=== PATIENT | female | born 1965 | race African-American/Black ===

== ENCOUNTER 2017-11-13 01:45 | Inpatient (IN) | payer MEDICAID ==
[~2017-11-13] VITALS: Ht 170.2 cm; Wt 108.9 kg
[2017-11-13] VITALS (13 sets, daily range): BP systolic 119–194; BP diastolic 61–121
[~2017-11-13 01:45] MED LIST: ASPIR 8181 MG ORAL; CATAPRES0.2 MG ORAL; NAPROSYN500 M1 ORAL; NORCO 5-325 TA1 EACH ORAL; NOVOLIN 70/305 UNIT1 SUBQ; PREDNISONE20 MG ORAL; PROAIR HFA8.5 GM INH; ZESTORETIC 20/251 EA ORAL
[2017-11-13] MEDS: Ipratropium 0.02% Inh Soln 2.5ml UD HHN SCH ×3 (02:22→02:36)
[2017-11-13] MEDS: Albuterol ud Inhalation HHN SCH ×3 (02:23→02:36)
--- NOTE | 2017-11-13 02:59 | Emergency Room Report ---
History of Present Illness General Chief Complaint: Dyspnea/Respdistress Source: Patient Present Illness HPI 51-year-old female presents ED for evaluation. States she's been feeling short of breath. Notes history of asthma. Worse today. Given breathing treatments by EMS with some improvement. Denies fevers or chills. Denies cough. No other aggravating relieving factors. Denies any other associated symptoms Allergies: Coded Allergies: FISH CONTAINING PRODUCTS (Unverified Allergy, Unknown, 11/02/13) IBUPROFEN (Unverified Allergy, Unknown, 11/02/13) PENICILLIN G (Unverified Allergy, Unknown, 11/02/13) PENICILLINS (Unverified Allergy, Unknown, 11/28/14) Patient History Past Medical History: DM, asthma Past Surgical History: none Pertinent Family History: none Social History: Denies: smoking, alcohol use, drug use Last Menstrual Period: NA Now: No Immunizations: UTD Reviewed Nursing Documentation: PMH: Agreed, PSxH: Agreed Nursing Documentation-PMH Hx Hypertension: Yes Hx Asthma: Yes Hx Diabetes: Yes Review of Systems All Other Systems: negative except mentioned in HPI Physical Exam Vital Signs Date Time Temp Pulse Resp B/P (MAP) Pulse Ox O2 Delivery O2 Flow Rate FiO2 11/13/17 01:52 98.1 98 18 139/67 99 Room Air 11/13/17 02:15 21 Sp02 EP Interpretation: reviewed, normal General Appearance: no apparent distress, alert, GCS 15, non-toxic, obese Head: normocephalic, atraumatic Eyes: bilateral eye normal inspection, bilateral eye PERRL ENT: hearing grossly normal, normal pharynx, no angioedema, normal voice Neck: full range of motion, supple/symm/no masses Respiratory: chest non-tender, speaking full sentences, wheezing Cardiovascular #1: regular rate, rhythm, no edema Cardiovascular #2: 2+ carotid (R), 2+ carotid (L), 2+ radial (R), 2+ radial (L) , 2+ dorsalis pedis (R), 2+ dorsalis pedis (L) Gastrointestinal: normal bowel sounds, non tender, soft, non-distended, no guarding, no rebound Rectal: deferred Genitourinary: normal inspection, no CVA tenderness Musculoskeletal: back normal, gait/station normal, normal range of motion, non- tender Neurologic: alert, oriented x3, responsive, motor strength/tone normal, sensory intact, speech normal Psychiatric: judgement/insight normal, memory normal, mood/affect normal, no suicidal/homicidal ideation Reflexes: 3+ bicep (R), 3+ bicep (L), 3+ tricep (R), 3+ tricep (L), 3+ knee (R) , 3+ knee (L) Skin: normal color, no rash, warm/dry, well hydrated Lymphatic: no adenopathy Medical Decision Making Diagnostic Impression: Primary Impression: Acute asthma exacerbation Qualified Codes: J45.901 - Unspecified asthma with (acute) exacerbation Additional Impression: Respiratory distress ER Course Hospital Course 51-year-old female presents ED complaining of shortness of breath, wheezing Differential diagnoses include: DC/unstable angina, contusion, muscle strain, PTX, rib fracture Clinical course Patient placed on stretcher. on rn cardiac. After initial history and physical I ordered nebulizer treatments, prednisone patient states she feels somewhat better, but remains SOB I ordered labs, EKG, chest x-ray labs reviewed- no leukocytosis, hemoglobin/hematocrit stable, creatinine elevated, troponins negative EKG - NSR, no acute ischemic changes interpreted by me Chest x-ray- pulmonary congestion antibiotics given. Case discussed with Dr. Kasper and he agreed to accept the patient to his service for further care and support I. I feel this is a highly complex case requiring extensive working including EKG/Rhythm strip, Xray/CT/US, Blood/urine lab work, repeat exams while in ED, and administration of strong opiates/narcotics for pain control, admission to hospital or close patient follow up. Diagnosis - asthma exacerbation, resp distress admitted to telemetry in serious condition Labs Test 11/13/17 03:30 White Blood Count 9.6 K/UL (4.8-10.8) Red Blood Count 4.13 M/UL (4.20-5.40) Hemoglobin 11.3 G/DL (12.0-16.0) Hematocrit 35.4 % (37.0-47.0) Mean Corpuscular Volume 86 FL (80-99) Mean Corpuscular Hemoglobin 27.3 PG (27.0-31.0) Mean Corpuscular Hemoglobin Concent 31.8 G/DL (32.0-36.0) Red Cell Distribution Width 13.7 % (11.6-14.8) Platelet Count 277 K/UL (150-450) Mean Platelet Volume 6.3 FL (6.5-10.1) Neutrophils (%) (Auto) 74.1 % (45.0-75.0) Lymphocytes (%) (Auto) 17.5 % (20.0-45.0) Monocytes (%) (Auto) 4.9 % (1.0-10.0) Eosinophils (%) (Auto) 2.3 % (0.0-3.0) Basophils (%) (Auto) 1.2 % (0.0-2.0) Sodium Level 137 MMOL/L (136-145) Potassium Level 4.3 MMOL/L (3.5-5.1) Chloride Level 101 MMOL/L (98-107) Carbon Dioxide Level 26 MMOL/L (21-32) Anion Gap 10 mmol/L (5-15) Blood Urea Nitrogen 20 mg/dL (7-18) Creatinine 1.0 MG/DL (0.55-1.30) Estimat Glomerular Filtration Rate > 60 mL/min (>60) Glucose Level 330 MG/DL (74-106) Lactic Acid Level 3.30 mmol/L (0.66-2.22) Calcium Level 9.9 MG/DL (8.5-10.1) Total Bilirubin < 0.1 MG/DL (0.2-1.0) Aspartate Amino Transf (AST/SGOT) 14 U/L (15-37) Alanine Aminotransferase (ALT/SGPT) 19 U/L (12-78) Alkaline Phosphatase 127 U/L (46-116) Total Creatine Kinase 82 U/L (26-308) Creatine Kinase MB 0.8 NG/ML (0.0-3.6) Creatine Kinase MB Relative Index 0.9 Troponin I 0.000 ng/mL (0.000-0.056) Pro-B-Type Natriuretic Peptide 179 pg/mL (0-125) Total Protein 7.0 G/DL (6.4-8.2) Albumin 3.0 G/DL (3.4-5.0) Globulin 4.0 g/dL Albumin/Globulin Ratio 0.8 (1.0-2.7) EKG Diagnostic Results Rate: normal Rhythm: NSR ST Segments: no acute changes ASA given to the pt in ED: No Rhythm Strip Diag. Results EP Interpretation: yes Rhythm: NSR, no PVC's, no ectopy Chest X-Ray Diagnostic Results Chest X-Ray Diagnostic Results : Chest X-Ray Ordered: Yes # of Views/Limited/Complete: 1 View Indication: Shortness of Breath EP Interpretation: Yes Interpretation: no pneumothorax, other - cardiomegaly. interstitial congestion Impression: Other - chf Electronically Signed by: Electronically signed by Austin Santos MD Last Vital Signs Date Time Temp Pulse Resp B/P (MAP) Pulse Ox O2 Delivery O2 Flow Rate FiO2 11/13/17 02:46 101 32 100 Room Air 21 11/13/17 01:52 98.1 139/67 Status: improved Disposition: ADMITTED INPATIENT Condition: Serious AUSTIN SANTOS M.D. Nov 13, 2017 02:59
[2017-11-13] MEDS ORDERED: Sodium Chloride 500ML 500 ML IV ONE (03:09)
[2017-11-13 03:49] LABS: BASOPHILS % (AUTO) 1.2 % (0.0-2.0); EOSINOPHILS % (AUTO) 2.3 % (0.0-3.0); HEMATOCRIT 35.4 % (37.0-47.0); HEMOGLOBIN 11.3 G/DL (12.0-16.0); LYMPHOCYTES % (AUTO) 17.5 % (20.0-45.0); MEAN CORPUSCULAR VOLUME 86 FL (80-99); MONOCYTES % (AUTO) 4.9 % (1.0-10.0); NEUTROPHILS % (AUTO) 74.1 % (45.0-75.0); PLATELET COUNT 277 K/UL (150-450); RED BLOOD COUNT 4.13 M/UL (4.20-5.40); RED CELL DISTRIBUTION WIDTH 13.7 % (11.6-14.8); WHITE BLOOD COUNT 9.6 K/UL (4.8-10.8)
[2017-11-13 03:54] LABS: ANION GAP 10 mmol/L (5-15); BLOOD UREA NITROGEN 20 mg/dL (7-18); CALCIUM 9.9 MG/DL (8.5-10.1); CARBON DIOXIDE 26 MMOL/L (21-32); CHLORIDE 101 MMOL/L (98-107); POTASSIUM 4.3 MMOL/L (3.5-5.1); SODIUM 137 MMOL/L (136-145)
[2017-11-13 04:08] LABS: ALANINE AMINOTRANSFERASE 19 U/L (12-78); ALBUMIN/GLOBULIN RATIO 0.8 (1.0-2.7); ALKALINE PHOSPHATASE 127 U/L (46-116); ASPARTATE AMINO TRANSFERASE 14 U/L (15-37); BILIRUBIN,TOTAL < 0.1 MG/DL (0.2-1.0); CKMB 0.8 NG/ML (0.0-3.6); CREATINE KINASE 82 U/L (26-308)
--- NOTE | 2017-11-13 10:55 | Cardiac Electrophysiology PN ---
Subjective Subjective Cardiology consult dictated [id number] Objective Last 24 Hour Vital Signs Date Time Temp Pulse Resp B/P (MAP) Pulse Ox O2 Delivery O2 Flow Rate FiO2 11/13/17 08:00 98.1 96 20 145/94 96 Nasal Cannula 2.0 11/13/17 08:00 98 11/13/17 06:38 97.5 97 20 153/82 99 Nasal Cannula 2.0 11/13/17 06:10 98 26 126/78 96 Room Air 11/13/17 05:15 98.0 95 21 122/65 98 Room Air 21 11/13/17 04:15 98.2 98 22 119/61 97 Room Air 21 11/13/17 03:15 98.1 90 32 131/69 100 Room Air 21 11/13/17 02:46 101 32 100 Room Air 21 11/13/17 02:35 36 11/13/17 02:35 98 27 100 Room Air 21 11/13/17 02:26 93 30 97 Room Air 21 11/13/17 02:21 36 11/13/17 02:21 87 28 97 Room Air 21 11/13/17 02:20 85 28 98 Room Air 21 11/13/17 02:15 98.1 89 31 132/67 95 Room Air 36 11/13/17 02:15 36 11/13/17 02:15 89 31 96 Room Air 21 11/13/17 02:01 98 18 Room Air 11/13/17 01:52 98.1 98 18 139/67 99 Room Air Intake and Output 11/12/17 11/13/17 19:00 07:00 Intake Total 500 ml Output Total 0 ml Balance 500 ml Intake IV Total 500 ml Output Urine Total 0 ml Laboratory Tests Test 11/13/17 03:30 11/13/17 05:15 White Blood Count 9.6 K/UL (4.8-10.8) Red Blood Count 4.13 M/UL (4.20-5.40) L Hemoglobin 11.3 G/DL (12.0-16.0) L Hematocrit 35.4 % (37.0-47.0) L Mean Corpuscular Volume 86 FL (80-99) Mean Corpuscular Hemoglobin 27.3 PG (27.0-31.0) Mean Corpuscular Hemoglobin Concent 31.8 G/DL (32.0-36.0) L Red Cell Distribution Width 13.7 % (11.6-14.8) Platelet Count 277 K/UL (150-450) Mean Platelet Volume 6.3 FL (6.5-10.1) L Neutrophils (%) (Auto) 74.1 % (45.0-75.0) Lymphocytes (%) (Auto) 17.5 % (20.0-45.0) L Monocytes (%) (Auto) 4.9 % (1.0-10.0) Eosinophils (%) (Auto) 2.3 % (0.0-3.0) Basophils (%) (Auto) 1.2 % (0.0-2.0) Sodium Level 137 MMOL/L (136-145) Potassium Level 4.3 MMOL/L (3.5-5.1) Chloride Level 101 MMOL/L (98-107) Carbon Dioxide Level 26 MMOL/L (21-32) Anion Gap 10 mmol/L (5-15) Blood Urea Nitrogen 20 mg/dL (7-18) H Creatinine 1.0 MG/DL (0.55-1.30) Estimat Glomerular Filtration Rate > 60 mL/min (>60) Glucose Level 330 MG/DL (74-106) H Lactic Acid Level 3.30 mmol/L (0.66-2.22) H 2.90 mmol/L (0.66-2.22) H Calcium Level 9.9 MG/DL (8.5-10.1) Total Bilirubin < 0.1 MG/DL (0.2-1.0) L Aspartate Amino Transf (AST/SGOT) 14 U/L (15-37) L Alanine Aminotransferase (ALT/SGPT) 19 U/L (12-78) Alkaline Phosphatase 127 U/L (46-116) H Total Creatine Kinase 82 U/L (26-308) Creatine Kinase MB 0.8 NG/ML (0.0-3.6) Creatine Kinase MB Relative Index 0.9 Troponin I 0.000 ng/mL (0.000-0.056) Pro-B-Type Natriuretic Peptide 179 pg/mL (0-125) H Total Protein 7.0 G/DL (6.4-8.2) Albumin 3.0 G/DL (3.4-5.0) L Globulin 4.0 g/dL Albumin/Globulin Ratio 0.8 (1.0-2.7) GERRY BOOTHE Nov 13, 2017 10:55
--- NOTE | 2017-11-13 12:22 | Diagnostic Imaging Report ---
Indication: Shortness of breath Technique: One view of the chest Comparison: 11/02/2013 Findings: Body habitus limits evaluation. The heart is upper limits normal in size. There is equivocal mild interstitial congestion, not evident previously Impression: Equivocal mild interstitial congestion correlate with clinical findings
[2017-11-13] MEDS: Albuterol/Ipratropium 3ml neb HHN PRN ×2 (12:54→19:54)
[2017-11-13] MEDS: Solu-MEDROL 40mg Inj IVP SCH ×2 (13:43→22:00)
[2017-11-13] MEDS: HYDROmorphone 1mg/ml Carpuject IVP PRN ×3 (13:44→22:42)
[2017-11-13] MEDS: Lisinopril 10mg tab ORAL SCH ×2 (13:44→21:18)
--- NOTE | 2017-11-13 14:09 | Infectious Diseases Prog Note ---
Assessment/Plan Problems: (1) Community acquired pneumonia Assessment & Plan: will send sputum culture and screen for influenza , start levaquin and tamiflu empiric coverage, place in droplets isolation (2) Acute asthma exacerbation Assessment & Plan: due to the above , continue nebulizers, taper steroids (3) Respiratory distress Assessment & Plan: due to the above, monitor CXR, pulmonary is consulted (4) Diabetes Assessment & Plan: recommend tight glycemic control to keep blood glucose between 100-140 Subjective Allergies: Coded Allergies: FISH CONTAINING PRODUCTS (Unverified Allergy, Unknown, 11/02/13) IBUPROFEN (Unverified Allergy, Unknown, 11/02/13) PENICILLIN G (Unverified Allergy, Unknown, 11/02/13) PENICILLINS (Unverified Allergy, Unknown, 11/28/14) Objective Vital Signs Last 24 Hour Vital Signs Date Time Temp Pulse Resp B/P (MAP) Pulse Ox O2 Delivery O2 Flow Rate FiO2 11/13/17 13:50 98.1 102 20 188/102 98 Nasal Cannula 2.0 11/13/17 13:44 188/102 11/13/17 13:08 96 23 100 Room Air 11/13/17 12:56 96 22 100 Room Air 11/13/17 08:00 98.1 96 20 145/94 96 Nasal Cannula 2.0 11/13/17 08:00 98 11/13/17 06:38 97.5 97 20 153/82 99 Nasal Cannula 2.0 11/13/17 06:10 98 26 126/78 96 Room Air 11/13/17 05:15 98.0 95 21 122/65 98 Room Air 21 11/13/17 04:15 98.2 98 22 119/61 97 Room Air 21 11/13/17 03:15 98.1 90 32 131/69 100 Room Air 21 11/13/17 02:46 101 32 100 Room Air 21 11/13/17 02:35 36 11/13/17 02:35 98 27 100 Room Air 21 11/13/17 02:26 93 30 97 Room Air 21 11/13/17 02:21 36 11/13/17 02:21 87 28 97 Room Air 21 11/13/17 02:20 85 28 98 Room Air 21 11/13/17 02:15 98.1 89 31 132/67 95 Room Air 36 11/13/17 02:15 36 11/13/17 02:15 89 31 96 Room Air 21 11/13/17 02:01 98 18 Room Air 11/13/17 01:52 98.1 98 18 139/67 99 Room Air Height (Feet): 5 Height (Inches): 7.00 Weight (Pounds): 240 Laboratory Tests Test 11/13/17 03:30 11/13/17 05:15 White Blood Count 9.6 K/UL (4.8-10.8) Red Blood Count 4.13 M/UL (4.20-5.40) L Hemoglobin 11.3 G/DL (12.0-16.0) L Hematocrit 35.4 % (37.0-47.0) L Mean Corpuscular Volume 86 FL (80-99) Mean Corpuscular Hemoglobin 27.3 PG (27.0-31.0) Mean Corpuscular Hemoglobin Concent 31.8 G/DL (32.0-36.0) L Red Cell Distribution Width 13.7 % (11.6-14.8) Platelet Count 277 K/UL (150-450) Mean Platelet Volume 6.3 FL (6.5-10.1) L Neutrophils (%) (Auto) 74.1 % (45.0-75.0) Lymphocytes (%) (Auto) 17.5 % (20.0-45.0) L Monocytes (%) (Auto) 4.9 % (1.0-10.0) Eosinophils (%) (Auto) 2.3 % (0.0-3.0) Basophils (%) (Auto) 1.2 % (0.0-2.0) Sodium Level 137 MMOL/L (136-145) Potassium Level 4.3 MMOL/L (3.5-5.1) Chloride Level 101 MMOL/L (98-107) Carbon Dioxide Level 26 MMOL/L (21-32) Anion Gap 10 mmol/L (5-15) Blood Urea Nitrogen 20 mg/dL (7-18) H Creatinine 1.0 MG/DL (0.55-1.30) Estimat Glomerular Filtration Rate > 60 mL/min (>60) Glucose Level 330 MG/DL (74-106) H Lactic Acid Level 3.30 mmol/L (0.66-2.22) H 2.90 mmol/L (0.66-2.22) H Calcium Level 9.9 MG/DL (8.5-10.1) Total Bilirubin < 0.1 MG/DL (0.2-1.0) L Aspartate Amino Transf (AST/SGOT) 14 U/L (15-37) L Alanine Aminotransferase (ALT/SGPT) 19 U/L (12-78) Alkaline Phosphatase 127 U/L (46-116) H Total Creatine Kinase 82 U/L (26-308) Creatine Kinase MB 0.8 NG/ML (0.0-3.6) Creatine Kinase MB Relative Index 0.9 Troponin I 0.000 ng/mL (0.000-0.056) Pro-B-Type Natriuretic Peptide 179 pg/mL (0-125) H Total Protein 7.0 G/DL (6.4-8.2) Albumin 3.0 G/DL (3.4-5.0) L Globulin 4.0 g/dL Albumin/Globulin Ratio 0.8 (1.0-2.7) L Current Medications Medications (Trade) Dose Ordered Sig/Pantera Route PRN Reason Start Time Stop Time Status Last Admin Dose Admin Acetaminophen (Tylenol) 650 mg Q4H PRN ORAL Mild Pain (Pain Scale 1-3) 11/13/17 12:45 12/13/17 12:44 Albuterol/ Ipratropium (Albuterol/ Ipratropium) 3 ml Q4H PRN HHN Shortness of Breath 11/13/17 12:45 11/18/17 12:44 11/13/17 12:54 Dextrose (Dextrose 50%) STAT PRN IV Hypoglycemia 11/13/17 12:45 12/13/17 12:44 Furosemide (Lasix) 40 mg EVERY 12 HOURS IV 11/13/17 21:00 12/13/17 20:59 Heparin Sodium (Porcine) (Heparin 5000 units/ml) 5,000 units EVERY 12 HOURS SUBQ 11/13/17 21:00 12/13/17 20:59 Hydromorphone HCl (Dilaudid) 1 mg Q4H PRN IVP pain (4-10) 11/13/17 13:45 11/20/17 13:44 11/13/17 13:44 Insulin Aspart (NovoLOG) BEFORE MEALS AND HS SUBQ 11/13/17 16:30 12/13/17 16:29 Lisinopril (Zestril) 10 mg EVERY 12 HOURS ORAL 11/13/17 13:15 12/13/17 13:14 11/13/17 13:44 Methylprednisolone Sodium Succinate (Solu-MEDROL) 40 mg EVERY 8 HOURS IVP 11/13/17 14:00 12/13/17 13:59 11/13/17 13:43 Ondansetron HCl (Zofran) 4 mg Q6H PRN IVP Nausea & Vomiting 11/13/17 12:45 12/13/17 12:44 Rodrigo Elizabeth M.D. Nov 13, 2017 14:09
--- NOTE | 2017-11-13 14:34 | Cardiology Report ---
APPROVED REPORT EXAM: Two-dimensional and M-mode echocardiogram with Doppler and color Doppler. INDICATION Congestive Heart Failure M-Mode DIMENSIONS IVSd1.2 (0.7-1.1cm)Left Atrium (MM)3.6 (1.6-4.0cm) LVDd4.0 (3.5-5.6cm)Aortic Root3.8 (2.0-3.7cm) PWd1.0 (0.7-1.1cm)Aortic Cusp Exc.2.0 (1.5-2.0cm) LVDs2.5 (2.5-4.0cm) PWs1.7 cm Normal left ventricular chamber size, systolic function and wall motion. Left ventricular ejection fraction estimated to be 60-65 %. Mild left ventricular hypertrophy. Anterior Echo-free space, may be due to pericardial fat or effusion. All other cardiac chamber sizes are within normal limits. Mild focal aortic valve sclerosis with adequate cusp excursion. Mildly thickened mitral valve leaflets with normal excursion. Mild mitral annulus and aortic root calcification. Normal pulmonic valve structure. Normal tricuspid valve structure. IVC dilated at 2.1 cm with physiological collapse. A color flow and spectral Doppler study was performed and revealed: No aortic insufficiency. No mitral regurgitation. Mitral diastolic velocities suggest mild left ventricular diastolic dysfunction (Grade I). Trace tricuspid regurgitation. Tricuspid systolic velocities suggests peak right ventricular systolic pressure of 20 mmHg. No pulmonic regurgitation present.
[2017-11-13] MEDS: Oseltamivir 75mg cap ORAL SCH (16:20)
[2017-11-13] MEDS: NovoLOG Insulin Flexpen SUBQ SCH ×2 (16:21→22:50)
--- NOTE | 2017-11-13 17:00 | Consultation ---
DATE OF CONSULTATION: 11/13/2017 CARDIOLOGY CONSULTATION CONSULTING PHYSICIAN: Jamey Ibrahim M.D. REFERRING PHYSICIAN: Nelson Abdullahi M.D. REASON FOR CONSULTATION: Shortness of breath and possible congestive heart failure. HISTORY OF PRESENT ILLNESS: The patient is a 51-year-old lady with history of diabetes, asthma, and congestive heart failure per the patient that was diagnosed at [facility] about a year ago. The patient denies prior cardiac catheterization. The patient presented to the emergency room for increasing shortness of breath. The patient has history of asthma and diabetes, and is feeling worse today. The patient received breathing treatment primarily with some improvement. The patient was admitted and a Cardiology consultation was obtained for further evaluation and management. PAST MEDICAL HISTORY: 1. Hypertension. 2. Diabetes. 3. Asthma. 4. Congestive heart failure. FAMILY HISTORY: Noncontributory. SOCIAL HISTORY: Denies smoking or drinking alcohol. REVIEW OF SYSTEMS: Review of systems was negative other than what was mentioned in the history of present illness. PHYSICAL EXAMINATION: VITAL SIGNS: Blood pressure is 145/94, pulse 96, respirations 20, and temperature 98.1 degrees. HEAD AND NECK: Shows no JVD. LUNGS: Decreased breath sounds with diffuse wheezing. CARDIOVASCULAR: Regular S1 and S2. Mildly tachycardic. ABDOMEN: Soft. EXTREMITIES: A 2+ pitting edema. LABORATORY AND DIAGNOSTIC DATA: Labs show white count of 9.0, hemoglobin 11.4, hematocrit 35.4, and platelet count of 277. Sodium 137, potassium 4.2, BUN of 20, and creatinine of 1. Lactic acid is 3.3. Her troponin is negative and BNP is 179. ASSESSMENT AND PLAN: 1. Shortness of breath. 2. Bilateral lower extremity edema. 3. Elevated brain natriuretic peptide, likely congestive heart failure. We will get an echocardiogram to evaluate for ejection fraction and wall motion abnormality. We will start the patient on Lasix 40 mg IV b.i.d. 4. Hypertension, start the patient on Lasix and lisinopril in view of patient's diabetes. 5. Diabetes. 6. Asthma. 7. Obesity. Thank you very much, Dr. Abdullahi, for allowing me to participate in the care of this patient. Please do not hesitate to contact me for any questions regarding my evaluation. Jamey Ibrahim M.D. DR: YESSY JOB#: [id number] CC:
--- NOTE | 2017-11-13 17:09 | Cardiology Report ---
APPROVED REPORT EKG Measurement Heart [id number] Normal sinus rhythm Prolonged QT Abnormal ECG
--- NOTE | 2017-11-13 17:57 | Nephrology Progress Note ---
Assessment/Plan Problem List: (1) D-dimer, elevated (2) Anxiety disorder (3) HTN (hypertension) (4) CHF (congestive heart failure) (5) Obesity (6) acute exacerbation of chronic pain (7) Active asthma (8) Shortness of breath (9) Diabetes Plan H&P dictated Subjective Constitutional: Denies: no symptoms, chills, diaphoresis, fever, malaise, weakness, other HEENT: Denies: no symptoms, eye pain, blurred vision, tearing, double vision, ear pain, ear discharge, nose pain, nose congestion, throat pain, throat swelling, mouth pain, mouth swelling, other Genitourinary: Reports: no symptoms, Denies: burning, discharge, frequency, flank pain, hematuria, incontinence, pain, urgency, other Neurologic/Psychiatric: Reports: anxiety, depressed, emotional problems Objective Objective Last 24 Hour Vital Signs Date Time Temp Pulse Resp B/P (MAP) Pulse Ox O2 Delivery O2 Flow Rate FiO2 11/13/17 16:00 97.9 89 20 155/95 97 Nasal Cannula 2.0 11/13/17 14:51 103 176/104 11/13/17 14:14 98.1 11/13/17 13:50 98.1 102 20 188/102 98 Nasal Cannula 2.0 11/13/17 13:44 188/102 11/13/17 13:08 96 23 100 Room Air 11/13/17 12:56 96 22 100 Room Air 11/13/17 12:00 103 11/13/17 12:00 98.1 102 20 188/102 98 Nasal Cannula 2.0 11/13/17 08:00 98.1 96 20 145/94 96 Nasal Cannula 2.0 11/13/17 08:00 98 11/13/17 06:38 97.5 97 20 153/82 99 Nasal Cannula 2.0 11/13/17 06:10 98 26 126/78 96 Room Air 11/13/17 05:15 98.0 95 21 122/65 98 Room Air 21 11/13/17 04:15 98.2 98 22 119/61 97 Room Air 21 11/13/17 03:15 98.1 90 32 131/69 100 Room Air 21 11/13/17 02:46 101 32 100 Room Air 21 11/13/17 02:35 36 11/13/17 02:35 98 27 100 Room Air 21 11/13/17 02:26 93 30 97 Room Air 21 11/13/17 02:21 36 11/13/17 02:21 87 28 97 Room Air 21 11/13/17 02:20 85 28 98 Room Air 21 11/13/17 02:15 98.1 89 31 132/67 95 Room Air 36 11/13/17 02:15 36 11/13/17 02:15 89 31 96 Room Air 21 11/13/17 02:01 98 18 Room Air 11/13/17 01:52 98.1 98 18 139/67 99 Room Air Intake and Output 11/12/17 11/13/17 19:00 07:00 Intake Total 500 ml Output Total 0 ml Balance 500 ml IV Total 500 ml Output Urine Total 0 ml Laboratory Tests 11/13/17 03:30: White Blood Count 9.6, Red Blood Count 4.13L, Hemoglobin 11.3L, Hematocrit 35.4L , Mean Corpuscular Volume 86, Mean Corpuscular Hemoglobin 27.3, Mean Corpuscular Hemoglobin Concent 31.8L, Red Cell Distribution Width 13.7, Platelet Count 277, Mean Platelet Volume 6.3L, Neutrophils (%) (Auto) 74.1, Lymphocytes (%) (Auto) 17.5L, Monocytes (%) (Auto) 4.9, Eosinophils (%) (Auto) 2.3, Basophils (%) (Auto) 1.2, Sodium Level 137, Potassium Level 4.3, Chloride Level 101, Carbon Dioxide Level 26, Anion Gap 10, Blood Urea Nitrogen 20H, Creatinine 1.0, Estimat Glomerular Filtration Rate > 60, Glucose Level 330H, Lactic Acid Level 3.30H, Calcium Level 9.9, Total Bilirubin < 0.1L, Aspartate Amino Transf (AST/SGOT) 14L, Alanine Aminotransferase (ALT/SGPT) 19, Alkaline Phosphatase 127H, Total Creatine Kinase 82, Creatine Kinase MB 0.8, Creatine Kinase MB Relative Index 0.9, Troponin I 0.000, Pro-B-Type Natriuretic Peptide 179H, Total Protein 7.0, Albumin 3.0L, Globulin 4.0, Albumin/Globulin Ratio 0.8L 11/13/17 05:15: Lactic Acid Level 2.90H 11/13/17 15:20: D-Dimer 0.52H Height (Feet): 5 Height (Inches): 7.00 Weight (Pounds): 240 General Appearance: no apparent distress, alert EENT: normal ENT inspection Neck: normal alignment, supple Cardiovascular: normal rate, regular rhythm, no JVD Respiratory/Chest: normal breath sounds, no respiratory distress Abdomen: soft, no organomegaly Extremities: non-tender, moderate edema Neurologic: alert, oriented x 3, responsive, normal mood/affect Divya Nelson N.P. Nov 13, 2017 17:57
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
[2017-11-13] MEDS: LORazepam 1mg tab ORAL PRN (21:18)
[2017-11-13] MEDS: Heparin 5000 units/ml inj SUBQ SCH (21:20)
--- NOTE | 2017-11-13 21:31 | Consultation ---
DATE OF CONSULTATION: 11/13/2017 INFECTIOUS DISEASE CONSULTATION REQUESTING PHYSICIAN: Nelson Abdullahi M.D. REASON FOR CONSULTATION: Pneumonia, asthma exacerbation, recommendation for antibiotics treatment and further evaluation. HISTORY OF PRESENT ILLNESS: The patient is a 51-year-old female with past medical history of asthma, diabetes and hypertension, presented to the emergency room at [facility] with worsening shortness of breath and cough, productive. It started two days ago after she had some workers at home fixing ventilators and one of them was coughing and sneezing. The patient got sick after that. She started coughing and having shortness of breath. Her shortness of breath was progressive to the point that she almost passed out when she was going to the bathroom. Cough has been productive so far of yellowish phlegm. She had low-grade fever, but no chills. In the emergency room, the patient had a chest x-ray, which showed interstitial edema suspicious for pneumonia. So, she received Levaquin and Infectious Disease consultation was requested for further evaluation and management. PAST MEDICAL HISTORY: Significant for hypertension, asthma, and diabetes. PAST SURGICAL HISTORY: Negative. Nothing on the chart. MEDICATIONS: She received Levaquin in the emergency room. For the rest of her medications, please refer to MAR. ALLERGIES: She is allergic to penicillin, ibuprofen and fish containing products. SOCIAL HISTORY: The patient lives at home alone. She used to smoke, but quit recently one packet per day for many years and denies using any drugs or alcohol. FAMILY HISTORY: Negative for recurrent infection or immunocompromised condition. REVIEW OF SYSTEMS: A 14-point of system reviewed were all negative apart from the one I mentioned above in my History and Physical. PHYSICAL EXAMINATION: GENERAL: A middle-aged female, morbidly obese, up in bed, awake, alert, coughing, not in acute distress. VITAL SIGNS: Temperature 98.1 degrees, pulse 102, respirations 20, blood pressure 188/102 and pulse oximetry 98% on 2 liters nasal cannula. HEENT: Normocephalic and atraumatic. Pupils reactive to light equally. Moist oral mucosa. No exudate or thrush. No ulceration. NECK: Supple. No lymphadenopathy. No JVD. CARDIOVASCULAR: Regular rate and rhythm. No murmur. No gallop. LUNGS: She had crackles and wheezing at the upper lobes. Diminished breathing sounds at the bases. Normal breathing effort. ABDOMEN: Soft, morbidly obese, nontender, and nondistended. Normal bowel sounds. No hepatosplenomegaly. EXTREMITY: No edema or cyanosis. SKIN: No rash. No hives. No ulceration. LABORATORY AND DIAGNOSTIC DATA: White count of 9.6, hemoglobin of 11.3 and platelet count 277. BUN of 20 and creatinine of 1. Lactic acid of 3.3. AST of 14 and ALT of 19. Imaging, chest x-ray showed good local mild interstitial congestion. ASSESSMENT AND RECOMMENDATION: 1. Community-acquired pneumonia with cough and shortness of breath. We will send sputum culture and screen for influenza. We will start Levaquin and Tamiflu empiric coverage and placed in droplet isolation. 2. Acute asthma exacerbation due to the above. Continue nebulizers and taper steroid. 3. Respiratory distress due to the above. Monitor chest x-ray. Pulmonary is consulted. 4. Diabetes. Recommend tight glycemic control to keep blood glucose between 100 to 140. Thank you for the consult. ID will continue to follow. Rodrigo Elizabeth M.D. DR: DANE JOB#: [id number] CC:
[2017-11-14] VITALS (7 sets, daily range): BP systolic 153–195; BP diastolic 86–109
[2017-11-14] MEDS: LORazepam 1mg tab ORAL PRN ×3 (03:12→18:58)
[2017-11-14] MEDS: HYDROmorphone 1mg/ml Carpuject IVP PRN ×4 (03:12→20:32)
[2017-11-14] MEDS: Albuterol/Ipratropium 3ml neb HHN PRN ×2 (03:21→08:16)
[2017-11-14] MEDS: Solu-MEDROL 40mg Inj IVP SCH ×3 (06:00→22:14)
[2017-11-14] MEDS: NovoLOG Insulin Flexpen SUBQ SCH ×4 (06:30→22:14)
[2017-11-14 07:51] LABS: HEMATOCRIT 35.8 % (37.0-47.0); MEAN CORPUSCULAR VOLUME 86 FL (80-99); PLATELET COUNT 302 K/UL (150-450); RED BLOOD COUNT 4.14 M/UL (4.20-5.40); RED CELL DISTRIBUTION WIDTH 13.8 % (11.6-14.8); WHITE BLOOD COUNT 9.9 K/UL (4.8-10.8)
[2017-11-14 08:21] LABS: ANION GAP 7 mmol/L (5-15); BLOOD UREA NITROGEN 24 mg/dL (7-18); CALCIUM 10.1 MG/DL (8.5-10.1); CARBON DIOXIDE 29 MMOL/L (21-32); CHLORIDE 99 MMOL/L (98-107); CREATININE 1.3 MG/DL (0.55-1.30); POTASSIUM 4.2 MMOL/L (3.5-5.1); SODIUM 135 MMOL/L (136-145)
[2017-11-14] MEDS: Lisinopril 10mg tab ORAL SCH ×2 (08:42→20:57)
[2017-11-14] MEDS: Oseltamivir 75mg cap ORAL SCH (08:42)
[2017-11-14] MEDS: Heparin 5000 units/ml inj SUBQ SCH ×2 (08:43→22:12)
--- NOTE | 2017-11-14 10:13 | Consultation ---
Consult Note Consult Note DATE OF CONSULTATION: 11/14/2017 PULMONOLOGY CONSULTATION CONSULTING PHYSICIAN: STEVAN ESQUIVEL M.D. REFERRING PHYSICIAN: Nelson Abdullahi M.D. REASON FOR CONSULTATION: Shortness of breath and possible asthma. HISTORY OF PRESENT ILLNESS: The patient is a 51-year-old lady with history of diabetes, asthma, and congestive heart failure per the patient that was diagnosed at [facility] about a year ago. The patient presented to the emergency room for increasing shortness of breath. The patient has history of asthma and diabetes, and is feeling worse today. The patient received breathing treatment primarily with some improvement. PAST MEDICAL HISTORY: 1. Hypertension. 2. Diabetes. 3. Asthma. 4. Congestive heart failure. FAMILY HISTORY: Noncontributory. SOCIAL HISTORY: Admits to tobacco smoking/ questionable marijuana REVIEW OF SYSTEMS: Review of systems was negative other than what was mentioned in the history of present illness. PHYSICAL EXAMINATION: VITAL SIGNS: Blood pressure is 145/94, pulse 96, respirations 20, and temperature 98.1 degrees. HEAD AND NECK: Shows no JVD. LUNGS: Decreased breath sounds with diffuse wheezing. CARDIOVASCULAR: Regular S1 and S2. Mildly tachycardic. ABDOMEN: Soft. EXTREMITIES: A 2+ pitting edema. LABORATORY AND DIAGNOSTIC DATA: Labs show white count of 9.0, hemoglobin 11.4, hematocrit 35.4, and platelet count of 277. Sodium 137, potassium 4.2, BUN of 20, and creatinine of 1. Lactic acid is 3.3. Her troponin is negative and BNP is 179. ASSESSMENT AND PLAN: 1. Shortness of breath. CXR looks clear to me 2. Bilateral lower extremity edema. 3. Elevated brain natriuretic peptide, Has normal LVEF on ECHO. On Lasix 40 mg IV b.i.d. 4. Hypertension 5. Diabetes. 6. Asthma. Continue O2; pulm hygiene 7. Obesity. Thank you very much, Dr. Abdullahi, for allowing me to participate in the care of this patient. Please do not hesitate to contact me for any questions regarding my evaluation. Stevan Esquivel M.D. Stevan Esquivel MDb 8, 2018 10:13
--- NOTE | 2017-11-14 10:21 | Cardiac Electrophysiology PN ---
Assessment/Plan Assessment/Plan 1. Shortness of breath. Echo Nl EF 60%. On Lasix 40 iv bid 2. Bilateral lower extremity edema. 3. Elevated brain natriuretic peptide, likely congestive heart failure.Ech o EF 60. Lasix 40 mg IV b.i.d. 4. Hypertension,On Lasix and lisinopril increase to 10 bid 5. Diabetes. 6. Asthma. 7. Obesity. DW Dr Hill and RN Subjective Subjective Still coughing. BP was very high yesterday. No chest pain. Objective Last 24 Hour Vital Signs Date Time Temp Pulse Resp B/P (MAP) Pulse Ox O2 Delivery O2 Flow Rate FiO2 11/14/17 08:42 164/103 11/14/17 08:23 103 20 99 Nasal Cannula 2.0 28 11/14/17 08:17 21 11/14/17 08:17 102 20 98 Nasal Cannula 21 11/14/17 04:00 89 11/14/17 03:51 108 155/86 11/14/17 03:34 97 20 97 Nasal Cannula 2.0 28 11/14/17 03:19 21 11/14/17 03:19 97 20 97 Nasal Cannula 21 11/14/17 02:43 97 195/98 11/14/17 02:19 187/121 11/14/17 00:00 86 11/13/17 23:47 92 187/121 11/13/17 22:53 194/108 11/13/17 21:18 192/106 11/13/17 20:00 94 11/13/17 20:00 105 192/106 11/13/17 19:54 28 11/13/17 19:52 98 20 97 Nasal Cannula 2.0 28 11/13/17 18:30 97.9 11/13/17 18:00 98 11/13/17 16:00 97.9 89 20 155/95 97 Nasal Cannula 2.0 11/13/17 14:51 103 176/104 11/13/17 13:50 98.1 102 20 188/102 98 Nasal Cannula 2.0 11/13/17 13:44 188/102 11/13/17 13:08 96 23 100 Room Air 11/13/17 12:56 96 22 100 Room Air 11/13/17 12:00 103 11/13/17 12:00 98.1 102 20 188/102 98 Nasal Cannula 2.0 Intake and Output 11/13/17 11/14/17 19:00 07:00 Intake Total 795 ml Balance 795 ml Intake Oral 720 ml IV Total 75 ml # Voids 3 2 Laboratory Tests Test 11/13/17 15:20 11/14/17 06:54 D-Dimer 0.52 mg/L FEU (0.00-0.49) H White Blood Count 9.9 K/UL (4.8-10.8) Red Blood Count 4.14 M/UL (4.20-5.40) L Hemoglobin 12.0 G/DL (12.0-16.0) Hematocrit 35.8 % (37.0-47.0) L Mean Corpuscular Volume 86 FL (80-99) Mean Corpuscular Hemoglobin 28.9 PG (27.0-31.0) Mean Corpuscular Hemoglobin Concent 33.5 G/DL (32.0-36.0) Red Cell Distribution Width 13.8 % (11.6-14.8) Platelet Count 302 K/UL (150-450) Mean Platelet Volume 6.6 FL (6.5-10.1) Neutrophils (%) (Auto) % (45.0-75.0) Lymphocytes (%) (Auto) % (20.0-45.0) Monocytes (%) (Auto) % (1.0-10.0) Eosinophils (%) (Auto) % (0.0-3.0) Basophils (%) (Auto) % (0.0-2.0) Differential Total Cells Counted 100 Neutrophils % (Manual) 86 % (45-75) H Lymphocytes % (Manual) 10 % (20-45) L Monocytes % (Manual) 1 % (1-10) Eosinophils % (Manual) 0 % (0-3) Basophils % (Manual) 0 % (0-2) Band Neutrophils 3 % (0-8) Platelet Estimate Adequate Platelet Morphology Normal Red Blood Cell Morphology Normal Sodium Level 135 MMOL/L (136-145) L Potassium Level 4.2 MMOL/L (3.5-5.1) Chloride Level 99 MMOL/L (98-107) Carbon Dioxide Level 29 MMOL/L (21-32) Anion Gap 7 mmol/L (5-15) Blood Urea Nitrogen 24 mg/dL (7-18) H Creatinine 1.3 MG/DL (0.55-1.30) Estimat Glomerular Filtration Rate 52.8 mL/min (>60) Glucose Level 434 MG/DL (74-106) #H Calcium Level 10.1 MG/DL (8.5-10.1) Troponin I 0.000 ng/mL (0.000-0.056) Pro-B-Type Natriuretic Peptide 529 pg/mL (0-125) H Thyroid Stimulating Hormone (TSH) 0.336 uiU/mL (0.358-3.740) Free Thyroxine 0.86 NG/DL (0.76-1.46) Microbiology Date/Time Source Procedure Growth Status 11/13/17 03:30 Blood Blood Culture - Preliminary NO GROWTH AFTER 24 HOURS Resulted 11/13/17 03:15 Blood Blood Culture - Preliminary NO GROWTH AFTER 24 HOURS Resulted 11/13/17 15:30 Nasopharynx Influenza Types A,B Antigen (BRUCE) - Final Complete Objective HEAD AND NECK: Shows no JVD. LUNGS: Decreased breath sounds with diffuse wheezing. CARDIOVASCULAR: Regular S1 and S2. Mildly tachycardic. ABDOMEN: Soft. EXTREMITIES: A 2+ pitting edema. GERRY CHILDESR Nov 14, 2017 10:21
--- NOTE | 2017-11-14 16:35 | Infectious Diseases Prog Note ---
Assessment/Plan Problems: (1) Community acquired pneumonia Assessment & Plan: await sputum culture, screening for influenza is negative , continue levaquin and stop tamiflu empiric coverage, may remove from droplets isolation (2) Acute asthma exacerbation Assessment & Plan: due to the above , continue nebulizers, taper steroids (3) Respiratory distress Assessment & Plan: due to the above, monitor CXR, pulmonary is consulted (4) Diabetes Assessment & Plan: recommend tight glycemic control to keep blood glucose between 100-140 Subjective Constitutional: Reports: no symptoms HEENT: Reports: congestion Respiratory: Reports: shortness of breath, productive cough Breasts: Reports: no symptoms Cardiovascular: Reports: no symptoms Gastrointestinal/Abdominal: Reports: no symptoms Genitourinary: Reports: no symptoms Neurologic: Reports: no symptoms Psychiatric: Reports: no symptoms Skin: Reports: no symptoms Endocrine: Reports: no symptoms Hematologic: Reports: no symptoms Musculoskeletal: Reports: no symptoms Allergies: Coded Allergies: FISH CONTAINING PRODUCTS (Unverified Allergy, Unknown, 11/02/13) IBUPROFEN (Unverified Allergy, Unknown, 11/02/13) PENICILLIN G (Unverified Allergy, Unknown, 11/02/13) PENICILLINS (Unverified Allergy, Unknown, 11/28/14) Objective Vital Signs Last 24 Hour Vital Signs Date Time Temp Pulse Resp B/P (MAP) Pulse Ox O2 Delivery O2 Flow Rate FiO2 11/14/17 12:00 96.1 85 18 153/107 95 Room Air 11/14/17 12:00 93 11/14/17 10:36 96.8 94 22 164/103 99 Room Air 11/14/17 08:42 164/103 11/14/17 08:23 103 20 99 Nasal Cannula 2.0 28 11/14/17 08:17 21 11/14/17 08:17 102 20 98 Nasal Cannula 21 11/14/17 08:00 92 11/14/17 08:00 96.8 94 22 164/103 99 Room Air 11/14/17 04:00 89 11/14/17 03:51 108 155/86 11/14/17 03:34 97 20 97 Nasal Cannula 2.0 28 11/14/17 03:19 21 11/14/17 03:19 97 20 97 Nasal Cannula 21 11/14/17 02:43 97 195/98 11/14/17 02:19 187/121 11/14/17 00:00 86 11/13/17 23:47 92 187/121 11/13/17 22:53 194/108 11/13/17 21:18 192/106 11/13/17 20:00 94 11/13/17 20:00 105 192/106 11/13/17 19:54 28 11/13/17 19:52 98 20 97 Nasal Cannula 2.0 28 11/13/17 18:30 97.9 11/13/17 18:00 98 Height (Feet): 5 Height (Inches): 7.00 Weight (Pounds): 240 General Appearance: WD/WN, no acute distress HEENT: normocephalic, atraumatic, anicteric, mucous membranes moist, PERRL Respiratory/Chest: chest wall non-tender, no respiratory distress, no accessory muscle use, decreased breath sounds, expiratory wheezing Cardiovascular: normal peripheral pulses, normal rate, regular rhythm, no gallop/murmur, no JVD Abdomen: normal bowel sounds, soft, non tender, no organomegaly, non distended , no mass, no scars Extremities: no cyanosis, no clubbing Skin: no rash, no lesions, no ulcers Neurologic/Psychiatric: abnormal gait, oriented x 3, responsive Microbiology Date/Time Source Procedure Growth Status 11/13/17 03:30 Blood Blood Culture - Preliminary NO GROWTH AFTER 24 HOURS Resulted 11/13/17 03:15 Blood Blood Culture - Preliminary NO GROWTH AFTER 24 HOURS Resulted 11/13/17 15:30 Nasopharynx Influenza Types A,B Antigen (BRUCE) - Final Complete Laboratory Tests Test 11/14/17 06:54 11/14/17 12:00 White Blood Count 9.9 K/UL (4.8-10.8) Red Blood Count 4.14 M/UL (4.20-5.40) L Hemoglobin 12.0 G/DL (12.0-16.0) Hematocrit 35.8 % (37.0-47.0) L Mean Corpuscular Volume 86 FL (80-99) Mean Corpuscular Hemoglobin 28.9 PG (27.0-31.0) Mean Corpuscular Hemoglobin Concent 33.5 G/DL (32.0-36.0) Red Cell Distribution Width 13.8 % (11.6-14.8) Platelet Count 302 K/UL (150-450) Mean Platelet Volume 6.6 FL (6.5-10.1) Neutrophils (%) (Auto) % (45.0-75.0) Lymphocytes (%) (Auto) % (20.0-45.0) Monocytes (%) (Auto) % (1.0-10.0) Eosinophils (%) (Auto) % (0.0-3.0) Basophils (%) (Auto) % (0.0-2.0) Differential Total Cells Counted 100 Neutrophils % (Manual) 86 % (45-75) H Lymphocytes % (Manual) 10 % (20-45) L Monocytes % (Manual) 1 % (1-10) Eosinophils % (Manual) 0 % (0-3) Basophils % (Manual) 0 % (0-2) Band Neutrophils 3 % (0-8) Platelet Estimate Adequate Platelet Morphology Normal Red Blood Cell Morphology Normal Sodium Level 135 MMOL/L (136-145) L Potassium Level 4.2 MMOL/L (3.5-5.1) Chloride Level 99 MMOL/L (98-107) Carbon Dioxide Level 29 MMOL/L (21-32) Anion Gap 7 mmol/L (5-15) Blood Urea Nitrogen 24 mg/dL (7-18) H Creatinine 1.3 MG/DL (0.55-1.30) Estimat Glomerular Filtration Rate 52.8 mL/min (>60) Glucose Level 434 MG/DL (74-106) #H Calcium Level 10.1 MG/DL (8.5-10.1) Troponin I 0.000 ng/mL (0.000-0.056) Pro-B-Type Natriuretic Peptide 529 pg/mL (0-125) H Thyroid Stimulating Hormone (TSH) 0.336 uiU/mL (0.358-3.740) Free Thyroxine 0.86 NG/DL (0.76-1.46) Urine Opiates Screen Negative (NEGATIVE) Urine Barbiturates Screen Negative (NEGATIVE) Phencyclidine (PCP) Screen Negative (NEGATIVE) Urine Amphetamines Screen Negative (NEGATIVE) Urine Benzodiazepines Screen Negative (NEGATIVE) Urine Cocaine Screen Negative (NEGATIVE) Urine Marijuana (THC) Screen Negative (NEGATIVE) Current Medications Medications (Trade) Dose Ordered Sig/Pantera Route PRN Reason Start Time Stop Time Status Last Admin Dose Admin Acetaminophen (Tylenol) 650 mg Q4H PRN ORAL Mild Pain (Pain Scale 1-3) 11/13/17 12:45 12/13/17 12:44 Albuterol/ Ipratropium (Albuterol/ Ipratropium) 3 ml Q4H PRN HHN Shortness of Breath 11/13/17 12:45 11/18/17 12:44 11/14/17 08:16 Clonidine HCl (Catapres Tab) 0.1 mg Q6H PRN ORAL for BP>160 systolic 11/14/17 01:30 12/14/17 01:29 11/14/17 02:19 Dextrose (Dextrose 50%) STAT PRN IV Hypoglycemia 11/13/17 12:45 12/13/17 12:44 Furosemide (Lasix) 40 mg EVERY 12 HOURS IV 11/13/17 21:00 12/13/17 20:59 11/14/17 08:42 Heparin Sodium (Porcine) (Heparin 5000 units/ml) 5,000 units EVERY 12 HOURS SUBQ 11/13/17 21:00 12/13/17 20:59 11/14/17 08:43 Hydromorphone HCl (Dilaudid) 1 mg Q4H PRN IVP pain (4-10) 11/13/17 13:45 11/20/17 13:44 11/14/17 15:16 Insulin Aspart (NovoLOG) BEFORE MEALS AND HS SUBQ 11/13/17 16:30 12/13/17 16:29 11/14/17 11:51 Levofloxacin 100 ml @ 100 mls/hr Q24H IVPB 11/14/17 05:00 11/21/17 04:59 Lisinopril (Zestril) 10 mg EVERY 12 HOURS ORAL 11/13/17 13:15 12/13/17 13:14 11/14/17 08:42 Lorazepam (Ativan) 1 mg Q6H PRN ORAL For Anxiety 11/13/17 17:45 11/20/17 17:44 11/14/17 11:17 Methylprednisolone Sodium Succinate (Solu-MEDROL) 40 mg EVERY 8 HOURS IVP 11/13/17 14:00 12/13/17 13:59 11/14/17 13:28 Ondansetron HCl (Zofran) 4 mg Q6H PRN IVP Nausea & Vomiting 11/13/17 12:45 12/13/17 12:44 Oseltamivir Phosphate (Tamiflu) 75 mg TWICE A DAY ORAL 11/13/17 16:00 11/18/17 09:01 11/14/17 08:42 Sodium Chloride 1,000 ml @ 75 mls/hr [id number] IV 11/13/17 17:45 12/13/17 17:44 11/14/17 12:00 Rodrigo Elizabeth M.D. Nov 14, 2017 16:35
[2017-11-15] VITALS (7 sets, daily range): BP systolic 149–180; BP diastolic 82–104
[2017-11-15] MEDS: HYDROmorphone 1mg/ml Carpuject IVP PRN ×5 (00:58→20:10)
[2017-11-15] MEDS: Albuterol/Ipratropium 3ml neb HHN PRN ×3 (01:32→10:34)
[2017-11-15] MEDS: LORazepam 1mg tab ORAL PRN ×3 (01:53→17:17)
[2017-11-15] MEDS: Solu-MEDROL 40mg Inj IVP SCH ×3 (06:00→21:13)
[2017-11-15] MEDS: NovoLOG Insulin Flexpen SUBQ SCH ×4 (06:35→21:11)
[2017-11-15] MEDS: Lisinopril 10mg tab ORAL SCH ×2 (09:15→21:15)
[2017-11-15] MEDS: Heparin 5000 units/ml inj SUBQ SCH ×2 (09:19→21:10)
--- NOTE | 2017-11-15 10:18 | Pulmonology Progress Note ---
Assessment/Plan Assessment/Plan ASSESSMENT AND PLAN: 1. Shortness of breath. CXR clear 2. Bilateral lower extremity edema. 3. Elevated brain natriuretic peptide, Has normal LVEF on ECHO. On Lasix 40 mg IV b.i.d. 4. Hypertension 5. Diabetes. 6. Asthma. Continue O2; pulm hygiene; will decrease steroids 7. Obesity. Thank you very much, Dr. Abdullahi, for allowing me to participate in the care of this patient. Please do not hesitate to contact me for any questions regarding my evaluation. Subjective Interval Events: Better Constitutional: Reports: no symptoms HEENT: Repors: no symptoms Respiratory: Reports: dry cough, shortness of breath Cardiovascular: Reports: no symptoms Gastrointestinal/Abdominal: Reports: no symptoms Genitourinary: Reports: no symptoms Allergies: Coded Allergies: FISH CONTAINING PRODUCTS (Unverified Allergy, Unknown, 11/02/13) IBUPROFEN (Unverified Allergy, Unknown, 11/02/13) PENICILLIN G (Unverified Allergy, Unknown, 11/02/13) PENICILLINS (Unverified Allergy, Unknown, 11/28/14) Objective Last 24 Hour Vital Signs Date Time Temp Pulse Resp B/P (MAP) Pulse Ox O2 Delivery O2 Flow Rate FiO2 11/15/17 09:15 151/82 11/15/17 08:00 98.1 88 20 151/82 95 11/15/17 07:57 87 22 99 Nasal Cannula 2.0 28 11/15/17 07:54 86 22 98 Room Air 21 11/15/17 07:54 Room Air 21 11/15/17 07:51 98 Room Air 21 11/15/17 06:45 177/96 11/15/17 05:30 97.9 11/15/17 04:17 180/104 11/15/17 04:00 97.9 89 22 180/104 93 Nasal Cannula 11/15/17 01:44 86 18 99 Nasal Cannula 3.0 32 11/15/17 01:36 Nasal Cannula 3.0 32 11/15/17 01:36 98 Nasal Cannula 3.0 32 11/15/17 01:35 32 11/15/17 01:35 84 18 98 Nasal Cannula 3.0 32 11/15/17 00:00 97.9 90 20 179/92 95 Room Air 11/14/17 20:57 187/112 11/14/17 20:57 187/112 11/14/17 20:00 97.9 97 21 187/109 93 Room Air 11/14/17 16:00 97.0 95 18 159/103 95 Room Air 11/14/17 16:00 96 11/14/17 12:00 96.1 85 18 153/107 95 Room Air 11/14/17 12:00 93 11/14/17 10:36 96.8 94 22 164/103 99 Room Air Intake and Output 11/14/17 11/15/17 19:00 07:00 Intake Total 1195 ml 925 ml Balance 1195 ml 925 ml Intake Oral 820 ml IV Total 375 ml 925 ml # Voids 1 2 General Appearance: no acute distress HEENT: atraumatic Respiratory/Chest: chest wall non-tender, decreased breath sounds Cardiovascular: normal peripheral pulses, normal rate Abdomen: normal bowel sounds Microbiology Date/Time Source Procedure Growth Status 11/13/17 03:30 Blood Blood Culture - Preliminary NO GROWTH AFTER 48 HOURS Resulted 11/13/17 03:15 Blood Blood Culture - Preliminary NO GROWTH AFTER 48 HOURS Resulted 11/14/17 08:00 Sputum Expectorated Gram Stain Pending Resulted 11/14/17 08:00 Sputum Expectorated Sputum Culture - Preliminary NORMAL UPPER RESPIRATORY TAYE AT 24 ... Resulted 11/13/17 15:30 Nasopharynx Influenza Types A,B Antigen (BRUCE) - Final Complete Laboratory Tests 11/14/17 12:00: Urine Opiates Screen Negative, Urine Barbiturates Screen Negative, Phencyclidine (PCP) Screen Negative, Urine Amphetamines Screen Negative, Urine Benzodiazepines Screen Negative, Urine Cocaine Screen Negative, Urine Marijuana (THC) Screen Negative Current Medications Medications (Trade) Dose Ordered Sig/Pantera Route PRN Reason Start Time Stop Time Status Last Admin Dose Admin Acetaminophen (Tylenol) 650 mg Q4H PRN ORAL Mild Pain (Pain Scale 1-3) 11/14/17 18:30 12/13/17 18:29 Albuterol/ Ipratropium (Albuterol/ Ipratropium) 3 ml Q4H PRN HHN Shortness of Breath 11/14/17 18:30 18 18:29 11/15/17 07:51 Amlodipine Besylate (Norvasc) 5 mg BID ORAL 11/15/17 18:00 12/15/17 17:59 UNV Clonidine HCl (Catapres Tab) 0.1 mg Q6H PRN ORAL for BP>160 systolic 11/14/17 18:30 12/14/17 18:29 11/15/17 04:17 Dextrose (Dextrose 50%) STAT PRN IV Hypoglycemia 11/14/17 18:30 12/14/17 18:29 Furosemide (Lasix) 40 mg EVERY 12 HOURS IV 11/14/17 21:00 12/13/17 20:59 11/15/17 09:17 Heparin Sodium (Porcine) (Heparin 5000 units/ml) 5,000 units EVERY 12 HOURS SUBQ 11/14/17 21:00 12/13/17 20:59 11/15/17 09:19 Hydromorphone HCl (Dilaudid) 1 mg Q4H PRN IVP Moderate to Severe Pain (4-10) 11/14/17 18:30 11/20/17 18:29 11/15/17 09:17 Insulin Aspart (NovoLOG) BEFORE MEALS AND HS SUBQ 11/14/17 21:00 12/13/17 16:29 11/15/17 06:35 Insulin Detemir (Levemir) 10 units BID SUBQ 11/15/17 18:00 12/15/17 17:59 UNV Levofloxacin 100 ml @ 100 mls/hr Q24H IVPB 11/15/17 05:00 11/21/17 04:59 11/15/17 04:26 Lisinopril (Zestril) 10 mg EVERY 12 HOURS ORAL 11/14/17 21:00 12/13/17 13:14 11/15/17 09:15 Lorazepam (Ativan) 1 mg Q6H PRN ORAL For Anxiety 11/14/17 18:30 11/20/17 18:29 11/15/17 08:40 Losartan Potassium (Cozaar) 50 mg EVERY 12 HOURS ORAL 11/15/17 21:00 12/15/17 20:59 UNV Methylprednisolone Sodium Succinate (Solu-MEDROL) 40 mg EVERY 8 HOURS IVP 11/14/17 22:00 12/13/17 13:59 11/14/17 22:14 Ondansetron HCl (Zofran) 4 mg Q6H PRN IVP Nausea & Vomiting 11/14/17 18:30 12/13/17 18:29 Sodium Chloride 1,000 ml @ 75 mls/hr [id number] IV 11/14/17 19:00 12/13/17 18:59 11/14/17 19:27 Stevan Hill MD Nov 15, 2017 10:18
--- NOTE | 2017-11-15 12:06 | Cardiac Electrophysiology PN ---
Assessment/Plan Assessment/Plan 1. Shortness of breath. Echo Nl EF 60%. On Lasix 40 iv bid 2. Bilateral lower extremity edema. 3. Elevated brain natriuretic peptide, likely congestive heart failure.Echo EF 60. Lasix 40 mg IV b.i.d. 4. Hypertension,on Lasix and lisinopril 10 bid. Added Norvasc 5 bid and Cozaar 50 bid. Add prn clonidine 5. Diabetes. 6. Asthma. 7. Obesity. NICK RN Subjective Subjective Still coughing. BP was 200s again this am. No chest pain. Asking for BIPAP.. Objective Last 24 Hour Vital Signs Date Time Temp Pulse Resp B/P (MAP) Pulse Ox O2 Delivery O2 Flow Rate FiO2 11/15/17 10:38 99 22 98 Nasal Cannula 2.0 28 11/15/17 10:38 96 22 97 Room Air 21 11/15/17 09:15 151/82 11/15/17 08:00 98.1 88 20 151/82 95 11/15/17 07:57 87 22 99 Nasal Cannula 2.0 28 11/15/17 07:54 86 22 98 Room Air 21 11/15/17 07:54 Room Air 21 11/15/17 07:51 98 Room Air 21 11/15/17 06:45 177/96 11/15/17 05:30 97.9 11/15/17 04:17 180/104 11/15/17 04:00 97.9 89 22 180/104 93 Nasal Cannula 11/15/17 01:44 86 18 99 Nasal Cannula 3.0 32 11/15/17 01:36 Nasal Cannula 3.0 32 11/15/17 01:36 98 Nasal Cannula 3.0 32 11/15/17 01:35 32 11/15/17 01:35 84 18 98 Nasal Cannula 3.0 32 11/15/17 00:00 97.9 90 20 179/92 95 Room Air 11/14/17 20:57 187/112 11/14/17 20:57 187/112 11/14/17 20:00 97.9 97 21 187/109 93 Room Air 11/14/17 16:00 97.0 95 18 159/103 95 Room Air 11/14/17 16:00 96 Intake and Output 11/14/17 11/15/17 19:00 07:00 Intake Total 1195 ml 925 ml Balance 1195 ml 925 ml Intake Oral 820 ml IV Total 375 ml 925 ml # Voids 1 2 Microbiology Date/Time Source Procedure Growth Status 11/13/17 03:30 Blood Blood Culture - Preliminary NO GROWTH AFTER 48 HOURS Resulted 11/13/17 03:15 Blood Blood Culture - Preliminary NO GROWTH AFTER 48 HOURS Resulted 11/14/17 08:00 Sputum Expectorated Gram Stain Pending Resulted 11/14/17 08:00 Sputum Expectorated Sputum Culture - Preliminary NORMAL UPPER RESPIRATORY TAYE AT 24 ... Resulted 11/13/17 15:30 Nasopharynx Influenza Types A,B Antigen (BRUCE) - Final Complete Objective HEAD AND NECK: Shows no JVD. LUNGS: Decreased breath sounds with diffuse wheezing. CARDIOVASCULAR: Regular S1 and S2. Mildly tachycardic. ABDOMEN: Soft. EXTREMITIES: 2+ pitting edema. GERRY CHILDERS Nov 15, 2017 12:06
--- NOTE | 2017-11-15 12:29 | Nephrology Progress Note ---
Assessment/Plan Problem List: (1) Acute asthma exacerbation (2) Diabetes (3) Respiratory distress (4) CHF (congestive heart failure) (5) D-dimer, elevated (6) Anxiety disorder (7) Shortness of breath (8) Obesity (9) HTN (hypertension) Plan f/u cardio and pulm recs. cont steroids and neb breathing tx. taper steroiods soon. monitor labs. Subjective Subjective late entry for 11/14 - SOB improving. Objective Objective Last 24 Hour Vital Signs Date Time Temp Pulse Resp B/P (MAP) Pulse Ox O2 Delivery O2 Flow Rate FiO2 11/15/17 10:38 99 22 98 Nasal Cannula 2.0 28 11/15/17 10:38 96 22 97 Room Air 21 11/15/17 09:15 151/82 11/15/17 08:00 98.1 88 20 151/82 95 11/15/17 07:57 87 22 99 Nasal Cannula 2.0 28 11/15/17 07:54 86 22 98 Room Air 11/15/17 07:54 Room Air 21 11/15/17 07:51 98 Room Air 21 11/15/17 06:45 177/96 11/15/17 05:30 97.9 11/15/17 04:17 180/104 11/15/17 04:00 97.9 89 22 180/104 93 Nasal Cannula 11/15/17 01:44 86 18 99 Nasal Cannula 3.0 32 11/15/17 01:36 Nasal Cannula 3.0 32 11/15/17 01:36 98 Nasal Cannula 3.0 32 11/15/17 01:35 32 11/15/17 01:35 84 18 98 Nasal Cannula 3.0 32 11/15/17 00:00 97.9 90 20 179/92 95 Room Air 11/14/17 20:57 187/112 11/14/17 20:57 187/112 11/14/17 20:00 97.9 97 21 187/109 93 Room Air 11/14/17 16:00 97.0 95 18 159/103 95 Room Air 11/14/17 16:00 96 Intake and Output 11/14/17 11/15/17 19:00 07:00 Intake Total 1195 ml 925 ml Balance 1195 ml 925 ml Intake Oral 820 ml IV Total 375 ml 925 ml # Voids 1 2 Height (Feet): 5 Height (Inches): 7.00 Weight (Pounds): 240 General Appearance: no apparent distress Cardiovascular: normal rate, regular rhythm Respiratory/Chest: decreased breath sounds Abdomen: non tender, soft Extremities: trace edema Neurologic: alert MATI VASQUEZ Nov 15, 2017 12:29
--- NOTE | 2017-11-15 14:08 | Infectious Diseases Prog Note ---
Assessment/Plan Problems: (1) Community acquired pneumonia Assessment & Plan: await sputum culture, screening for influenza is negative , continue levaquin empiric coverage, may remove from droplets isolation (2) Acute asthma exacerbation Assessment & Plan: due to the above , continue nebulizers, taper steroids (3) Respiratory distress Assessment & Plan: due to the above, monitor CXR, pulmonary is following (4) Diabetes Assessment & Plan: recommend tight glycemic control to keep blood glucose between 100-140 Subjective Constitutional: Reports: no symptoms HEENT: Reports: no symptoms Respiratory: Reports: dry cough, other - WHEEZING Breasts: Reports: no symptoms Cardiovascular: Reports: no symptoms Gastrointestinal/Abdominal: Reports: no symptoms Genitourinary: Reports: no symptoms Neurologic: Reports: no symptoms Psychiatric: Reports: no symptoms Skin: Reports: no symptoms Endocrine: Reports: no symptoms Hematologic: Reports: no symptoms Musculoskeletal: Reports: no symptoms Allergies: Coded Allergies: FISH CONTAINING PRODUCTS (Unverified Allergy, Unknown, 11/02/13) IBUPROFEN (Unverified Allergy, Unknown, 11/02/13) PENICILLIN G (Unverified Allergy, Unknown, 11/02/13) PENICILLINS (Unverified Allergy, Unknown, 11/28/14) Objective Vital Signs Last 24 Hour Vital Signs Date Time Temp Pulse Resp B/P (MAP) Pulse Ox O2 Delivery O2 Flow Rate FiO2 11/15/17 12:00 97.7 83 20 149/98 98 11/15/17 10:38 99 22 98 Nasal Cannula 2.0 28 11/15/17 10:38 96 22 97 Room Air 21 11/15/17 09:15 151/82 11/15/17 08:00 98.1 88 20 151/82 95 11/15/17 07:57 87 22 99 Nasal Cannula 2.0 28 11/15/17 07:54 86 22 98 Room Air 21 11/15/17 07:54 Room Air 21 11/15/17 07:51 98 Room Air 21 11/15/17 06:45 177/96 11/15/17 05:30 97.9 11/15/17 04:17 180/104 11/15/17 04:00 97.9 89 22 180/104 93 Nasal Cannula 11/15/17 01:44 86 18 99 Nasal Cannula 3.0 32 11/15/17 01:36 Nasal Cannula 3.0 32 11/15/17 01:36 98 Nasal Cannula 3.0 32 11/15/17 01:35 32 11/15/17 01:35 84 18 98 Nasal Cannula 3.0 32 11/15/17 00:00 97.9 90 20 179/92 95 Room Air 11/14/17 20:57 187/112 11/14/17 20:57 187/112 11/14/17 20:00 97.9 97 21 187/109 93 Room Air 11/14/17 16:00 97.0 95 18 159/103 95 Room Air 11/14/17 16:00 96 Height (Feet): 5 Height (Inches): 7.00 Weight (Pounds): 240 General Appearance: WD/WN, no acute distress HEENT: normocephalic, atraumatic, anicteric, mucous membranes moist, PERRL Respiratory/Chest: chest wall non-tender, no respiratory distress, no accessory muscle use, decreased breath sounds, expiratory wheezing Cardiovascular: normal peripheral pulses, normal rate, regular rhythm, no gallop/murmur, no JVD Abdomen: normal bowel sounds, soft, non tender, no organomegaly, non distended , no mass, no scars Extremities: no cyanosis, no clubbing Skin: no rash, no lesions, no ulcers Neurologic/Psychiatric: alert, oriented x 3, responsive Microbiology Date/Time Source Procedure Growth Status 11/13/17 03:30 Blood Blood Culture - Preliminary NO GROWTH AFTER 48 HOURS Resulted 11/13/17 03:15 Blood Blood Culture - Preliminary NO GROWTH AFTER 48 HOURS Resulted 11/14/17 08:00 Sputum Expectorated Gram Stain - Final Resulted 11/14/17 08:00 Sputum Expectorated Sputum Culture - Preliminary NORMAL UPPER RESPIRATORY TAYE AT 24 ... Resulted 11/13/17 15:30 Nasopharynx Influenza Types A,B Antigen (BRUCE) - Final Complete Current Medications Medications (Trade) Dose Ordered Sig/Pantera Route PRN Reason Start Time Stop Time Status Last Admin Dose Admin Acetaminophen (Tylenol) 650 mg Q4H PRN ORAL Mild Pain (Pain Scale 1-3) 11/14/17 18:30 12/13/17 18:29 Albuterol/ Ipratropium (Albuterol/ Ipratropium) 3 ml Q4HRT HHN 11/15/17 15:00 11/20/17 14:59 Amlodipine Besylate (Norvasc) 5 mg BID ORAL 11/15/17 18:00 12/15/17 17:59 Clonidine HCl (Catapres tab) 0.2 mg Q2H PRN ORAL SBP>160 11/15/17 12:00 12/15/17 11:59 Dextrose (Dextrose 50%) STAT PRN IV Hypoglycemia 11/14/17 18:30 12/14/17 18:29 Furosemide (Lasix) 40 mg EVERY 12 HOURS IV 11/14/17 21:00 12/13/17 20:59 11/15/17 09:17 Heparin Sodium (Porcine) (Heparin 5000 units/ml) 5,000 units EVERY 12 HOURS SUBQ 11/14/17 21:00 12/13/17 20:59 11/15/17 09:19 Hydromorphone HCl (Dilaudid) 1 mg Q4H PRN IVP Moderate to Severe Pain (4-10) 11/14/17 18:30 11/20/17 18:29 11/15/17 09:17 Insulin Aspart (NovoLOG) BEFORE MEALS AND HS SUBQ 11/14/17 21:00 12/13/17 16:29 11/15/17 12:19 Insulin Detemir (Levemir) 10 units BID SUBQ 11/15/17 18:00 12/15/17 17:59 Levofloxacin 100 ml @ 100 mls/hr Q24H IVPB 11/15/17 05:00 11/21/17 04:59 11/15/17 04:26 Lisinopril (Zestril) 10 mg EVERY 12 HOURS ORAL 11/14/17 21:00 12/13/17 13:14 11/15/17 09:15 Lorazepam (Ativan) 1 mg Q6H PRN ORAL For Anxiety 11/14/17 18:30 11/20/17 18:29 11/15/17 08:40 Losartan Potassium (Cozaar) 50 mg EVERY 12 HOURS ORAL 11/15/17 21:00 12/15/17 20:59 Methylprednisolone Sodium Succinate (Solu-MEDROL) 20 mg EVERY 8 HOURS IVP 11/15/17 14:00 12/15/17 13:59 Ondansetron HCl (Zofran) 4 mg Q6H PRN IVP Nausea & Vomiting 11/14/17 18:30 12/13/17 18:29 Sodium Chloride 1,000 ml @ 75 mls/hr [id number] IV 11/14/17 19:00 12/13/17 18:59 11/15/17 11:16 Rodrigo Elizabeth M.D. Nov 15, 2017 14:08
[2017-11-15] MEDS: Albuterol/Ipratropium 3ml neb HHN SCH ×3 (14:42→23:33)
[2017-11-15] MEDS: cloNIDine 0.2mg Tab ORAL PRN (15:16)
[2017-11-15] MEDS: Levemir Flexpen SUBQ SCH (17:20)
--- NOTE | 2017-11-15 17:52 | Nephrology Progress Note ---
Assessment/Plan Problem List: (1) D-dimer, elevated (2) Anxiety disorder (3) HTN (hypertension) (4) CHF (congestive heart failure) (5) Obesity (6) acute exacerbation of chronic pain (7) Active asthma (8) Shortness of breath (9) Diabetes Plan Continue current treatment plan Continue neb treatment PRN O2 Monitor lites, correct prn Psych eval BP control, strict glycemic control Abx per ID AM labs Subjective Constitutional: Denies: no symptoms, chills, diaphoresis, fever, malaise, weakness, other HEENT: Denies: no symptoms, eye pain, blurred vision, tearing, double vision, ear pain, ear discharge, nose pain, nose congestion, throat pain, throat swelling, mouth pain, mouth swelling, other Genitourinary: Denies: no symptoms, burning, discharge, frequency, flank pain, hematuria, incontinence, pain, urgency, other Neurologic/Psychiatric: Denies: no symptoms, anxiety, depressed, emotional problems, headache, numbness, paresthesia, pre-existing deficit, seizure, tingling, tremors, weakness, other Subjective In bed, in no apparent distress Objective Objective Last 24 Hour Vital Signs Date Time Temp Pulse Resp B/P (MAP) Pulse Ox O2 Delivery O2 Flow Rate FiO2 11/15/17 17:17 89 151/93 11/15/17 15:35 97.2 85 20 163/101 95 11/15/17 15:16 162/101 11/15/17 14:54 86 20 99 Nasal Cannula 2.0 28 11/15/17 14:44 82 20 99 Nasal Cannula 2.0 28 11/15/17 12:00 97.7 83 20 149/98 98 11/15/17 10:38 99 22 98 Nasal Cannula 2.0 28 11/15/17 10:38 96 22 97 Room Air 21 11/15/17 09:15 151/82 11/15/17 08:00 98.1 88 20 151/82 95 11/15/17 07:57 87 22 99 Nasal Cannula 2.0 28 11/15/17 07:54 86 22 98 Room Air 21 11/15/17 07:54 Room Air 21 11/15/17 07:51 98 Room Air 11/15/17 06:45 177/96 11/15/17 05:30 97.9 11/15/17 04:17 180/104 11/15/17 04:00 97.9 89 22 180/104 93 Nasal Cannula 11/15/17 01:44 86 18 99 Nasal Cannula 3.0 32 11/15/17 01:36 Nasal Cannula 3.0 32 11/15/17 01:36 98 Nasal Cannula 3.0 32 11/15/17 01:35 32 11/15/17 01:35 84 18 98 Nasal Cannula 3.0 32 11/15/17 00:00 97.9 90 20 179/92 95 Room Air 11/14/17 20:57 187/112 11/14/17 20:57 187/112 11/14/17 20:00 97.9 97 21 187/109 93 Room Air Intake and Output 11/14/17 11/15/17 19:00 07:00 Intake Total 1195 ml 925 ml Balance 1195 ml 925 ml Intake Oral 820 ml IV Total 375 ml 925 ml # Voids 1 2 Height (Feet): 5 Height (Inches): 7.00 Weight (Pounds): 240 General Appearance: no apparent distress, alert EENT: normal ENT inspection Neck: non-tender, normal alignment Cardiovascular: regular rhythm Respiratory/Chest: no respiratory distress Abdomen: soft Extremities: non-tender, moderate edema Neurologic: alert, responsive, normal mood/affect Divya Nelson N.P. Nov 15, 2017 17:52
[2017-11-15] MEDS: Losartan 50mg tab ORAL SCH (21:15)
[2017-11-16] VITALS (8 sets, daily range): BP systolic 137–165; BP diastolic 71–107
[2017-11-16] MEDS: HYDROmorphone 1mg/ml Carpuject IVP PRN ×4 (00:12→12:44)
[2017-11-16] MEDS: Albuterol/Ipratropium 3ml neb HHN SCH ×6 (03:18→23:00)
[2017-11-16] MEDS: cloNIDine 0.2mg Tab ORAL PRN ×2 (04:54→11:45)
[2017-11-16] MEDS: LORazepam 1mg tab ORAL PRN ×2 (06:02→12:51)
[2017-11-16] MEDS: Solu-MEDROL 40mg Inj IVP SCH (06:03)
[2017-11-16] MEDS: NovoLOG Insulin Flexpen SUBQ SCH ×4 (06:06→21:09)
[2017-11-16] MEDS: Losartan 50mg tab ORAL SCH ×2 (08:41→21:14)
[2017-11-16] MEDS: Lisinopril 10mg tab ORAL SCH (08:41)
[2017-11-16] MEDS: Levemir Flexpen SUBQ SCH ×2 (08:43→18:28)
[2017-11-16] MEDS: Heparin 5000 units/ml inj SUBQ SCH ×2 (08:43→21:08)
[2017-11-16 09:34] LABS: BASOPHILS % (AUTO) 0.7 % (0.0-2.0); HEMATOCRIT 38.7 % (37.0-47.0); HEMOGLOBIN 12.3 G/DL (12.0-16.0); LYMPHOCYTES % (AUTO) 12.8 % (20.0-45.0); MEAN CORPUSCULAR VOLUME 87 FL (80-99); MONOCYTES % (AUTO) 4.3 % (1.0-10.0); NEUTROPHILS % (AUTO) 82.1 % (45.0-75.0); PLATELET COUNT 319 K/UL (150-450); RED BLOOD COUNT 4.44 M/UL (4.20-5.40); RED CELL DISTRIBUTION WIDTH 13.9 % (11.6-14.8); WHITE BLOOD COUNT 7.5 K/UL (4.8-10.8)
[2017-11-16 10:07] LABS: ANION GAP 8 mmol/L (5-15); BLOOD UREA NITROGEN 32 mg/dL (7-18); CALCIUM 9.9 MG/DL (8.5-10.1); CARBON DIOXIDE 32 MMOL/L (21-32); CHLORIDE 97 MMOL/L (98-107); CREATININE 1.1 MG/DL (0.55-1.30); POTASSIUM 4.3 MMOL/L (3.5-5.1); SODIUM 137 MMOL/L (136-145)
--- NOTE | 2017-11-16 10:28 | Pulmonology Progress Note ---
Assessment/Plan Assessment/Plan ASSESSMENT AND PLAN: 1. Shortness of breath. CXR clear 2. Bilateral lower extremity edema. 3. Elevated brain natriuretic peptide, Has normal LVEF on ECHO. On Lasix 4. Hypertension 5. Diabetes. 6. Asthma. Continue O2; pulm hygiene; will decrease steroids 7. Obesity. OK to dc home Po steroid taper Diuretics Subjective Interval Events: Looking and feeling bettrer Constitutional: Reports: no symptoms HEENT: Repors: no symptoms Respiratory: Reports: no symptoms Cardiovascular: Reports: no symptoms Gastrointestinal/Abdominal: Reports: no symptoms Genitourinary: Reports: no symptoms Allergies: Coded Allergies: FISH CONTAINING PRODUCTS (Unverified Allergy, Unknown, 11/02/13) IBUPROFEN (Unverified Allergy, Unknown, 11/02/13) PENICILLIN G (Unverified Allergy, Unknown, 11/02/13) PENICILLINS (Unverified Allergy, Unknown, 11/28/14) Objective Last 24 Hour Vital Signs Date Time Temp Pulse Resp B/P (MAP) Pulse Ox O2 Delivery O2 Flow Rate FiO2 11/16/17 08:47 98.2 96 20 159/77 97 11/16/17 08:41 100 152/98 11/16/17 08:41 152/98 11/16/17 08:41 152/98 11/16/17 07:07 Nasal Cannula 2.0 28 11/16/17 07:06 98 Nasal Cannula 2.0 28 11/16/17 07:06 100 20 98 Nasal Cannula 2.0 28 11/16/17 06:58 101 20 98 Room Air 21 11/16/17 06:13 97.9 91 18 152/98 95 Room Air 11/16/17 04:55 97.5 11/16/17 04:54 165/97 11/16/17 04:00 97.9 91 18 165/107 95 Room Air 11/16/17 03:26 94 20 99 Room Air 21 11/16/17 03:18 96 18 97 Room Air 21 11/16/17 00:00 98.0 96 21 164/97 95 Nasal Cannula 11/15/17 23:40 91 20 98 Nasal Cannula 2.0 28 11/15/17 23:33 91 20 96 Nasal Cannula 2.0 28 11/15/17 21:15 154/92 11/15/17 21:15 154/92 11/15/17 20:00 97.5 90 21 154/92 93 Nasal Cannula 2.0 11/15/17 19:57 92 20 99 Room Air 21 11/15/17 19:47 88 20 95 Room Air 21 11/15/17 19:47 95 Room Air 21 11/15/17 19:47 Nasal Cannula 2.0 28 11/15/17 17:17 89 151/93 11/15/17 15:35 97.2 85 20 163/101 95 11/15/17 15:16 162/101 11/15/17 14:54 86 20 99 Nasal Cannula 2.0 28 11/15/17 14:44 82 20 99 Nasal Cannula 2.0 28 11/15/17 12:00 97.7 83 20 149/98 98 11/15/17 10:38 99 22 98 Nasal Cannula 2.0 28 11/15/17 10:38 96 22 97 Room Air 21 Intake and Output 11/15/17 11/16/17 19:00 07:00 Intake Total 1785 ml 475 ml Balance 1785 ml 475 ml Intake Oral 1260 ml IV Total 525 ml 475 ml # Voids 4 4 General Appearance: no acute distress HEENT: normocephalic Respiratory/Chest: chest wall non-tender, lungs clear Cardiovascular: normal peripheral pulses, normal rate Abdomen: normal bowel sounds Microbiology Date/Time Source Procedure Growth Status 11/14/17 08:00 Sputum Expectorated Gram Stain - Final Complete 11/14/17 08:00 Sputum Expectorated Sputum Culture - Final NORMAL UPPER RESPIRATORY TAYE PRESENT Complete 11/13/17 15:30 Nasopharynx Influenza Types A,B Antigen (BRUCE) - Final Complete Laboratory Tests 11/16/17 06:35: White Blood Count 7.5, Red Blood Count 4.44, Hemoglobin 12.3, Hematocrit 38.7, Mean Corpuscular Volume 87, Mean Corpuscular Hemoglobin 27.8, Mean Corpuscular Hemoglobin Concent 31.9L, Red Cell Distribution Width 13.9, Platelet Count 319, Mean Platelet Volume 6.3L, Neutrophils (%) (Auto) 82.1H, Lymphocytes (%) (Auto) 12.8L, Monocytes (%) (Auto) 4.3, Eosinophils (%) (Auto) 0.0, Basophils (%) (Auto ) 0.7, Sodium Level 137, Potassium Level 4.3, Chloride Level 97L, Carbon Dioxide Level 32, Anion Gap 8, Blood Urea Nitrogen 32H, Creatinine 1.1, Estimat Glomerular Filtration Rate > 60, Glucose Level 376H, Calcium Level 9.9, Free Thyroxine 0.70L Current Medications Medications (Trade) Dose Ordered Sig/Pantera Route PRN Reason Start Time Stop Time Status Last Admin Dose Admin Acetaminophen (Tylenol) 650 mg Q4H PRN ORAL Mild Pain (Pain Scale 1-3) 11/14/17 18:30 12/13/17 18:29 Albuterol/ Ipratropium (Albuterol/ Ipratropium) 3 ml Q4HRT HHN 11/15/17 15:00 11/20/17 14:59 11/16/17 06:56 Amlodipine Besylate (Norvasc) 5 mg BID ORAL 11/15/17 18:00 12/15/17 17:59 11/16/17 08:41 Clonidine HCl (Catapres tab) 0.2 mg Q2H PRN ORAL SBP>160 11/15/17 12:00 12/15/17 11:59 11/16/17 04:54 Dextrose (Dextrose 50%) STAT PRN IV Hypoglycemia 11/14/17 18:30 12/14/17 18:29 Furosemide (Lasix) 40 mg EVERY 12 HOURS IV 11/14/17 21:00 12/13/17 20:59 11/16/17 08:41 Heparin Sodium (Porcine) (Heparin 5000 units/ml) 5,000 units EVERY 12 HOURS SUBQ 11/14/17 21:00 12/13/17 20:59 11/16/17 08:43 Hydromorphone HCl (Dilaudid) 1 mg Q4H PRN IVP Moderate to Severe Pain (4-10) 11/14/17 18:30 11/20/17 18:29 11/16/17 08:42 Insulin Aspart (NovoLOG) BEFORE MEALS AND HS SUBQ 11/14/17 21:00 12/13/17 16:29 11/16/17 06:06 Insulin Detemir (Levemir) 10 units BID SUBQ 11/15/17 18:00 12/15/17 17:59 11/16/17 08:43 Levofloxacin 100 ml @ 100 mls/hr Q24H IVPB 11/15/17 05:00 11/21/17 04:59 11/16/17 04:25 Lisinopril (Zestril) 10 mg EVERY 12 HOURS ORAL 11/14/17 21:00 12/13/17 13:14 11/16/17 08:41 Lorazepam (Ativan) 1 mg Q6H PRN ORAL For Anxiety 11/14/17 18:30 11/20/17 18:29 11/16/17 06:02 Losartan Potassium (Cozaar) 50 mg EVERY 12 HOURS ORAL 11/15/17 21:00 12/15/17 20:59 11/16/17 08:41 Methylprednisolone Sodium Succinate (Solu-MEDROL) 20 mg EVERY 8 HOURS IVP 11/15/17 14:00 12/15/17 13:59 11/16/17 06:03 Ondansetron HCl (Zofran) 4 mg Q6H PRN IVP Nausea & Vomiting 11/14/17 18:30 12/13/17 18:29 Sodium Chloride 1,000 ml @ 75 mls/hr [id number] IV 11/14/17 19:00 12/13/17 18:59 11/15/17 11:16 Stevan Hill MD Nov 16, 2017 10:28
--- NOTE | 2017-11-16 14:40 | Infectious Diseases Prog Note ---
Assessment/Plan Problems: (1) Community acquired pneumonia Assessment & Plan: sputum culture grew normal respiratory cici , screening for influenza is negative , continue levaquin empiric coverage, may remove from droplets isolation (2) Acute asthma exacerbation Assessment & Plan: due to the above , continue nebulizers, taper steroids (3) Respiratory distress Assessment & Plan: due to the above, monitor CXR, pulmonary is following (4) Diabetes Assessment & Plan: recommend tight glycemic control to keep blood glucose between 100-140 Subjective Constitutional: Reports: no symptoms HEENT: Reports: no symptoms Respiratory: Reports: dry cough Breasts: Reports: no symptoms Cardiovascular: Reports: no symptoms Gastrointestinal/Abdominal: Reports: no symptoms Genitourinary: Reports: no symptoms Neurologic: Reports: no symptoms Psychiatric: Reports: no symptoms Skin: Reports: no symptoms Endocrine: Reports: no symptoms Hematologic: Reports: no symptoms Musculoskeletal: Reports: no symptoms Allergies: Coded Allergies: FISH CONTAINING PRODUCTS (Unverified Allergy, Unknown, 11/02/13) IBUPROFEN (Unverified Allergy, Unknown, 11/02/13) PENICILLIN G (Unverified Allergy, Unknown, 11/02/13) PENICILLINS (Unverified Allergy, Unknown, 11/28/14) Objective Vital Signs Last 24 Hour Vital Signs Date Time Temp Pulse Resp B/P (MAP) Pulse Ox O2 Delivery O2 Flow Rate FiO2 11/16/17 11:56 98.0 77 20 161/95 96 11/16/17 11:45 161/95 11/16/17 11:22 82 20 98 Nasal Cannula 2.0 28 11/16/17 11:14 79 20 98 Nasal Cannula 2.0 28 11/16/17 08:47 98.2 96 20 159/77 97 11/16/17 08:41 100 152/98 11/16/17 08:41 152/98 11/16/17 08:41 152/98 11/16/17 07:07 Nasal Cannula 2.0 28 11/16/17 07:06 98 Nasal Cannula 2.0 28 11/16/17 07:06 100 20 98 Nasal Cannula 2.0 28 11/16/17 06:58 101 20 98 Room Air 21 11/16/17 06:13 97.9 91 18 152/98 95 Room Air 11/16/17 04:55 97.5 11/16/17 04:54 165/97 11/16/17 04:00 97.9 91 18 165/107 95 Room Air 11/16/17 03:26 94 20 99 Room Air 21 11/16/17 03:18 96 18 97 Room Air 21 11/16/17 00:00 98.0 96 21 164/97 95 Nasal Cannula 11/15/17 23:40 91 20 98 Nasal Cannula 2.0 28 11/15/17 23:33 91 20 96 Nasal Cannula 2.0 28 11/15/17 21:15 154/92 11/15/17 21:15 154/92 11/15/17 20:00 97.5 90 21 154/92 93 Nasal Cannula 2.0 11/15/17 19:57 92 20 99 Room Air 21 11/15/17 19:47 88 20 95 Room Air 21 11/15/17 19:47 95 Room Air 21 11/15/17 19:47 Nasal Cannula 2.0 28 11/15/17 17:17 89 151/93 11/15/17 15:35 97.2 85 20 163/101 95 11/15/17 15:16 162/101 11/15/17 14:54 86 20 99 Nasal Cannula 2.0 28 11/15/17 14:44 82 20 99 Nasal Cannula 2.0 28 Height (Feet): 5 Height (Inches): 7.00 Weight (Pounds): 240 General Appearance: WD/WN, no acute distress HEENT: normocephalic, atraumatic, anicteric, mucous membranes moist Respiratory/Chest: chest wall non-tender, lungs clear, normal breath sounds, no respiratory distress, no accessory muscle use, decreased breath sounds Cardiovascular: normal peripheral pulses, normal rate, regular rhythm, no gallop/murmur, no JVD Abdomen: normal bowel sounds, soft, non tender, no organomegaly, non distended , no mass Extremities: no cyanosis, no clubbing Skin: no rash, no lesions, no ulcers Neurologic/Psychiatric: alert, oriented x 3 Microbiology Date/Time Source Procedure Growth Status 11/14/17 08:00 Sputum Expectorated Gram Stain - Final Complete 11/14/17 08:00 Sputum Expectorated Sputum Culture - Final NORMAL UPPER RESPIRATORY CICI PRESENT Complete 11/13/17 15:30 Nasopharynx Influenza Types A,B Antigen (BRUCE) - Final Complete Laboratory Tests Test 11/16/17 06:35 White Blood Count 7.5 K/UL (4.8-10.8) Red Blood Count 4.44 M/UL (4.20-5.40) Hemoglobin 12.3 G/DL (12.0-16.0) Hematocrit 38.7 % (37.0-47.0) Mean Corpuscular Volume 87 FL (80-99) Mean Corpuscular Hemoglobin 27.8 PG (27.0-31.0) Mean Corpuscular Hemoglobin Concent 31.9 G/DL (32.0-36.0) L Red Cell Distribution Width 13.9 % (11.6-14.8) Platelet Count 319 K/UL (150-450) Mean Platelet Volume 6.3 FL (6.5-10.1) L Neutrophils (%) (Auto) 82.1 % (45.0-75.0) H Lymphocytes (%) (Auto) 12.8 % (20.0-45.0) L Monocytes (%) (Auto) 4.3 % (1.0-10.0) Eosinophils (%) (Auto) 0.0 % (0.0-3.0) Basophils (%) (Auto) 0.7 % (0.0-2.0) Sodium Level 137 MMOL/L (136-145) Potassium Level 4.3 MMOL/L (3.5-5.1) Chloride Level 97 MMOL/L (98-107) L Carbon Dioxide Level 32 MMOL/L (21-32) Anion Gap 8 mmol/L (5-15) Blood Urea Nitrogen 32 mg/dL (7-18) H Creatinine 1.1 MG/DL (0.55-1.30) Estimat Glomerular Filtration Rate > 60 mL/min (>60) Glucose Level 376 MG/DL (74-106) H Calcium Level 9.9 MG/DL (8.5-10.1) Free Thyroxine 0.70 NG/DL (0.76-1.46) L Current Medications Medications (Trade) Dose Ordered Sig/Pantera Route PRN Reason Start Time Stop Time Status Last Admin Dose Admin Acetaminophen (Tylenol) 650 mg Q4H PRN ORAL Mild Pain (Pain Scale 1-3) 11/14/17 18:30 12/13/17 18:29 Acetaminophen/ Hydrocodone Bitart ([place] 10/325) 1 tab Q4H PRN ORAL Moderate to Severe Pain 11/16/17 14:30 11/23/17 14:29 Albuterol/ Ipratropium (Albuterol/ Ipratropium) 3 ml Q4HRT HHN 11/15/17 15:00 11/20/17 14:59 11/16/17 11:13 Amlodipine Besylate (Norvasc) 5 mg BID ORAL 11/15/17 18:00 12/15/17 17:59 11/16/17 08:41 Clonidine HCl (Catapres tab) 0.2 mg Q2H PRN ORAL SBP>160 11/15/17 12:00 12/15/17 11:59 11/16/17 11:45 Dextrose (Dextrose 50%) STAT PRN IV Hypoglycemia 11/14/17 18:30 12/14/17 18:29 Furosemide (Lasix) 40 mg EVERY 12 HOURS IV 11/14/17 21:00 12/13/17 20:59 11/16/17 08:41 Heparin Sodium (Porcine) (Heparin 5000 units/ml) 5,000 units EVERY 12 HOURS SUBQ 11/14/17 21:00 12/13/17 20:59 11/16/17 08:43 Insulin Aspart (NovoLOG) BEFORE MEALS AND HS SUBQ 11/14/17 21:00 12/13/17 16:29 11/16/17 11:37 Insulin Detemir (Levemir) 10 units BID SUBQ 11/15/17 18:00 12/15/17 17:59 11/16/17 08:43 Levofloxacin 100 ml @ 100 mls/hr Q24H IVPB 11/15/17 05:00 11/21/17 04:59 11/16/17 04:25 Lorazepam (Ativan) 1 mg Q6H PRN ORAL For Anxiety 11/14/17 18:30 11/20/17 18:29 11/16/17 12:51 Losartan Potassium (Cozaar) 50 mg EVERY 12 HOURS ORAL 11/15/17 21:00 12/15/17 20:59 11/16/17 08:41 Metoprolol Tartrate (Lopressor) 50 mg Q12HR ORAL 11/16/17 21:00 12/16/17 20:59 Ondansetron HCl (Zofran) 4 mg Q6H PRN IVP Nausea & Vomiting 11/14/17 18:30 12/13/17 18:29 Prednisone (predniSONE) 20 mg DAILY ORAL 11/17/17 09:00 12/17/17 08:59 Rodrigo Elizabeth M.D. Nov 16, 2017 14:40
[2017-11-16] MEDS ORDERED: 1/2 NS 1000ml IV ONE ×3 (14:54→16:27)
--- NOTE | 2017-11-16 15:41 | Nephrology Progress Note ---
Assessment/Plan Problem List: (1) D-dimer, elevated (2) Anxiety disorder (3) HTN (hypertension) (4) CHF (congestive heart failure) (5) Obesity (6) acute exacerbation of chronic pain (7) Active asthma (8) Shortness of breath (9) Diabetes Plan Continue current treatment plan Continue neb treatment PRN O2 Psych consult pending Monitor lites, correct prn BP control, strict glycemic control Abx per ID Taper steroid AM labs Subjective Constitutional: Denies: no symptoms, chills, diaphoresis, fever, malaise, weakness, other HEENT: Denies: no symptoms, eye pain, blurred vision, tearing, double vision, ear pain, ear discharge, nose pain, nose congestion, throat pain, throat swelling, mouth pain, mouth swelling, other Genitourinary: Denies: no symptoms, burning, discharge, frequency, flank pain, hematuria, incontinence, pain, urgency, other Neurologic/Psychiatric: Reports: anxiety, depressed, emotional problems Subjective In bed, in no apparent distress, stated that she is upset because the IV pain med was changed to PO, she is requesting a piccline Objective Objective Last 24 Hour Vital Signs Date Time Temp Pulse Resp B/P (MAP) Pulse Ox O2 Delivery O2 Flow Rate FiO2 11/16/17 14:39 Room Air 21 11/16/17 14:39 Room Air 21 11/16/17 11:56 98.0 77 20 161/95 96 11/16/17 11:45 161/95 11/16/17 11:22 82 20 98 Nasal Cannula 2.0 28 11/16/17 11:14 79 20 98 Nasal Cannula 2.0 28 11/16/17 08:47 98.2 96 20 159/77 97 11/16/17 08:41 100 152/98 11/16/17 08:41 152/98 11/16/17 08:41 152/98 11/16/17 07:07 Nasal Cannula 2.0 28 11/16/17 07:06 98 Nasal Cannula 2.0 28 11/16/17 07:06 100 20 98 Nasal Cannula 2.0 28 11/16/17 06:58 101 20 98 Room Air 21 11/16/17 06:13 97.9 91 18 152/98 95 Room Air 11/16/17 04:55 97.5 11/16/17 04:54 165/97 2/10/18 04:00 97.9 91 18 165/107 95 Room Air 11/16/17 03:26 94 20 99 Room Air 21 11/16/17 03:18 96 18 97 Room Air 21 11/16/17 00:00 98.0 96 21 164/97 95 Nasal Cannula 11/15/17 23:40 91 20 98 Nasal Cannula 2.0 28 11/15/17 23:33 91 20 96 Nasal Cannula 2.0 28 11/15/17 21:15 154/92 11/15/17 21:15 154/92 11/15/17 20:00 97.5 90 21 154/92 93 Nasal Cannula 2.0 11/15/17 19:57 92 20 99 Room Air 11/15/17 19:47 88 20 95 Room Air 11/15/17 19:47 95 Room Air 11/15/17 19:47 Nasal Cannula 2.0 28 11/15/17 17:17 89 151/93 Intake and Output 11/15/17 11/16/17 19:00 07:00 Intake Total 1785 ml 475 ml Balance 1785 ml 475 ml Intake Oral 1260 ml IV Total 525 ml 475 ml # Voids 4 4 Laboratory Tests 11/16/17 06:35: White Blood Count 7.5, Red Blood Count 4.44, Hemoglobin 12.3, Hematocrit 38.7, Mean Corpuscular Volume 87, Mean Corpuscular Hemoglobin 27.8, Mean Corpuscular Hemoglobin Concent 31.9L, Red Cell Distribution Width 13.9, Platelet Count 319, Mean Platelet Volume 6.3L, Neutrophils (%) (Auto) 82.1H, Lymphocytes (%) (Auto) 12.8L, Monocytes (%) (Auto) 4.3, Eosinophils (%) (Auto) 0.0, Basophils (%) (Auto ) 0.7, Sodium Level 137, Potassium Level 4.3, Chloride Level 97L, Carbon Dioxide Level 32, Anion Gap 8, Blood Urea Nitrogen 32H, Creatinine 1.1, Estimat Glomerular Filtration Rate > 60, Glucose Level 376H, Calcium Level 9.9, Free Thyroxine 0.70L Height (Feet): 5 Height (Inches): 7.00 Weight (Pounds): 240 General Appearance: no apparent distress, alert EENT: normal ENT inspection Neck: normal alignment, supple Cardiovascular: normal rate, no JVD Respiratory/Chest: no respiratory distress Abdomen: soft Extremities: non-tender, normal inspection, no calf tenderness Neurologic: alert, oriented x 3, responsive EgwDivya abraham N.P. Nov 16, 2017 15:41
[2017-11-16] MEDS: HYDROcodone/Acetamin 10/325 tab ORAL PRN (16:23)
--- NOTE | 2017-11-16 17:40 | Cardiac Electrophysiology PN ---
Assessment/Plan Assessment/Plan 1. Shortness of breath. Echo Nl EF 60%. On Lasix 40 iv bid 2. Bilateral lower extremity edema. 3. Elevated brain natriuretic peptide, likely congestive heart failure.Echo EF 60. Lasix 40 mg IV b.i.d. 4. Hypertension,on Lasix 40 iv bid and lisinopril 10 bid, Norvasc 5 bid,Cozaar 50 bid andd prn clonidine 5. Diabetes. 6. Asthma. 7. Obesity. DW RN Subjective Subjective Still coughing. BP better now. No chest pain. . Objective Last 24 Hour Vital Signs Date Time Temp Pulse Resp B/P (MAP) Pulse Ox O2 Delivery O2 Flow Rate FiO2 11/16/17 17:22 98.0 11/16/17 14:39 Room Air 21 11/16/17 14:39 Room Air 21 11/16/17 11:56 98.0 77 20 161/95 96 11/16/17 11:45 161/95 11/16/17 11:22 82 20 98 Nasal Cannula 2.0 28 11/16/17 11:14 79 20 98 Nasal Cannula 2.0 28 11/16/17 08:47 98.2 96 20 159/77 97 11/16/17 08:41 100 152/98 11/16/17 08:41 152/98 11/16/17 08:41 152/98 11/16/17 07:07 Nasal Cannula 2.0 28 11/16/17 07:06 98 Nasal Cannula 2.0 28 11/16/17 07:06 100 20 98 Nasal Cannula 2.0 28 11/16/17 06:58 101 20 98 Room Air 11/16/17 06:13 97.9 91 18 152/98 95 Room Air 11/16/17 04:55 97.5 11/16/17 04:54 165/97 11/16/17 04:00 97.9 91 18 165/107 95 Room Air 11/16/17 03:26 94 20 99 Room Air 21 11/16/17 03:18 96 18 97 Room Air 21 11/16/17 00:00 98.0 96 21 164/97 95 Nasal Cannula 11/15/17 23:40 91 20 98 Nasal Cannula 2.0 28 11/15/17 23:33 91 20 96 Nasal Cannula 2.0 28 11/15/17 21:15 154/92 11/15/17 21:15 154/92 11/15/17 20:00 97.5 90 21 154/92 93 Nasal Cannula 2.0 11/15/17 19:57 92 20 99 Room Air 21 11/15/17 19:47 88 20 95 Room Air 21 11/15/17 19:47 95 Room Air 21 11/15/17 19:47 Nasal Cannula 2.0 28 Intake and Output 11/15/17 11/16/17 19:00 07:00 Intake Total 1785 ml 475 ml Balance 1785 ml 475 ml Intake Oral 1260 ml IV Total 525 ml 475 ml # Voids 4 4 Laboratory Tests Test 11/16/17 06:35 White Blood Count 7.5 K/UL (4.8-10.8) Red Blood Count 4.44 M/UL (4.20-5.40) Hemoglobin 12.3 G/DL (12.0-16.0) Hematocrit 38.7 % (37.0-47.0) Mean Corpuscular Volume 87 FL (80-99) Mean Corpuscular Hemoglobin 27.8 PG (27.0-31.0) Mean Corpuscular Hemoglobin Concent 31.9 G/DL (32.0-36.0) L Red Cell Distribution Width 13.9 % (11.6-14.8) Platelet Count 319 K/UL (150-450) Mean Platelet Volume 6.3 FL (6.5-10.1) L Neutrophils (%) (Auto) 82.1 % (45.0-75.0) H Lymphocytes (%) (Auto) 12.8 % (20.0-45.0) L Monocytes (%) (Auto) 4.3 % (1.0-10.0) Eosinophils (%) (Auto) 0.0 % (0.0-3.0) Basophils (%) (Auto) 0.7 % (0.0-2.0) Sodium Level 137 MMOL/L (136-145) Potassium Level 4.3 MMOL/L (3.5-5.1) Chloride Level 97 MMOL/L (98-107) L Carbon Dioxide Level 32 MMOL/L (21-32) Anion Gap 8 mmol/L (5-15) Blood Urea Nitrogen 32 mg/dL (7-18) H Creatinine 1.1 MG/DL (0.55-1.30) Estimat Glomerular Filtration Rate > 60 mL/min (>60) Glucose Level 376 MG/DL (74-106) H Calcium Level 9.9 MG/DL (8.5-10.1) Free Thyroxine 0.70 NG/DL (0.76-1.46) L Microbiology Date/Time Source Procedure Growth Status 11/14/17 08:00 Sputum Expectorated Gram Stain - Final Complete 11/14/17 08:00 Sputum Expectorated Sputum Culture - Final NORMAL UPPER RESPIRATORY TAYE PRESENT Complete Objective HEAD AND NECK: Shows no JVD. LUNGS: Decreased breath sounds with diffuse wheezing. CARDIOVASCULAR: Regular S1 and S2. Mildly tachycardic. ABDOMEN: Soft. EXTREMITIES: 2+ pitting edema. GERRY CHILDERS Nov 16, 2017 17:40
[2017-11-16] MEDS: Metoprolol Tartrate 50mg tab ORAL SCH (21:14)
[2017-11-17] MEDS: HYDROcodone/Acetamin 10/325 tab ORAL PRN ×5 (01:35→20:06)
[2017-11-17] MEDS: LORazepam 1mg tab ORAL PRN ×3 (02:44→17:55)
[2017-11-17] MEDS: Albuterol/Ipratropium 3ml neb HHN SCH ×6 (03:00→23:06)
[2017-11-17] MEDS: NovoLOG Insulin Flexpen SUBQ SCH ×4 (06:27→21:43)
[2017-11-17 08:00] VITALS: BP 168/97
[2017-11-17] MEDS: Metoprolol Tartrate 50mg tab ORAL SCH ×2 (08:57→21:42)
[2017-11-17] MEDS: Losartan 50mg tab ORAL SCH ×2 (08:57→21:41)
[2017-11-17] MEDS: Heparin 5000 units/ml inj SUBQ SCH ×2 (09:10→21:43)
[2017-11-17] MEDS: Levemir Flexpen SUBQ SCH ×2 (09:14→17:18)
--- NOTE | 2017-11-17 09:53 | Pulmonology Progress Note ---
Assessment/Plan Assessment/Plan ASSESSMENT AND PLAN: 1. Shortness of breath. CXR clear 2. Bilateral lower extremity edema. 3. Elevated brain natriuretic peptide, Has normal LVEF on ECHO. On Lasix 4. Hypertension 5. Diabetes. 6. Asthma. Continue O2; pulm hygiene; will decrease steroids 7. Obesity. OK to dc home Po steroid taper Diuretics Subjective Interval Events: No new events Constitutional: Reports: no symptoms HEENT: Repors: no symptoms Respiratory: Reports: dry cough, shortness of breath Cardiovascular: Reports: no symptoms Gastrointestinal/Abdominal: Reports: no symptoms Allergies: Coded Allergies: FISH CONTAINING PRODUCTS (Unverified Allergy, Unknown, 11/02/13) IBUPROFEN (Unverified Allergy, Unknown, 11/02/13) PENICILLIN G (Unverified Allergy, Unknown, 11/02/13) PENICILLINS (Unverified Allergy, Unknown, 11/28/14) Objective Last 24 Hour Vital Signs Date Time Temp Pulse Resp B/P (MAP) Pulse Ox O2 Delivery O2 Flow Rate FiO2 11/17/17 08:58 80 168/97 11/17/17 08:57 80 168/97 11/17/17 08:57 167/98 11/17/17 08:42 97.9 11/17/17 07:17 87 22 97 Room Air 11/17/17 07:12 Room Air 11/17/17 07:11 97 Room Air 11/17/17 07:07 87 22 97 Room Air 11/17/17 03:52 Nasal Cannula 11/17/17 03:52 Nasal Cannula 11/17/17 00:51 Nasal Cannula 11/17/17 00:50 Nasal Cannula 11/16/17 22:10 146/92 11/16/17 21:14 85 164/81 11/16/17 21:14 164/81 11/16/17 21:00 83 18 164/81 100 Nasal Cannula 2.0 11/16/17 20:24 89 20 98 Nasal Cannula 2.0 28 11/16/17 20:14 71 20 98 Nasal Cannula 2.0 28 11/16/17 20:14 Nasal Cannula 3.0 32 11/16/17 20:14 98 Nasal Cannula 2.0 32 11/16/17 18:28 84 137/71 11/16/17 18:06 97.9 84 20 137/71 99 Room Air 11/16/17 14:39 Room Air 21 2/10/18 14:39 Room Air 21 11/16/17 11:56 98.0 77 20 161/95 96 11/16/17 11:45 161/95 11/16/17 11:22 82 20 98 Nasal Cannula 2.0 28 11/16/17 11:14 79 20 98 Nasal Cannula 2.0 28 Intake and Output 11/16/17 11/17/17 19:00 07:00 Intake Total 1220 ml Output Total 1200 ml Balance 1220 ml -1200 ml Intake Oral 1220 ml Output Urine Total 1200 ml # Voids 1 2 # Bowel Movements 1 General Appearance: no acute distress HEENT: normocephalic Respiratory/Chest: chest wall non-tender, lungs clear Cardiovascular: normal peripheral pulses Abdomen: normal bowel sounds Current Medications Medications (Trade) Dose Ordered Sig/Pantera Route PRN Reason Start Time Stop Time Status Last Admin Dose Admin Acetaminophen (Tylenol) 650 mg Q4H PRN ORAL Mild Pain (Pain Scale 1-3) 11/14/17 18:30 12/13/17 18:29 Acetaminophen/ Hydrocodone Bitart ([place] 10/325) 1 tab Q4H PRN ORAL Moderate to Severe Pain 11/16/17 14:30 11/23/17 14:29 11/17/17 07:43 Albuterol/ Ipratropium (Albuterol/ Ipratropium) 3 ml Q4HRT HHN 11/15/17 15:00 11/20/17 14:59 11/17/17 07:07 Amlodipine Besylate (Norvasc) 5 mg BID ORAL 11/15/17 18:00 12/15/17 17:59 11/17/17 08:58 Clonidine HCl (Catapres tab) 0.2 mg Q2H PRN ORAL SBP>160 11/15/17 12:00 12/15/17 11:59 11/16/17 11:45 Dextrose (Dextrose 50%) STAT PRN IV Hypoglycemia 11/14/17 18:30 12/14/17 18:29 Furosemide (Lasix) 40 mg EVERY 12 HOURS IV 11/14/17 21:00 12/13/17 20:59 11/17/17 08:56 Heparin Sodium (Porcine) (Heparin 5000 units/ml) 5,000 units EVERY 12 HOURS SUBQ 11/14/17 21:00 12/13/17 20:59 11/17/17 09:10 Insulin Aspart (NovoLOG) BEFORE MEALS AND HS SUBQ 11/14/17 21:00 12/13/17 16:29 11/16/17 21:09 Insulin Detemir (Levemir) 10 units BID SUBQ 11/15/17 18:00 12/15/17 17:59 11/17/17 09:14 Levofloxacin 100 ml @ 100 mls/hr Q24H IVPB 11/15/17 05:00 11/21/17 04:59 11/16/17 04:25 Lorazepam (Ativan) 1 mg Q6H PRN ORAL For Anxiety 11/14/17 18:30 11/20/17 18:29 11/17/17 02:44 Losartan Potassium (Cozaar) 50 mg EVERY 12 HOURS ORAL 11/15/17 21:00 12/15/17 20:59 11/17/17 08:57 Metoprolol Tartrate (Lopressor) 50 mg Q12HR ORAL 11/16/17 21:00 12/16/17 20:59 11/17/17 08:57 Ondansetron HCl (Zofran) 4 mg Q6H PRN IVP Nausea & Vomiting 11/14/17 18:30 12/13/17 18:29 Prednisone (predniSONE) 20 mg DAILY ORAL 11/17/17 09:00 12/17/17 08:59 11/17/17 08:58 Stevan Hill MD Nov 17, 2017 09:53
[2017-11-17 12:00] VITALS: BP 157/99
--- NOTE | 2017-11-17 12:03 | Nephrology Progress Note ---
Assessment/Plan Problem List: (1) D-dimer, elevated (2) Anxiety disorder (3) HTN (hypertension) (4) CHF (congestive heart failure) (5) Obesity (6) acute exacerbation of chronic pain (7) Active asthma (8) Shortness of breath (9) Diabetes Plan Continue current treatment plan Continue neb treatment PRN O2 Psych consult pending Monitor lites, correct prn BP control, strict glycemic control Abx per ID AM labs dc in am Subjective Constitutional: Denies: no symptoms, chills, diaphoresis, fever, malaise, weakness, other HEENT: Denies: no symptoms, eye pain, blurred vision, tearing, double vision, ear pain, ear discharge, nose pain, nose congestion, throat pain, throat swelling, mouth pain, mouth swelling, other Genitourinary: Denies: no symptoms, burning, discharge, frequency, flank pain, hematuria, incontinence, pain, urgency, other Neurologic/Psychiatric: Denies: no symptoms, anxiety, depressed, emotional problems, headache, numbness, paresthesia, pre-existing deficit, seizure, tingling, tremors, weakness, other Subjective In bed, in no apparent distress, having lunch, stated that she wants to be discharged tomorrow in AM Objective Objective Last 24 Hour Vital Signs Date Time Temp Pulse Resp B/P (MAP) Pulse Ox O2 Delivery O2 Flow Rate FiO2 11/17/17 11:21 67 20 99 Room Air 11/17/17 11:11 76 20 94 Room Air 11/17/17 08:58 80 168/97 11/17/17 08:57 80 168/97 11/17/17 08:57 167/98 11/17/17 08:42 97.9 11/17/17 08:00 97.2 80 18 168/97 97 Room Air 11/17/17 07:17 87 22 97 Room Air 11/17/17 07:12 Room Air 11/17/17 07:11 97 Room Air 11/17/17 07:07 87 22 97 Room Air 11/17/17 03:52 Nasal Cannula 11/17/17 03:52 Nasal Cannula 11/17/17 00:51 Nasal Cannula 11/17/17 00:50 Nasal Cannula 11/16/17 22:10 146/92 11/16/17 21:14 85 164/81 11/16/17 21:14 164/81 11/16/17 21:00 83 18 164/81 100 Nasal Cannula 2.0 11/16/17 20:24 89 20 98 Nasal Cannula 2.0 28 11/16/17 20:14 71 20 98 Nasal Cannula 2.0 28 11/16/17 20:14 Nasal Cannula 3.0 32 11/16/17 20:14 98 Nasal Cannula 2.0 32 11/16/17 18:28 84 137/71 11/16/17 18:06 97.9 84 20 137/71 99 Room Air 11/16/17 14:39 Room Air 21 11/16/17 14:39 Room Air 21 Intake and Output 11/16/17 11/17/17 19:00 07:00 Intake Total 1220 ml Output Total 1200 ml Balance 1220 ml -1200 ml Intake Oral 1220 ml Output Urine Total 1200 ml # Voids 1 2 # Bowel Movements 1 Height (Feet): 5 Height (Inches): 7.00 Weight (Pounds): 240 General Appearance: no apparent distress, alert EENT: normal ENT inspection Neck: normal alignment, supple Cardiovascular: normal rate, regular rhythm Respiratory/Chest: no respiratory distress Abdomen: soft Extremities: trace edema Neurologic: alert, oriented x 3, responsive, normal mood/affect Divya Nelson N.P. Nov 17, 2017 12:03
[2017-11-17] MEDS: Levofloxacin 500mg tab ORAL SCH (14:16)
[2017-11-17 16:00] VITALS: BP 158/87
--- NOTE | 2017-11-17 17:44 | Infectious Diseases Prog Note ---
Assessment/Plan Problems: (1) Community acquired pneumonia Assessment & Plan: sputum culture grew normal respiratory cici , screening for influenza is negative , continue levaquin empiric coverage, may remove from droplets isolation (2) Acute asthma exacerbation Assessment & Plan: due to the above , continue nebulizers, taper steroids (3) Respiratory distress Assessment & Plan: due to the above, monitor CXR, pulmonary is following (4) Diabetes Assessment & Plan: recommend tight glycemic control to keep blood glucose between 100-140 Subjective Constitutional: Reports: no symptoms HEENT: Reports: no symptoms Respiratory: Reports: no symptoms Breasts: Reports: no symptoms Cardiovascular: Reports: no symptoms Gastrointestinal/Abdominal: Reports: no symptoms Genitourinary: Reports: no symptoms Neurologic: Reports: no symptoms Psychiatric: Reports: no symptoms Skin: Reports: no symptoms Endocrine: Reports: no symptoms Hematologic: Reports: no symptoms Musculoskeletal: Reports: no symptoms Allergies: Coded Allergies: FISH CONTAINING PRODUCTS (Unverified Allergy, Unknown, 11/02/13) IBUPROFEN (Unverified Allergy, Unknown, 11/02/13) PENICILLIN G (Unverified Allergy, Unknown, 11/02/13) PENICILLINS (Unverified Allergy, Unknown, 11/28/14) Objective Vital Signs Last 24 Hour Vital Signs Date Time Temp Pulse Resp B/P (MAP) Pulse Ox O2 Delivery O2 Flow Rate FiO2 11/17/17 17:19 88 158/87 11/17/17 16:50 97.9 11/17/17 16:00 98.0 88 19 158/87 100 Room Air 11/17/17 15:18 86 20 99 Room Air 11/17/17 15:05 75 20 95 Room Air 11/17/17 12:00 97.6 77 19 157/99 99 Room Air 11/17/17 11:21 67 20 99 Room Air 11/17/17 11:11 76 20 94 Room Air 11/17/17 08:58 80 168/97 11/17/17 08:57 80 168/97 11/17/17 08:57 167/98 11/17/17 08:00 97.2 80 18 168/97 97 Room Air 11/17/17 07:17 87 22 97 Room Air 11/17/17 07:12 Room Air 11/17/17 07:11 97 Room Air 11/17/17 07:07 87 22 97 Room Air 11/17/17 03:52 Nasal Cannula 11/17/17 03:52 Nasal Cannula 11/17/17 00:51 Nasal Cannula 11/17/17 00:50 Nasal Cannula 11/16/17 22:10 146/92 11/16/17 21:14 85 164/81 11/16/17 21:14 164/81 11/16/17 21:00 83 18 164/81 100 Nasal Cannula 2.0 11/16/17 20:24 89 20 98 Nasal Cannula 2.0 28 11/16/17 20:14 71 20 98 Nasal Cannula 2.0 28 11/16/17 20:14 Nasal Cannula 3.0 32 11/16/17 20:14 98 Nasal Cannula 2.0 32 11/16/17 18:28 84 137/71 11/16/17 18:06 97.9 84 20 137/71 99 Room Air Height (Feet): 5 Height (Inches): 7.00 Weight (Pounds): 240 General Appearance: WD/WN, no acute distress HEENT: normocephalic, atraumatic, anicteric, mucous membranes moist, PERRL Respiratory/Chest: chest wall non-tender, lungs clear, normal breath sounds, no respiratory distress, no accessory muscle use Cardiovascular: normal peripheral pulses, normal rate, regular rhythm, no gallop/murmur, no JVD Abdomen: normal bowel sounds, soft, non tender, no organomegaly, non distended , no mass, no scars Genitourinary: normal external genitalia Extremities: no cyanosis, no clubbing Skin: no rash, no lesions, ulcers Neurologic/Psychiatric: alert, oriented x 3, responsive Current Medications Medications (Trade) Dose Ordered Sig/Pantera Route PRN Reason Start Time Stop Time Status Last Admin Dose Admin Acetaminophen (Tylenol) 650 mg Q4H PRN ORAL Mild Pain (Pain Scale 1-3) 11/14/17 18:30 12/13/17 18:29 Acetaminophen/ Hydrocodone Bitart ([place] 10/325) 1 tab Q4H PRN ORAL Moderate to Severe Pain 11/16/17 14:30 11/23/17 14:29 11/17/17 15:51 Albuterol/ Ipratropium (Albuterol/ Ipratropium) 3 ml Q4HRT HHN 11/15/17 15:00 11/20/17 14:59 11/17/17 15:05 Amlodipine Besylate (Norvasc) 5 mg BID ORAL 11/15/17 18:00 12/15/17 17:59 11/17/17 17:19 Clonidine HCl (Catapres tab) 0.2 mg Q2H PRN ORAL SBP>160 11/15/17 12:00 12/15/17 11:59 11/16/17 11:45 Dextrose (Dextrose 50%) STAT PRN IV Hypoglycemia 11/14/17 18:30 12/14/17 18:29 Furosemide (Lasix) 40 mg EVERY 12 HOURS IV 11/14/17 21:00 12/13/17 20:59 11/17/17 08:56 Heparin Sodium (Porcine) (Heparin 5000 units/ml) 5,000 units EVERY 12 HOURS SUBQ 11/14/17 21:00 12/13/17 20:59 11/17/17 09:10 Insulin Aspart (NovoLOG) BEFORE MEALS AND HS SUBQ 11/14/17 21:00 12/13/17 16:29 11/17/17 17:18 Insulin Detemir (Levemir) 10 units BID SUBQ 11/15/17 18:00 12/15/17 17:59 11/17/17 17:18 Levofloxacin (Levaquin) 500 mg DAILY ORAL 11/17/17 14:00 11/24/17 13:59 11/17/17 14:16 Lorazepam (Ativan) 1 mg Q6H PRN ORAL For Anxiety 11/14/17 18:30 11/20/17 18:29 11/17/17 11:43 Losartan Potassium (Cozaar) 50 mg EVERY 12 HOURS ORAL 11/15/17 21:00 12/15/17 20:59 11/17/17 08:57 Metoprolol Tartrate (Lopressor) 50 mg Q12HR ORAL 11/16/17 21:00 12/16/17 20:59 11/17/17 08:57 Ondansetron HCl (Zofran) 4 mg Q6H PRN IVP Nausea & Vomiting 11/14/17 18:30 12/13/17 18:29 Prednisone (predniSONE) 20 mg DAILY ORAL 11/17/17 09:00 12/17/17 08:59 11/17/17 08:58 Rodrigo Elizabeth M.D.b 11, 2018 17:44
[2017-11-17] MEDS ORDERED: PARoxetine 20mg tab ORAL SCH (17:45)
[2017-11-17 19:58] VITALS: BP 156/84
[2017-11-17] MEDS ORDERED: PARoxetine 20mg tab ORAL PRN (22:00)
--- NOTE | 2017-11-17 23:41 | Consultation ---
History of Present Illness General Date patient seen: Nov 16, 2017 Chief Complaint: Dyspnea/Respdistress Present Illness HPI 51-year-old female with past medical history of panic attack, asthma, diabetes and hypertension, presented to the emergency room at [facility] with worsening shortness of breath and cough, productive. the pt stated that she was unable to sleep and has anxiety and panic attack like sxs Allergies: Coded Allergies: FISH CONTAINING PRODUCTS (Unverified Allergy, Unknown, 11/02/13) IBUPROFEN (Unverified Allergy, Unknown, 11/02/13) PENICILLIN G (Unverified Allergy, Unknown, 11/02/13) PENICILLINS (Unverified Allergy, Unknown, 11/28/14) Medication History Scheduled Albuterol Sulfate* (Proair Hfa*), 1 PUFF INH Q6H Aspirin* (Aspir 81*), 81 MG ORAL DAILY, (Reported) Clonidine Hcl* (Catapres*), 0.2 MG ORAL Q8HR, (Reported) Insulin Human Isophan/Regular (Humulin 70-30 Vial), 5 UNITS SUBQ BID, (Reported) Lisinopril/Hydrochlorothiazide (Zestoretic 20-25 mg Tablet), 1 MG ORAL DAILY, ( Reported) Naproxen* (Naprosyn*), 500 MG ORAL TWICE A DAY, (Reported) Prednisone* (Prednisone*), 40 MG ORAL DAILY Scheduled PRN Hydrocodone Bit/Acetaminophen 5-325* ([place] 5-325*), 1 TAB ORAL Q6H PRN for For Pain Patient History History Provided By: Patient Healthcare decision maker Resuscitation status Full Code Advanced Directive on File Past Medical/Surgical History Past Medical/Surgical History: (1) Active asthma (2) Head injury (3) Active asthma (4) Respiratory distress (5) Diabetes (6) Community acquired pneumonia (7) Acute asthma exacerbation (8) Shortness of breath (9) Anxiety disorder (10) CHF (congestive heart failure) (11) Obesity (12) HTN (hypertension) (13) Active asthma (14) D-dimer, elevated (15) acute exacerbation of chronic pain Review of Systems Psychiatric: Reports: prior hx, anxiety, depressed feelings, emotional problems Physical Exam General Appearance: no apparent distress, alert, agitated, obese Neurologic: alert, oriented x 3, responsive, depressed affect Last 24 Hour Vital Signs Date Time Temp Pulse Resp B/P (MAP) Pulse Ox O2 Delivery O2 Flow Rate FiO2 11/17/17 23:15 85 20 99 Room Air 11/17/17 23:07 87 20 95 Room Air 11/17/17 21:42 76 156/84 11/17/17 21:41 156/84 11/17/17 21:05 97.5 11/17/17 20:05 82 20 99 Room Air 11/17/17 19:58 97.5 76 19 156/84 95 11/17/17 19:56 82 20 95 Room Air 11/17/17 19:56 95 11/17/17 19:56 Room Air 11/17/17 17:19 88 158/87 11/17/17 16:00 98.0 88 19 158/87 100 Room Air 11/17/17 15:18 86 20 99 Room Air 11/17/17 15:05 75 20 95 Room Air 11/17/17 12:00 97.6 77 19 157/99 99 Room Air 11/17/17 11:21 67 20 99 Room Air 11/17/17 11:11 76 20 94 Room Air 11/17/17 08:58 80 168/97 11/17/17 08:57 80 168/97 11/17/17 08:57 167/98 11/17/17 08:00 97.2 80 18 168/97 97 Room Air 11/17/17 07:17 87 22 97 Room Air 11/17/17 07:12 Room Air 11/17/17 07:11 97 Room Air 11/17/17 07:07 87 22 97 Room Air 11/17/17 03:52 Nasal Cannula 11/17/17 03:52 Nasal Cannula 11/17/17 00:51 Nasal Cannula 11/17/17 00:50 Nasal Cannula Intake and Output 11/16/17 11/17/17 19:00 07:00 Intake Total 1220 ml Output Total 1200 ml Balance 1220 ml -1200 ml Intake Oral 1220 ml Output Urine Total 1200 ml # Voids 1 2 # Bowel Movements 1 Height (Feet): 5 Height (Inches): 7.00 Weight (Pounds): 240 Medications Current Medications Medications (Trade) Dose Ordered Sig/Pantera Route PRN Reason Start Time Stop Time Status Last Admin Dose Admin Acetaminophen (Tylenol) 650 mg Q4H PRN ORAL Mild Pain (Pain Scale 1-3) 11/14/17 18:30 12/13/17 18:29 Acetaminophen/ Hydrocodone Bitart ([place] 10/325) 1 tab Q4H PRN ORAL Moderate to Severe Pain 11/16/17 14:30 11/23/17 14:29 11/17/17 20:06 Albuterol/ Ipratropium (Albuterol/ Ipratropium) 3 ml Q4HRT HHN 11/15/17 15:00 11/20/17 14:59 11/17/17 23:06 Amlodipine Besylate (Norvasc) 5 mg BID ORAL 11/15/17 18:00 12/15/17 17:59 11/17/17 17:19 Clonidine HCl (Catapres tab) 0.2 mg Q2H PRN ORAL SBP>160 11/15/17 12:00 12/15/17 11:59 11/16/17 11:45 Dextrose (Dextrose 50%) STAT PRN IV Hypoglycemia 11/14/17 18:30 12/14/17 18:29 Furosemide (Lasix) 40 mg EVERY 12 HOURS IV 11/14/17 21:00 12/13/17 20:59 11/17/17 08:56 Heparin Sodium (Porcine) (Heparin 5000 units/ml) 5,000 units EVERY 12 HOURS SUBQ 11/14/17 21:00 12/13/17 20:59 11/17/17 21:43 Insulin Aspart (NovoLOG) BEFORE MEALS AND HS SUBQ 11/14/17 21:00 12/13/17 16:29 11/17/17 21:43 Insulin Detemir (Levemir) 10 units BID SUBQ 11/15/17 18:00 12/15/17 17:59 11/17/17 17:18 Levofloxacin (Levaquin) 500 mg DAILY ORAL 11/17/17 14:00 11/24/17 13:59 11/17/17 14:16 Lorazepam (Ativan) 1 mg Q6H PRN ORAL For Anxiety 11/14/17 18:30 11/20/17 18:29 11/17/17 17:55 Losartan Potassium (Cozaar) 50 mg EVERY 12 HOURS ORAL 11/15/17 21:00 12/15/17 20:59 11/17/17 21:41 Metoprolol Tartrate (Lopressor) 50 mg Q12HR ORAL 11/16/17 21:00 12/16/17 20:59 11/17/17 21:42 Ondansetron HCl (Zofran) 4 mg Q6H PRN IVP Nausea & Vomiting 11/14/17 18:30 12/13/17 18:29 Paroxetine HCl (Paxil) 20 mg HSPRN PRN ORAL SLEEP 11/17/17 22:00 12/17/17 17:44 11/17/17 22:17 Prednisone (predniSONE) 20 mg DAILY ORAL 11/17/17 09:00 12/17/17 08:59 11/17/17 08:58 Assessment/Plan Status: stable Assessment/Plan panic ptsd ativan paxil 20mg qhs Alannah Garcia M.D. Nov 17, 2017 23:40
[2017-11-18 00:31] VITALS: BP 148/80
[2017-11-18] MEDS: HYDROcodone/Acetamin 10/325 tab ORAL PRN ×2 (02:29→09:38)
[2017-11-18] MEDS: LORazepam 1mg tab ORAL PRN (03:08)
[2017-11-18] MEDS: Albuterol/Ipratropium 3ml neb HHN SCH ×4 (03:47→14:53)
[2017-11-18] MEDS: NovoLOG Insulin Flexpen SUBQ SCH ×2 (06:11→11:30)
[2017-11-18 07:05] LABS: BASOPHILS % (AUTO) 1.4 % (0.0-2.0); EOSINOPHILS % (AUTO) 2.7 % (0.0-3.0); HEMATOCRIT 42.9 % (37.0-47.0); HEMOGLOBIN 13.8 G/DL (12.0-16.0); LYMPHOCYTES % (AUTO) 31.3 % (20.0-45.0); MEAN CORPUSCULAR VOLUME 86 FL (80-99); MONOCYTES % (AUTO) 10.7 % (1.0-10.0); PLATELET COUNT 340 K/UL (150-450); RED BLOOD COUNT 5.01 M/UL (4.20-5.40); RED CELL DISTRIBUTION WIDTH 13.7 % (11.6-14.8); WHITE BLOOD COUNT 9.8 K/UL (4.8-10.8)
[2017-11-18 07:16] LABS: ANION GAP 9 mmol/L (5-15); BLOOD UREA NITROGEN 27 mg/dL (7-18); CALCIUM 9.7 MG/DL (8.5-10.1); CARBON DIOXIDE 30 MMOL/L (21-32); CHLORIDE 99 MMOL/L (98-107); POTASSIUM 4.1 MMOL/L (3.5-5.1); SODIUM 138 MMOL/L (136-145)
[2017-11-18 08:00] VITALS: BP 147/80
--- NOTE | 2017-11-18 09:12 | Pulmonology Progress Note ---
Assessment/Plan Assessment/Plan ASSESSMENT AND PLAN: 1. Shortness of breath. CXR clear 2. Bilateral lower extremity edema. 3. Elevated brain natriuretic peptide, Has normal LVEF on ECHO. On Lasix 4. Hypertension 5. Diabetes. 6. Asthma. Continue O2; pulm hygiene; will decrease steroids 7. Obesity. OK to dc home from pulmonary standpoint Po steroid taper Diuretics Subjective Interval Events: none Constitutional: Reports: no symptoms HEENT: Repors: no symptoms Respiratory: Reports: no symptoms Cardiovascular: Reports: no symptoms Gastrointestinal/Abdominal: Reports: no symptoms Allergies: Coded Allergies: FISH CONTAINING PRODUCTS (Unverified Allergy, Unknown, 11/02/13) IBUPROFEN (Unverified Allergy, Unknown, 11/02/13) PENICILLIN G (Unverified Allergy, Unknown, 11/02/13) PENICILLINS (Unverified Allergy, Unknown, 11/28/14) Objective Last 24 Hour Vital Signs Date Time Temp Pulse Resp B/P (MAP) Pulse Ox O2 Delivery O2 Flow Rate FiO2 11/18/17 08:00 98.1 70 20 147/80 93 11/18/17 07:35 Room Air 11/18/17 07:35 76 20 94 Room Air 21 11/18/17 07:35 96 Room Air 11/18/17 07:35 Room Air 11/18/17 03:54 Room Air 11/18/17 03:47 21 11/18/17 03:47 83 20 95 Room Air 21.0 11/18/17 03:28 97.6 11/18/17 00:31 97.6 75 19 148/80 95 Room Air 11/17/17 23:15 85 20 99 Room Air 11/17/17 23:07 87 20 95 Room Air 11/17/17 21:42 76 156/84 11/17/17 21:41 156/84 11/17/17 20:05 82 20 99 Room Air 11/17/17 20:00 Room Air 11/17/17 19:58 97.5 76 19 156/84 95 11/17/17 19:56 82 20 95 Room Air 11/17/17 19:56 95 11/17/17 19:56 Room Air 11/17/17 17:19 88 158/87 11/17/17 16:00 98.0 88 19 158/87 100 Room Air 11/17/17 15:18 86 20 99 Room Air 11/17/17 15:05 75 20 95 Room Air 11/17/17 12:00 97.6 77 19 157/99 99 Room Air 11/17/17 11:21 67 20 99 Room Air 11/17/17 11:11 76 20 94 Room Air Intake and Output 11/17/17 11/18/17 19:00 07:00 Intake Total 300 ml Balance 300 ml Intake Oral 300 ml # Voids 2 2 General Appearance: no acute distress HEENT: normocephalic Respiratory/Chest: chest wall non-tender, lungs clear Cardiovascular: normal peripheral pulses, normal rate Abdomen: normal bowel sounds, soft, non tender Extremities: no cyanosis Laboratory Tests 11/18/17 03:35: White Blood Count 9.8, Red Blood Count 5.01, Hemoglobin 13.8, Hematocrit 42.9, Mean Corpuscular Volume 86, Mean Corpuscular Hemoglobin 27.5, Mean Corpuscular Hemoglobin Concent 32.1, Red Cell Distribution Width 13.7, Platelet Count 340, Mean Platelet Volume 5.9L, Neutrophils (%) (Auto) 54.0, Lymphocytes (%) (Auto) 31.3, Monocytes (%) (Auto) 10.7H, Eosinophils (%) (Auto) 2.7, Basophils (%) ( Auto) 1.4, Sodium Level 138, Potassium Level 4.1, Chloride Level 99, Carbon Dioxide Level 30, Anion Gap 9, Blood Urea Nitrogen 27H, Creatinine 1.0, Estimat Glomerular Filtration Rate > 60, Glucose Level 172H, Calcium Level 9.7 Current Medications Medications (Trade) Dose Ordered Sig/Pantera Route PRN Reason Start Time Stop Time Status Last Admin Dose Admin Acetaminophen (Tylenol) 650 mg Q4H PRN ORAL Mild Pain (Pain Scale 1-3) 11/14/17 18:30 12/13/17 18:29 Acetaminophen/ Hydrocodone Bitart ([place] 10/325) 1 tab Q4H PRN ORAL Moderate to Severe Pain 11/16/17 14:30 11/23/17 14:29 11/18/17 02:29 Albuterol/ Ipratropium (Albuterol/ Ipratropium) 3 ml Q4HRT HHN 11/15/17 15:00 11/20/17 14:59 11/18/17 03:47 Amlodipine Besylate (Norvasc) 5 mg BID ORAL 11/15/17 18:00 12/15/17 17:59 11/17/17 17:19 Clonidine HCl (Catapres tab) 0.2 mg Q2H PRN ORAL SBP>160 11/15/17 12:00 12/15/17 11:59 11/16/17 11:45 Dextrose (Dextrose 50%) STAT PRN IV Hypoglycemia 11/14/17 18:30 12/14/17 18:29 Heparin Sodium (Porcine) (Heparin 5000 units/ml) 5,000 units EVERY 12 HOURS SUBQ 11/14/17 21:00 12/13/17 20:59 11/17/17 21:43 Insulin Aspart (NovoLOG) BEFORE MEALS AND HS SUBQ 11/14/17 21:00 12/13/17 16:29 11/18/17 06:11 Insulin Detemir (Levemir) 10 units BID SUBQ 11/15/17 18:00 12/15/17 17:59 11/17/17 17:18 Levofloxacin (Levaquin) 500 mg DAILY ORAL 11/17/17 14:00 11/24/17 13:59 11/17/17 14:16 Lorazepam (Ativan) 1 mg Q6H PRN ORAL For Anxiety 11/14/17 18:30 11/20/17 18:29 11/18/17 03:08 Losartan Potassium (Cozaar) 50 mg EVERY 12 HOURS ORAL 11/15/17 21:00 12/15/17 20:59 11/17/17 21:41 Metoprolol Tartrate (Lopressor) 50 mg Q12HR ORAL 11/16/17 21:00 12/16/17 20:59 11/17/17 21:42 Ondansetron HCl (Zofran) 4 mg Q6H PRN IVP Nausea & Vomiting 11/14/17 18:30 12/13/17 18:29 Paroxetine HCl (Paxil) 20 mg HSPRN PRN ORAL SLEEP 11/17/17 22:00 12/17/17 17:44 11/17/17 22:17 Prednisone (predniSONE) 20 mg DAILY ORAL 11/17/17 09:00 12/17/17 08:59 11/17/17 08:58 Stevan Hill MD Nov 18, 2017 09:12
[2017-11-18] MEDS: Levofloxacin 500mg tab ORAL SCH (09:35)
[2017-11-18] MEDS: Metoprolol Tartrate 50mg tab ORAL SCH (09:36)
[2017-11-18] MEDS: Losartan 50mg tab ORAL SCH (09:36)
[2017-11-18] MEDS: Heparin 5000 units/ml inj SUBQ SCH (09:39)
[2017-11-18] MEDS: Levemir Flexpen SUBQ SCH (09:43)
[2017-11-18] MEDS ORDERED: KLONOPIN1 MG ORAL ×2 (11:18→11:21)
[2017-11-18 11:50] VITALS: BP 133/60
--- NOTE | 2017-11-18 12:12 | Cardiac Electrophysiology PN ---
Assessment/Plan Assessment/Plan 1. Shortness of breath. Echo Nl EF 60%. On Lasix 2. Bilateral lower extremity edema.Better on Lasix 3. Elevated brain natriuretic peptide, likely congestive heart failure.Echo EF 60. Lasix 40 mg IV b.i.d. 4. Hypertension,on Lasix, Lopressor 50 bid, Norvasc 5 bid, Cozaar 50 bid and prn clonidine 5. Diabetes. 6. Asthma. 7. Obesity. NICK RN Subjective Subjective . BP better.. No chest pain or SOB . Objective Last 24 Hour Vital Signs Date Time Temp Pulse Resp B/P (MAP) Pulse Ox O2 Delivery O2 Flow Rate FiO2 11/18/17 11:50 98.1 74 20 133/60 92 11/18/17 11:03 65 20 97 Room Air 21 11/18/17 11:03 21 11/18/17 11:03 67 20 99 Room Air 11/18/17 09:36 70 147/80 11/18/17 09:36 70 147/80 11/18/17 09:36 147/80 11/18/17 08:00 98.1 70 20 147/80 93 11/18/17 07:35 Room Air 11/18/17 07:35 76 20 94 Room Air 21 11/18/17 07:35 96 Room Air 11/18/17 07:35 Room Air 11/18/17 03:54 Room Air 11/18/17 03:47 21 11/18/17 03:47 83 20 95 Room Air 21.0 11/18/17 03:28 97.6 11/18/17 00:31 97.6 75 19 148/80 95 Room Air 11/17/17 23:15 85 20 99 Room Air 11/17/17 23:07 87 20 95 Room Air 11/17/17 21:42 76 156/84 11/17/17 21:41 156/84 11/17/17 20:05 82 20 99 Room Air 11/17/17 20:00 Room Air 11/17/17 19:58 97.5 76 19 156/84 95 11/17/17 19:56 82 20 95 Room Air 11/17/17 19:56 95 11/17/17 19:56 Room Air 11/17/17 17:19 88 158/87 11/17/17 16:00 98.0 88 19 158/87 100 Room Air 11/17/17 15:18 86 20 99 Room Air 11/17/17 15:05 75 20 95 Room Air Intake and Output 11/17/17 11/18/17 19:00 07:00 Intake Total 300 ml Balance 300 ml Intake Oral 300 ml # Voids 2 2 Laboratory Tests Test 11/18/17 03:35 White Blood Count 9.8 K/UL (4.8-10.8) Red Blood Count 5.01 M/UL (4.20-5.40) Hemoglobin 13.8 G/DL (12.0-16.0) Hematocrit 42.9 % (37.0-47.0) Mean Corpuscular Volume 86 FL (80-99) Mean Corpuscular Hemoglobin 27.5 PG (27.0-31.0) Mean Corpuscular Hemoglobin Concent 32.1 G/DL (32.0-36.0) Red Cell Distribution Width 13.7 % (11.6-14.8) Platelet Count 340 K/UL (150-450) Mean Platelet Volume 5.9 FL (6.5-10.1) L Neutrophils (%) (Auto) 54.0 % (45.0-75.0) Lymphocytes (%) (Auto) 31.3 % (20.0-45.0) Monocytes (%) (Auto) 10.7 % (1.0-10.0) H Eosinophils (%) (Auto) 2.7 % (0.0-3.0) Basophils (%) (Auto) 1.4 % (0.0-2.0) Sodium Level 138 MMOL/L (136-145) Potassium Level 4.1 MMOL/L (3.5-5.1) Chloride Level 99 MMOL/L (98-107) Carbon Dioxide Level 30 MMOL/L (21-32) Anion Gap 9 mmol/L (5-15) Blood Urea Nitrogen 27 mg/dL (7-18) H Creatinine 1.0 MG/DL (0.55-1.30) Estimat Glomerular Filtration Rate > 60 mL/min (>60) Glucose Level 172 MG/DL (74-106) H Calcium Level 9.7 MG/DL (8.5-10.1) Objective HEAD AND NECK: No JVD. LUNGS: Decreased breath sounds with diffuse wheezing. CARDIOVASCULAR: Regular S1 and S2. Mildly tachycardic. ABDOMEN: Soft. EXTREMITIES: 2+ pitting edema. GERRY CHILDERS Nov 18, 2017 12:12
--- NOTE | 2017-11-18 14:58 | Infectious Diseases Prog Note ---
Assessment/Plan Problems: (1) Community acquired pneumonia Assessment & Plan: sputum culture grew normal respiratory cici , screening for influenza is negative , continue levaquin empiric coverage for 7 days (2) Acute asthma exacerbation Assessment & Plan: due to the above , continue nebulizers, taper steroids (3) Respiratory distress Assessment & Plan: due to the above, monitor CXR, pulmonary is following (4) Diabetes Assessment & Plan: recommend tight glycemic control to keep blood glucose between 100-140 Subjective Constitutional: Reports: no symptoms HEENT: Reports: no symptoms Respiratory: Reports: no symptoms Breasts: Reports: no symptoms Cardiovascular: Reports: no symptoms Gastrointestinal/Abdominal: Reports: no symptoms Genitourinary: Reports: no symptoms Neurologic: Reports: no symptoms Psychiatric: Reports: no symptoms Skin: Reports: no symptoms Endocrine: Reports: no symptoms Hematologic: Reports: no symptoms Allergies: Coded Allergies: FISH CONTAINING PRODUCTS (Unverified Allergy, Unknown, 11/02/13) IBUPROFEN (Unverified Allergy, Unknown, 11/02/13) PENICILLIN G (Unverified Allergy, Unknown, 11/02/13) PENICILLINS (Unverified Allergy, Unknown, 11/28/14) Objective Vital Signs Last 24 Hour Vital Signs Date Time Temp Pulse Resp B/P (MAP) Pulse Ox O2 Delivery O2 Flow Rate FiO2 11/18/17 14:53 Room Air 11/18/17 14:53 Room Air 11/18/17 11:50 98.1 74 20 133/60 92 11/18/17 11:03 65 20 97 Room Air 21 11/18/17 11:03 21 11/18/17 11:03 67 20 99 Room Air 11/18/17 09:36 70 147/80 11/18/17 09:36 70 147/80 11/18/17 09:36 147/80 11/18/17 08:00 98.1 70 20 147/80 93 11/18/17 07:35 Room Air 11/18/17 07:35 76 20 94 Room Air 21 11/18/17 07:35 96 Room Air 11/18/17 07:35 Room Air 11/18/17 03:54 Room Air 11/18/17 03:47 21 11/18/17 03:47 83 20 95 Room Air 21.0 11/18/17 03:28 97.6 11/18/17 00:31 97.6 75 19 148/80 95 Room Air 11/17/17 23:15 85 20 99 Room Air 11/17/17 23:07 87 20 95 Room Air 11/17/17 21:42 76 156/84 11/17/17 21:41 156/84 11/17/17 20:05 82 20 99 Room Air 11/17/17 20:00 Room Air 11/17/17 19:58 97.5 76 19 156/84 95 11/17/17 19:56 82 20 95 Room Air 11/17/17 19:56 95 11/17/17 19:56 Room Air 11/17/17 17:19 88 158/87 11/17/17 16:00 98.0 88 19 158/87 100 Room Air 11/17/17 15:18 86 20 99 Room Air 11/17/17 15:05 75 20 95 Room Air Height (Feet): 5 Height (Inches): 7.00 Weight (Pounds): 240 General Appearance: WD/WN, no acute distress HEENT: normocephalic, atraumatic, anicteric, mucous membranes moist Respiratory/Chest: chest wall non-tender, lungs clear, normal breath sounds, no respiratory distress, no accessory muscle use Cardiovascular: normal peripheral pulses, normal rate, regular rhythm, no gallop/murmur, no JVD Abdomen: normal bowel sounds, soft, non tender, no organomegaly, non distended , no mass, no scars Extremities: no cyanosis, no clubbing Skin: no rash, no lesions, no ulcers Neurologic/Psychiatric: alert, oriented x 3 Laboratory Tests Test 11/18/17 03:35 White Blood Count 9.8 K/UL (4.8-10.8) Red Blood Count 5.01 M/UL (4.20-5.40) Hemoglobin 13.8 G/DL (12.0-16.0) Hematocrit 42.9 % (37.0-47.0) Mean Corpuscular Volume 86 FL (80-99) Mean Corpuscular Hemoglobin 27.5 PG (27.0-31.0) Mean Corpuscular Hemoglobin Concent 32.1 G/DL (32.0-36.0) Red Cell Distribution Width 13.7 % (11.6-14.8) Platelet Count 340 K/UL (150-450) Mean Platelet Volume 5.9 FL (6.5-10.1) L Neutrophils (%) (Auto) 54.0 % (45.0-75.0) Lymphocytes (%) (Auto) 31.3 % (20.0-45.0) Monocytes (%) (Auto) 10.7 % (1.0-10.0) H Eosinophils (%) (Auto) 2.7 % (0.0-3.0) Basophils (%) (Auto) 1.4 % (0.0-2.0) Sodium Level 138 MMOL/L (136-145) Potassium Level 4.1 MMOL/L (3.5-5.1) Chloride Level 99 MMOL/L (98-107) Carbon Dioxide Level 30 MMOL/L (21-32) Anion Gap 9 mmol/L (5-15) Blood Urea Nitrogen 27 mg/dL (7-18) H Creatinine 1.0 MG/DL (0.55-1.30) Estimat Glomerular Filtration Rate > 60 mL/min (>60) Glucose Level 172 MG/DL (74-106) H Calcium Level 9.7 MG/DL (8.5-10.1) Current Medications Medications (Trade) Dose Ordered Sig/Pantera Route PRN Reason Start Time Stop Time Status Last Admin Dose Admin Acetaminophen (Tylenol) 650 mg Q4H PRN ORAL Mild Pain (Pain Scale 1-3) 11/14/17 18:30 12/13/17 18:29 Acetaminophen/ Hydrocodone Bitart ([place] 10/325) 1 tab Q4H PRN ORAL Moderate to Severe Pain 11/16/17 14:30 11/23/17 14:29 11/18/17 09:38 Albuterol/ Ipratropium (Albuterol/ Ipratropium) 3 ml Q4HRT HHN 11/15/17 15:00 11/20/17 14:59 11/18/17 11:02 Amlodipine Besylate (Norvasc) 5 mg BID ORAL 11/15/17 18:00 12/15/17 17:59 11/18/17 09:36 Clonidine HCl (Catapres tab) 0.2 mg Q2H PRN ORAL SBP>160 11/15/17 12:00 12/15/17 11:59 11/16/17 11:45 Dextrose (Dextrose 50%) STAT PRN IV Hypoglycemia 11/14/17 18:30 12/14/17 18:29 Heparin Sodium (Porcine) (Heparin 5000 units/ml) 5,000 units EVERY 12 HOURS SUBQ 11/14/17 21:00 12/13/17 20:59 11/18/17 09:39 Insulin Aspart (NovoLOG) BEFORE MEALS AND HS SUBQ 11/14/17 21:00 12/13/17 16:29 11/18/17 06:11 Insulin Detemir (Levemir) 10 units BID SUBQ 11/15/17 18:00 12/15/17 17:59 11/18/17 09:43 Levofloxacin (Levaquin) 500 mg DAILY ORAL 11/17/17 14:00 11/24/17 13:59 11/18/17 09:35 Lorazepam (Ativan) 1 mg Q6H PRN ORAL For Anxiety 11/14/17 18:30 11/20/17 18:29 11/18/17 03:08 Losartan Potassium (Cozaar) 50 mg EVERY 12 HOURS ORAL 11/15/17 21:00 12/15/17 20:59 11/18/17 09:36 Metoprolol Tartrate (Lopressor) 50 mg Q12HR ORAL 11/16/17 21:00 12/16/17 20:59 11/18/17 09:36 Ondansetron HCl (Zofran) 4 mg Q6H PRN IVP Nausea & Vomiting 11/14/17 18:30 12/13/17 18:29 Paroxetine HCl (Paxil) 20 mg HSPRN PRN ORAL SLEEP 11/17/17 22:00 12/17/17 17:44 11/17/17 22:17 Prednisone (predniSONE) 20 mg DAILY ORAL 11/17/17 09:00 12/17/17 08:59 11/18/17 09:35 Rodrigo Elizabeth M.D. Nov 18, 2017 14:58
--- NOTE | 2017-11-18 20:15 | Progress Note ---
DATE: 11/18/2017 SUBJECTIVE: The patient is presenting with anxiety, irritable mood, stated that she did not sleep last night. Paxil has not worked for her. No other antidepressant. She only would like to take Klonopin. She requested a prescription for 0.2 mg of Klonopin daily. It was explained to her that the medication does not come in 0.2 mg. The patient is illogical and refused a prescription for 1 mg at bedtime. Kenny nurse explained to her as well, however, she is unable to understand and keep perseverating about Klonopin 0.2 mg. MENTAL STATUS EXAMINATION: The patient is alert and oriented times self, place, and situation she is in. Mood is irritable and depressed. Affect is constricted, congruent with mood. Thought process is concrete. Thought content, no suicidal or homicidal ideations. ASSESSMENT: 1. Posttraumatic stress disorder. 2. Anxiety. 3. Depression. PLAN: 1. The patient was given Klonopin 1 mg daily, she refused. 2. She refused the Paxil prescription. 3. We will continue follow and readjust the medications. Alannah Garcia M.D. DR: SIRENA JOB#: [id number] CC:
--- NOTE | 2017-11-19 13:16 | Diagnostic Imaging Report ---
APPROVED REPORT CPT Code: 01365 Present Symptoms Lower Extremity Pain: Bilateral BILATERAL: Imaging reveals a patent deep venous system bilaterally. There is no evidence of thrombus within the femoral, popliteal or tibial segments. The greater saphenous veins are also within normal limits. Doppler indicates normal spontaneous flow within these segments. Incidental finding: Enlarged bakers cyst noted at the left popliteal vein level, measuring (4.1 cm x 1.8 cm).
--- NOTE | 2017-11-20 09:09 | Discharge Summary ---
Discharge Summary Hospital Course Date of Admission Nov 13, 2017 at 03:59 Date of Discharge Nov 18, 2017 at 14:00 Admitting Diagnosis SHORTNESS OF BREATH HPI Katherine Gandara is a 51 year old female who was admitted on Nov 13, 2017 at 03:59 for Shortness Of Breath Hospital Course dc summary #[id number] Discharge Medications Continued Medications: Albuterol Sulfate* (Proair Hfa*) 8.5 Gm Hfa.aer.ad 1 PUFF INH Q6H, #8.5 GM 0 Refills Aspirin* (Aspir 81*) 81 Mg Tablet.dr 81 MG ORAL DAILY, TAB Clonazepam* (Klonopin*) 1 Mg Tablet 1 MG ORAL DAILY for 30 Days, TAB Clonidine Hcl* (Catapres*) 0.2 Mg Tablet 0.2 MG ORAL Q8HR, TAB Hydrocodone Bit/Acetaminophen 5-325* (Verner 5-325*) 1 Each Tablet 1 TAB ORAL Q6H PRN for For Pain, #10 TAB Insulin Human Isophan/Regular (Humulin 70-30 Vial) 5 Units Vial 5 UNITS SUBQ BID, VIAL Lisinopril/Hydrochlorothiazide (Zestoretic 20-25 mg Tablet) 1 Ea Tab 1 MG ORAL DAILY for 30 Days, MG 0 Refills Naproxen* (Naprosyn*) 500 Mg Tablet 500 MG ORAL TWICE A DAY, TAB Prednisone* (Prednisone*) 20 Mg Tablet 40 MG ORAL DAILY, #10 TAB Discharge Condition Upon Discharge: stable Discharge Disposition Patient was discharged to Home (01) Discharge Diagnoses: Discharge Instructions Discharge Instructions Special Instructions I have been assigned to complete a D/C Summary on this account. I was not involved in the patient management Deanna Ann NP ([facility]) Nov 20, 2017 09:09
--- NOTE | 2017-11-21 02:15 | Discharge Summary 2 SIG ---
DATE OF ADMISSION: 11/13/2017 DATE OF DISCHARGE: 11/18/2017 REASON FOR ADMISSION: 51-year-old female with history of hypertension, diabetes, asthma, CHF, and morbid obesity, presented to emergency department for evaluation. The patient reported shortness of breath and worsening asthma symptoms. No fever. No chills. Workup in the emergency room revealed stable vital signs. Pulse oximetry was stable on the room air. No leukocytosis. Stable hemoglobin and hematocrit. Stable electrolytes and renal parameters. Lactic acid was 3.3. Troponin was negative. Pro BNP- 529. EKG revealed normal sinus rhythm. No acute ischemic changes. Glucose- 330. Chest x-ray revealed cardiomegaly and interstitial congestion. D-dimer with mild elevation - 0.52. Urine tox screen was negative. The patient was admitted for asthma exacerbation , lactic acidosis, congestive heart failure, anxiety, depression, obesity, uncontrolled diabetes, shortness of breath, and elevated D-dimer. HOSPITAL COURSE: The patient admitted. Cardiology, Pulmonology, ID, and Psych consults were requested. The patient was started on IV steroids, supplemental oxygen provided as needed to keep pulse oximetry above 92%. The patient was on nebulizing treatment with bronchodilator. The patient started on empiric antibiotic. ID closely followed for possible community- acquired pneumonia. Sputum culture was negative. Rapid influenza screen test was negative. Blood cultures were negative. The patient was status post treatment with empiric antibiotics. Chest x-ray revealed no acute cardiopulmonary pathology as read by raw mill operator, who followed the patient. Echocardiogram revealed preserved ejection fraction of 60% to 65%, right ventricular systolic pressure of 20. The patient was diuresed with Lasix. Cardiorenal parameters and volumes were closely monitored. Serial troponin x2 were negative. EKG showed no acute ischemic changes. The patient was ruled out for acute PA. Blood pressure was managed with multiple regimen of beta-marisel, calcium channel marisel, ARB, Lasix, and clonidine on as needed basis. Blood pressure was controlled. Blood sugar was managed with Levemir, dose was initially daily, then dose increased to b.i.d. and sliding scale insulin was used as needed. The patient needs further optimization of anti-glycemic regimen as outpatient. Venous duplex of bilateral lower extremities was negative. Per sales representative [employer] products, the patient likely had congestive heart failure per findings on x-ray and elevated BNP and as a result shortness of breath and bilateral lower extremity edema. The patient was diuresed. Edema was improving. Shortness of breath resolved. Pulse oximetry stable on room air. Psychiatrist seen and evaluated the patient, diagnosed the patient with posttraumatic stress disorder as well as depression and anxiety. Psychiatrist optimized psychiatric medication regimen. The patient was stable for discharge home on oral steroids with gradual tapering. FINAL DIAGNOSES: 1. Acute asthma exacerbation. 2. Congestive heart failure( treated with diuresis) 3. Hypertension. 4. Diabetes mellitus out of control. 5. Lactic acidosis. 6. Bilateral lower extremity edema and shortness of breath secondary to congestive heart failure and asthma exacerbation. 7. Obesity. 8. Posttraumatic stress disorder. 9. Anxiety. 10. Depression. 11.Lactic acidosis DISCHARGE MEDICATIONS: See medication reconciliation list. DISCHARGE INSTRUCTIONS: The patient was discharged home. Follow up with primary care provider next week. Nelson Abdullahi M.D. I have been assigned to dictate discharge summary on this account and I was not involved in the patient's management. Deanna Ann ([facility]) NRobbinPRobbin DR: LYLE JOB#: [id number] CC: SERVANDO
== END 2017-11-18 14:00 | disposition home or self-care (01) | DRG 141 ==
LOC: EDBD 01:45 → EMR 02:02 → 2E 03:59 → EDBEDREQ 05:10 → 2E 05:36 → 4W 11-14 18:18
DX: J45.901 Unspecified asthma with (acute) exacerbation (principal); J18.9 Pneumonia, unspecified organism; I11.0 Hypertensive heart disease with heart failure; E87.2 Acidosis; I50.9 Heart failure, unspecified; E11.65 Type 2 diabetes mellitus with hyperglycemia; R06.03 Acute respiratory distress; F41.9 Anxiety disorder, unspecified; E66.01 Morbid (severe) obesity due to excess calories; F43.10 Post-traumatic stress disorder, unspecified; F32.9 Major depressive disorder, single episode, unspecified; Z88.6 Allergy status to analgesic agent; Z88.0 Allergy status to penicillin; Z87.891 Personal history of nicotine dependence; G89.29 Other chronic pain
CPT/HCPCS: 36415; 71045; 80048; 80053; 80307; 82550; 82553; 82962; 83605; 83880; 84439; 84443; 84484; 85007; 85025; 85379; 86710; 87040; 87070; 87205; 93005; 93306; 93970; 94640; 94760; 99285; J1815; J2405; J7620; S5561

== ENCOUNTER 2018-09-15 12:36 | Inpatient (IN) | payer MEDICAID ==
[~2018-09-15] VITALS: Ht 170.2 cm; Wt 130.9 kg
[~2018-09-15 12:36] MED LIST changes: +KLONOPIN1 MG ORAL
[2018-09-15] MEDS ORDERED: DILANTIN100 MG ORAL (12:39)
[2018-09-15] MEDS ORDERED: Sodium Chloride 500ML 500 ML IV ONE (12:59)
[2018-09-15] MEDS ORDERED: Solu-MEDROL 125mg Inj IVP ONE (13:00)
[2018-09-15] MEDS ORDERED: Meclizine 25mg tab ORAL ONE (13:00)
[2018-09-15] MEDS: Ipratropium 0.02% Inh Soln 2.5ml UD HHN SCH ×3 (13:22→13:54)
[2018-09-15] MEDS: Albuterol ud Inhalation HHN SCH ×3 (13:22→13:54)
[2018-09-15 13:48] VITALS: BP 133/72
--- NOTE | 2018-09-15 14:01 | Diagnostic Imaging Report ---
Indication: Dyspnea Comparison: 11/13/2017 A single view chest radiograph was obtained. Findings: Cardiomediastinal appearance is within normal limits for age. The lungs are clear. Pulmonary vascularity is appropriate. The diaphragmatic contour is smooth and costophrenic angles are sharp. No pleural effusions are identified. The bones are unremarkable. Impression: No acute findings
[2018-09-15 14:02] LABS: BASOPHILS % (AUTO) 1.2 % (0.0-2.0); HEMATOCRIT 36.3 % (37.0-47.0); HEMOGLOBIN 11.2 G/DL (12.0-16.0); LYMPHOCYTES % (AUTO) 23.1 % (20.0-45.0); MEAN CORPUSCULAR VOLUME 82 FL (80-99); MONOCYTES % (AUTO) 7.7 % (1.0-10.0); PLATELET COUNT 386 K/UL (150-450); RED BLOOD COUNT 4.42 M/UL (4.20-5.40); RED CELL DISTRIBUTION WIDTH 13.1 % (11.6-14.8); WHITE BLOOD COUNT 6.6 K/UL (4.8-10.8)
[2018-09-15 14:18] LABS: ALANINE AMINOTRANSFERASE 22 U/L (12-78); ALBUMIN 2.2 G/DL (3.4-5.0); ALBUMIN/GLOBULIN RATIO 0.8 (1.0-2.7); ALKALINE PHOSPHATASE 71 U/L (46-116); ANION GAP 9 mmol/L (5-15); ASPARTATE AMINO TRANSFERASE 16 U/L (15-37); BLOOD UREA NITROGEN 15 mg/dL (7-18); CALCIUM 6.5 MG/DL (8.5-10.1); CARBON DIOXIDE 21 MMOL/L (21-32); CHLORIDE 113 MMOL/L (98-107); CREATININE 0.8 MG/DL (0.55-1.30); SODIUM 144 MMOL/L (136-145)
[2018-09-15 14:19] LABS: POTASSIUM 2.6 MMOL/L (3.5-5.1)
[2018-09-15] MEDS ORDERED: NS w/KCl 40mEq 1,000 ML IV SCH (14:30)
--- NOTE | 2018-09-15 14:48 | Emergency Room Report ---
History of Present Illness General Chief Complaint: Dyspnea/Respdistress Source: EMS Present Illness HPI 52-year-old female presents ED for evaluation. Complaining of dizziness times one week. Also complaining of cough and shortness of breath. History of asthma. Denies chest pain. Feels the room is spinning. Denies blurry vision. Denies neck stiffness. Denies fevers or chills. No other aggravating relieving factors. Denies any other associated symptoms Allergies: Coded Allergies: FISH CONTAINING PRODUCTS (Unverified Allergy, Unknown, 11/02/13) IBUPROFEN (Unverified Allergy, Unknown, 11/02/13) PENICILLIN G (Unverified Allergy, Unknown, 11/02/13) PENICILLINS (Unverified Allergy, Unknown, 11/28/14) Patient History Past Medical History: HTN, asthma, psych hx Past Surgical History: none Pertinent Family History: none Social History: Reports: smoking; Denies: alcohol use, drug use Now: No Immunizations: UTD Reviewed Nursing Documentation: PMH: Agreed; PSxH: Agreed Nursing Documentation-PMH Hx Hypertension: Yes Hx Asthma: Yes Hx Diabetes: Yes Hx Cancer: No Hx Gastrointestinal Problems: Yes - chronic back pain History Of Psychiatric Problem: Yes Review of Systems All Other Systems: negative except mentioned in HPI Physical Exam Vital Signs Date Time Temp Pulse Resp B/P (MAP) Pulse Ox O2 Delivery O2 Flow Rate FiO2 09/15/18 12:32 98.4 98 16 116/80 95 Room Air 09/15/18 13:22 21 Sp02 EP Interpretation: reviewed, normal General Appearance: mild distress, obese Head: normocephalic, atraumatic Eyes: bilateral eye normal inspection, bilateral eye PERRL ENT: hearing grossly normal, normal pharynx, no angioedema, normal voice Neck: full range of motion, supple/symm/no masses Respiratory: decreased breath sounds, wheezing Cardiovascular #1: regular rate, rhythm, no edema Cardiovascular #2: 2+ carotid (R), 2+ carotid (L), 2+ radial (R), 2+ radial (L) , 2+ dorsalis pedis (R), 2+ dorsalis pedis (L) Gastrointestinal: normal bowel sounds, non tender, soft, non-distended, no guarding, no rebound Rectal: deferred Genitourinary: normal inspection, no CVA tenderness Musculoskeletal: back normal, gait/station normal, normal range of motion, non- tender Neurologic: alert, oriented x3, responsive, heart specialist III-XII nml as tested, motor strength/tone normal, sensory intact, speech normal Psychiatric: judgement/insight normal, memory normal, mood/affect normal, no suicidal/homicidal ideation Reflexes: 3+ bicep (R), 3+ bicep (L), 3+ tricep (R), 3+ tricep (L), 3+ knee (R) , 3+ knee (L) Skin: normal color, no rash, warm/dry, well hydrated Lymphatic: no adenopathy Medical Decision Making Diagnostic Impression: Primary Impression: Hypokalemia Additional Impressions: Dizziness Acute asthma exacerbation Qualified Codes: J45.901 - Unspecified asthma with (acute) exacerbation Anxiety disorder Qualified Codes: F41.9 - Anxiety disorder, unspecified ER Course Hospital Course 52-year-old F presenting to ED with SOB. h/o asthma. c/o dizziness. Differential diagnoses include: Pneumonia, CHF exacerbation, pneumothorax, fluid overload Clinical course Patient placed on stretcher. On desk monitor with stable vitals. After initial history and physical, I ordered nebulizer treatments. I ordered labs, IV fluids, EKG, chest x-ray, blood cultures, UA. Labs - no leukocytosis noted, hemoglobin/hematocrit stable, K low, trop negative CXR - no infiltrates EKG - NSR, no acute ischemic changes interpreted by me CT head- no acute process Patient remains dizzy. Potassium repleted. IV hydration continued. Case discussed with Dr. Abdullahi and he agreed to the patient to his service for further care and support I feel this is a highly complex case requiring extensive working including EKG/ Rhythm strip, Xray/CT/US, Blood/urine lab work, repeat exams while in ED, and administration of strong opiates/narcotics for pain control, admission to hospital or close patient follow up. Diagnosis - hypokalemia, dizziness, acute asthma exacerbatino, anxiety Patient admitted to floor in serious condition Labs Test 09/15/18 13:43 White Blood Count 6.6 K/UL (4.8-10.8) Red Blood Count 4.42 M/UL (4.20-5.40) Hemoglobin 11.2 G/DL (12.0-16.0) Hematocrit 36.3 % (37.0-47.0) Mean Corpuscular Volume 82 FL (80-99) Mean Corpuscular Hemoglobin 25.4 PG (27.0-31.0) Mean Corpuscular Hemoglobin Concent 31.0 G/DL (32.0-36.0) Red Cell Distribution Width 13.1 % (11.6-14.8) Platelet Count 386 K/UL (150-450) Mean Platelet Volume 6.0 FL (6.5-10.1) Neutrophils (%) (Auto) 67.0 % (45.0-75.0) Lymphocytes (%) (Auto) 23.1 % (20.0-45.0) Monocytes (%) (Auto) 7.7 % (1.0-10.0) Eosinophils (%) (Auto) 1.0 % (0.0-3.0) Basophils (%) (Auto) 1.2 % (0.0-2.0) Sodium Level 144 MMOL/L (136-145) Potassium Level 2.6 MMOL/L (3.5-5.1) Chloride Level 113 MMOL/L (98-107) Carbon Dioxide Level 21 MMOL/L (21-32) Anion Gap 9 mmol/L (5-15) Blood Urea Nitrogen 15 mg/dL (7-18) Creatinine 0.8 MG/DL (0.55-1.30) Estimat Glomerular Filtration Rate > 60 mL/min (>60) Glucose Level 99 MG/DL (74-106) Calcium Level 6.5 MG/DL (8.5-10.1) Aspartate Amino Transf (AST/SGOT) 16 U/L (15-37) Alanine Aminotransferase (ALT/SGPT) 22 U/L (12-78) Alkaline Phosphatase 71 U/L (46-116) Troponin I 0.005 ng/mL (0.000-0.056) Pro-B-Type Natriuretic Peptide 148 pg/mL (0-125) Total Protein 5.0 G/DL (6.4-8.2) Albumin 2.2 G/DL (3.4-5.0) Globulin 2.8 g/dL Albumin/Globulin Ratio 0.8 (1.0-2.7) EKG Diagnostic Results Rate: normal Rhythm: NSR ST Segments: no acute changes ASA given to the pt in ED: No Rhythm Strip Diag. Results EP Interpretation: yes Rhythm: NSR, no PVC's, no ectopy Chest X-Ray Diagnostic Results Chest X-Ray Diagnostic Results : Chest X-Ray Ordered: Yes # of Views/Limited/Complete: 1 View Indication: Shortness of Breath EP Interpretation: Yes Interpretation: no consolidation, no effusion, no pneumothorax, no acute cardiopulmonary disease Impression: No acute disease Electronically Signed by: Electronically signed by Austin Santos MD CT/MRI/US Diagnostic Results CT/MRI/US Diagnostic Results : Imaging Test Ordered: CT Head Impression no acute process Last Vital Signs Date Time Temp Pulse Resp B/P (MAP) Pulse Ox O2 Delivery O2 Flow Rate FiO2 09/15/18 14:15 84 20 99 Room Air 21 09/15/18 13:48 98.4 133/72 Status: improved Disposition: ADMITTED INPATIENT Condition: Serious Referrals: [facility],REFERRING (PCP) Austin Santos MD Sep 15, 2018 14:48
[2018-09-15 14:50] LABS: BILIRUBIN,TOTAL 0.1 MG/DL (0.2-1.0)
--- NOTE | 2018-09-15 15:04 | Diagnostic Imaging Report ---
Indication: Dizziness Technique: Contiguous 5 mm thick transaxial imaging of the head obtained in a Siemens Sensation [address] scanner. Soft tissue and bone windows generated. Automatic Exposure Control was utilized. Total Dose length Product (DLP): 1393.[address] Dose Index Volume (CTDIvol): 70.38 mGy Comparison: 11/28/2014 Findings: The size and configuration of the cortical sulci, basal cisterns, and ventricles are within normal limits for age. There is no mass effect, midline shift, or edema identified. There is no evidence of acute hemorrhage or abnormal intra-axial or extra-axial fluid collections. The bones are unremarkable. There is minimal soft tissue swelling over the left parietal scalp.. Impression: No mass effect, edema or acute bleed. The CT scanner at [facility] is accredited by the [employer] and the scans are performed using dose optimization techniques as appropriate to a performed exam including Automatic Exposure control.
[2018-09-15 15:07] VITALS: BP 132/78
[2018-09-15 16:41] VITALS: BP 133/68
[2018-09-15 17:30] VITALS: BP 133/67
[2018-09-15] MEDS ORDERED: LANTUS SOL100 UNIT/1 SUBQ (18:59)
[2018-09-15] MEDS ORDERED: GLYBURIDE5 MG PO (18:59)
[2018-09-15] MEDS ORDERED: LISINOPRIL20 MG ORAL (18:59)
[2018-09-15] MEDS ORDERED: COLACE100 MG ORAL (18:59)
[2018-09-15] MEDS ORDERED: LIORESAL20 MG ORAL (18:59)
[2018-09-15] MEDS ORDERED: NORMODYNE100 MG ORAL (18:59)
[2018-09-15] MEDS ORDERED: DUONEB 0.5-3(2.53 ML HHN (18:59)
[2018-09-15] MEDS ORDERED: NORVASC10 MG ORAL (18:59)
[2018-09-15] MEDS ORDERED: ATORVASTATIN CA40 MG ORAL (18:59)
[2018-09-15] MEDS ORDERED: HUMALOG100 UNIT/4 SUBQ (18:59)
[2018-09-15] MEDS ORDERED: LEVOTHYROXINE125 MCG ORAL (18:59)
[2018-09-15] MEDS ORDERED: CATAPRES0.3 MG ORAL (18:59)
[2018-09-15] MEDS: NS w/KCl 40mEq 1,000 ML IV SCH (20:10)
[2018-09-15 20:11] VITALS: BP 130/65
[2018-09-15] MEDS ORDERED: NovoLOG Insulin Flexpen SUBQ SCH (21:00)
[2018-09-15] MEDS: Atorvastatin 20mg tab ORAL SCH (22:19)
[2018-09-15] MEDS: Heparin 5000 units/ml inj SUBQ SCH (22:20)
[2018-09-15] MEDS: Levemir Flexpen SUBQ SCH (22:52)
[2018-09-15 23:50] VITALS: BP 148/92
[2018-09-16] MEDS: Albuterol/Ipratropium 3ml neb HHN PRN ×3 (02:24→20:02)
[2018-09-16 04:00] VITALS: BP 132/74
[2018-09-16] MEDS: NS w/KCl 40mEq 1,000 ML IV SCH (06:53)
[2018-09-16] MEDS: Levothyroxine 125mcg tab ORAL SCH (06:53)
[2018-09-16] MEDS: NovoLOG Insulin Flexpen SUBQ SCH ×5 (06:56→21:00)
[2018-09-16 08:00] VITALS: BP 146/81
[2018-09-16] MEDS: Docusate 100mg cap ORAL SCH ×2 (09:03→18:05)
[2018-09-16] MEDS: Aspirin EC 81mg tab ORAL SCH (09:03)
[2018-09-16] MEDS: Lisinopril 20mg tab ORAL SCH (09:03)
[2018-09-16] MEDS: Heparin 5000 units/ml inj SUBQ SCH ×2 (09:11→21:00)
[2018-09-16 10:04] LABS: BASOPHILS % (AUTO) 0.8 % (0.0-2.0); EOSINOPHILS % (AUTO) 0.2 % (0.0-3.0); HEMATOCRIT 31.6 % (37.0-47.0); HEMOGLOBIN 9.9 G/DL (12.0-16.0); LYMPHOCYTES % (AUTO) 20.6 % (20.0-45.0); MEAN CORPUSCULAR VOLUME 82 FL (80-99); MONOCYTES % (AUTO) 6.1 % (1.0-10.0); NEUTROPHILS % (AUTO) 72.3 % (45.0-75.0); PLATELET COUNT 355 K/UL (150-450); RED BLOOD COUNT 3.84 M/UL (4.20-5.40); RED CELL DISTRIBUTION WIDTH 13.2 % (11.6-14.8); WHITE BLOOD COUNT 9.2 K/UL (4.8-10.8)
[2018-09-16 10:28] LABS: ALANINE AMINOTRANSFERASE 28 U/L (12-78); ALBUMIN 2.7 G/DL (3.4-5.0); ALBUMIN/GLOBULIN RATIO 0.7 (1.0-2.7); ALKALINE PHOSPHATASE 97 U/L (46-116); ANION GAP 7 mmol/L (5-15); ASPARTATE AMINO TRANSFERASE 15 U/L (15-37); BILIRUBIN,TOTAL 0.2 MG/DL (0.2-1.0); BLOOD UREA NITROGEN 25 mg/dL (7-18); CALCIUM 8.8 MG/DL (8.5-10.1); CARBON DIOXIDE 28 MMOL/L (21-32); CHLORIDE 101 MMOL/L (98-107); CREATININE 1.2 MG/DL (0.55-1.30); POTASSIUM 4.3 MMOL/L (3.5-5.1); SODIUM 136 MMOL/L (136-145)
[2018-09-16 12:00] VITALS: BP 130/75
--- NOTE | 2018-09-16 15:30 | Cardiology Report ---
APPROVED REPORT EKG Measurement Heart [id number] Normal sinus rhythm Nonspecific T wave abnormality Prolonged QT Abnormal ECG
[2018-09-16 16:00] VITALS: BP 102/68
[2018-09-16] MEDS ORDERED: Gadavist 7.5mMol/7.5ml vial IV PRN (16:00)
[2018-09-16] MEDS ORDERED: traMADol 50mg tab ORAL PRN (16:30)
[2018-09-16] MEDS ORDERED: Heparin 2000 units/Ns 1000ml INJ PRN (16:30)
[2018-09-16] MEDS ORDERED: Lidocaine 1% Plain 30 ml INJ PRN (16:30)
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
[2018-09-16] MEDS: LORazepam 1mg tab ORAL PRN (18:05)
[2018-09-16 20:00] VITALS: BP 119/71
[2018-09-16] MEDS: Dyna-Hex 2% Top Sol 2oz TOPIC SCH (20:00)
[2018-09-16] MEDS: Atorvastatin 20mg tab ORAL SCH (20:58)
[2018-09-16] MEDS: Levemir Flexpen SUBQ SCH (21:01)
[2018-09-16] MEDS: Ondansetron ODT 8mg tab ORAL PRN (21:55)
[2018-09-17] VITALS: BP 125/75
[2018-09-17] MEDS: NS w/KCl 40mEq 1,000 ML IV SCH (00:08)
[2018-09-17] MEDS: NovoLOG Insulin Flexpen SUBQ SCH ×6 (00:56→21:33)
[2018-09-17 04:00] VITALS: BP 124/55
[2018-09-17] MEDS: Levothyroxine 125mcg tab ORAL SCH (06:30)
[2018-09-17] MEDS: Albuterol/Ipratropium 3ml neb HHN PRN ×2 (07:32→17:05)
[2018-09-17 08:00] VITALS: BP 132/84
[2018-09-17] MEDS: Heparin 5000 units/ml inj SUBQ SCH ×2 (09:00→21:35)
[2018-09-17] MEDS: Docusate 100mg cap ORAL SCH ×2 (09:18→17:30)
[2018-09-17] MEDS: Aspirin EC 81mg tab ORAL SCH (09:19)
[2018-09-17] MEDS: Lisinopril 20mg tab ORAL SCH (09:21)
[2018-09-17] MEDS: Ondansetron ODT 8mg tab ORAL PRN ×2 (09:21→18:54)
[2018-09-17 10:00] LABS: ALANINE AMINOTRANSFERASE 30 U/L (12-78); ALBUMIN/GLOBULIN RATIO 0.7 (1.0-2.7); ALKALINE PHOSPHATASE 107 U/L (46-116); ANION GAP 8 mmol/L (5-15); ASPARTATE AMINO TRANSFERASE 21 U/L (15-37); BILIRUBIN,TOTAL 0.2 MG/DL (0.2-1.0); BLOOD UREA NITROGEN 28 mg/dL (7-18); CALCIUM 9.2 MG/DL (8.5-10.1); CARBON DIOXIDE 27 MMOL/L (21-32); CHLORIDE 102 MMOL/L (98-107); CREATININE 1.2 MG/DL (0.55-1.30); POTASSIUM 4.6 MMOL/L (3.5-5.1); SODIUM 137 MMOL/L (136-145)
[2018-09-17] MEDS: LORazepam 1mg tab ORAL PRN ×3 (10:24→21:37)
[2018-09-17 12:00] VITALS: BP 141/66
--- NOTE | 2018-09-17 14:25 | Diagnostic Imaging Report ---
Indication: Dizziness Technique: sagittal T1 fast spin echo, axial T1 FLAIR, axial T2 FLAIR, axial T2 FS PROPELLER, axial T2* GRE, axial diffusion weighted images. ADC and exponential ADC maps generated Comparison: No comparison MRIs. Reference made to CT scan dated 09/15/2018 Findings: No abnormal areas of restricted diffusion to suggest acute infarction. No acute hemorrhage or edema. No mass effect nor midline shift. Normal size ventricles and extra axial CSF spaces. There are scattered periventricular deep white matter T2 hyperintensities. There is evidence of prior bilateral cataract surgery. Visualized orbits and sinuses are unremarkable. Impression: Negative for acute intracranial bleed, mass effect, or infarct Scattered periventricular and deep white matter T2 hyperintensities. Nonspecific, most likely small foci of chronic ischemic change but could also represent foci of demyelination. Correlate with clinical history and findings
[2018-09-17 16:00] VITALS: BP 143/82
--- NOTE | 2018-09-17 17:55 | General Progress Note ---
Assessment/Plan Problem List: (1) Diabetes ICD Codes: E11.9 - Type 2 diabetes mellitus without complications SNOMED: 70032346 (2) Obesity ICD Codes: E66.9 - Obesity, unspecified SNOMED: 161071018 (3) HTN (hypertension) ICD Codes: I10 - Essential (primary) hypertension SNOMED: 56106331 (4) Active asthma ICD Codes: J45.998 - Other asthma SNOMED: 889846320 (5) Dizziness ICD Codes: R42 - Dizziness and giddiness SNOMED: 678400653, 741708589 Status: stable, progressing Assessment/Plan cont current rx pain rx neuro eval as outpt dc planning Subjective ROS Limited/Unobtainable: No Constitutional: Reports: malaise, weakness HEENT: Reports: no symptoms Cardiovascular: Reports: no symptoms Respiratory: Reports: no symptoms Gastrointestinal/Abdominal: Reports: no symptoms Genitourinary: Reports: no symptoms Neurologic/Psychiatric: Reports: emotional problems Endocrine: Reports: no symptoms Hematologic/Lymphatic: Reports: no symptoms Allergies: Coded Allergies: FISH CONTAINING PRODUCTS (Unverified Allergy, Unknown, 11/02/13) IBUPROFEN (Unverified Allergy, Unknown, 11/02/13) PENICILLIN G (Unverified Allergy, Unknown, 11/02/13) PENICILLINS (Unverified Allergy, Unknown, 11/28/14) All Systems: reviewed and negative except above Subjective still "dizzy." c/o HAs. asking for iv pain meds MRI noted. Objective Last 24 Hour Vital Signs Date Time Temp Pulse Resp B/P (MAP) Pulse Ox O2 Delivery O2 Flow Rate FiO2 09/17/18 17:16 78 18 98 Room Air 21 09/17/18 17:06 79 18 97 Room Air 21 09/17/18 16:00 79 09/17/18 16:00 97.7 83 20 143/82 (102) 95 09/17/18 14:22 141/66 09/17/18 12:00 85 09/17/18 12:00 96.7 72 20 141/66 (91) 96 18 09:21 132/84 18 09:20 80 132/80 09/17/18 09:19 80 132/84 09/17/18 09:00 Room Air 09/17/18 08:00 97.7 80 20 132/84 (100) 95 09/17/18 08:00 84 09/17/18 07:55 79 19 Room Air 21 09/17/18 07:37 75 20 99 Room Air 21 09/17/18 07:30 78 20 97 Room Air 21 09/17/18 04:00 97.5 91 19 124/55 (78) 94 09/17/18 03:56 67 09/17/18 00:08 76 09/17/18 00:00 98.3 80 20 125/75 (92) 94 09/16/18 21:55 119/71 09/16/18 21:00 Room Air 09/16/18 20:59 76 119/71 09/16/18 20:09 76 20 99 Room Air 21 09/16/18 20:01 75 20 96 Room Air 21 09/16/18 20:00 97.3 76 20 119/71 (87) 96 09/16/18 19:35 83 Intake and Output 09/16/18 09/17/18 19:00 07:00 Intake Total 960 ml 650 ml Output Total 300 ml 700 ml Balance 660 ml -50 ml Intake Oral 960 ml 650 ml Output Urine Total 300 ml 700 ml Laboratory Tests 09/17/18 09:10: Sodium Level 137, Potassium Level 4.6, Chloride Level 102, Carbon Dioxide Level 27, Anion Gap 8, Blood Urea Nitrogen 28H, Creatinine 1.2, Estimat Glomerular Filtration Rate 57.7, Glucose Level 316H, Hemoglobin A1c 12.3H, Calcium Level 9.2, Total Bilirubin 0.2, Aspartate Amino Transf (AST/SGOT) 21, Alanine Aminotransferase (ALT/SGPT) 30, Alkaline Phosphatase 107, Total Protein 7.6, Albumin 3.0L, Globulin 4.6, Albumin/Globulin Ratio 0.7L Height (Feet): 5 Height (Inches): 7.00 Weight (Pounds): 288 General Appearance: WD/WN, alert Neck: supple Cardiovascular: normal rate, regular rhythm Respiratory/Chest: chest wall non-tender, lungs clear, normal breath sounds Abdomen: normal bowel sounds, non tender, soft, no organomegaly Edema: no edema noted Arm (L), no edema noted Arm (R), no edema noted Leg (L), no edema noted Leg (R), no edema noted Pedal (L), no edema noted Pedal (R), no edema noted Generalized Neurologic: gambling broker II-XII grossly normal, no motor/sensory deficits Franco Guthrie MD Sep 17, 2018 17:55
[2018-09-17 20:00] VITALS: BP 141/87
[2018-09-17] MEDS: Levemir Flexpen SUBQ SCH (21:35)
[2018-09-17] MEDS: Atorvastatin 20mg tab ORAL SCH (21:37)
[2018-09-17] MEDS: Dyna-Hex 2% Top Sol 2oz TOPIC SCH (21:42)
[2018-09-18] VITALS: BP 132/78
[2018-09-18] MEDS: NovoLOG Insulin Flexpen SUBQ SCH ×6 (00:37→20:53)
[2018-09-18] MEDS: Albuterol/Ipratropium 3ml neb HHN PRN ×3 (00:57→20:37)
[2018-09-18] MEDS: LORazepam 1mg tab ORAL PRN ×3 (02:48→20:47)
[2018-09-18 04:00] VITALS: BP 140/82
[2018-09-18] MEDS: Levothyroxine 125mcg tab ORAL SCH (06:04)
[2018-09-18 07:46] LABS: BASOPHILS % (AUTO) 1.7 % (0.0-2.0); EOSINOPHILS % (AUTO) 6.6 % (0.0-3.0); HEMATOCRIT 33.6 % (37.0-47.0); HEMOGLOBIN 10.5 G/DL (12.0-16.0); LYMPHOCYTES % (AUTO) 30.9 % (20.0-45.0); MEAN CORPUSCULAR VOLUME 83 FL (80-99); MONOCYTES % (AUTO) 7.3 % (1.0-10.0); NEUTROPHILS % (AUTO) 53.6 % (45.0-75.0); PLATELET COUNT 387 K/UL (150-450); RED BLOOD COUNT 4.06 M/UL (4.20-5.40); RED CELL DISTRIBUTION WIDTH 13.8 % (11.6-14.8)
[2018-09-18 07:53] LABS: ANION GAP 6 mmol/L (5-15); BLOOD UREA NITROGEN 24 mg/dL (7-18); CALCIUM 9.4 MG/DL (8.5-10.1); CARBON DIOXIDE 31 MMOL/L (21-32); CHLORIDE 105 MMOL/L (98-107); CREATININE 1.1 MG/DL (0.55-1.30); POTASSIUM 4.4 MMOL/L (3.5-5.1); SODIUM 141 MMOL/L (136-145)
[2018-09-18 08:00] VITALS: BP 150/96
[2018-09-18] MEDS: Heparin 5000 units/ml inj SUBQ SCH ×2 (09:00→20:54)
[2018-09-18] MEDS: Lisinopril 20mg tab ORAL SCH (09:00)
[2018-09-18] MEDS: Docusate 100mg cap ORAL SCH ×2 (09:00→18:29)
[2018-09-18] MEDS: Aspirin EC 81mg tab ORAL SCH (09:01)
[2018-09-18] MEDS: Solu-MEDROL 40mg Inj IVP SCH ×2 (09:10→20:48)
[2018-09-18 12:00] VITALS: BP 153/72
[2018-09-18 16:00] VITALS: BP 140/76
--- NOTE | 2018-09-18 16:42 | General Progress Note ---
Assessment/Plan Problem List: (1) Diabetes ICD Codes: E11.9 - Type 2 diabetes mellitus without complications SNOMED: 75826933 (2) Obesity ICD Codes: E66.9 - Obesity, unspecified SNOMED: 918079305 (3) HTN (hypertension) ICD Codes: I10 - Essential (primary) hypertension SNOMED: 15875946 (4) Active asthma ICD Codes: J45.998 - Other asthma SNOMED: 839363889 (5) Dizziness ICD Codes: R42 - Dizziness and giddiness SNOMED: 835628236, 802208087 Status: stable Assessment/Plan cont current rx pain rx neuro eval as outpt iv steroids for asthma dc planning tomorrow if stable Subjective ROS Limited/Unobtainable: No Constitutional: Reports: malaise, weakness HEENT: Reports: no symptoms Cardiovascular: Reports: no symptoms Respiratory: Reports: wheezing Gastrointestinal/Abdominal: Reports: no symptoms Genitourinary: Reports: no symptoms Neurologic/Psychiatric: Reports: no symptoms, weakness Endocrine: Reports: no symptoms Hematologic/Lymphatic: Reports: no symptoms Allergies: Coded Allergies: FISH CONTAINING PRODUCTS (Unverified Allergy, Unknown, 11/02/13) IBUPROFEN (Unverified Allergy, Unknown, 11/02/13) PENICILLIN G (Unverified Allergy, Unknown, 11/02/13) PENICILLINS (Unverified Allergy, Unknown, 11/28/14) All Systems: reviewed and negative except above Subjective still "dizzy." c/o HAs. asking for iv pain meds MRI noted. c/o sob/wheezing Objective Last 24 Hour Vital Signs Date Time Temp Pulse Resp B/P (MAP) Pulse Ox O2 Delivery O2 Flow Rate FiO2 09/18/18 12:25 85 18 98 Room Air 21 09/18/18 12:15 89 18 92 Room Air 21 09/18/18 12:00 88 09/18/18 12:00 97.7 97 21 153/72 (99) 97 09/18/18 09:01 100 150/96 09/18/18 09:01 100 150/96 09/18/18 09:00 Room Air 09/18/18 09:00 150/96 09/18/18 08:00 98.1 100 22 150/96 (114) 95 09/18/18 08:00 85 09/18/18 04:00 80 09/18/18 04:00 98.0 79 20 140/82 (101) 98 09/18/18 01:06 73 18 99 Room Air 21 09/18/18 00:57 85 18 96 Room Air 21 09/18/18 00:00 80 09/18/18 00:00 98.7 73 18 132/78 (96) 98 09/17/18 21:42 141/87 09/17/18 21:41 74 145/70 09/17/18 21:00 Room Air 09/17/18 20:14 77 18 Room Air 21 09/17/18 20:00 87 09/17/18 20:00 98.4 86 20 141/87 (105) 97 09/17/18 19:30 97.7 09/17/18 17:16 78 18 98 Room Air 21 09/17/18 17:06 79 18 97 Room Air 21 Intake and Output 09/17/18 09/18/18 19:00 07:00 Intake Total 600 ml Balance 600 ml Intake Oral 600 ml # Voids 12 3 # Bowel Movements 1 Laboratory Tests 09/18/18 06:00: White Blood Count 6.0, Red Blood Count 4.06L, Hemoglobin 10.5L, Hematocrit 33.6L , Mean Corpuscular Volume 83, Mean Corpuscular Hemoglobin 25.9L, Mean Corpuscular Hemoglobin Concent 31.2L, Red Cell Distribution Width 13.8, Platelet Count 387, Mean Platelet Volume 5.6L, Neutrophils (%) (Auto) 53.6, Lymphocytes (%) (Auto) 30.9, Monocytes (%) (Auto) 7.3, Eosinophils (%) (Auto) 6.6H, Basophils (%) (Auto) 1.7, Sodium Level 141, Potassium Level 4.4, Chloride Level 105, Carbon Dioxide Level 31, Anion Gap 6, Blood Urea Nitrogen 24H, Creatinine 1.1, Estimat Glomerular Filtration Rate > 60, Glucose Level 158#H, Calcium Level 9.4 Height (Feet): 5 Height (Inches): 7.00 Weight (Pounds): 288 General Appearance: WD/WN, alert Neck: supple Cardiovascular: normal rate, regular rhythm Abdomen: normal bowel sounds, non tender, soft, no organomegaly Edema: no edema noted Arm (L), no edema noted Arm (R), no edema noted Leg (L), no edema noted Leg (R), no edema noted Pedal (L), no edema noted Pedal (R), no edema noted Generalized Franco Guthrie MD Sep 18, 2018 16:42
[2018-09-18 20:00] VITALS: BP 169/94
[2018-09-18] MEDS: Atorvastatin 20mg tab ORAL SCH (20:47)
[2018-09-18] MEDS: Ondansetron ODT 8mg tab ORAL PRN (20:47)
[2018-09-18] MEDS: Levemir Flexpen SUBQ SCH (20:53)
[2018-09-18] MEDS: Dyna-Hex 2% Top Sol 2oz TOPIC SCH (20:54)
[2018-09-19] VITALS: BP 159/88
[2018-09-19] MEDS: NovoLOG Insulin Flexpen SUBQ SCH ×4 (01:21→13:00)
[2018-09-19 04:00] VITALS: BP 168/96
[2018-09-19] MEDS: Albuterol/Ipratropium 3ml neb HHN PRN (04:08)
[2018-09-19] MEDS: Levothyroxine 125mcg tab ORAL SCH (05:20)
[2018-09-19] MEDS: LORazepam 1mg tab ORAL PRN (05:24)
[2018-09-19 08:00] VITALS: BP 147/65
[2018-09-19] MEDS: Solu-MEDROL 40mg Inj IVP SCH (09:30)
[2018-09-19] MEDS: Aspirin EC 81mg tab ORAL SCH (09:30)
[2018-09-19] MEDS: Lisinopril 20mg tab ORAL SCH (09:30)
[2018-09-19] MEDS: Docusate 100mg cap ORAL SCH (09:30)
[2018-09-19] MEDS: Heparin 5000 units/ml inj SUBQ SCH (09:35)
[2018-09-19 12:00] VITALS: BP 151/67
--- NOTE | 2018-09-19 23:00 | Discharge Summary ---
DATE OF ADMISSION: 09/15/2018 DATE OF DISCHARGE: 09/19/2018 ADMISSION DIAGNOSES: 1. Dizziness. 2. Asthma exacerbation. 3. History of hypertension. 4. Hypothyroidism. DISCHARGE DIAGNOSES: 1. Dizziness. 2. Asthma exacerbation. 3. History of hypertension. 4. Hypothyroidism. 5. Atherosclerotic cardiovascular disease. HOSPITAL COURSE: The patient was admitted with complaints of vertigo. She was admitted and hydrated and she was diagnosed with an asthma exacerbation. She received intravenous steroids and respiratory treatments [id number]. She had a CAT scan and later, MRI of the brain. There were some hypoattenuation changes noted on the MRI, thought to be likely microvascular disease, but MS could not be ruled out. These results were discussed with the patient. It was recommend that she follow up with a neurologist as an outpatient. Overall, she was improved on discharge. She will be discharged on a short steroid taper. DISCHARGE MEDICATIONS: Please see discharge medication list for discharge medications. DIET: Cardiac diet. ACTIVITIES: Ad-eren. FOLLOWUP: The patient will be followed up by her PMD in one to two weeks. Franco Guthrie M.D. DR: REY JOB#: [id number] CC:
== END 2018-09-19 13:20 | disposition home or self-care (01) | DRG 141 ==
LOC: EDBD 12:36 → EMR 14:05 → 3E 14:51 → EDBEDREQ 15:12 → 2E 20:31
DX: J45.901 Unspecified asthma with (acute) exacerbation (principal); Z68.42 Body mass index [BMI] 45.0-49.9, adult; E03.9 Hypothyroidism, unspecified; E11.9 Type 2 diabetes mellitus without complications; I10 Essential (primary) hypertension; E66.9 Obesity, unspecified; I25.10 Atherosclerotic heart disease of native coronary artery without angina pectoris; E87.6 Hypokalemia; F41.9 Anxiety disorder, unspecified; Z88.0 Allergy status to penicillin; R42 Dizziness and giddiness
CPT/HCPCS: 36415; 36569; 70450; 70551; 71045; 76937; 80048; 80053; 82947; 82962; 83036; 83880; 84484; 85025; 93005; 94640; 94664; 96374; 99285; J1815; J7620; J8499; S5561

== ENCOUNTER 2019-01-04 18:21 | Inpatient (IN) | payer MEDICAID ==
[~2019-01-04] VITALS: Ht 170.2 cm; Wt 136.1 kg
[~2019-01-04 18:21] MED LIST changes: +ATORVASTATIN CA40 MG ORAL; +CATAPRES0.3 MG ORAL; +COLACE100 MG ORAL; +DILANTIN100 MG ORAL; +DUONEB 0.5-3(2.53 ML HHN; +GLYBURIDE5 MG PO; +HUMALOG100 UNIT/4 SUBQ; +LANTUS SOL100 UNIT/1 SUBQ; +LEVOTHYROXINE125 MCG ORAL; +LIORESAL20 MG ORAL; +LISINOPRIL20 MG ORAL; +NORMODYNE100 MG ORAL; +NORVASC10 MG ORAL
[2019-01-04] MEDS ORDERED: Ipratropium 0.02% Inh Soln 2.5ml UD HHN ONE (18:30)
[2019-01-04] MEDS ORDERED: Naproxen 500mg tab ORAL ONE (18:30)
[2019-01-04] MEDS ORDERED: Albuterol ud Inhalation HHN ONE (18:30)
[2019-01-04 18:31] VITALS: BP 131/66
--- NOTE | 2019-01-04 18:36 | NUR ---
ED Nurse Note: PT. AAOX4. AMBULATORY. BROUGHT IN BY AMBULANCE FROM HOME DUE TO L SUBSTERNAL CP X 4 DAYS AND A LUMP ON THE UPPER LEFT LATERAL SIDE OF THE ABDOMEN. PER PT., HER R ARM HAS BEEN HAVING PAIN AND NUMBNESS FOR THE LAST 2 WEEKS. PT. WAS GIVEN 325MG OF ASA
--- NOTE | 2019-01-04 18:41 | Emergency Room Report ---
History of Present Illness General Chief Complaint: Chest Pain Source: Patient Present Illness HPI Patient presents with left-sided chest pain. It's positional and somewhat pleuritic. She also feels it with exertion. She states that she only smokes when she does cocaine and did this last week once. She says she is under a lot of stress at this time. She denies prior heart damage. Last week she had spinal surgery with burning of a nerve on the L side repair. She has the same procedure scheduled for the right side on 01/20. She also has bump underneath her skin is causing pain in the area. She'll advised this is the main problems. The patient denies fevers, chills, sore throat, productive cough. The patient has been wheezing. She's using an inhaler at this time. She has a history of asthma. She feels prednisone would help. The patient states that she takes more Klonopin than is prescribed and has run out. She also has run out of Ativan at home. She expects to get medications delivered by Saturday. She's homebound. Allergies: Coded Allergies: FISH CONTAINING PRODUCTS (Unverified Allergy, Unknown, 11/02/13) IBUPROFEN (Unverified Allergy, Unknown, 11/02/13) PENICILLIN G (Unverified Allergy, Unknown, 11/02/13) PENICILLINS (Unverified Allergy, Unknown, 11/28/14) Patient History Past Medical History: see triage record Social History: Reports: smoking, drug use; Denies: alcohol use Social History Narrative from home Reviewed Nursing Documentation: PMH: Agreed; PSxH: Agreed Nursing Documentation-PMH Past Medical History: No History, Except For Hx Cardiac Problems: Yes Hx Hypertension: Yes Hx Asthma: Yes Hx Diabetes: Yes Hx Cancer: No Hx Gastrointestinal Problems: No Hx Neurological Problems: Yes Hx Seizures: Yes Review of Systems All Other Systems: negative except mentioned in HPI Physical Exam Vital Signs Date Time Temp Pulse Resp B/P (MAP) Pulse Ox O2 Delivery O2 Flow Rate FiO2 01/04/19 18:13 89 20 136/83 98 Room Air Sp02 EP Interpretation: reviewed, normal General Appearance: well appearing, no apparent distress, GCS 15, obese Head: normocephalic, atraumatic Eyes: bilateral eye normal inspection, bilateral eye PERRL, bilateral eye EOMI ENT: moist mucus membranes Neck: supple Respiratory: wheezing, expiration, other - Mild chest wall tenderness Cardiovascular #1: regular rate, rhythm, no edema Cardiovascular #2: 2+ radial (R) Gastrointestinal: normal inspection, normal bowel sounds, non tender, no mass, non-distended, overweight Musculoskeletal: normal range of motion, other - Lumbar tenderness Neurologic: alert, oriented x3, grossly normal Psychiatric: anxious Skin: other - Subcutaneous nodule left mid axillary line approximately 1 cm diameter Medical Decision Making Diagnostic Impression: Primary Impression: Chest pain Qualified Codes: R07.9 - Chest pain, unspecified Additional Impressions: Acute asthma exacerbation Qualified Codes: J45.41 - Moderate persistent asthma with (acute) exacerbation Eosinophilia Anxiety disorder Qualified Codes: F41.9 - Anxiety disorder, unspecified Chronic upper back pain ER Course Patient presents with left-sided chest pain, wheezing at a subcutaneous nodule. Differential includes acute myocardial infarction, acute coronary syndrome, pleurisy, asthma exacerbation, local pain from the subcutaneous nodule, anxiety and possible drug abuse amongst others. Evaluation will be with EKG, chest x- ray and labs. The patient will be treated with Naprosyn and also lidocaine patch. EKG NSR. CXR no infiltrate. CBC with eosinophilia. Mild hyponatremia with elevated BUN. Urinalysis clear. Tox screen negative. Improved with treatment but still with JETER and wheezing. Admit observation. Laboratory Tests Test 01/04/19 19:15 01/04/19 22:00 White Blood Count 6.1 K/UL (4.8-10.8) Red Blood Count 4.59 M/UL (4.20-5.40) Hemoglobin 12.0 G/DL (12.0-16.0) Hematocrit 38.0 % (37.0-47.0) Mean Corpuscular Volume 83 FL (80-99) Mean Corpuscular Hemoglobin 26.1 PG (27.0-31.0) L Mean Corpuscular Hemoglobin Concent 31.5 G/DL (32.0-36.0) L Red Cell Distribution Width 13.9 % (11.6-14.8) Platelet Count 419 K/UL (150-450) Mean Platelet Volume 5.8 FL (6.5-10.1) L Neutrophils (%) (Auto) 51.8 % (45.0-75.0) Lymphocytes (%) (Auto) 31.9 % (20.0-45.0) Monocytes (%) (Auto) 6.3 % (1.0-10.0) Eosinophils (%) (Auto) 7.2 % (0.0-3.0) H Basophils (%) (Auto) 2.8 % (0.0-2.0) H Prothrombin Time 9.8 SEC (9.30-11.50) Prothrombin Time INR 0.9 (0.9-1.1) PTT 22 SEC (23-33) L Sodium Level 149 MMOL/L (136-145) H Potassium Level 3.8 MMOL/L (3.5-5.1) Chloride Level 98 MMOL/L (98-107) Carbon Dioxide Level 24 MMOL/L (21-32) Anion Gap 27 mmol/L (5-15) H Blood Urea Nitrogen 27 mg/dL (7-18) H Creatinine 1.0 MG/DL (0.55-1.30) Estimate Glomerular Filtration Rate > 60 mL/min (>60) Glucose Level 107 MG/DL (74-106) H Calcium Level 9.7 MG/DL (8.5-10.1) Total Bilirubin 0.1 MG/DL (0.2-1.0) L Aspartate Amino Transferase (AST) 15 U/L (15-37) Alanine Aminotransferase (ALT) 21 U/L (12-78) Alkaline Phosphatase 129 U/L (46-116) H Total Creatine Kinase 95 U/L (26-308) Troponin I 0.000 ng/mL (0.000-0.056) Pro-B-Type Natriuretic Peptide 151 pg/mL (0-125) H Total Protein 7.3 G/DL (6.4-8.2) Albumin 3.1 G/DL (3.4-5.0) L Globulin 4.2 g/dL Albumin/Globulin Ratio 0.7 (1.0-2.7) L Urine Color Pale yellow Urine Appearance Clear Urine pH 6 (4.5-8.0) Urine Specific [place] 1.010 (1.005-1.035) Urine Protein 3+ (NEGATIVE) H Urine Glucose (UA) 2+ (NEGATIVE) H Urine Ketones Negative (NEGATIVE) Urine Blood Negative (NEGATIVE) Urine Nitrite Negative (NEGATIVE) Urine Bilirubin Negative (NEGATIVE) Urine Urobilinogen Normal MG/DL (0.0-1.0) Urine Leukocyte Esterase Negative (NEGATIVE) Urine RBC 0-2 /HPF (0 - 2) Urine WBC 0-2 /HPF (0 - 2) Urine Squamous Epithelial Cells Occasional /LPF Urine Bacteria Occasional /HPF (NONE) Urine Opiates Screen Negative (NEGATIVE) Urine Barbiturates Screen Negative (NEGATIVE) Phencyclidine (PCP) Screen Negative (NEGATIVE) Urine Amphetamines Screen Negative (NEGATIVE) Urine Benzodiazepines Screen Negative (NEGATIVE) Urine Cocaine Screen Negative (NEGATIVE) Urine Marijuana (THC) Screen Negative (NEGATIVE) EKG Diagnostic Results Rate: normal Rhythm: NSR ST Segments: no acute changes Rhythm Strip Diag. Results EP Interpretation: yes Rhythm: NSR, no PVC's, no ectopy Chest X-Ray Diagnostic Results Chest X-Ray Diagnostic Results : Chest X-Ray Ordered: Yes # of Views/Limited/Complete: 1 View Indication: Other EP Interpretation: Yes Interpretation: no consolidation, no effusion, no pneumothorax Impression: No acute disease Electronically Signed by: Electronically signed by Kenny Galindo MD Last Vital Signs Date Time Temp Pulse Resp B/P (MAP) Pulse Ox O2 Delivery O2 Flow Rate FiO2 01/04/19 23:40 97.9 80 20 145/100 99 Room Air 21 Status: improved Disposition: PLACE IN OBSERVATION Condition: Serious Kenny Galindo MD Jan 04, 2019 18:41
[2019-01-04 19:42] LABS: BASOPHILS % (AUTO) 2.8 % (0.0-2.0); EOSINOPHILS % (AUTO) 7.2 % (0.0-3.0); LYMPHOCYTES % (AUTO) 31.9 % (20.0-45.0); MEAN CORPUSCULAR VOLUME 83 FL (80-99); MONOCYTES % (AUTO) 6.3 % (1.0-10.0); NEUTROPHILS % (AUTO) 51.8 % (45.0-75.0); PLATELET COUNT 419 K/UL (150-450); RED BLOOD COUNT 4.59 M/UL (4.20-5.40); RED CELL DISTRIBUTION WIDTH 13.9 % (11.6-14.8); WHITE BLOOD COUNT 6.1 K/UL (4.8-10.8)
--- NOTE | 2019-01-04 19:47 | NUR ---
ED Nurse Note: Patient resting comfortably, no s/s of acute distress. Patient tolerated medication well. will continue to follow up and reassess pain level.
[2019-01-04 19:48] VITALS: BP 145/100
[2019-01-04 19:54] LABS: INR 0.9 (0.9-1.1)
[2019-01-04 20:01] LABS: ANION GAP 27 mmol/L (5-15); BLOOD UREA NITROGEN 27 mg/dL (7-18); CALCIUM 9.7 MG/DL (8.5-10.1); CARBON DIOXIDE 24 MMOL/L (21-32); CHLORIDE 98 MMOL/L (98-107); POTASSIUM 3.8 MMOL/L (3.5-5.1); SODIUM 149 MMOL/L (136-145)
[2019-01-04 20:12] LABS: ALANINE AMINOTRANSFERASE 21 U/L (12-78); ALBUMIN 3.1 G/DL (3.4-5.0); ALBUMIN/GLOBULIN RATIO 0.7 (1.0-2.7); ALKALINE PHOSPHATASE 129 U/L (46-116); ASPARTATE AMINO TRANSFERASE 15 U/L (15-37); BILIRUBIN,TOTAL 0.1 MG/DL (0.2-1.0); CREATINE KINASE 95 U/L (26-308)
--- NOTE | 2019-01-04 20:48 | NUR ---
ED Nurse Note: Patient requested blankets because she states that it is cold. Request accomodated.
--- NOTE | 2019-01-04 21:30 | NUR ---
ED Nurse Note: Patient able to ambulate with walker to restroom to render urine sample.
[2019-01-04] MEDS ORDERED: Solu-MEDROL 125mg Inj IVP ONE (22:00)
[2019-01-04 22:23] LABS: APPEARANCE,URINE CLEAR; BILIRUBIN, URINE NEGATIVE (NEGATIVE); COLOR,URINE PALE YELLOW; GLUCOSE, URINE (UA) 2+ (NEGATIVE); KETONES,URINE NEGATIVE (NEGATIVE); LEUKOCYTE ESTERASE ,URINE NEGATIVE (NEGATIVE); NITRITE,URINE NEGATIVE (NEGATIVE); PH,URINE 6 (4.5-8.0); PROTEIN,URINE 3+ (NEGATIVE); UROBILINOGEN,URINE NORMAL MG/DL (0.0-1.0)
--- NOTE | 2019-01-04 22:49 | NUR ---
ED Nurse Note: Line started at left wrist. Patient tolerated procedure well. IV medication administered. Patient resting comfortably with no complaints at this time.
--- NOTE | 2019-01-04 23:30 | NUR ---
NURSE NOTES: Received report via telephone from ELAN Andrade (ED). Per RN, pt will come up shortly.
--- NOTE | 2019-01-04 23:39 | NUR ---
ED Nurse Note: Called and gave report to Omayra ANSARI, received confirmation that Dr. Guthrie accepted patient.
[2019-01-05] VITALS (7 sets, daily range): BP systolic 157–182; BP diastolic 87–102
--- NOTE | 2019-01-05 | NUR ---
ED Nurse Note: Patient transported to floor without incident by RN. Patient ambulated to restroom, was A&Ox4, no s/s of acute distress.
--- NOTE | 2019-01-05 00:05 | NUR ---
NURSE NOTES: B/L side rails padded for seizure precaution
--- NOTE | 2019-01-05 00:05 | NUR ---
NURSE NOTES: Received pt via gurney from ED. Pt in bed, a&ox4, in room air. No s/s of acute distress & c/o 6/10 pain. Will give PRN pain med once Dr. Guthrie calls back for admission orders. Skin intact. IV site intact & S/L'd. Med recon done. Pt belongings checked & accounted for. Pt is ambulatory with own walker with minimal assist. Oriented to hospital facility. Called Dr. Guthrie & left msg for admission orders. Bed in lowest position, call light within reach. Will continue to monitor.
--- NOTE | 2019-01-05 01:00 | NUR ---
NURSE NOTES: Bedside commode placed
[2019-01-05] MEDS ORDERED: PERCOCET 5-3251 EACH ORAL (01:03)
[2019-01-05] MEDS ORDERED: BENADRYL25 M3 PO (01:10)
[2019-01-05] MEDS ORDERED: CLONIDINE 0.2M0.2 MG PO (01:11)
[2019-01-05] MEDS ORDERED: HYDROCHLOROTHIA25 MG ORAL (01:11)
[2019-01-05] MEDS ORDERED: LANTUS SOL100 UNIT/1 SUBQ (01:13)
[2019-01-05] MEDS ORDERED: Naproxen 500mg tab ORAL PRN (03:00)
--- NOTE | 2019-01-05 03:00 | NUR ---
NURSE NOTES: Dr. Ba (covering for Dr. Guthrie) called back to give admission orders. Informed MD that pt is requesting for pain med. Percocet 5/325 PO Q8H PRN is what pt takes at home & pt states she'll be ok with that med. Per , "No narcotics"
[2019-01-05] MEDS: Albuterol/Ipratropium 3ml neb HHN SCH ×5 (03:28→19:25)
--- NOTE | 2019-01-05 04:30 | NUR ---
NURSE NOTES: Pt upset because she cant have her pain med percocet. Offered naproxen but per pt, it doesn't work for her. Pt complains that she can't sleep & also states now she's feeling anxious because of her pain. Pt requesting if she can have Ativan ordered. Informed Dr. Ba (covering for Dr. Guthrie) of pt's concerns. Per MD, "She has klonopin ordered. She can't have Ativan with Klonopin. Give the Klonopin now." Orders noted & carried. made pt aware & pt verbalized understanding. Will continue to monitor.
[2019-01-05] MEDS: Levothyroxine 125mcg tab ORAL SCH (06:16)
[2019-01-05] MEDS: oxyCODONE HCL/Acetaminophen 5/325mg ORAL PRN ×2 (06:17→20:37)
--- NOTE | 2019-01-05 06:20 | NUR ---
NURSE NOTES: @ 0459 BP elevated 181/96; asymptomatic. However pt c/o pain 10/10. @ 0617 Percocet 5/325 PO PRN given as ordered. Rechecked BP 175/102, still with 10/10 pain. Per pt, she didn't take any BP meds when she was admitted @ ER so BP is increased. All of pt's BP meds ordered to start in AM @ 0900. Pt's BS check 488 & insulin 12 units was given per sliding scale protocol. Pt has been snacking since earlier & per pt, she also hasn't taken any insulin ever since she got admitted @ ER last night. Informed Dr. Guthrie of everything above, awaiting response. Will continue to monitor.
[2019-01-05] MEDS: NovoLOG Insulin Flexpen SUBQ SCH ×4 (06:29→20:41)
[2019-01-05] MEDS ORDERED: NovoLOG Insulin Flexpen SUBQ SCH (06:30)
[2019-01-05 07:10] LABS: ALANINE AMINOTRANSFERASE 17 U/L (12-78); ALBUMIN 3.5 G/DL (3.4-5.0); ALBUMIN/GLOBULIN RATIO 0.8 (1.0-2.7); ALKALINE PHOSPHATASE 136 U/L (46-116); ANION GAP 10 mmol/L (5-15); ASPARTATE AMINO TRANSFERASE 11 U/L (15-37); BILIRUBIN,TOTAL 0.2 MG/DL (0.2-1.0); BLOOD UREA NITROGEN 33 mg/dL (7-18); CALCIUM 10.2 MG/DL (8.5-10.1); CARBON DIOXIDE 29 MMOL/L (21-32); CHLORIDE 98 MMOL/L (98-107); CHOLESTEROL 186 MG/DL (< 200); CREATININE 1.3 MG/DL (0.55-1.30); HDL CHOLESTEROL 56 MG/DL (40-60); POTASSIUM 4.2 MMOL/L (3.5-5.1); SODIUM 137 MMOL/L (136-145); TRIGLYCERIDES 66 MG/DL (30-150)
--- NOTE | 2019-01-05 07:29 | NUR ---
HAND-OFF: Report given to Dl Sweeney RN. Endorsed to Dl regarding pt's blood sugar & increased BP.
--- NOTE | 2019-01-05 07:30 | History and Physical Report ---
DATE OF ADMISSION: 01/04/2019 CHIEF COMPLAINT: Shortness of breath. HISTORY OF PRESENT ILLNESS: The patient is a 53-year-old female. She has history of psychosis, diabetes, hypertension, diabetic neuropathy, and asthma. She presented with complaints of shortness of breath. According to the patient, she has had severe intractable pain and shortness of breath. She is apparently scheduled to undergo a procedure for pain management, possibly an epidural, in several weeks. She has had worsening shortness of breath for the last several days she states because her pain has been uncontrolled. On evaluation in the emergency room, the patient was noted to be wheezing. It was felt that she was having asthma exacerbation. Admission for inpatient treatment was recommended. PAST MEDICAL HISTORY: As above. PAST SURGICAL HISTORY: None. CURRENT MEDICATIONS: Reconciled and reviewed. ALLERGIES: Include fish, ibuprofen, penicillin. FAMILY HISTORY: Noncontributory. SOCIAL HISTORY: There is no known history of tobacco, ethanol, or drugs. REVIEW OF SYSTEMS: GENERAL: No fevers or chills. HEENT: No headaches. CARDIOPULMONARY: No chest pain. Positive shortness of breath and wheezing. GASTROINTESTINAL: No nausea or vomiting. GENITOURINARY: No urgency or frequency. MUSCULOSKELETAL: Positive history of joint pains. NEUROLOGIC: No history of seizures. PHYSICAL EXAMINATION: VITAL SIGNS: Temperature 97.9, pulse 80, respirations 18, and blood pressure 157/87. GENERAL: The patient is well developed, in no apparent distress. HEART: Regular rate and rhythm. LUNGS: Significant for few scattered wheezes. ABDOMEN: Soft, nontender, nondistended. EXTREMITIES: No clubbing or cyanosis. LABORATORY DATA: White count 6, hemoglobin 12. Sodium 149, potassium 3.8. UA was clear. Chest x-ray, results are pending. ASSESSMENT: This is a 53-year-old female with history of psychosis, hypertension, asthma, diabetes, who presented with complaints of shortness of breath and uncontrolled pain. PLAN: IV steroids. Respiratory treatments. Pain control. Hydration with hypotonic fluids. Franco Guthrie M.D. DR: Kassie JOB#: [id number] CC:
--- NOTE | 2019-01-05 07:30 | NUR ---
NURSE NOTES: Patient lying in bed awake. No complain of pain or distress at this time. Skin intact and dry. IV dressing intact and dry. Bed lowest position. Call light within reach. Will continue to monitor.
--- NOTE | 2019-01-05 08:40 | NUR ---
CASE MANAGEMENT:REVIEW 53 YR OLD FEMALE BIBA FROM HOME PMH: CHRONIC PAIN CC: LT UPPER ABD PAIN RADIATING TO CHEST X4 DAYS. SOB. WHEEZING NOTED IN ER SI: CHEST PAIN. 89 20 136/83 98% ON RA NA+149 BUN+27 TROPONIN(-) IS: ASA 325MG PO GIVEN BY EMT DUONEB HHN NAPROXEN PO LIDOCAINE PATCH IV SOLUMEDROL CXR : TO MED/SURG [facility]
--- NOTE | 2019-01-05 08:50 | NUR ---
INTERQUAL CRITERIA MET FOR OBSERVATION ONLY
[2019-01-05] MEDS: Aspirin EC 81mg tab ORAL SCH (09:50)
[2019-01-05] MEDS: cloNIDine 0.2mg Tab ORAL SCH ×3 (09:51→18:31)
--- NOTE | 2019-01-05 12:03 | Diagnostic Imaging Report ---
Indication: Chest pain Technique: One view of the chest Comparison: 09/15/2018 Findings: The heart is borderline enlarged. Lungs pleural spaces are clear. No significant interim change. Body habitus limits evaluation Impression: No acute process
--- NOTE | 2019-01-05 18:30 | NUR ---
NURSE NOTES: Notified regarding 16:30 blood sugar result. No new order at this time. Will continue to monitor.
--- NOTE | 2019-01-05 19:15 | NUR ---
HAND-OFF: Report given to Tessa HELTON. Patient in stable condition.
--- NOTE | 2019-01-05 19:20 | NUR ---
NURSE NOTES:Patient received from Dl Loza Patient denies any pain at this time . no s/s of distress RFA g#24 H/L patent and intact . call light within reach . bed in low position at all times .will continue to monitor.
--- NOTE | 2019-01-05 20:59 | NUR ---
NURSE NOTES:left message to JIAN GURROLA And DR SOILA GABRIEL Patient blood sugar 471 covered with sliding scale 12 units of Novolog and 40 units of Levemir Sub cutaneous left upper arm . still awaiting to call back. Addendum: 01/05/19 at 2242 by ABIGAIL COHN LVN Suresh REAL Notified AND aware. Addendum: 01/06/19 at 0557 by ABIGAIL COHN LVN NURSE NOTES: jian Bryson notified and aware . no new orders given.
[2019-01-05] MEDS ORDERED: Atorvastatin 80mg tab ORAL SCH (21:00)
[2019-01-05] MEDS ORDERED: Levemir Flexpen SUBQ SCH (21:00)
--- NOTE | 2019-01-05 21:30 | NUR ---
NURSE NOTES:Patient refused to repeat blood sugar check . Explained the risk and benefits to patient .still refusing call light within reach . bed in low position at all times . will continue to monitor.
[2019-01-06] VITALS: BP 158/93
[2019-01-06] MEDS: Albuterol/Ipratropium 3ml neb HHN SCH ×4 (00:11→11:23)
[2019-01-06 04:00] VITALS: BP 153/87
[2019-01-06] MEDS: Levothyroxine 125mcg tab ORAL SCH (06:23)
[2019-01-06] MEDS: oxyCODONE HCL/Acetaminophen 5/325mg ORAL PRN (06:25)
[2019-01-06] MEDS: NovoLOG Insulin Flexpen SUBQ SCH ×2 (06:31→12:05)
--- NOTE | 2019-01-06 07:23 | NUR ---
HAND-OFF: Report given to MARLEEN Loza
[2019-01-06 08:00] VITALS: BP 143/82
--- NOTE | 2019-01-06 08:20 | NUR ---
NURSE NOTES: Spoke to regarding discharge and patient cleared to discharge with home medications. Order read back and carried out.
[2019-01-06] MEDS ORDERED: Heparin 5000 units/ml inj SUBQ SCH (09:00)
[2019-01-06] MEDS: cloNIDine 0.2mg Tab ORAL SCH ×2 (09:00→12:15)
[2019-01-06] MEDS: Aspirin EC 81mg tab ORAL SCH (09:00)
[2019-01-06] MEDS ORDERED: DEBROX15 M1 BOTH EARS (10:26)
[2019-01-06] MEDS ORDERED: DELTASONE20 MG PO (10:31)
[2019-01-06 12:00] VITALS: BP 155/97
[2019-01-06 12:15] VITALS: BP 155/97
--- NOTE | 2019-01-06 12:21 | NUR ---
CASE MANAGEMENT:REVIEW 01/06/19 SI: SOB. UNCONTROLLED PAIN 98.0 93 20 143/82 100% ON RA IS: HEPARIN SQ Q12 ~ REFUSED LEVEMIR SQ QHS LIPITOR PO QHS NORVASC PO QD ~ REFUSED ASA PO QD ~ REFUSED KLONIPIN PO BID CLONIDINE PO TID DIABETA PO BID ~REFUSED PREDNISONE PO QD ~ REFUSED HCTZ PO QD ~ REFUSED LABETALOL PO QD ~ REFUSED SS INSULIN AC+HS SYNTHROID PO QAM PERCOCET PO Q8HRS PRN BACLOFEN PO TID : TELEMETRY STATUS DCP: FROM HOME PLAN: PLAN IS TO DISCHARGE HOME TODAY
[2019-01-06] MEDS ORDERED: 1/2 NS 1000ml IV ONE (12:29)
--- NOTE | 2019-01-06 12:30 | NUR ---
NURSE NOTES: Patient discharged in stable condition. Discharge instruction given to patient and verbalized understanding. Belonging and Prescription given to patient. IV and ID removed. Patient ambulated out with all personal belongings with steady gait.
--- NOTE | 2019-01-06 15:33 | NUR ---
*-* INSURANCE *-* ALL CLINICALS AND REVIEWS HAVE BEEN FAXED TO: EDVIN GUNDERSON P- [phone] F- [phone] LEVI/SERGE REYES; MARCIA Saul P- [phone] F- [phone]
--- NOTE | 2019-01-06 21:29 | Cardiology Report ---
APPROVED REPORT EKG Measurement Heart [id number] Normal sinus rhythm Normal ECG
--- NOTE | 2019-01-08 11:45 | Discharge Summary ---
Discharge Summary Discharge Summary _ DATE OF ADMISSION: 01/04/2019 DATE OF DISCHARGE: 01/06/2019 DISCHARGED BY: Dr. Guthrie REASON FOR ADMISSION: 53 years old female with past medical history of hypertension, asthma, diabetes mellitus, diabetic neuropathy, psychosis, presented with complaint of shortness of breath. Patient reported severe intractable upper back pain and shortness of breath. Patient apparently had spinal surgery on the left side and was scheduled for the same procedure on the right side on . Patient reported worsening shortness of breath for several days . On evaluation in emergency department patient found to be wheezing. Vital signs were stable. Pulse oximetry was stable on room air. Laboratory workup revealed no leukocytosis, stable hemoglobin and hematocrit. Elevated eosinophil count noted. Sodium 149. BUN 27 , creatinine 1.0 . Glucose 107. Troponin negative, pro BNP 151 . EKG revealed sinus rhythm, no acute ischemic changes. Urinalysis revealed no evidence of urinary tract infection .urine toxicology screen was negative. Chest x-ray revealed no acute cardiopulmonary pathology. Patient received breathing treatment via HHN with bronchodilator, loading dose of IV steroid and admitted for management. HOSPITAL COURSE: Patient admitted to medical surgical floor. Second troponin was negative. EKG showed normal sinus rhythm, no acute ischemic changes. Supplemental oxygen provided as needed to keep pulse oximetry above 90%. Pulmonary toilet with bronchodilator provided. Patient started on hypotonic IV solution and IV steroid with gradual tapering down. Patient was discharged home on short course of prednisone to complete the course. DVT prophylaxis provided. Blood sugar was managed with glyburide and sliding scale of insulin was used as needed. Hemoglobin A1c 12.6, clearly not at goal. Patient will need further optimization of anti-glycemic regimen as outpatient per primary care provider. Blood pressure was managed with current regimen of antihypertensive. Lipid panel revealed elevated LDL of 109 with stable total cholesterol and triglycerides. Statin and antiplatelet therapy with aspirin were continued. Patient was counseled on cardiac low-fat low-cholesterol diabetic diet. Pain management was addressed. Pain was controlled. Bowel regimen instituted. Anxiolytic provided as needed. Renal parameters and electrolytes were closely monitored. Sodium down to normal. Patient was counseled on abstinence from illicit street drugs. Patient clinically stabilized and was ready for discharge home.. Outpatient follow-up with a primary care provider . FINAL DIAGNOSES: Acute asthma exacerbation Acute and chronic back pain Diabetes mellitus , out of control Hypertension Psychosis Anxiety disorder DISCHARGE MEDICATIONS: See Medication Reconciliation list. DISCHARGE INSTRUCTIONS: Patient was discharged home. Follow up with primary care provider in one week. Follow-up with procedure on 01/20 as scheduled. I have been assigned to dictate discharge summary for this account. I was not involved in the patient's management. Deanna Ann NP Jan 08, 2019 11:44
== END 2019-01-06 12:30 | disposition home or self-care (01) | DRG 141 ==
LOC: EDBD 18:21 → EMR 18:51 → 3E 22:36 → EDBEDREQ 23:37
DX: J45.901 Unspecified asthma with (acute) exacerbation (principal); E11.65 Type 2 diabetes mellitus with hyperglycemia; G89.29 Other chronic pain; I10 Essential (primary) hypertension; M54.9 Dorsalgia, unspecified; F29 Unspecified psychosis not due to a substance or known physiological condition; F41.9 Anxiety disorder, unspecified
CPT/HCPCS: 36415; 71045; 80053; 80061; 80307; 81003; 82550; 82962; 83036; 83880; 84443; 84484; 85025; 85610; 85730; 93005; 94640; 94664; 96374; 99285; J1815; J7620; S5561

== ENCOUNTER 2019-07-04 16:17 | Inpatient (IN) | payer MEDICAID ==
[~2019-07-04] VITALS: Ht 170.2 cm; Wt 132.0 kg
[~2019-07-04 16:17] MED LIST changes: +BENADRYL25 M3 PO; +CLONIDINE 0.2M0.2 MG PO; +DEBROX15 M1 BOTH EARS; +DELTASONE20 MG PO; +HYDROCHLOROTHIA25 MG ORAL; +PERCOCET 5-3251 EACH ORAL
[2019-07-04 16:18] VITALS: BP 106/62
--- NOTE | 2019-07-04 16:18 | NUR ---
ED Nurse Note: PT BROUGHT IN TO ER TODAY FROM HOME BY RA26. AOX4. PT C/O SOB X 2 WEEKS AGO. WHEEZING AUSCULTATED IN ALL LOBES. PT ABLE TO SPEAK IN FULL SENTENCES. NO SIGNS OF RESPIRATORY DISTRESS, RETRACTIONS, OR ACCESSORY MUSCLE USE NOTED. RR13, O2SAT 99% ON RA AT BEDSIDE.
[2019-07-04] MEDS ORDERED: Albuterol/Ipratropium 3ml neb HHN ONE ×2 (16:30→17:45)
[2019-07-04] MEDS ORDERED: Solu-MEDROL 125mg Inj IVP ONE (16:30)
--- NOTE | 2019-07-04 16:35 | NUR ---
ED Nurse Note: RT AT BEDSIDE.
[2019-07-04 16:51] LABS: BASOPHILS % (AUTO) 1.4 % (0.0-2.0); EOSINOPHILS % (AUTO) 3.5 % (0.0-3.0); HEMATOCRIT 40.1 % (37.0-47.0); HEMOGLOBIN 12.9 G/DL (12.0-16.0); LYMPHOCYTES % (AUTO) 31.4 % (20.0-45.0); MEAN CORPUSCULAR VOLUME 86 FL (80-99); MONOCYTES % (AUTO) 6.6 % (1.0-10.0); NEUTROPHILS % (AUTO) 57.2 % (45.0-75.0); PLATELET COUNT 344 K/UL (150-450); RED BLOOD COUNT 4.69 M/UL (4.20-5.40); RED CELL DISTRIBUTION WIDTH 13.4 % (11.6-14.8); WHITE BLOOD COUNT 7.9 K/UL (4.8-10.8)
[2019-07-04] MEDS ORDERED: FUROSEMIDE40 MG ORAL (16:55)
[2019-07-04] MEDS ORDERED: HUMALOG100 UNIT/3 SUBQ (16:57)
[2019-07-04] MEDS ORDERED: NORCO 10-325 T1 EACH ORAL (16:57)
[2019-07-04 17:05] LABS: ANION GAP 6 mmol/L (5-15); BLOOD UREA NITROGEN 30 mg/dL (7-18); CALCIUM 9.6 MG/DL (8.5-10.1); CARBON DIOXIDE 33 MMOL/L (21-32); CHLORIDE 102 MMOL/L (98-107); CREATININE 1.3 MG/DL (0.55-1.30); POTASSIUM 4.6 MMOL/L (3.5-5.1); SODIUM 141 MMOL/L (136-145)
[2019-07-04 17:14] LABS: ALANINE AMINOTRANSFERASE 36 U/L (12-78); ALBUMIN 3.2 G/DL (3.4-5.0); ALBUMIN/GLOBULIN RATIO 0.9 (1.0-2.7); ALKALINE PHOSPHATASE 121 U/L (46-116); ASPARTATE AMINO TRANSFERASE 22 U/L (15-37); BILIRUBIN,TOTAL 0.2 MG/DL (0.2-1.0); CKMB 2.7 NG/ML (0.0-3.6); CREATINE KINASE 170 U/L (26-308)
--- NOTE | 2019-07-04 17:40 | NUR ---
ED Nurse Note: RT CALLED FOR BREATHING TX AND ABG.
[2019-07-04] MEDS ORDERED: LORazepam Inj 2mg/ml 1ml IV ONE (17:45)
--- NOTE | 2019-07-04 17:48 | Diagnostic Imaging Report ---
EXAM: XR Chest, 1 View CLINICAL HISTORY: SOB TECHNIQUE: Frontal view of the chest. COMPARISON: 01 04 19 chest x-ray FINDINGS: Lungs: Unremarkable. No consolidation. Pleural space: Unremarkable. No pneumothorax. Heart: Stable borderline cardiomegaly. Mediastinum: Unremarkable. Bones joints: Unremarkable. IMPRESSION: Stable borderline cardiomegaly. Otherwise no acute cardiopulmonary process.
--- NOTE | 2019-07-04 17:50 | NUR ---
ED Nurse Note: RT AT BEDSIDE.
--- NOTE | 2019-07-04 19:05 | NUR ---
HAND-OFF: REPORT GIVEN TO ELAN PATTERSON.
--- NOTE | 2019-07-04 19:15 | NUR ---
ED Nurse Note: RECIEVED REPORT FROM AM NURSE TO RESUME CARE, PT IN BED AWAKE, ALERT AND ORIENTED X 4, PT IS WAITING FOR BED TO BE READY FOR ADMISSION, TO SEND AFTER 8 PM, PT WITH NO ACUTE RESPIRATORY DISTRESS NOTED AT THIS TIME, 02 SAT=97%, PT TALKING ON PHONE, STATES HAS PAIN FROM HER DJD, WILL RESUME CARE ORDERED, ASK FOR PAIN MEDS AND PREAPRE FOR ADMISSION TO SEND AFTER 8PM.
--- NOTE | 2019-07-04 19:28 | Emergency Room Report ---
History of Present Illness General Chief Complaint: Upper Respiratory Illness Source: Patient, Medical Record, EMS Present Illness HPI Patient present for increased shortness of breath. Patient was brought in by EMS. She was noted to be increasingly anxious. She was noted to have severe difficulty with respirations. She states she takes albuterol intermittently with nebulizer treatments at home. She had been previously hospitalized for similar symptoms in the past. She had recently been on oral steroids. She is prior history of diabetes. She states that she been unable to use her CPAP due to shortness of breath. This is worse at night. She denies any significant lower extremity swelling but does admit to swelling to both legs. Allergies: Coded Allergies: FISH CONTAINING PRODUCTS (Unverified Allergy, Unknown, 11/02/13) IBUPROFEN (Unverified Allergy, Unknown, 11/02/13) PENICILLIN G (Unverified Allergy, Unknown, 11/02/13) PENICILLINS (Unverified Allergy, Unknown, 11/28/14) Patient History Past Medical History: see triage record Last Menstrual Period: menopausal Reviewed Nursing Documentation: PMH: Agreed; PSxH: Agreed Nursing Documentation-PMH Past Medical History: No History, Except For Hx Cardiac Problems: Yes Hx Hypertension: Yes Hx Asthma: Yes Hx Diabetes: Yes Hx Cancer: No Hx Gastrointestinal Problems: No Hx Neurological Problems: Yes Hx Seizures: Yes Review of Systems All Other Systems: negative except mentioned in HPI Physical Exam Vital Signs Date Time Temp Pulse Resp B/P (MAP) Pulse Ox O2 Delivery O2 Flow Rate FiO2 07/04/19 16:13 97.3 74 20 112/59 (76) 99 Room Air 07/04/19 16:37 21 Sp02 EP Interpretation: reviewed, normal General Appearance: normal inspection, alert, GCS 15, obese, Chronically Ill Head: atraumatic ENT: normal ENT inspection, normal voice, pharyngeal erythema Neck: normal inspection, full range of motion, supple, no bony tend Respiratory: normal inspection, no respiratory distress, no retraction, wheezing Cardiovascular #1: regular rate, rhythm, edema - trace edema Gastrointestinal: normal inspection, normal bowel sounds, non tender, soft, no guarding, no hernia Genitourinary: no CVA tenderness Musculoskeletal: normal inspection, back normal, normal range of motion Neurologic: normal inspection, alert, oriented x3, responsive, speech normal Psychiatric: normal inspection, judgement/insight normal, mood/affect normal Medical Decision Making Diagnostic Impression: Primary Impression: Acute asthma exacerbation Additional Impression: Diabetes ER Course Patient presented for shortness of breath. Differential included but was not limited to anemia, pneumonia, pneumothorax, myocardial infarction, pericardial effusion, congestive heart failure, acidosis. Because of complexity of patient' s case laboratory tests and imaging studies were ordered. Patient was given IV steroids as well as breathing treatments. She was noted to have some continued difficulty with breathing. She was given some medications due to anxiety which appears to be somewhat chronic for the patient. Chest x-ray read by radiology showed mild cardiomegaly without evident infiltrate see radiology report for full details. Lab testing showed normal white blood count. Patient was noted to be stable for admission. Dr. Velásquez contacted for [facility] for inpatient management due to panel physician Labs Test 07/04/19 16:30 White Blood Count 7.9 K/UL (4.8-10.8) Red Blood Count 4.69 M/UL (4.20-5.40) Hemoglobin 12.9 G/DL (12.0-16.0) Hematocrit 40.1 % (37.0-47.0) Mean Corpuscular Volume 86 FL (80-99) Mean Corpuscular Hemoglobin 27.5 PG (27.0-31.0) Mean Corpuscular Hemoglobin Concent 32.1 G/DL (32.0-36.0) Red Cell Distribution Width 13.4 % (11.6-14.8) Platelet Count 344 K/UL (150-450) Mean Platelet Volume 5.8 FL (6.5-10.1) Neutrophils (%) (Auto) 57.2 % (45.0-75.0) Lymphocytes (%) (Auto) 31.4 % (20.0-45.0) Monocytes (%) (Auto) 6.6 % (1.0-10.0) Eosinophils (%) (Auto) 3.5 % (0.0-3.0) Basophils (%) (Auto) 1.4 % (0.0-2.0) Sodium Level 141 MMOL/L (136-145) Potassium Level 4.6 MMOL/L (3.5-5.1) Chloride Level 102 MMOL/L (98-107) Carbon Dioxide Level 33 MMOL/L (21-32) Anion Gap 6 mmol/L (5-15) Blood Urea Nitrogen 30 mg/dL (7-18) Creatinine 1.3 MG/DL (0.55-1.30) Estimat Glomerular Filtration Rate 52.4 mL/min (>60) Glucose Level 203 MG/DL (74-106) Calcium Level 9.6 MG/DL (8.5-10.1) Total Bilirubin 0.2 MG/DL (0.2-1.0) Aspartate Amino Transf (AST/SGOT) 22 U/L (15-37) Alanine Aminotransferase (ALT/SGPT) 36 U/L (12-78) Alkaline Phosphatase 121 U/L (46-116) Total Creatine Kinase 170 U/L (26-308) Creatine Kinase MB 2.7 NG/ML (0.0-3.6) Creatine Kinase MB Relative Index 1.5 Troponin I 0.000 ng/mL (0.000-0.056) Pro-B-Type Natriuretic Peptide 148 pg/mL (0-125) Total Protein 6.6 G/DL (6.4-8.2) Albumin 3.2 G/DL (3.4-5.0) Globulin 3.4 g/dL Albumin/Globulin Ratio 0.9 (1.0-2.7) Last Vital Signs Date Time Temp Pulse Resp B/P (MAP) Pulse Ox O2 Delivery O2 Flow Rate FiO2 07/04/19 17:59 82 16 100 Room Air 21 86 17 96 07/04/19 16:18 97.8 106/62 Status: unchanged Disposition: ADMITTED INPATIENT Condition: Stable Referrals: [facility],REFERRING (PCP) Juan Vogt MD Jul 04, 2019 19:28
[2019-07-04 19:30] VITALS: BP 118/59
[2019-07-04] MEDS ORDERED: Miralax 17gm pkt ORAL PRN (19:45)
--- NOTE | 2019-07-04 20:00 | NUR ---
ED Nurse Note: PLACED CALL TO FLOOR NURSE JESSICARN, PT IS CURRENTLY HAVING ABG DONE AT BEDSIDE AND WILL GO UP WHEN COMPLETED.
[2019-07-04] MEDS: oxyCODONE HCL/Acetaminophen 5/325mg ORAL PRN (20:23)
--- NOTE | 2019-07-04 20:30 | NUR ---
NURSE NOTES: Received report from Devin Sam RN. regarding patient's transfer to TELE floor from ED. Arrived via gurney accompanied by staff; transferred to bed with assist. Belongings checked and noted with RN and head to toe assessment initiated; no skin issues observed. Kept patient clean, dry, and comfortable in bed with no complaints of acute pain at this time. Placed continuous cardiac monitoring per protocol. MD made aware of patients arrival to the unit. Orders received and carried out, will continue plan of care and monitor for any changes.
--- NOTE | 2019-07-04 20:30 | NUR ---
ED Nurse Note: ABG UN-SUCCESSFUL, NOT COMPLETED, PT YELLING AND C/O PAIN, MEDICATED ORDERED AND WILL SEND TO FLOOR BED, STATES OK TO SEND WITHOUT AND THEY CAN RE-ATTEMPT AGAIN.
--- NOTE | 2019-07-04 20:43 | Diagnostic Imaging Report ---
EXAM: XR Soft Tissue Neck CLINICAL HISTORY: SOB TECHNIQUE: Frontal and lateral views of the soft tissues of the neck. COMPARISON: none FINDINGS: Airway: Unremarkable. No abnormal narrowing. 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 Cervical spine is otherwise unremarkable. Soft tissues: The soft tissues of the neck are unremarkable. No radiopaque foreign body, soft tissue gas or abnormal soft tissue swelling. Normal epiglottis. IMPRESSION: No acute findings.
[2019-07-04 21:00] VITALS: BP 145/95
--- NOTE | 2019-07-04 21:00 | NUR ---
RESPIRATORY NOTE:pt is refusing abg wants to wait till morning after two failed attemps will monitor pt
[2019-07-04] MEDS: Docusate 100mg cap ORAL SCH (21:35)
[2019-07-04] MEDS: Atorvastatin 20mg tab ORAL SCH (21:36)
[2019-07-04] MEDS: Solu-MEDROL 40mg Inj IVP SCH (21:38)
[2019-07-04] MEDS: Heparin 5000 units/ml inj SUBQ SCH (21:38)
[2019-07-05] VITALS: BP 153/98
[2019-07-05] MEDS: LORazepam Inj 2mg/ml 1ml IV PRN ×2 (00:34→12:28)
--- NOTE | 2019-07-05 02:46 | NUR ---
NURSE NOTES: Patient in bed with no S/S of distress. Will continue to monitor
[2019-07-05 04:00] VITALS: BP 133/76
[2019-07-05] MEDS: Albuterol/Ipratropium 3ml neb HHN PRN ×2 (04:16→08:52)
[2019-07-05] MEDS: Solu-MEDROL 40mg Inj IVP SCH ×3 (06:19→22:05)
[2019-07-05] MEDS: Levothyroxine 125mcg tab ORAL SCH (06:19)
--- NOTE | 2019-07-05 07:23 | NUR ---
HAND-OFF: Report given to Camille Cunningham RN. Patient in bed AAO X4 eating breakfast with no S/S of distress. Endorsed plan of care.
[2019-07-05 07:58] LABS: HEMATOCRIT 42.1 % (37.0-47.0); HEMOGLOBIN 13.2 G/DL (12.0-16.0); MEAN CORPUSCULAR VOLUME 86 FL (80-99); PLATELET COUNT 415 K/UL (150-450); RED BLOOD COUNT 4.87 M/UL (4.20-5.40); RED CELL DISTRIBUTION WIDTH 14.3 % (11.6-14.8); WHITE BLOOD COUNT 10.1 K/UL (4.8-10.8)
--- NOTE | 2019-07-05 07:59 | NUR ---
NURSE NOTES: Received report from ELAN Rossi. Patient aox4 with calm, cooperative affect. Discussed anxiety meds schedule with patient and offered emotional support. Patient stated "We got some good energy today!" Bed in lowest, locked position and call eldridge in reach --patient agreed to call when need to use commode or any needs. No sign of cardiac or respiratory distress. [facility]
[2019-07-05 08:00] LABS: ANION GAP 10 mmol/L (5-15); BLOOD UREA NITROGEN 33 mg/dL (7-18); CALCIUM 9.5 MG/DL (8.5-10.1); CARBON DIOXIDE 28 MMOL/L (21-32); CHLORIDE 101 MMOL/L (98-107); CREATININE 1.4 MG/DL (0.55-1.30); POTASSIUM 4.7 MMOL/L (3.5-5.1); SODIUM 139 MMOL/L (136-145)
[2019-07-05 08:21] VITALS: BP 144/73
[2019-07-05] MEDS: Furosemide 40mg tab ORAL SCH (08:27)
[2019-07-05] MEDS: Aspirin EC 81mg tab ORAL SCH (08:27)
[2019-07-05] MEDS: Docusate 100mg cap ORAL SCH ×2 (08:29→20:25)
[2019-07-05] MEDS: Heparin 5000 units/ml inj SUBQ SCH ×2 (08:34→20:27)
--- NOTE | 2019-07-05 11:25 | NUR ---
NURSE NOTES: Paged Dr Bashir's service for bl sugar 306 and need orders to address. 306 noted in lab results and followed up with bedside fingerstick with same result. Patient co slight nausea but otherwise stated she is feeling fine saying "I am surprised , if anything I thought my sugar would be low!" Continuing to monitor.
[2019-07-05 12:00] VITALS: BP 135/83
[2019-07-05] MEDS: Albuterol/Ipratropium 3ml neb HHN SCH ×3 (12:40→23:44)
[2019-07-05] MEDS: NovoLOG Insulin Flexpen SUBQ SCH ×4 (14:06→20:29)
[2019-07-05 16:00] VITALS: BP 146/93
--- NOTE | 2019-07-05 17:07 | NUR ---
NURSE NOTES: Spoke with Dr Nix after bedside bl sugar 467 (repeated test for accuracy) . Ordered stat blood draw and Dr Nix advised to follow the EMAR recommended dose of insulin (sliding scale plus standing basal dose) and continue to monitor. Addendum: 07/05/19 at 1737 by Kevin Cunningham RN restated to and administered 19 u.
--- NOTE | 2019-07-05 17:49 | History and Physical ---
History of Present Illness General Date patient seen: Jul 05, 2019 Reason for Hospitalization: Upper Respiratory Illness, Asthma/COPD exacerbation Present Illness HPI Katherine Gandara is a 53 yo woman with PMH of IDDM w/ neuropathy, CRISTINE on CPAP, asthma /COPD not on home O2, HFpEF (60%), HTN, and hypothyroid who presented with SOB and JETER for several weeks. Of note, patient is a poor historian and often goes off track during conversation, does not answer questions directly. States has been having issues with breathing and feeling short of breath "from the bottom up" (pointing to her lower abdomen up to chest area) and has been followed by an CONTRACT ENGINEER at home for her symptoms. Reportedly recently treated with oral steroids, oral antibiotics, and nebulizers at home but unable to state dates or duration or names. Patient states she lives alone at home and usually ambulates with a walker. has had issues with her back for a long time and with hx of CRISTINE, unable to sleep flat for a while. Sleeps on an incline position with CPAP machine, denies recent changes to baseline orthopnea. When asked regarding chest pain or pressure, patient does not answer directly but perseverates on having anterior neck pain and difficulty swallowing for few months. Unable to qualify the pain or associated symptoms. When asked regarding cardiac history patient states she has had a stress test done recently in May 2019. When asked regarding results of the stress test patient initially said it was fine but on further questioning stated that her CONTRACT ENGINEER told her there was a minor defect but she was not worried about it. When asked regarding changes in her LE swelling, just states that she has been having mild LE swelling, unsure if worsening. Allergies: Coded Allergies: FISH CONTAINING PRODUCTS (Unverified Allergy, Unknown, 11/02/13) IBUPROFEN (Unverified Allergy, Unknown, 11/02/13) PENICILLIN G (Unverified Allergy, Unknown, 11/02/13) PENICILLINS (Unverified Allergy, Unknown, 11/28/14) Medication History Scheduled Amlodipine Besylate (Norvasc), 10 MG ORAL DAILY, (Reported) Aspirin* (Aspir 81*), 81 MG ORAL DAILY, (Reported) Atorvastatin Calcium* (Atorvastatin Calcium*), 40 MG ORAL BEDTIME, (Reported) Carbamide Peroxide (Debrox), 3 DROP BOTH EARS THREE TIMES A DAY, (Reported) Clonazepam* (Klonopin*), 2 MG ORAL BID, (Reported) Clonidine HCl (Clonidine HCl), 0.3 MG PO TID, (Reported) Diphenhydramine HCl (Benadryl), 50 MG PO DAILY, (Reported) Furosemide* (Lasix*), 40 MG ORAL DAILY, (Reported) Glyburide (Glyburide), 5 MG PO BID, (Reported) Hydrochlorothiazide* (Hydrochlorothiazide*), 25 MG ORAL DAILY, (Reported) Insulin Glargine (Lantus), 40 UNITS SUBQ BEDTIME, (Reported) Insulin Lispro (Humalog), 0 SUBQ AC+HS, (Reported) Insulin Lispro (Humalog), 35 SUBQ THREE TIMES A DAY, (Reported) Labetalol HCl (Labetalol HCl), 100 MG ORAL DAILY, (Reported) Levothyroxine Sodium* (Levothyroxine Sodium*), 125 MCG ORAL DAILY, (Reported) Scheduled PRN Baclofen (Baclofen), 20 MG ORAL BID PRN for Muscle Spasm, (Reported) Hydrocodone Bit/Acetaminophen 10-325* ([place] 10-325*), 1 TAB ORAL THREE TIMES A DAY PRN for For Pain, (Reported) Ipratropium/Albuterol Sulfate (DuoNeb 0.5-3(2.5)mg/3ml), 3 ML HHN Q4HR PRN for Shortness of Breath, (Reported) Naproxen* (Naprosyn*), 500 MG ORAL TWICE A DAY PRN for Mild Pain (Pain Scale 1-3 ), (Reported) Oxycodone/Acetaminophen 5-325* (Percocet 5-325 Mg Tablet*), 1 TAB ORAL Q8HR PRN for For Pain, (Reported) Miscellaneous Medications Prednisone (Deltasone), 10 MG PO, (Reported) Patient History Limited by: other - poor historian History Provided By: Patient, Medical Record Healthcare decision maker Resuscitation status Full Code Advanced Directive on File Family History Family History: Patient reports no known family medical history. Social History Social History: (1) Smoker (2) Lives alone without help available (3) Assistance needed for ambulation and movement Review of Systems Constitutional: Reports: weakness Eye: Reports: no symptoms ENT: Reports: throat pain, other - neck pain Respiratory: Reports: cough, shortness of breath, wheezing, JETER Cardiovascular: Reports: edema Gastrointestinal: Reports: no symptoms Genitourinary: Reports: no symptoms Musculoskeletal: Reports: back pain Skin: Reports: no symptoms Psychiatric: Reports: anxiety Neurological: Reports: no symptoms Endocrine: Reports: no symptoms Hematologic/Lymphatic: Reports: no symptoms All Other Systems: negative except mentioned in HPI Physical Exam General Appearance: no apparent distress, alert Lines, tubes and drains: peripheral HEENT: normocephalic, atraumatic Neck: supple, other - ROM limited by pain Respiratory/Chest: no respiratory distress, other - mild end expiratory wheeze bilaterally, coarse Cardiovascular/Chest: normal rate, regular rhythm, other - difficult to assess JVD 2/2 obesity Abdomen: normal bowel sounds, non tender, soft Extremities: other - trace LE edema bilaterally Skin Exam: warm/dry Neurologic: alert, responsive Last 24 Hour Vital Signs Date Time Temp Pulse Resp B/P (MAP) Pulse Ox O2 Delivery O2 Flow Rate FiO2 07/05/19 16:00 97.5 96 18 146/93 (110) 100 07/05/19 16:00 92 07/05/19 14:14 137/75 07/05/19 12:50 87 18 100 Room Air 21 86 19 98 07/05/19 12:00 94 07/05/19 12:00 97.2 83 18 135/83 (100) 100 07/05/19 09:02 89 19 99 Room Air 21 91 21 96 07/05/19 09:00 Room Air 07/05/19 09:00 Room Air 07/05/19 08:28 92 144/73 07/05/19 08:27 92 144/73 07/05/19 08:21 98.3 92 18 144/73 (96) 98 07/05/19 08:00 97 07/05/19 06:22 133/76 07/05/19 04:17 82 16 100 Room Air 21 84 17 97 07/05/19 04:00 75 07/05/19 04:00 98.1 80 18 133/76 (95) 96 07/05/19 04:00 2.0 07/05/19 00:00 86 07/05/19 00:00 98.6 86 18 153/98 (116) 98 07/05/19 00:00 2.0 07/04/19 21:08 Room Air 07/04/19 21:00 98.3 91 20 145/95 (112) 98 07/04/19 21:00 82 07/04/19 20:35 98.4 77 16 118/59 98 Room Air 21 07/04/19 20:35 98.4 07/04/19 19:30 98.4 77 16 118/59 98 Room Air 21 07/04/19 17:59 82 16 100 Room Air 21 86 17 96 Intake and Output 07/04/19 07/05/19 19:00 07:00 Output Total 1000 ml Balance -1000 ml Output Urine Total 1000 ml # Bowel Movements 1 Laboratory Tests Test 07/05/19 06:45 07/05/19 08:42 White Blood Count 10.1 K/UL (4.8-10.8) Red Blood Count 4.87 M/UL (4.20-5.40) Hemoglobin 13.2 G/DL (12.0-16.0) Hematocrit 42.1 % (37.0-47.0) Mean Corpuscular Volume 86 FL (80-99) Mean Corpuscular Hemoglobin 27.0 PG (27.0-31.0) Mean Corpuscular Hemoglobin Concent 31.3 G/DL (32.0-36.0) L Red Cell Distribution Width 14.3 % (11.6-14.8) Platelet Count 415 K/UL (150-450) Mean Platelet Volume 5.5 FL (6.5-10.1) L Neutrophils (%) (Auto) % (45.0-75.0) Lymphocytes (%) (Auto) % (20.0-45.0) Monocytes (%) (Auto) % (1.0-10.0) Eosinophils (%) (Auto) % (0.0-3.0) Basophils (%) (Auto) % (0.0-2.0) Differential Total Cells Counted 100 Neutrophils % (Manual) 90 % (45-75) H Lymphocytes % (Manual) 9 % (20-45) L Monocytes % (Manual) 1 % (1-10) Eosinophils % (Manual) 0 % (0-3) Basophils % (Manual) 0 % (0-2) Band Neutrophils 0 % (0-8) Platelet Estimate Adequate Platelet Morphology Normal Red Blood Cell Morphology Normal Sodium Level 139 MMOL/L (136-145) Potassium Level 4.7 MMOL/L (3.5-5.1) Chloride Level 101 MMOL/L (98-107) Carbon Dioxide Level 28 MMOL/L (21-32) Anion Gap 10 mmol/L (5-15) Blood Urea Nitrogen 33 mg/dL (7-18) H Creatinine 1.4 MG/DL (0.55-1.30) H Estimat Glomerular Filtration Rate 48.0 mL/min (>60) Glucose Level 360 MG/DL (74-106) #H Calcium Level 9.5 MG/DL (8.5-10.1) Arterial Blood pH 7.404 (7.350-7.450) Arterial Blood Partial Pressure CO2 38.5 mmHg (35.0-45.0) Arterial Blood Partial Pressure O2 90.8 mmHg (75.0-100.0) Arterial Blood HCO3 23.5 mmol/L (22.0-26.0) Arterial Blood Oxygen Saturation 96.4 % (95-100) Arterial Blood Base Excess -1.0 (-2-2) Momo Test Positive Height (Feet): 5 Height (Inches): 7.00 Weight (Pounds): 300 Medications Current Medications Medications (Trade) Dose Ordered Sig/Pantera Route PRN Reason Start Time Stop Time Status Last Admin Dose Admin Acetaminophen (Tylenol) 650 mg Q4H PRN ORAL Mild Pain (Pain Scale 1-3) 07/04/19 19:45 08/03/19 19:44 Albuterol/ Ipratropium (Albuterol/ Ipratropium) 3 ml Q6HRT HHN 07/05/19 13:00 07/10/19 12:59 07/05/19 12:40 Amlodipine Besylate (Norvasc) 10 mg DAILY ORAL 07/05/19 09:00 08/04/19 08:59 07/05/19 08:27 Aspirin (Ecotrin) 81 mg DAILY ORAL 07/05/19 09:00 08/04/19 08:59 07/05/19 08:27 Atorvastatin Calcium (Lipitor) 40 mg BEDTIME ORAL 07/04/19 21:00 08/03/19 20:59 07/04/19 21:36 Clonazepam (KlonoPIN) 2 mg Q12HR ORAL 07/05/19 09:00 07/12/19 08:59 07/05/19 08:26 Clonidine HCl (Catapres Tab) 0.3 mg TID@0600,1400,2200 ORAL 07/05/19 06:00 08/04/19 05:59 07/05/19 14:14 Dextrose (Dextrose 50%) 25 ml Q30M PRN IV Hypoglycemia 07/04/19 19:45 08/03/19 19:44 Dextrose (Dextrose 50%) 25 ml Q30M PRN IV Hypoglycemia 07/05/19 12:00 08/04/19 11:59 Dextrose (Dextrose 50%) 50 ml Q30M PRN IV Hypoglycemia 07/04/19 19:45 08/03/19 19:44 Dextrose (Dextrose 50%) 50 ml Q30M PRN IV Hypoglycemia 07/05/19 12:00 08/04/19 11:59 Diphenhydramine HCl (Benadryl) 25 mg Q6H PRN ORAL Itching/Pruritis 07/04/19 19:45 08/03/19 19:44 Docusate Sodium (Colace) 100 mg EVERY 12 HOURS ORAL 07/04/19 21:00 08/03/19 20:59 07/05/19 08:29 Furosemide (Lasix) 40 mg DAILY ORAL 07/05/19 09:00 08/04/19 08:59 07/05/19 08:27 Heparin Sodium (Porcine) (Heparin 5000 units/ml) 5,000 units EVERY 12 HOURS SUBQ 07/04/19 21:00 08/03/19 20:59 07/05/19 08:34 Hydrochlorothiazide (Hydrodiuril) 25 mg DAILY ORAL 07/05/19 09:00 08/04/19 08:59 07/05/19 08:27 Insulin Aspart (NovoLOG) BEFORE MEALS AND HS SUBQ 07/05/19 16:30 08/04/19 16:29 07/05/19 17:33 Insulin Aspart (NovoLOG) 5 units NOVOTIAC SUBQ 07/05/19 11:50 08/04/19 11:49 07/05/19 17:31 Insulin Detemir (Levemir) 25 units BEDTIME SUBQ 07/05/19 21:00 08/04/19 20:59 Labetalol HCl (Normodyne) 100 mg DAILY ORAL 07/05/19 09:00 08/04/19 08:59 Levothyroxine Sodium (Synthroid) 125 mcg ACBREAKFAST ORAL 07/05/19 06:30 08/04/19 06:29 07/05/19 06:19 Lorazepam (Ativan 2mg/ml 1ml) 0.5 mg Q6H PRN IV For Anxiety 07/05/19 00:30 07/12/19 00:29 07/05/19 12:28 Methylprednisolone Sodium Succinate (Solu-MEDROL) 40 mg EVERY 8 HOURS IVP 07/04/19 22:00 08/03/19 21:59 07/05/19 14:08 Ondansetron HCl (Zofran) 4 mg Q6H PRN IVP Nausea & Vomiting 07/04/19 19:45 08/03/19 19:44 Oxycodone/ Acetaminophen (Percocet 5-325) 1 tab Q8H PRN ORAL PAIN 4-10 07/04/19 19:45 07/11/19 19:44 07/04/19 20:23 Pantoprazole (Protonix) 40 mg DAILY ORAL 07/05/19 09:00 08/04/19 08:59 07/05/19 08:26 Polyethylene Glycol (Miralax) 17 gm HSPRN PRN ORAL Constipation 07/04/19 19:45 08/03/19 19:44 Assessment/Plan Status: stable Assessment/Plan: Katherine Gandara is a 53 yo woman with PMH of IDDM with neuropathy, CRISTINE on CPAP, asthma/COPD not on home O2, HFpEF (60%), HTN, hypothyroid, and anxiety who presented with worsening JETER and neck pain, found with overall unremarkable CBC , BMP notable for glucose 360, CXR with borderline cardiomegaly but otherwise unremarkable, and unremarkable Xray of neck. Patient admitted for acute asthma/ COPD exacerbation. CVS/Pulm: Acute asthma/COPD exacerbation, hx CRISTINE on CPAP, hx HTN and HFpEF (60%) - Patient poor historian but given reported symptoms and mild wheezing on exam, will treat for possible asthma/COPD exacerbation for now, solumedrol 40mg IV q8hr and duonebs q6hr ATC. Patient without infectious symptoms or changes in sputum purulence/production, will hold off on abx at this time. Can likely taper down steroids tomorrow. - EKG with NSR and no ST-T wave abnormalities. - Cardiac etiology included on differential but given report of recent unremarkable stress test, low suspicion for ACS. Can obtain outpatient stress test record tomorrow. - CXR with borderline cardiomegaly but otherwise not overtly impressive - Continue home amlodipine 10mg PO daily, aspirin 81mg PO daily, atorvastatin 40mg PO qhs, clonidine 0.3mg PO TID, lasix 40mg PO daily, HCTZ 25mg PO daily, labetalol 100mg PO daily (not sure why only on once daily) - Continue home CPAP qhs ENT: neck pain, odynophagia - Xray neck unremarkable - Check CT neck soft tissues - PRACTICE COORDINATOR eval - No obvious thrush on oral exam, but given recent steroid use, may consider GI eval for esophageal thrush if CT neck unremarkable Endo: IDDM with hyperglycemia, hx hypothyroid - Patient poor historian and changes dose of insulin multiple times throughout the conversation so unclear how much insulin patient taking at home - Will start weight based levemir 25U qhs and novolog 5U TID with meals for now with standard SSI - Monitor FS ACHS and adjust as needed - Patient states no longer on glyburide at home - Continue home levothyroxine 125mcg PO daily Psych: anxiety - Continue home klonopin 2mg PO BID - Ativan 0.5mg q6hr PRN anxiety FEN Regular diet (patient refusing carbs consistent cardiac diet) Heparin subq DVT ppx Full Code Discussed with patient and RN. I spent 70 minutes on this patient's care, including >50% dedicated to counseling and/or coordination of care. Amelie Nix M.D. Jul 05, 2019 17:49
--- NOTE | 2019-07-05 19:42 | NUR ---
NURSE NOTES: Spoke with Dr Bashir after bl sugar 402 bedside glucose check (sampled 1.5 hours after 19u novalog given). Dr Bashir stated to follow planned levamir and continue to monitor for safety. No new orders.
--- NOTE | 2019-07-05 19:42 | NUR ---
NURSE NOTES: Received report from ELAN Armenta. Pt in bed, resting, in no acute distress. Discussed plan of care for the night. pt verbalized understanding. Bed in lowest position. Call lights within reach.
[2019-07-05 20:00] VITALS: BP 136/82
[2019-07-05] MEDS: Atorvastatin 20mg tab ORAL SCH (20:25)
[2019-07-05] MEDS: Levemir Flexpen SUBQ SCH (20:28)
[2019-07-06] VITALS: BP 144/89
[2019-07-06] MEDS: Solu-MEDROL 40mg Inj IVP SCH (06:00)
--- NOTE | 2019-07-06 06:55 | NUR ---
NURSE NOTES: Pt is refusing care and medication, endorsing to dayshift
[2019-07-06] MEDS: NovoLOG Insulin Flexpen SUBQ SCH ×7 (07:03→22:31)
[2019-07-06] MEDS: Levothyroxine 125mcg tab ORAL SCH (07:03)
--- NOTE | 2019-07-06 07:14 | NUR ---
NURSE NOTES: left message or dr Bashir regarding blood glucose 406 and change solumedrol to prednisone PO
--- NOTE | 2019-07-06 07:15 | NUR ---
HAND-OFF: Report given to Geovany ANSARI .
[2019-07-06 07:48] LABS: ANION GAP 9 mmol/L (5-15); BLOOD UREA NITROGEN 42 mg/dL (7-18); CARBON DIOXIDE 28 MMOL/L (21-32); CHLORIDE 102 MMOL/L (98-107); CREATININE 1.5 MG/DL (0.55-1.30); POTASSIUM 4.3 MMOL/L (3.5-5.1); SODIUM 139 MMOL/L (136-145)
[2019-07-06 07:53] LABS: HEMATOCRIT 39.7 % (37.0-47.0); HEMOGLOBIN 12.5 G/DL (12.0-16.0); MEAN CORPUSCULAR VOLUME 86 FL (80-99); PLATELET COUNT 381 K/UL (150-450); RED BLOOD COUNT 4.59 M/UL (4.20-5.40); RED CELL DISTRIBUTION WIDTH 14.4 % (11.6-14.8); WHITE BLOOD COUNT 11.6 K/UL (4.8-10.8)
--- NOTE | 2019-07-06 07:55 | NUR ---
NURSE NOTES: Report receivedvivek Mack RN.Found patient irate and refusing meds from RN. Active listening and emotioinal support provided.patient calm now.AOX4 with cooperative affect. VSSand breathin easily on RA. Bed in lowest, locked position. Insulin administered and wctm bl sugar. At change of shift RN communicated with and obtained order for po prednisone and instructions tocontinue insulin regimen as already ordered. [facility].
[2019-07-06 08:00] VITALS: BP 136/76
[2019-07-06] MEDS: Albuterol/Ipratropium 3ml neb HHN SCH ×3 (08:06→20:52)
[2019-07-06] MEDS: Aspirin EC 81mg tab ORAL SCH (08:47)
[2019-07-06] MEDS: Docusate 100mg cap ORAL SCH ×2 (08:47→22:25)
[2019-07-06] MEDS: Furosemide 40mg tab ORAL SCH (08:47)
[2019-07-06] MEDS: Heparin 5000 units/ml inj SUBQ SCH ×2 (08:51→22:27)
--- NOTE | 2019-07-06 08:54 | General Progress Note ---
Assessment/Plan Problem List: (1) Shortness of breath ICD Codes: R06.02 - Shortness of breath SNOMED: 205900975 (2) CHF (congestive heart failure) ICD Codes: I50.9 - Heart failure, unspecified SNOMED: 86268131 (3) acute exacerbation of chronic pain (4) Obesity ICD Codes: E66.9 - Obesity, unspecified SNOMED: 697029882 (5) HTN (hypertension) ICD Codes: I10 - Essential (primary) hypertension SNOMED: 42247085 (6) Chronic upper back pain ICD Codes: M54.9 - Dorsalgia, unspecified; G89.29 - Other chronic pain SNOMED: 977368675 (7) Anxiety disorder ICD Codes: F41.9 - Anxiety disorder, unspecified SNOMED: 738782585 (8) Diabetes ICD Codes: E11.9 - Type 2 diabetes mellitus without complications SNOMED: 60049881 (9) Acute asthma exacerbation ICD Codes: J45.901 - Acute asthma exacerbation SNOMED: 934605430 (10) Assistance needed for ambulation and movement SNOMED: 116147166 Status: stable Assessment/Plan: Katherine Gandara is a 53 yo woman with PMH of IDDM with neuropathy, CRISTINE on CPAP, asthma/COPD not on home O2, HFpEF (60%), HTN, hypothyroid, severe obesity and anxiety who presented with worsening JETER and neck pain, found with overall unremarkable CBC, BMP notable for glucose 360, CXR with borderline cardiomegaly but otherwise unremarkable, and unremarkable Xray of neck. Patient admitted for acute asthma/COPD exacerbation. inability to ambulate. CVS/Pulm: Acute asthma/COPD exacerbation, hx CRISTINE on CPAP, hx HTN and HFpEF (60%) - Patient poor historian but given reported symptoms and mild wheezing on exam, will treat for possible asthma/COPD exacerbation for now, received solumedrol 40mg IV q8hr and duonebs q6hr ATC. will switch to oral prednisone 40mg daily. Patient without infectious symptoms or changes in sputum purulence/production, will hold off on abx at this time. - EKG with NSR and no ST-T wave abnormalities. - Cardiac etiology included on differential but given report of recent unremarkable stress test, low suspicion for ACS. Can obtain outpatient stress test record tomorrow. - CXR with borderline cardiomegaly but otherwise not overtly impressive - Continue home amlodipine 10mg PO daily, aspirin 81mg PO daily, atorvastatin 40mg PO qhs, clonidine 0.3mg PO TID, lasix 40mg PO daily, HCTZ 25mg PO daily, labetalol 100mg PO daily (not sure why only on once daily) - Continue home CPAP qhs ENT: neck pain, odynophagia - Xray neck unremarkable - Check CT neck soft tissues - CENTRAL SUPPLY NURSE eval - No obvious thrush on oral exam, but given recent steroid use, may consider GI eval for esophageal thrush if CT neck unremarkable. Start nystatin swish and swallow. Endo: IDDM with hyperglycemia, hx hypothyroid - Patient poor historian and changes dose of insulin multiple times throughout the conversation so unclear how much insulin patient taking at home - Will start weight based levemir 25U qhs and novolog 5U TID with meals for now with standard SSI - Monitor FS ACHS and adjust as needed - Patient states no longer on glyburide at home - Continue home levothyroxine 125mcg PO daily Psych: anxiety. ? depression - Continue home klonopin 2mg PO BID - Ativan 0.5mg q6hr PRN anxiety -Psychiatry consult FEN Regular diet (patient refusing carbs consistent cardiac diet) Heparin subq DVT ppx PT evaluation. ? SNF Full Code Discussed with patient, RN, PT and CENTRAL SUPPLY NURSE. I spent 40 minutes on this patient's care, including >50% dedicated to counseling and/or coordination of care Subjective Date patient seen: Jul 06, 2019 Constitutional: Reports: weakness; Denies: no symptoms, chills, diaphoresis, fever, malaise, other HEENT: Reports: eye pain, throat pain; Denies: no symptoms, blurred vision, tearing, double vision, ear pain, ear discharge, nose pain, nose congestion, throat swelling, mouth pain, mouth swelling, other Cardiovascular: Denies: no symptoms, chest pain, edema, irregular heart rate, lightheadedness, palpitations, syncope, other Respiratory: Denies: no symptoms, cough, orthopnea, SOB with excertion, SOB at rest, sputum, stridor, wheezing, other Gastrointestinal/Abdominal: Denies: no symptoms, abdomen distended, abdominal pain, black stools, tarry stools, blood in stool, constipated, diarrhea, difficulty swallowing, nausea, poor appetite, poor fluid intake, rectal bleeding , vomiting, other Genitourinary: Denies: no symptoms, burning, discharge, frequency, flank pain, hematuria, incontinence, pain, urgency, other Neurologic/Psychiatric: Denies: no symptoms, anxiety, depressed, emotional problems, headache, numbness, paresthesia, pre-existing deficit, seizure, tingling, tremors, weakness, other Endocrine: Denies: no symptoms, excessive sweating, flushing, intolerance to cold, intolerance to heat, increased hunger, increased thirst, increased urine, unexplained weight gain, unexplained weight loss, other Hematologic/Lymphatic: Denies: no symptoms, anemia, easy bleeding, easy bruising, other Allergies: Coded Allergies: FISH CONTAINING PRODUCTS (Unverified Allergy, Unknown, 11/02/13) IBUPROFEN (Unverified Allergy, Unknown, 11/02/13) PENICILLIN G (Unverified Allergy, Unknown, 11/02/13) PENICILLINS (Unverified Allergy, Unknown, 11/28/14) Subjective seen and examined at bedside. Feels alone, tearful. unable to take care of herself Objective Last 24 Hour Vital Signs Date Time Temp Pulse Resp B/P (MAP) Pulse Ox O2 Delivery O2 Flow Rate FiO2 07/06/19 08:47 88 136/76 07/06/19 08:05 88 18 99 Room Air 21 82 18 97 07/06/19 08:00 98.0 80 16 136/76 (96) 98 07/06/19 07:02 158/80 07/06/19 04:00 74 07/06/19 00:00 82 07/06/19 00:00 97.3 82 20 144/89 (107) 100 07/05/19 22:05 136/82 07/05/19 21:00 Room Air 07/05/19 20:00 94 07/05/19 20:00 97.6 90 19 136/82 (100) 100 07/05/19 19:14 88 18 99 Room Air 21 85 18 97 07/05/19 16:00 97.5 96 18 146/93 (110) 100 07/05/19 16:00 92 07/05/19 14:14 137/75 07/05/19 12:50 87 18 100 Room Air 21 86 19 98 07/05/19 12:00 94 07/05/19 12:00 97.2 83 18 135/83 (100) 100 07/05/19 09:02 89 19 99 Room Air 21 91 21 96 07/05/19 09:00 Room Air 07/05/19 09:00 Room Air Intake and Output 07/05/19 07/06/19 19:00 07:00 Intake Total 1000 ml Output Total 1600 ml Balance -600 ml Intake Oral 1000 ml Output Urine Total 1600 ml # Voids 4 # Bowel Movements 2 Laboratory Tests 07/05/19 16:50: Glucose Level 435H 07/06/19 07:05: Glucose Level 370H, White Blood Count 11.6H, Red Blood Count 4.59, Hemoglobin 12.5, Hematocrit 39.7, Mean Corpuscular Volume 86, Mean Corpuscular Hemoglobin 27.2, Mean Corpuscular Hemoglobin Concent 31.5L, Red Cell Distribution Width 14.4, Platelet Count 381, Mean Platelet Volume 5.6L, Neutrophils (%) (Auto) , Lymphocytes (%) (Auto) , Monocytes (%) (Auto) , Eosinophils (%) (Auto) , Basophils (%) (Auto) , Differential Total Cells Counted 100, Neutrophils % ( Manual) 83H, Lymphocytes % (Manual) 12L, Monocytes % (Manual) 5, Eosinophils % ( Manual) 0, Basophils % (Manual) 0, Band Neutrophils 0, Platelet Estimate Adequate, Platelet Morphology Normal, Basophilic Stippling 1+, Sodium Level 139 , Potassium Level 4.3, Chloride Level 102, Carbon Dioxide Level 28, Anion Gap 9 , Blood Urea Nitrogen 42H, Creatinine 1.5H, Estimat Glomerular Filtration Rate 44.4, Calcium Level 10.0 Height (Feet): 5 Height (Inches): 7.00 Weight (Pounds): 302 Janusz Farooq M.D. Jul 06, 2019 08:53
--- NOTE | 2019-07-06 09:41 | NUR ---
CASE MANAGEMENT: REVIEW 53 YR OLD FEMALE BIBA FROM HOME CC: SOB, UPPER RESPIRATORY ILLNESS IS: ASTHMA EXACERBATION, DM 97.4 74 20 112/59 99% RA BG 203; BUN 30, BNP 148; ALK PHOS 121; CO2 33 SI: IV SOLUMEDROL X1 ALBUTEROL HHN X2 IV ATIVAN X1 : TO 2E TELE UNIT DCP: TO RETURN HOME PLAN: CT NECK PT EVAL ABG CASE MANAGEMENT: REVIEW 07/05/19 IS: ASTHMA EXACERBATION, DM 98.3 92 18 144/73 98% RA BUN 33, CRE 1.4; BG 360-435 SI: HEPARIN SQ Q12 CLONAZEPAM PO Q12HR CLONIDINE PO TID PROTONIX NORMODYNE PO QD NORVASC PO QD LIPITOR PO HS HYDROIURIL PO QD IV SOLUMEDROL Q8H ALBUTEROL HHN Q4/PRN GLYBURIDE PO BID : 2E TELE UNIT DCP: TO RETURN HOME PLAN: CT NECK FOR THRUSH BEDSIDE SWALLOW EVAL CASE MANAGEMENT: REVIEW 07/06/19 IS: ASTHMA EXACERBATION, DM 98.0 80 16 136/76 97% RA WBC 11.6; BUN 42, CRE 1.5; BG 370 SI: LASIX PO QD ATIVAN PO Q6/PRN PREDNISONE PO QD HEPARIN SQ Q12 CLONAZEPAM PO Q12HR CLONIDINE PO TID PROTONIX PO QD NORMODYNE PO QD NORVASC PO QD LIPITOR PO HS HYDROIURIL PO QQ ALBUTEROL HHN Q6/PRN LEVEMIR SQ AC/HS NOVOLOG SQ TIAC : 2E TELE UNIT DCP: TO RETURN HOME PLAN: CT NECK BEDSIDE SWALLOW EVAL Addendum: 07/06/19 at 1821 by Michelle Maguire CM JENNIFER HALL
[2019-07-06] MEDS: LORazepam 0.5mg tab ORAL PRN ×2 (09:54→09:59)
[2019-07-06] MEDS: oxyCODONE HCL/Acetaminophen 5/325mg ORAL PRN (10:18)
--- NOTE | 2019-07-06 10:29 | Diagnostic Imaging Report ---
Indication: Neck pain, painful swallowing, change in voice Technique: Spiral acquisitions obtained through the neck. Multiplanar reconstructions were generated.No IV contrast utilized, reason not stated. Total dose length product 1068 mGycm. CTDIvol(s) 38 mGy. Dose reduction achieved using automated exposure control Comparison: none Findings: Lack of IV contrast limits evaluation. The visualized nasopharynx, oropharynx, hypopharynx, larynx appear unremarkable. No prevertebral soft tissue swelling. There is mild prominence to the adenoids. No evidence of significant tonsillar hypertrophy. No cervical mass or adenopathy. The thyroid is unremarkable. The salivary glands are unremarkable. Included upper mediastinum is unremarkable. The included upper lungs are unremarkable. The bones demonstrate mild degenerative cervical spondylosis changes. Impression: Essentially unremarkable exam. No acute or significant abnormality demonstrated. Incidental finding of degenerative spondylosis changes The CT scanner at [facility] is accredited by the [employer] and the scans are performed using protocols designed to limit radiation exposure to as low as reasonably achievable to attain images of sufficient resolution adequate for diagnostic evaluation.
--- NOTE | 2019-07-06 11:38 | Cardiology Report ---
APPROVED REPORT EKG Measurement Heart [id number] Normal sinus rhythm Normal ECG
[2019-07-06 12:03] VITALS: BP 139/83
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
[2019-07-06] MEDS: Nystatin Susp 500,000 units/5ml ORAL SCH ×3 (13:00→22:22)
[2019-07-06] MEDS ORDERED: Varibar Nectar 240ml MC PRN (13:00)
[2019-07-06] MEDS ORDERED: Varibar Pudding 230ml MC PRN (13:00)
[2019-07-06] MEDS ORDERED: Varibar Honey 250ml MC PRN (13:00)
--- NOTE | 2019-07-06 13:21 | NUR ---
NURSE NOTES: Patient accompanied to toilet with walker and handheld assist x1 for small BM. Gait steady but weakness noted and JETER. Notified dr Farooq of loss of IV access on previous shift and meds (ativan and steroids) changed to po. Dr lopez lack of IV access -- will attempt when patient calms down to allow insertion for safety insurance. Patient was weeping and stated she felt overwhelmed "I'm going through so much right now!" Dr rojasre of anxiety issues. Also, blood sugar continues to be above 300 with insulin sliding scale administered for correction--Dr jackman and instruction to nurse to continue with no new orders considering dc of solumedrol (suspected cause for hyperglycemia). Patient currently getting neb with RT. No sign of respiratory or cardiac distress. Fall risk precautions in place. Bed in lowest, locked position and call eldridge in reach.
--- NOTE | 2019-07-06 13:40 | NUR ---
*-* NO INSURANCE INFORMATION IN THE BAR UNABLE TO SEND CLINICALS OR REVIEWS *-*
--- NOTE | 2019-07-06 14:02 | NUR ---
NURSE NOTES: Blood sugar 435 post prandial --Dr Farooq notified. advised RN to follow protocol for checking bl sugar and educated RN on insulin peak times. No new orders.
[2019-07-06 15:48] VITALS: BP 153/89
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
--- NOTE | 2019-07-06 16:25 | NUR ---
P.T NOTE: P.T EVALUATION COMPLETED AND TREATMENT INITIATED. PLEASE REFER TO P.T EVALUATION FOR CURRENT FUNCTIONAL STATUS. PATIENT IS ALERT, O X 4 , PLEASANT AND COOPERATIVE. PATIENT REPORTS C/O B SHOULDER PAIN , EASILY FATIGABILITY AND SOB WITH EXERTION. PATIENT EXPRESSED FEAR OF FALLING ESPECIALLY WHEN PERFORMING ACTIVITIES IN STANDING AND WHEN WALKING. PATIENT STATED SHE HAS BEEN STRUGGLING AT HOME ON A DAILY BASIS IN HER FUNCTIONAL ACTIVITIES , I.E WALKING, BATHING AND MEAL PREPARATION. PATIENT REPORTS SHE HAD BEEN FALLING AT HOME. PATIENT CURRENTLY ABLE TO PERFORM BED MOBILITIES INDEPENDENTLY AND REQUIRES MIN A X 1 FOR TRANSFER AND AMBULATION ACTIVITIES USING THE FWW. O2 SAT BETWEEN 82-90% AT ROOM WHICH RECOVERS 95-97% AFTER 3 MIN REST. SKILLED P.T SERVICE IS WARRANTED TO INCREASE HER STRENGTH AND ACTIVITY TOLERANCE TO INCREASE HER FUNCTIONAL MOBILITY INDEPENDENCE AND SAFETY. RECOMMEND SNF FOR SHORT TERM REHAB.
--- NOTE | 2019-07-06 18:42 | NUR ---
NURSE NOTES: Blood sugar critical high on glucometer. Stat lab draw ordered. Multiple accucheck machines not working (borrowed from [facility] after 4E and 3E unavailable and after replacement accucheck machine obtained for floor. Dr microfabrication engineer manager attempted per Krysten's group-Dr Farooq called back and instructed to call again when real glucose level obtained with lab result. Called back with 596 glucose at 615pm when crit lab avail to read. Patient got max available insulin per emar (19units). Finger stick follow up showed 497. Continuing to page Dr. Crane. Dr Crane called back at 1850. No new orders for now. Recheck glucose at 9pm and call Dr with result. stated ok to eat dinner. Addendum: 07/06/19 at 2001 by Kevin Cunningham RN At 5pm patient stated "I am so dizzy" but spoke clearly and aox4 with stable VSS. After insulin administration, patient quickly appeared to return to her previous baseline with no dizziness or nausea. At 615 pm patient continued to be no longer complaining of dizziness or nausea. 8pm patient appeared comfortable and joking with staff.
[2019-07-06 20:00] VITALS: BP 169/86
--- NOTE | 2019-07-06 20:07 | NUR ---
NURSE NOTES: Received pt from ELAN Armenta. Pt awake, alert and talkative. New IV site intact and patent. Bed in lowest position. Call lights within reach. Will continue to monitor.
--- NOTE | 2019-07-06 20:18 | NUR ---
NURSE NOTES: Order for NPO after midnight per Dr Aguillon for EGD tomorrow. Began consent form, and explained in layman's terms the test. Patient stated she would "probably do it but I want to talk to the Dr about it first--I never heard of this." Endorsed to Night RN, Lizzette, regarding incomplete consent and handed form to RN.
[2019-07-06] MEDS ORDERED: AMBIEN5 MG ORAL (20:38)
[2019-07-06] MEDS ORDERED: CRESTOR20 MG ORAL (20:38)
[2019-07-06] MEDS ORDERED: FLOVENT2 PUFF1 INH (20:38)
[2019-07-06] MEDS ORDERED: METFORMIN HCL500 M1 ORAL (20:38)
[2019-07-06] MEDS ORDERED: DOK100 M1 PO (20:38)
[2019-07-06] MEDS ORDERED: BECONASE AQ25 GM NASAL (20:38)
[2019-07-06] MEDS ORDERED: CATAPRES0.3 MG ORAL (20:39)
[2019-07-06] MEDS: Atorvastatin 20mg tab ORAL SCH (22:23)
[2019-07-06] MEDS: Levemir Flexpen SUBQ SCH (22:37)
[2019-07-06] MEDS: LORazepam Inj 2mg/ml 1ml IV PRN (22:38)
--- NOTE | 2019-07-06 23:52 | NUR ---
NURSE NOTES: called and spoke with Dr. Aguillon regarding patient's EGD tomorrow. He agreed to explain the procedure in the morning. will continue to monitor.
--- NOTE | 2019-07-06 23:59 | NUR ---
NURSE NOTES: left a message to Dr Bashir answering service informing them of the blood glucose of the pt, 451. awaiting call back.
[2019-07-07] VITALS (9 sets, daily range): BP systolic 115–164; BP diastolic 66–97
[2019-07-07] MEDS: Albuterol/Ipratropium 3ml neb HHN SCH ×4 (01:27→19:34)
--- NOTE | 2019-07-07 06:15 | Consultation ---
DATE OF CONSULTATION: 07/06/2019 HISTORY OF PRESENT ILLNESS: The patient is an obese 53-year-old female with a history of diabetes mellitus, osteoarthritis, COPD, chronic pain, depression, anxiety, was admitted to the hospital for medical stabilization. The patient has severe anxiety, has been taking 4 mg of Klonopin a day in addition to Ativan and pain medication. The patient is requesting for more pain medication Ativan. I educated her in regard to her medical condition, panic attack, anxiety. She agreed to take SSRIs. PAST PSYCHIATRIC HISTORY: Anxiety disorder, depression. She is currently on Klonopin and Ativan. PAST MEDICAL HISTORY: Diabetes mellitus, obesity, hypertension, osteoarthritis, chronic pain syndrome, COPD. ALLERGIES: Includes ibuprofen and penicillin. SUBSTANCE ABUSE HISTORY: The patient dependent on pain medications and benzodiazepine. MENTAL STATUS EXAMINATION: The patient is alert and oriented times self. Mood is anxious and irritable. Affect is constricted, congruent with mood. Thought process linear and goal oriented. Thought content, no suicidal or homicidal ideations. Insight and judgment is fair. ASSESSMENT: Edgewood I Anxiety disorder. Benzodiazepine and opiate pain medication dependence. Edgewood II Deferred. Edgewood III As above. Edgewood IV Low. Edgewood V 50 PLAN: 1. We will start the patient on Lexapro 10 mg in the morning. 2. Remeron 7.5 mg at bedtime. 3. Provide the patient with reality orientation and supportive therapy. Alannah Garcia M.D. DR: Wes JOB#: [id number] CC:
[2019-07-07] MEDS: Levothyroxine 125mcg tab ORAL SCH (06:21)
[2019-07-07] MEDS: NovoLOG Insulin Flexpen SUBQ SCH ×6 (06:22→20:54)
[2019-07-07] MEDS ORDERED: Levemir Flexpen SUBQ SCH ×2 (06:30→09:15)
[2019-07-07] MEDS ORDERED: NovoLOG Insulin Flexpen SUBQ SCH (06:30)
[2019-07-07] MEDS: LORazepam Inj 2mg/ml 1ml IV PRN ×2 (06:55→14:40)
[2019-07-07 07:44] LABS: BASOPHILS % (AUTO) 0.8 % (0.0-2.0); EOSINOPHILS % (AUTO) 0.6 % (0.0-3.0); HEMATOCRIT 38.1 % (37.0-47.0); HEMOGLOBIN 11.8 G/DL (12.0-16.0); LYMPHOCYTES % (AUTO) 25.8 % (20.0-45.0); MEAN CORPUSCULAR VOLUME 87 FL (80-99); MONOCYTES % (AUTO) 7.5 % (1.0-10.0); NEUTROPHILS % (AUTO) 65.3 % (45.0-75.0); PLATELET COUNT 280 K/UL (150-450); RED BLOOD COUNT 4.38 M/UL (4.20-5.40); RED CELL DISTRIBUTION WIDTH 14.3 % (11.6-14.8); WHITE BLOOD COUNT 7.9 K/UL (4.8-10.8)
--- NOTE | 2019-07-07 07:44 | NUR ---
HAND-OFF: Report given to ELAN Maldonado. Pt stable..
--- NOTE | 2019-07-07 08:00 | NUR ---
NURSE NOTES: Nurse report given by ELAN Crocker. Patient's awake in bed. No s/s of distress or SOB, denies pain. Bed low and locked, call light within reach, press tender smoke signal rails x 2, safety precaution is on. IV is saline locked, patent and asymptomatic. Will continue to monitor.
[2019-07-07 08:07] LABS: ANION GAP 7 mmol/L (5-15); BLOOD UREA NITROGEN 39 mg/dL (7-18); CALCIUM 9.8 MG/DL (8.5-10.1); CARBON DIOXIDE 29 MMOL/L (21-32); CHLORIDE 103 MMOL/L (98-107); CREATININE 1.6 MG/DL (0.55-1.30); POTASSIUM 4.2 MMOL/L (3.5-5.1); SODIUM 139 MMOL/L (136-145)
[2019-07-07] MEDS: Docusate 100mg cap ORAL SCH ×2 (08:36→20:54)
[2019-07-07] MEDS: Aspirin EC 81mg tab ORAL SCH (08:36)
[2019-07-07 08:37] LABS: INR 0.9 (0.9-1.1)
[2019-07-07] MEDS: Furosemide 40mg tab ORAL SCH ×2 (08:37→09:05)
[2019-07-07] MEDS: Nystatin Susp 500,000 units/5ml ORAL SCH ×4 (08:38→20:45)
[2019-07-07] MEDS ORDERED: Levemir Flexpen SUBQ ONE (09:00)
[2019-07-07] MEDS: Heparin 5000 units/ml inj SUBQ SCH ×2 (09:08→20:56)
--- NOTE | 2019-07-07 10:52 | Anethesia Preoperative Eval ---
Anesthesia Pre-op PMH/ROS General Date of Evaluation: Jul 07, 2019 Time of Evaluation: 10:49 Anesthesiologist: gerber ASA Score: ASA 4 Mallampati Score Class I : Soft palate, uvula, fauces, pillars visible Class II: Soft palate, uvula, fauces visible Class III: Soft palate, base of uvula visible Class IV: Only hard plate visible Mallampati Classification: Class II Surgeon: lennox Diagnosis: dysphagia Surgical Procedure: egd Anesthesia History: none Family History: no anesthesia problems Allergies: Coded Allergies: FISH CONTAINING PRODUCTS (Unverified Allergy, Unknown, 11/02/13) IBUPROFEN (Unverified Allergy, Unknown, 11/02/13) PENICILLIN G (Unverified Allergy, Unknown, 11/02/13) PENICILLINS (Unverified Allergy, Unknown, 11/28/14) Medications: see eMAR Patient NPO?: Yes Past Medical History Cardiovascular: Reports: HTN, other - chf, pacemaker, hypercholesterolemia Pulmonary: Reports: asthma, COPD, CRISTINE, other - bipap use Neurologic/Psychiatric: Reports: other - seizure disorder Endocrine: Reports: DM, hypothyroidism Hematology/Immune: Reports: other - eosinophilia Musculoskeletal/Integumentary: Reports: other - chronic back pain Other: obesity Anesthesia Pre-op Phys. Exam Physician Exam Last Vital Signs Date Time Temp Pulse Resp B/P (MAP) Pulse Ox O2 Delivery O2 Flow Rate FiO2 07/07/19 09:06 79 144/78 07/07/19 09:00 Room Air 07/07/19 08:00 97.1 19 96 07/07/19 07:44 21 07/05/19 04:00 2.0 Constitutional: NAD Neurologic: CN 2-12 intact Cardiovascular: RRR Respiratory: CTA Gastrointestinal: S/NT/ND Airway Exam Mallampati Score: Class II MO: limited Neck: short TMD: 2fb ROM: limited Teeth: missing Dentures: upper Anesthesia Pre-op A/P Labs Hematology Test 07/07/19 05:43 White Blood Count 7.9 K/UL (4.8-10.8) Red Blood Count 4.38 M/UL (4.20-5.40) Hemoglobin 11.8 G/DL (12.0-16.0) L Hematocrit 38.1 % (37.0-47.0) Mean Corpuscular Volume 87 FL (80-99) Mean Corpuscular Hemoglobin 26.9 PG (27.0-31.0) L Mean Corpuscular Hemoglobin Concent 31.0 G/DL (32.0-36.0) L Red Cell Distribution Width 14.3 % (11.6-14.8) Platelet Count 280 K/UL (150-450) Mean Platelet Volume 5.6 FL (6.5-10.1) L Neutrophils (%) (Auto) 65.3 % (45.0-75.0) Lymphocytes (%) (Auto) 25.8 % (20.0-45.0) Monocytes (%) (Auto) 7.5 % (1.0-10.0) Eosinophils (%) (Auto) 0.6 % (0.0-3.0) Basophils (%) (Auto) 0.8 % (0.0-2.0) Coagulation Test 07/07/19 05:43 Prothrombin Time 10.0 SEC (9.30-11.50) Prothromb Time International Ratio 0.9 (0.9-1.1) Activated Partial Thromboplast Time 22 SEC (23-33) L Chemistry Test 07/06/19 17:35 07/07/19 05:43 Glucose Level 594 MG/DL (74-106) #*H 425 MG/DL (74-106) #H Sodium Level 139 MMOL/L (136-145) Potassium Level 4.2 MMOL/L (3.5-5.1) Chloride Level 103 MMOL/L (98-107) Carbon Dioxide Level 29 MMOL/L (21-32) Anion Gap 7 mmol/L (5-15) Blood Urea Nitrogen 39 mg/dL (7-18) H Creatinine 1.6 MG/DL (0.55-1.30) H Estimat Glomerular Filtration Rate 41.2 mL/min (>60) Calcium Level 9.8 MG/DL (8.5-10.1) Pro-B-Type Natriuretic Peptide 114 pg/mL (0-125) Studies Pre-op Studies: EKG - nsr Risk Assessment & Plan Assessment: asa4 Plan: mac Status Change Before Surgery: No Pre-Antibiotics Drug: Samina Dai MD Jul 07, 2019 10:52
--- NOTE | 2019-07-07 10:57 | NUR ---
CASE MANAGEMENT: REVIEW 07/07/19 IS: ASTHMA EXACERBATION, DM 97.1 80 19 144/78 96% RA BUN 39, CRE 1.6; BG 425 SI: LASIX PO QD ATIVAN PO Q6/PRN PREDNISONE PO QD HEPARIN SQ Q12 CLONAZEPAM PO Q12HR CLONIDINE PO TID HYDROIURIL PO QD PROTONIX PO QD NORMODYNE PO QD NORVASC PO QD LIPITOR PO HS ASPIRIN PO QD ALBUTEROL HHN Q6/PRN LEVEMIR SQ AC/HS NOVOLOG SQ TIAC NYSTATIN PO QID LEXAPRO PO QD REMERON PO HS PERCOCET PO Q8/PRN : 2E TELE UNIT DCP: TO RETURN HOME PLAN: EGD WITH POSSIBLE BIOPSY TODAY DYSPHASIA TO R/O RUSSEL BEDSIDE SWALLOW COMPLETE
[2019-07-07] MEDS ORDERED: Atropine Inj 1mg/10ml Syr IV PRN (11:00)
[2019-07-07] MEDS ORDERED: DiphenhydrAMINE 50mg/ml Inj IVP PRN (11:00)
[2019-07-07] MEDS ORDERED: Midazolam 2mg/2ml Inj IVP PRN (11:00)
[2019-07-07] MEDS ORDERED: fentaNYL 100 mcg/2 mL IV PRN (11:00)
--- NOTE | 2019-07-07 11:00 | NUR ---
NURSE NOTES: Patient's off the floor for EGD procedure, transferred by ingris with Ahmet. Patient's in stable condition, ambulates.
[2019-07-07] MEDS ORDERED: NS 275ml ONE (11:03)
[2019-07-07] MEDS ORDERED: Lidocaine 1% MPF 10mg/ml 5ml ONE (11:03)
[2019-07-07] MEDS ORDERED: Propofol 200mg/20ml IV ONE (11:03)
[2019-07-07] MEDS ORDERED: NS 500ML IVPB ONE (11:10)
--- NOTE | 2019-07-07 11:16 | Pre-Procedure Note/Attestation ---
Pre-Procedure Note/Attestation Complete Prior to Procedure Planned Procedure: not applicable Procedure Narrative: egd Indications for Procedure Pre-Operative Diagnosis: abd pain Attestation I attest that I discussed the nature of the procedure; its benefits; risks and complications; and alternatives (and the risks and benefits of such alternatives ), prior to the procedure, with the patient (or the patient's legal compliance representative dealer). I attest that, if there was a reasonable possibility of needing a blood transfusion, the patient (or the patient's legal compliance representative dealer) was given the [facility] standardized written summary, pursuant to the Kofi Arely Blood Safety Act ([place] Health and Safety Code # 1645, as amended). I attest that I re-evaluated the patient just prior to the surgery and that there has been no change in the patient's H&P, except as documented below: Higinio Aguillon MD Jul 07, 2019 11:16
--- NOTE | 2019-07-07 11:21 | NUR ---
*-* INSURANCE *-* ALL CLINICALS AND REVIEWS HAVE BEEN FAXED TO: LEVI REYES: Brie #[phone] fax#[phone] Addendum: 07/08/19 at 1131 by JIMMIE HERNANDEZ LEVI king#[id number] #[phone] fax#[phone]
--- NOTE | 2019-07-07 11:23 | Endoscopy Procedure Note ---
Endoscopy Procedure Note General Indication for Procedure: abd aye Procedures Performed: EGD Operative Findings/Diagnosis: gastritis Specimen: yes Pt Tolerated Procedure Well: Yes Estimated Blood Loss: none Anesthesia Anesthesiologist: lyssa Anesthesia: MAC Inserted Devices Implant(s) used?: No GI Core Measures 50 yrs or older w/o bx or poly: Not Applicable 10yrs. F/U recommended: Not Applicable Higinio Aguillon MD Jul 07, 2019 11:23
--- NOTE | 2019-07-07 11:54 | Immediate Post-Op Evaluation ---
Immediate Post-Op Evalulation Immediate Post-Op Evalulation Procedure: egd w/bx Date of Evaluation: Jul 07, 2019 Time of Evaluation: 11:42 IV Fluids: 125ml 0.9ns Blood Products: none Estimated Blood Loss: negligible Blood Pressure Systolic: 143 Blood Pressure Diastolic: 90 Pulse Rate: 83 Respiratory Rate: 18 O2 Sat by Pulse Oximetry: 100 Pain Score (1-10): 0 Nausea: No Vomiting: No Complications none Patient Status: awake, reacts, patent Hydration Status: adequate Drug: na Samina Yeung MD Jul 07, 2019 11:54
--- NOTE | 2019-07-07 11:56 | 48 Hour Post Anesthesia Eval ---
Post Anesthesia Evaluation Procedure: egd w/bx Date of Evaluation: Jul 07, 2019 Time of Evaluation: 11:44 Blood Pressure Systolic: 144 0: 86 Pulse Rate: 82 Respiratory Rate: 18 O2 Sat by Pulse Oximetry: 100 Airway: patent Nausea: No Vomiting: No Pain Intensity: 0 Hydration Status: adequate Cardiopulmonary Status: stable Mental Status/LOC: patient returned to baseline Post-Anesthesia Complications: none Follow-up care needed: N/A Samina Yeung MD Jul 07, 2019 11:56
--- NOTE | 2019-07-07 12:15 | NUR ---
NURSE NOTES: Patient's back from EGD procedure. Procedure showed gastritis. Patient's in stable condition, no s/s of distress or SOB. Will continue to monitor.
--- NOTE | 2019-07-07 12:21 | NUR ---
P.T Note: Pt is off the floor for procedure. Will follow up as schedule permits.
--- NOTE | 2019-07-07 16:30 | Procedure Note ---
DATE OF PROCEDURE: 07/07/2019 SURGEON: Higinio Aguillon M.D. REFERRING PHYSICIAN: Félix Bashir M.D. PROCEDURE: Upper endoscopy with biopsy. ANESTHESIA: Per Dr. Donnelly. INSTRUMENT: Olympus adult flexible upper endoscope. INDICATION: Dysphagia. REASON FOR PROCEDURE: The procedure, risks, benefits, and possible consequences, including hemorrhage, aspiration, perforation and infection, and alternative treatments, were explained to the patient/legal guardian by Dr. Higinio Aguillon and the patient/legal guardian understood and accepted these risks. PROCEDURE IN DETAIL: After informed consent was obtained and the patient was adequately sedated, Olympus upper endoscope was advanced from mouth into the second portion of the duodenum and retroflexion was performed in the stomach. The patient had diffuse gastritis. Random biopsy using forceps technique from antrum of the stomach was obtained to rule out H. pylori infection. Otherwise, the rest of the upper endoscopic examination grossly within normal limits. No obvious ulceration, mass, or any other pathology was seen. SUMMARY OF FINDINGS: Gastritis, status post biopsy. RECOMMENDATION: Follow up biopsy results and treat accordingly. I want to thank, Dr. Bashir, for this kind referral. Higinio Aguillon M.D. DR: DEMETRIA JOB#: [id number] CC: SERVANDO
--- NOTE | 2019-07-07 18:15 | Progress Note ---
DATE: 07/07/2019 SUBJECTIVE: The patient is doing better today. Less pain. Slept better last night. Has still anxiety although improving. Denies any depression. Does not endorse any psychotic symptoms. MENTAL STATUS EXAMINATION: The patient is alert and oriented times self, place, and situation. Mood is anxious. Affect is blunted. Congruent with mood. Thought process, linear and goal oriented. Thought content, no suicidal or homicidal ideations. ASSESSMENT: 1. Anxiety disorder. 2. Insomnia. PLAN: 1. We will continue the Remeron. 2. Continue the Lexapro. 3. Continue the Klonopin. 4. Provide the patient reality orientation and supportive therapy. Alannah Garcia M.D. DR: AGATHA JOB#: [id number] CC:
--- NOTE | 2019-07-07 19:20 | NUR ---
HAND-OFF: Report given to ELAN Crocker. Patient's stable, plan of care endorsed.
--- NOTE | 2019-07-07 19:37 | NUR ---
NURSE NOTES: Received pt from ELAN Maldonado. Pt awake, alert, and c/o pain from EGD procedure. Bed in lowest position. Call light within reach. Will continue to monitor.
--- NOTE | 2019-07-07 20:16 | General Progress Note ---
Assessment/Plan Problem List: (1) Dysphagia ICD Codes: R13.10 - Dysphagia, unspecified SNOMED: 43797753, 430581988 (2) Shortness of breath ICD Codes: R06.02 - Shortness of breath SNOMED: 899646606 (3) Diabetes ICD Codes: E11.9 - Type 2 diabetes mellitus without complications SNOMED: 83487880 (4) Acute asthma exacerbation ICD Codes: J45.901 - Acute asthma exacerbation SNOMED: 398134962 (5) Anxiety disorder ICD Codes: F41.9 - Anxiety disorder, unspecified SNOMED: 091977618 (6) CHF (congestive heart failure) ICD Codes: I50.9 - Heart failure, unspecified SNOMED: 39912376 Status: stable Assessment/Plan: Katherine Gandara is a 53 yo woman with PMH of IDDM with neuropathy, CRISTINE on CPAP, asthma/COPD not on home O2, HFpEF (60%), HTN, hypothyroid, severe obesity and anxiety who presented with worsening JETER and neck pain, found with overall unremarkable CBC, BMP notable for glucose 360, CXR with borderline cardiomegaly but otherwise unremarkable, and unremarkable Xray of neck. Patient admitted for acute asthma/COPD exacerbation. inability to ambulate. # Acute asthma/COPD exacerbation, hx CRISTINE on CPAP - received solumedrol 40mg IV q8hr and duonebs q6hr ATC. - Now on prednisone 40mg Po daily. Continue PO prednisone. Patient without infectious symptoms or changes in sputum purulence/production, will hold off on abx at this time. - EKG with NSR and no ST-T wave abnormalities. - Cardiac etiology included on differential but given report of recent unremarkable stress test, low suspicion for ACS. Can obtain outpatient stress test record - CXR with borderline cardiomegaly but otherwise not overtly impressive - Continue home amlodipine 10mg PO daily, aspirin 81mg PO daily, atorvastatin 40mg PO qhs, - Continue home CPAP qhs #Chronic HFpEF (EF 60% on TTE one year ago), compensated. Mild LVH - Repeat TTE tomorrow - Continue lasix 40mg PO daily #HTN, stable - Continue home clonidine 0.3mg PO TID, labetalol 100mg PO daily (not sure why only on once daily), HCTZ 25mg PO daily #dysphagia for solids/liquids #gastritis per EGD 07/07/19 > CT neck with contrast unremarkable > EGD showed no strictures. No thrush on EGD > Barium swallow: Mild oropharyngeal dysphagia. No aspiration. - Appreciate GI recommendations - Appreciate CHILD AND FAMILY SERVICES SPECIALIST recommendations - Discontinue nystatin swish and swallow as no evidence of thrush on exam - Follow up biopsy from EGD to rule out H. Pylroi DM2 on insulin, with hyperglycemia. Last A1C 12.6 in 01/2019 - Increase Levemir to 25units QAM and 30 units QPM - Increase Novolog to 14 units TID - Monitor FS ACHS and adjust as needed - Patient states no longer on glyburide at home #hypothyroidism -Continue home levothyroxine 125mcg PO Daily #Psych: anxiety. ? depression - Continue home klonopin 2mg PO BID - Ativan 0.5mg q6hr PRN anxiety - Appreciate Psychiatry recommendations FEN Regular diet (patient refusing carbs consistent cardiac diet) Heparin subq DVT ppx PT evaluation. ? SNF Full Code Discussed with patient, RN, PT and CHILD AND FAMILY SERVICES SPECIALIST. I spent 37 minutes on this patient's care, including >50% dedicated to counseling and/or coordination of care Subjective Date patient seen: Jul 07, 2019 Constitutional: Denies: no symptoms, chills, diaphoresis, fever, malaise, weakness, other HEENT: Denies: eye pain, blurred vision, tearing, double vision, ear pain, ear discharge, nose pain, nose congestion, throat pain, throat swelling, mouth pain , mouth swelling, other Cardiovascular: Denies: chest pain, edema, irregular heart rate, lightheadedness, palpitations, syncope, other Respiratory: Denies: cough, orthopnea, shortness of breath, SOB with excertion , SOB at rest, sputum, stridor, wheezing, other Gastrointestinal/Abdominal: Denies: abdomen distended, abdominal pain, black stools, tarry stools, blood in stool, constipated, diarrhea, difficulty swallowing, nausea, poor appetite, poor fluid intake, rectal bleeding, vomiting , other Genitourinary: Denies: burning, discharge, frequency, flank pain, hematuria, incontinence, pain, urgency, other Neurologic/Psychiatric: Denies: anxiety, depressed, emotional problems, headache, numbness, paresthesia, pre-existing deficit, seizure, tingling, tremors, weakness, other Endocrine: Denies: excessive sweating, flushing, intolerance to cold, intolerance to heat, increased hunger, increased thirst, increased urine, unexplained weight gain, unexplained weight loss, other Hematologic/Lymphatic: Denies: anemia, easy bleeding, easy bruising, other Allergies: Coded Allergies: FISH CONTAINING PRODUCTS (Unverified Allergy, Unknown, 11/02/13) IBUPROFEN (Unverified Allergy, Unknown, 11/02/13) PENICILLIN G (Unverified Allergy, Unknown, 11/02/13) PENICILLINS (Unverified Allergy, Unknown, 11/28/14) Subjective No acute events overnight COPD: Improving with steroids, however still gets easily short of breath. Cough has improved. Non-purulent, intermittent, dry. Endorses possible history of CHF , however not sure. On lasix at home. Gets SOB if does not take lasix. Dysphagia: for solids x 1 month. No weight loss. No pain while swallowing. Constant. Feels like food catches in throat. Pending EGD today. Pending CT soft tissue Objective Last 24 Hour Vital Signs Date Time Temp Pulse Resp B/P (MAP) Pulse Ox O2 Delivery O2 Flow Rate FiO2 07/07/19 19:44 88 20 99 Room Air 21 07/07/19 19:34 85 20 99 Room Air 21 07/07/19 16:00 98.4 89 20 123/71 (88) 99 07/07/19 16:00 91 07/07/19 14:03 164/97 07/07/19 13:05 75 20 100 Room Air 21 74 20 99 07/07/19 12:43 164/97 07/07/19 12:20 98.2 94 21 164/97 (119) 97 07/07/19 12:00 80 07/07/19 12:00 98.0 79 17 138/70 100 Nasal Cannula 3 07/07/19 11:56 82 18 100 07/07/19 11:54 83 18 100 07/07/19 11:50 77 17 131/74 100 Nasal Cannula 3 07/07/19 11:40 75 18 139/88 100 Nasal Cannula 3 07/07/19 11:35 79 24 127/66 100 Nasal Cannula 3 07/07/19 11:30 98.8 70 24 143/90 100 Nasal Cannula 3 07/07/19 09:06 79 144/78 07/07/19 09:00 Room Air 07/07/19 08:00 97.1 79 19 144/78 (100) 96 07/07/19 08:00 80 07/07/19 07:44 81 22 100 Room Air 21 80 22 100 07/07/19 04:00 83 07/07/19 03:07 74 18 98 Facial 30 07/07/19 01:28 78 20 98 Facial 30 07/07/19 01:27 74 18 100 Room Air 21 70 18 98 07/07/19 00:00 98 07/06/19 22:32 169/86 07/06/19 21:00 Room Air 07/06/19 20:00 80 07/06/19 20:00 75 18 100 Room Air 21 72 18 99 07/06/19 20:00 85 169/86 (113) Intake and Output 07/06/19 07/07/19 19:00 07:00 Output Total 850 ml Balance -850 ml Output Urine Total 850 ml # Voids 4 5 # Bowel Movements 1 Laboratory Tests 07/07/19 05:43: White Blood Count 7.9, Red Blood Count 4.38, Hemoglobin 11.8L, Hematocrit 38.1, Mean Corpuscular Volume 87, Mean Corpuscular Hemoglobin 26.9L, Mean Corpuscular Hemoglobin Concent 31.0L, Red Cell Distribution Width 14.3, Platelet Count 280, Mean Platelet Volume 5.6L, Neutrophils (%) (Auto) 65.3, Lymphocytes (%) (Auto) 25.8, Monocytes (%) (Auto) 7.5, Eosinophils (%) (Auto) 0.6, Basophils (%) (Auto ) 0.8, Prothrombin Time 10.0, Prothromb Time International Ratio 0.9, Activated Partial Thromboplast Time 22L, Sodium Level 139, Potassium Level 4.2, Chloride Level 103, Carbon Dioxide Level 29, Anion Gap 7, Blood Urea Nitrogen 39H, Creatinine 1.6H, Estimat Glomerular Filtration Rate 41.2, Glucose Level 425#H, Calcium Level 9.8, Pro-B-Type Natriuretic Peptide 114 Imaging: CT neck noncontrast 07/06/19 Findings: Lack of IV contrast limits evaluation. The visualized nasopharynx, oropharynx, hypopharynx, larynx appear unremarkable. No prevertebral soft tissue swelling. There is mild prominence to the adenoids. No evidence of significant tonsillar hypertrophy. No cervical mass or adenopathy. The thyroid is unremarkable. The salivary glands are unremarkable. Included upper mediastinum is unremarkable. The included upper lungs are unremarkable. The bones demonstrate mild degenerative cervical spondylosis changes. Impression: Essentially unremarkable exam. No acute or significant abnormality demonstrated. Height (Feet): 5 Height (Inches): 7.00 Weight (Pounds): 302 General Appearance: WD/WN, no apparent distress, alert EENT: PERRL/EOMI, normal ENT inspection Neck: non-tender, normal alignment, supple Cardiovascular: normal peripheral pulses, normal rate, regular rhythm, no JVD Respiratory/Chest: other - End expiratory wheezing bilaterally. No rales noted Abdomen: normal bowel sounds, soft, no mass, other - Slight TTP in epigastric region Extremities: normal range of motion, non-tender, other - No LE edema bilaterally Neurologic: woodworker helper II-XII grossly normal, no motor/sensory deficits, alert, oriented x 3 Skin: normal pigmentation, warm/dry Nathaniel Perkins D.O. Jul 07, 2019 20:16
[2019-07-07] MEDS: Atorvastatin 20mg tab ORAL SCH (20:44)
[2019-07-07] MEDS: oxyCODONE HCL/Acetaminophen 5/325mg ORAL PRN (20:45)
[2019-07-07] MEDS: Levemir Flexpen SUBQ SCH (20:53)
[2019-07-07] MEDS: LORazepam 0.5mg tab ORAL PRN (22:49)
[2019-07-08] MEDS: Albuterol/Ipratropium 3ml neb HHN SCH ×4 (00:16→18:40)
--- NOTE | 2019-07-08 00:28 | NUR ---
RESPIRATORY NOTE: Pt placed on CPAP for nightly use. Pt now on CPAP 6, 30%. Pt is on a Facial mask, skin intact, no redness/breakdowns noted. Foam tape applied on pt's nosebridge/cheeks/chin to prevent any irritations. Pt is alert/awake, follows commands. B/S juan c. diminished, nonproductive cough. CPAP machine plugged into red outlet, alarms on & audible. Pt resting comfortably, in no apparent distress at this time. Will continue plan of care.
--- NOTE | 2019-07-08 01:30 | NUR ---
NURSE NOTES: Pt currently has no IV and refused another attempt. She is also refusing bed alarm. Will notify MD and will continue to monitor.
[2019-07-08 06:23] LABS: ANION GAP 6 mmol/L (5-15); BLOOD UREA NITROGEN 30 mg/dL (7-18); CALCIUM 9.2 MG/DL (8.5-10.1); CARBON DIOXIDE 32 MMOL/L (21-32); CHLORIDE 104 MMOL/L (98-107); CREATININE 1.2 MG/DL (0.55-1.30); POTASSIUM 3.8 MMOL/L (3.5-5.1); SODIUM 142 MMOL/L (136-145)
[2019-07-08 06:24] VITALS: BP 136/67
[2019-07-08 06:28] LABS: BASOPHILS % (AUTO) 1.4 % (0.0-2.0); EOSINOPHILS % (AUTO) 2.6 % (0.0-3.0); HEMOGLOBIN 12.1 G/DL (12.0-16.0); LYMPHOCYTES % (AUTO) 36.4 % (20.0-45.0); MEAN CORPUSCULAR VOLUME 86 FL (80-99); MONOCYTES % (AUTO) 8.7 % (1.0-10.0); NEUTROPHILS % (AUTO) 50.9 % (45.0-75.0); PLATELET COUNT 292 K/UL (150-450); RED BLOOD COUNT 4.52 M/UL (4.20-5.40); RED CELL DISTRIBUTION WIDTH 14.2 % (11.6-14.8); WHITE BLOOD COUNT 6.4 K/UL (4.8-10.8)
[2019-07-08] MEDS: NovoLOG Insulin Flexpen SUBQ SCH ×7 (06:29→20:57)
[2019-07-08] MEDS: Levothyroxine 125mcg tab ORAL SCH (06:30)
[2019-07-08] MEDS: Levemir Flexpen SUBQ SCH ×2 (06:30→20:59)
[2019-07-08] MEDS: LORazepam 0.5mg tab ORAL PRN ×2 (06:42→14:32)
[2019-07-08 07:03] LABS: PHOSPHORUS 3.5 MG/DL (2.5-4.9)
--- NOTE | 2019-07-08 07:41 | NUR ---
HAND-OFF: Report given to ELAN Liao. Pt stable.
--- NOTE | 2019-07-08 07:49 | NUR ---
NURSE NOTES: Received report from ELAN Crocker. Patient in bed resting, no active s/s cardiac, respiratory distress noticed at this time. Patient on room air, SR with HR 79, AOx4. Endorsed MD made aware of no IV site, patient refused IV insertion at this time, will ask again. Bed in lowest position, side rails upx3, call light within reach. Will continue to monitor.
[2019-07-08 08:00] VITALS: BP 153/75
[2019-07-08] MEDS: Docusate 100mg cap ORAL SCH ×2 (09:14→20:45)
[2019-07-08] MEDS: Aspirin EC 81mg tab ORAL SCH (09:14)
[2019-07-08] MEDS: Furosemide 40mg tab ORAL SCH (09:15)
[2019-07-08] MEDS: Heparin 5000 units/ml inj SUBQ SCH ×2 (09:20→20:47)
--- NOTE | 2019-07-08 10:08 | GI Progress Note ---
Assessment/Plan Problems: (1) Obesity ICD Codes: E66.9 - Obesity, unspecified SNOMED: 274077766 (2) Dysphagia ICD Codes: R13.10 - Dysphagia, unspecified SNOMED: 32177400, 530418768 (3) Diabetes ICD Codes: E11.9 - Type 2 diabetes mellitus without complications SNOMED: 90300936 Status: stable Status Narrative Discussed with Dr. Aguillon. Assessment/Plan s/p EGD noted with gastritis. No obvious ulceration, mass, ady or any other pathology was seen. ST evaluation reviewed. Follow up biopsy results and treat accordingly. advance diet as tolerated prn transfusions ppi DM management reglan prn for GI motility follow labs needs outpatient colonoscopy The patient was seen and examined at bedside and all new and available data was reviewed in the patients chart. I agree with the above findings, impression and plan. (Patient seen earlier today. Signature stamp does not reflect patient encounter time.). - Higinio Aguillon MD Subjective Gastrointestinal/Abdominal: Reports: no symptoms Objective Last 24 Hour Vital Signs Date Time Temp Pulse Resp B/P (MAP) Pulse Ox O2 Delivery O2 Flow Rate FiO2 07/08/19 09:15 91 153/75 07/08/19 09:15 91 153/75 07/08/19 08:00 97.7 81 18 153/75 (101) 96 07/08/19 08:00 96 07/08/19 07:05 89 20 99 Room Air 21 07/08/19 06:55 87 16 99 Room Air 21 07/08/19 06:24 79 136/67 (90) 07/08/19 04:00 79 07/08/19 00:27 80 17 98 Facial 30 07/08/19 00:26 79 20 98 Room Air 21 07/08/19 00:16 78 20 96 Room Air 21 07/08/19 00:00 85 07/07/19 21:00 Room Air 07/07/19 20:54 115/74 07/07/19 20:00 93 07/07/19 20:00 88 115/74 (88) 07/07/19 19:44 88 20 99 Room Air 21 07/07/19 19:34 85 20 99 Room Air 21 07/07/19 16:00 98.4 89 20 123/71 (88) 99 10/1/19 16:00 91 07/07/19 14:03 164/97 07/07/19 13:05 75 20 100 Room Air 21 74 20 99 07/07/19 12:43 164/97 07/07/19 12:20 98.2 94 21 164/97 (119) 97 07/07/19 12:00 80 07/07/19 12:00 98.0 79 17 138/70 100 Nasal Cannula 3 07/07/19 11:56 82 18 100 07/07/19 11:54 83 18 100 07/07/19 11:50 77 17 131/74 100 Nasal Cannula 3 07/07/19 11:40 75 18 139/88 100 Nasal Cannula 3 07/07/19 11:35 79 24 127/66 100 Nasal Cannula 3 07/07/19 11:30 98.8 70 24 143/90 100 Nasal Cannula 3 Intake and Output 07/07/19 07/08/19 18:59 06:59 Intake Total 955 ml Balance 955 ml Intake Oral 800 ml IV Total 155 ml # Voids 3 3 # Bowel Movements 1 Laboratory Tests Test 07/08/19 06:03 White Blood Count 6.4 K/UL (4.8-10.8) Red Blood Count 4.52 M/UL (4.20-5.40) Hemoglobin 12.1 G/DL (12.0-16.0) Hematocrit 39.0 % (37.0-47.0) Mean Corpuscular Volume 86 FL (80-99) Mean Corpuscular Hemoglobin 26.7 PG (27.0-31.0) L Mean Corpuscular Hemoglobin Concent 31.0 G/DL (32.0-36.0) L Red Cell Distribution Width 14.2 % (11.6-14.8) Platelet Count 292 K/UL (150-450) Mean Platelet Volume 5.6 FL (6.5-10.1) L Neutrophils (%) (Auto) 50.9 % (45.0-75.0) Lymphocytes (%) (Auto) 36.4 % (20.0-45.0) Monocytes (%) (Auto) 8.7 % (1.0-10.0) Eosinophils (%) (Auto) 2.6 % (0.0-3.0) Basophils (%) (Auto) 1.4 % (0.0-2.0) Sodium Level 142 MMOL/L (136-145) Potassium Level 3.8 MMOL/L (3.5-5.1) Chloride Level 104 MMOL/L (98-107) Carbon Dioxide Level 32 MMOL/L (21-32) Anion Gap 6 mmol/L (5-15) Blood Urea Nitrogen 30 mg/dL (7-18) H Creatinine 1.2 MG/DL (0.55-1.30) Estimat Glomerular Filtration Rate 57.3 mL/min (>60) Glucose Level 266 MG/DL (74-106) #H Hemoglobin A1c 10.8 % (4.3-6.0) H Calcium Level 9.2 MG/DL (8.5-10.1) Phosphorus Level 3.5 MG/DL (2.5-4.9) Magnesium Level 1.7 MG/DL (1.8-2.4) L Pro-B-Type Natriuretic Peptide 73 pg/mL (0-125) Height (Feet): 5 Height (Inches): 7.00 Weight (Pounds): 302 General Appearance: WD/WN, no apparent distress, alert, morbidly obese Cardiovascular: normal rate Respiratory/Chest: normal breath sounds, no respiratory distress Abdominal Exam: normal bowel sounds, non tender, soft Extremities: normal range of motion, non-tender Alec Ross NP Jul 08, 2019 10:07
[2019-07-08] MEDS: oxyCODONE HCL/Acetaminophen 5/325mg ORAL PRN (11:13)
[2019-07-08 12:00] VITALS: BP 157/101
--- NOTE | 2019-07-08 12:09 | NUR ---
CASE MANAGEMENT: REVIEW 07/08/19 SI: ASTHMA EXACERBATION, DM 97.1 81 18 153/75 96% RA IS: LASIX PO QD ATIVAN PO Q6/PRN PREDNISONE PO QD HEPARIN SQ Q12 CLONAZEPAM PO Q12HR CLONIDINE PO TID HYDROIURIL PO QD PROTONIX PO QD NORMODYNE PO QD NORVASC PO QD LIPITOR PO HS ASPIRIN PO QD ALBUTEROL HHN Q6/PRN LEVEMIR SQ AC/HS NOVOLOG SQ TIAC LEXAPRO PO QD REMERON PO HS PERCOCET PO Q8/PRN : 2E TELE UNIT DCP: TO RETURN HOME WITH HOME HEALTH AND WALKER PLAN: IV STEROIDS X1, THEN DC HOME IN AM Addendum: 07/08/19 at 1245 by ALEJANDRO ROBLEDO LVN CASE MANAGEMENT: REVIEW 07/08/19 SI: ASTHMA EXACERBATION, DM 97.1 81 18 153/75 96% RA BUN 30; BG 266; A1C 10.8 IS: LASIX PO QD ATIVAN PO Q6/PRN PREDNISONE PO QD HEPARIN SQ Q12 CLONAZEPAM PO Q12HR CLONIDINE PO TID HYDROIURIL PO QD PROTONIX PO QD NORMODYNE PO QD NORVASC PO QD LIPITOR PO HS ASPIRIN PO QD ALBUTEROL HHN Q6/PRN LEVEMIR SQ AC/HS NOVOLOG SQ TIAC LEXAPRO PO QD REMERON PO HS PERCOCET PO Q8/PRN : 2E TELE UNIT DCP: TO RETURN HOME WITH HOME HEALTH AND WALKER PLAN: IV STEROIDS X1, THEN DC HOME IN AM
[2019-07-08] MEDS ORDERED: Solu-MEDROL 125mg Inj IVP SCH (13:30)
--- NOTE | 2019-07-08 14:17 | NUR ---
NURSE NOTES: Paged Dr. Perkins regarding patient has no IV access, refusing to get it at this time. No order given at this time. Will continue to try.
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
--- NOTE | 2019-07-08 14:40 | NUR ---
swallow status see updated [facility] [place] swallow [place] report completed after images reviewed. goals met for pt/staff educated in need for aspiration/reflux precautions. patient to be d/c tomorrow and prefers homecare services goals for intake met plan: continue with plan of care in mod barium swallow study report consider ENT consultation as op to check throat (mild prominence of adenoids) and odynophagia issues consider speech and swallow therapy and PT homecare f/up consider f/up with dietitian as pt has poor compliance with recommended diet type (ada diet) and to r/o any h/o an eating d/o. d/w rn, dr davis, and patient d/w steven gi corsetier to f/up with pt about results of egd (which were unremarkable per steven) Addendum: 07/08/19 at 1442 by PHILIP CHAVEZ INSOLE BUFFER MAY BENEFIT FROM ENT CONSULT REGARDING VOCAL FOLD AND THROAT STATUS AND ODYNOPHAGIA (ALSO HAS H/O SMOKING).
--- NOTE | 2019-07-08 15:15 | General Progress Note ---
Assessment/Plan Problem List: (1) Dysphagia ICD Codes: R13.10 - Dysphagia, unspecified SNOMED: 53810807, 292529132 (2) Shortness of breath ICD Codes: R06.02 - Shortness of breath SNOMED: 202208513 (3) Diabetes ICD Codes: E11.9 - Type 2 diabetes mellitus without complications SNOMED: 17720709 (4) Acute asthma exacerbation ICD Codes: J45.901 - Acute asthma exacerbation SNOMED: 170083690 (5) Anxiety disorder ICD Codes: F41.9 - Anxiety disorder, unspecified SNOMED: 747901421 (6) CHF (congestive heart failure) ICD Codes: I50.9 - Heart failure, unspecified SNOMED: 58183788 Status: stable Assessment/Plan: Katherine Gandara is a 53 yo woman with PMH of IDDM with neuropathy, CRISTINE on CPAP, asthma/COPD not on home O2, HFpEF (60%), HTN, hypothyroid, severe obesity and anxiety who presented with worsening JETER and neck pain, found with overall unremarkable CBC, BMP notable for glucose 360, CXR with borderline cardiomegaly but otherwise unremarkable, and unremarkable Xray of neck. Patient admitted for acute asthma/COPD exacerbation. inability to ambulate. # Acute asthma/COPD exacerbation, hx CRISTINE on CPAP - IMPROVING - received solumedrol 40mg IV q8hr and duonebs q6hr ATC. - Now on prednisone 40mg Po daily. Continue PO prednisone. One extra dose of soluemdrol 125mg IV x 1 since wheezing noted on exam today. Patient without infectious symptoms or changes in sputum purulence/production, will hold off on abx at this time. - EKG with NSR and no ST-T wave abnormalities. - Cardiac etiology included on differential but given report of recent unremarkable stress test, low suspicion for ACS. Can obtain outpatient stress test record - CXR with borderline cardiomegaly but otherwise not overtly impressive - Continue home amlodipine 10mg PO daily, aspirin 81mg PO daily, atorvastatin 40mg PO qhs, - Continue home CPAP qhs #Chronic HFpEF (EF 60% on TTE one year ago), compensated. Mild LVH - Repeat TTE - Continue lasix 40mg PO daily #HTN, stable - Continue home clonidine 0.3mg PO TID, labetalol 100mg PO daily (not sure why only on once daily), HCTZ 25mg PO daily #dysphagia for solids/liquids #gastritis per EGD 07/07/19 > CT neck with contrast unremarkable: showed enlarged adenoids > EGD showed no strictures. No thrush on EGD > Barium swallow: Mild oropharyngeal dysphagia. No aspiration. - Appreciate GI recommendations - Appreciate INJECTION MOLDER recommendations - Discontinue nystatin swish and swallow as no evidence of thrush on exam - Follow up biopsy from EGD to rule out H. Pylroi - ENT follow up as outpatient - Home health speech therapy as outpatient DM2 on insulin, with hyperglycemia. Last A1C 12.6 in 01/2019 - IMPROVING - Continue Levemir 25units QAM and 30 units QPM - Continue Novolog 14 units TID - Monitor FS ACHS and adjust as needed - Patient states no longer on glyburide at home #hypothyroidism -Continue home levothyroxine 125mcg PO Daily #Psych: anxiety. ? depression - Continue home klonopin 2mg PO BID - Ativan 0.5mg q6hr PRN anxiety - Appreciate Psychiatry recommendations FEN Regular diet (patient refusing carbs consistent cardiac diet) Heparin subq DVT ppx PT evaluation. ? SNF Full Code Discussed with patient, RN, PT and INJECTION MOLDER. I spent 37 minutes on this patient's care, including >50% dedicated to counseling and/or coordination of care Subjective Constitutional: Denies: chills, diaphoresis, fever, malaise, weakness, other HEENT: Denies: eye pain, blurred vision, tearing, double vision, ear pain, ear discharge, nose pain, nose congestion, throat pain, throat swelling, mouth pain , mouth swelling, other Cardiovascular: Denies: chest pain, edema, irregular heart rate, lightheadedness, palpitations, syncope, other Respiratory: Denies: cough, orthopnea, shortness of breath, SOB with excertion , SOB at rest, sputum, stridor, wheezing, other Gastrointestinal/Abdominal: Reports: difficulty swallowing; Denies: abdomen distended, abdominal pain, black stools, tarry stools, blood in stool, constipated, diarrhea, nausea, poor appetite, poor fluid intake, rectal bleeding , vomiting, other Genitourinary: Denies: burning, discharge, frequency, flank pain, hematuria, incontinence, pain, urgency, other Neurologic/Psychiatric: Denies: anxiety, depressed, emotional problems, headache, numbness, paresthesia, pre-existing deficit, seizure, tingling, tremors, weakness, other Endocrine: Denies: excessive sweating, flushing, intolerance to cold, intolerance to heat, increased hunger, increased thirst, increased urine, unexplained weight gain, unexplained weight loss, other Hematologic/Lymphatic: Denies: anemia, easy bleeding, easy bruising, other Allergies: Coded Allergies: FISH CONTAINING PRODUCTS (Unverified Allergy, Unknown, 11/02/13) IBUPROFEN (Unverified Allergy, Unknown, 11/02/13) PENICILLIN G (Unverified Allergy, Unknown, 11/02/13) PENICILLINS (Unverified Allergy, Unknown, 11/28/14) Subjective No acute events overnight COPD: Improving with steroids, however still gets easily short of breath. Not quite back to baseline yet. On room air. Cough has improved. Non-purulent, intermittent, dry. Dm2: sugars better controlled. no hypoglycemic events. no polyuria, polyphagia. Dysphagia: No etiology seen on EGD. Improving. CT showed enlarged adenoids. Needs outpatient ENT and Speech. Follow up on bx from EGD Objective Last 24 Hour Vital Signs Date Time Temp Pulse Resp B/P (MAP) Pulse Ox O2 Delivery O2 Flow Rate FiO2 07/08/19 14:33 157/101 07/08/19 12:19 56 16 99 Room Air 21 07/08/19 12:00 86 07/08/19 12:00 98.3 90 24 157/101 (119) 96 07/08/19 09:15 91 153/75 07/08/19 09:15 91 153/75 07/08/19 09:00 Room Air 07/08/19 08:00 97.7 81 18 153/75 (101) 96 07/08/19 08:00 96 07/08/19 07:05 89 20 99 Room Air 21 07/08/19 06:55 87 16 99 Room Air 21 07/08/19 06:24 79 136/67 (90) 07/08/19 04:00 79 07/08/19 00:27 80 17 98 Facial 30 07/08/19 00:26 79 20 98 Room Air 21 07/08/19 00:16 78 20 96 Room Air 21 07/08/19 00:00 85 07/07/19 21:00 Room Air 07/07/19 20:54 115/74 07/07/19 20:00 93 07/07/19 20:00 88 115/74 (88) 07/07/19 19:44 88 20 99 Room Air 21 07/07/19 19:34 85 20 99 Room Air 21 07/07/19 16:00 98.4 89 20 123/71 (88) 99 07/07/19 16:00 91 Intake and Output 07/07/19 07/08/19 19:00 07:00 Intake Total 955 ml Balance 955 ml Intake Oral 800 ml IV Total 155 ml # Voids 3 3 # Bowel Movements 1 Laboratory Tests 07/08/19 06:03: White Blood Count 6.4, Red Blood Count 4.52, Hemoglobin 12.1, Hematocrit 39.0, Mean Corpuscular Volume 86, Mean Corpuscular Hemoglobin 26.7L, Mean Corpuscular Hemoglobin Concent 31.0L, Red Cell Distribution Width 14.2, Platelet Count 292, Mean Platelet Volume 5.6L, Neutrophils (%) (Auto) 50.9, Lymphocytes (%) (Auto) 36.4, Monocytes (%) (Auto) 8.7, Eosinophils (%) (Auto) 2.6, Basophils (%) (Auto ) 1.4, Sodium Level 142, Potassium Level 3.8, Chloride Level 104, Carbon Dioxide Level 32, Anion Gap 6, Blood Urea Nitrogen 30H, Creatinine 1.2, Estimat Glomerular Filtration Rate 57.3, Glucose Level 266#H, Hemoglobin A1c 10.8H, Calcium Level 9.2, Phosphorus Level 3.5, Magnesium Level 1.7L, Pro-B-Type Natriuretic Peptide 73 Height (Feet): 5 Height (Inches): 7.00 Weight (Pounds): 302 General Appearance: WD/WN, no apparent distress, alert EENT: PERRL/EOMI Neck: non-tender, normal alignment Cardiovascular: normal peripheral pulses, normal rate, regular rhythm Respiratory/Chest: chest wall non-tender, no accessory muscle use, other - diffuse expiratory wheezing heard in anterior lung feng Abdomen: normal bowel sounds, non tender, soft Extremities: other - no LE edema bilaterally Neurologic: poker manager II-XII grossly normal, no motor/sensory deficits, alert, oriented x 3 Skin: normal pigmentation, warm/dry Nathaniel Perkins D.O. Jul 08, 2019 15:15
--- NOTE | 2019-07-08 15:43 | NUR ---
DISCHARGE PLAN: PATIENT HAS BEEN REFERRED TO REHAB ADMISSIONS PACKET WHERE SENT TO: [facility] T:[phone] F:[phone] [facility] T:[phone] F:[phone] [facility] [place] T:[phone] F:[phone] [facility] T:[phone] F:[phone] [facility] T:[phone] F:[phone] WAITING FOR A RESPONSE.
--- NOTE | 2019-07-08 16:03 | NUR ---
NURSE NOTES: Patient refused IV insertion, AOx4, explained risk and disadvantages of not getting medication.
--- NOTE | 2019-07-08 16:05 | Cardiology Report ---
APPROVED REPORT EXAM: Two-dimensional and M-mode echocardiogram with Doppler and color Doppler. INDICATION Congestive Heart Failure M-Mode DIMENSIONS IVSd1.1 (0.7-1.1cm)Left Atrium (MM)3.7 (1.6-4.0cm) LVDd4.9 (3.5-5.6cm)Aortic Root3.1 (2.0-3.7cm) PWd1.1 (0.7-1.1cm)Aortic Cusp Exc.2.2 (1.5-2.0cm) IVSs1.8 cm LVDs2.8 (2.5-4.0cm) PWs1.8 cm Technically difficult study due to pt's body habitus. Normal left ventricular chamber size, systolic function and wall motion to extent visualized. Left ventricular ejection fraction estimated to be 60-65 %. No evidence of left ventricular hypertrophy. No evidence of pericardial effusion. All other cardiac chamber sizes are within normal limits. Focal aortic valve sclerosis with adequate cusp excursion. Thickened mitral valve leaflets with normal excursion. Mitral annulus and aortic root calcification. Normal pulmonic valve structure. Normal tricuspid valve structure. IVC at normal size with physiologic collapse. A color flow and spectral Doppler study was performed and revealed: No aortic regurgitation.. Trace mitral regurgitation. Mitral diastolic velocities suggest reduced left ventricular relaxation c/w mild LV diastolic dysfunction (Grade I ). Trace tricuspid regurgitation. Tricuspid systolic velocities suggests peak right ventricular systolic pressure of 15 mmHg.
[2019-07-08 19:00] VITALS: BP 140/73
--- NOTE | 2019-07-08 19:35 | NUR ---
HAND-OFF: Report given to ELAN Edwards.
--- NOTE | 2019-07-08 19:37 | NUR ---
NURSE NOTES: Received patient from ELAN Liao patient in stable condition, AOx4, denies pain at this time, no IV access, patient refused to have one inserted during the day shift, watching tv, in good mood. bed low&locked, side rails upx3,call light within reach, will continue to monitor and reassess.
[2019-07-08 20:00] VITALS: BP 156/110
[2019-07-08] MEDS: Atorvastatin 20mg tab ORAL SCH (20:44)
[2019-07-08] MEDS: LORazepam Inj 2mg/ml 1ml IV PRN (22:26)
[2019-07-09] VITALS: BP 127/91
[2019-07-09] MEDS: Albuterol/Ipratropium 3ml neb HHN SCH ×4 (00:50→19:26)
--- NOTE | 2019-07-09 03:30 | Progress Note ---
DATE: 07/08/2019 SUBJECTIVE: The patient is doing better. Continues to have med-seeking behaviors and has anxiety, depressed mood. MENTAL STATUS EXAMINATION: The patient is alert and oriented times self, place, and situation. Mood is anxious. Affect is constricted, congruent with mood. Thought process, linear and goal oriented. Thought content, no suicidal or homicidal ideations. ASSESSMENT: 1. Anxiety disorder. 2. Substance use disorder. PLAN: 1. We will continue the Remeron. 2. Continue Klonopin. 3. Provide the patient with reality orientation and supportive therapy. Alannah Garcia M.D. DR: CRISTOPHER JOB#: [id number] CC: SERVANDO
[2019-07-09] MEDS: Levothyroxine 125mcg tab ORAL SCH (05:53)
[2019-07-09] MEDS: Levemir Flexpen SUBQ SCH ×2 (05:58→21:22)
[2019-07-09] MEDS: NovoLOG Insulin Flexpen SUBQ SCH ×9 (06:39→21:23)
--- NOTE | 2019-07-09 07:00 | NUR ---
NURSE NOTES: Received report from ELAN Edwards. The patient is resting on the bed without acute distress or shortness of breath. The patient's bed in the lowest position, call light in reach, and fall and aspiration precaution reinforced. IV site intact and patent.Will check blood pressure and blood sugar for tight monitoring. Will continue plan of care.
--- NOTE | 2019-07-09 07:34 | NUR ---
HAND-OFF: Report given to ELAN Wang, patient in stable condition, plan of care endorsed.
[2019-07-09 07:37] LABS: BASOPHILS % (AUTO) 0.7 % (0.0-2.0); EOSINOPHILS % (AUTO) 1.5 % (0.0-3.0); HEMATOCRIT 38.4 % (37.0-47.0); HEMOGLOBIN 12.3 G/DL (12.0-16.0); LYMPHOCYTES % (AUTO) 29.3 % (20.0-45.0); MEAN CORPUSCULAR VOLUME 85 FL (80-99); NEUTROPHILS % (AUTO) 60.5 % (45.0-75.0); PLATELET COUNT 284 K/UL (150-450); RED BLOOD COUNT 4.52 M/UL (4.20-5.40); WHITE BLOOD COUNT 8.4 K/UL (4.8-10.8)
[2019-07-09 07:53] LABS: ANION GAP 6 mmol/L (5-15); BLOOD UREA NITROGEN 33 mg/dL (7-18); CALCIUM 9.9 MG/DL (8.5-10.1); CARBON DIOXIDE 31 MMOL/L (21-32); CHLORIDE 105 MMOL/L (98-107); CREATININE 1.3 MG/DL (0.55-1.30); SODIUM 142 MMOL/L (136-145)
[2019-07-09 08:00] VITALS: BP 106/66
[2019-07-09] MEDS ORDERED: Levemir Flexpen SUBQ ONE ×2 (08:30→10:00)
[2019-07-09] MEDS: Aspirin EC 81mg tab ORAL SCH (09:06)
[2019-07-09] MEDS: Docusate 100mg cap ORAL SCH ×2 (09:06→22:20)
[2019-07-09] MEDS: Furosemide 40mg tab ORAL SCH (09:07)
[2019-07-09] MEDS: Heparin 5000 units/ml inj SUBQ SCH ×2 (09:09→22:27)
--- NOTE | 2019-07-09 09:52 | NUR ---
CASE MANAGEMENT: REVIEW 07/09/19 SI: ASTHMA EXACERBATION, DM 97.4 84 18 106/66 97% RA BUN 33; BG 301 IS: LASIX PO QD ATIVAN PO Q6/PRN PREDNISONE PO QD HEPARIN SQ Q12 CLONAZEPAM PO Q12HR CLONIDINE PO TID HYDROIURIL PO QD PROTONIX PO QD NORMODYNE PO QD NORVASC PO QD LIPITOR PO HS ASPIRIN PO QD ALBUTEROL HHN Q6/PRN LEVEMIR SQ AC/HS NOVOLOG SQ TIAC LEXAPRO PO QD REMERON PO HS PERCOCET PO Q8/PRN : 2E TELE UNIT DCP: PLACEMENT FOR REHAB
[2019-07-09] MEDS: oxyCODONE HCL/Acetaminophen 5/325mg ORAL PRN (10:22)
--- NOTE | 2019-07-09 11:38 | GI Progress Note ---
Assessment/Plan Problems: (1) Obesity ICD Codes: E66.9 - Obesity, unspecified SNOMED: 089868933 (2) Dysphagia ICD Codes: R13.10 - Dysphagia, unspecified SNOMED: 79272034, 575061840 (3) Diabetes ICD Codes: E11.9 - Type 2 diabetes mellitus without complications SNOMED: 91779825 Status: stable, unchanged Status Narrative Discussed with Dr. Aguillon Assessment/Plan s/p EGD noted with gastritis. No obvious ulceration, mass, ady or any other pathology was seen. ST evaluation reviewed. Okay for DC per GI standpoint Follow up biopsy results and treat accordingly. advance diet as tolerated prn transfusions ppi DM management reglan prn for GI motility follow labs needs outpatient colonoscopy The patient was seen and examined at bedside and all new and available data was reviewed in the patients chart. I agree with the above findings, impression and plan. (Patient seen earlier today. Signature stamp does not reflect patient encounter time.). - Higinio Aguillon MD Subjective Subjective Denies any abdominal pain Denies any nausea vomiting Patient still complains of slight odynophagia Objective Last 24 Hour Vital Signs Date Time Temp Pulse Resp B/P (MAP) Pulse Ox O2 Delivery O2 Flow Rate FiO2 07/09/19 09:07 84 106/66 07/09/19 09:00 84 106/66 07/09/19 08:00 97.4 84 18 106/66 (79) 97 07/09/19 07:48 79 18 100 Room Air 21 76 18 92 07/09/19 05:53 163/97 07/09/19 03:47 73 07/09/19 00:54 70 18 99 Bi-Pap 21 68 18 98 07/09/19 00:52 68 18 99 Facial 21 07/09/19 00:00 97.4 97 18 127/91 (103) 99 07/08/19 23:53 76 07/08/19 23:17 74 20 98 Facial 21 07/08/19 21:20 156/110 07/08/19 21:00 Room Air 07/08/19 20:00 98.2 97 18 156/110 (125) 98 07/08/19 20:00 89 07/08/19 19:00 98.0 97 23 140/73 (95) 98 07/08/19 18:40 78 20 98 Room Air 21 70 18 98 07/08/19 16:00 90 07/08/19 14:33 157/101 07/08/19 12:29 64 18 100 Room Air 21 07/08/19 12:19 56 16 99 Room Air 21 07/08/19 12:00 86 07/08/19 12:00 98.3 90 24 157/101 (119) 96 Intake and Output 07/08/19 07/09/19 18:59 06:59 Intake Total 350 ml 250 ml Output Total 850 ml Balance -500 ml 250 ml Intake Oral 320 ml 250 ml IV Total 30 ml Output Urine Total 850 ml # Voids 3 2 # Bowel Movements 1 Laboratory Tests Test 07/09/19 05:45 White Blood Count 8.4 K/UL (4.8-10.8) Red Blood Count 4.52 M/UL (4.20-5.40) Hemoglobin 12.3 G/DL (12.0-16.0) Hematocrit 38.4 % (37.0-47.0) Mean Corpuscular Volume 85 FL (80-99) Mean Corpuscular Hemoglobin 27.3 PG (27.0-31.0) Mean Corpuscular Hemoglobin Concent 32.1 G/DL (32.0-36.0) Red Cell Distribution Width 14.0 % (11.6-14.8) Platelet Count 284 K/UL (150-450) Mean Platelet Volume 5.6 FL (6.5-10.1) L Neutrophils (%) (Auto) 60.5 % (45.0-75.0) Lymphocytes (%) (Auto) 29.3 % (20.0-45.0) Monocytes (%) (Auto) 8.0 % (1.0-10.0) Eosinophils (%) (Auto) 1.5 % (0.0-3.0) Basophils (%) (Auto) 0.7 % (0.0-2.0) Sodium Level 142 MMOL/L (136-145) Potassium Level 4.0 MMOL/L (3.5-5.1) Chloride Level 105 MMOL/L (98-107) Carbon Dioxide Level 31 MMOL/L (21-32) Anion Gap 6 mmol/L (5-15) Blood Urea Nitrogen 33 mg/dL (7-18) H Creatinine 1.3 MG/DL (0.55-1.30) Estimat Glomerular Filtration Rate 52.4 mL/min (>60) Glucose Level 301 MG/DL (74-106) H Calcium Level 9.9 MG/DL (8.5-10.1) Magnesium Level 2.0 MG/DL (1.8-2.4) Height (Feet): 5 Height (Inches): 7.00 Weight (Pounds): 286 General Appearance: WD/WN, no apparent distress, alert, morbidly obese Cardiovascular: normal rate Respiratory/Chest: normal breath sounds, no respiratory distress Abdominal Exam: normal bowel sounds, non tender, soft Extremities: normal range of motion, non-tender Alec Ross NP Jul 09, 2019 11:38
[2019-07-09 12:00] VITALS: BP 96/54
--- NOTE | 2019-07-09 12:00 | NUR ---
NURSE NOTES: The patient is stable without acute distress or shortness of breath. The patient is getting breathing treatment as ordered. Will continue plan of care.
--- NOTE | 2019-07-09 13:06 | NUR ---
RD ASSESSMENT & RECOMMENDATIONS SEE CARE ACTIVITY FOR COMPLETE ASSESSMENT DAILY ESTIMATED NEEDS: Needs based on Obesity, DM, cardiac/ 79kg abw 20-23 kcals/kg 0415-7332 total kcals 1-1.5 g protein/kg 79-118 g total protein 20-25 mL/kg 0465-3390 total fluid mLs NUTRITION DIAGNOSIS: * Altered nutrition related lab values R/T diabetes and noncompliance to carb controlled diet as evidenced by A1C of 10.8, elev POC glu (290-354), elev BGs (301,266) * Morbid obesity R/T life style factors, excessive energy intake as evidenced by BMI of 46.2 CURRENT DIET:CCHO LOW PO DIET RECOMMENDATIONS: CCHO LOW, CARDIAC + double protein portions/ texture per SAND MIXER MACHINE ADDITIONAL RECOMMENDATIONS: * Standing weight for accurate CBW * Re-attempt diet education on wt control and DM diet as able * Monitor BGs closely while on prednisone * Texture per SAND MIXER MACHINE * Monitor lytes closely w/ lasix, replete as needed
[2019-07-09] MEDS ORDERED: Solu-MEDROL 125mg Inj IVP SCH (14:16)
--- NOTE | 2019-07-09 14:28 | NUR ---
*-* INSURANCE *-* UPDATED CLINICALS AND REVIEWS HAVE BEEN FAXED TO: [employer] tracking#[id number] NCM: Brie #[phone] fax#[phone]
[2019-07-09] MEDS: LORazepam Inj 2mg/ml 1ml IV PRN ×2 (14:51→22:23)
--- NOTE | 2019-07-09 14:53 | General Progress Note ---
Assessment/Plan Problem List: (1) Dysphagia ICD Codes: R13.10 - Dysphagia, unspecified SNOMED: 71243865, 549927880 (2) Shortness of breath ICD Codes: R06.02 - Shortness of breath SNOMED: 338372794 (3) Diabetes ICD Codes: E11.9 - Type 2 diabetes mellitus without complications SNOMED: 56257638 (4) Acute asthma exacerbation ICD Codes: J45.901 - Acute asthma exacerbation SNOMED: 564547870 (5) Anxiety disorder ICD Codes: F41.9 - Anxiety disorder, unspecified SNOMED: 432643409 (6) CHF (congestive heart failure) ICD Codes: I50.9 - Heart failure, unspecified SNOMED: 64616554 Status: stable, unchanged Assessment/Plan: Katherine Gandara is a 53 yo woman with PMH of IDDM with neuropathy, CRISTINE on CPAP, asthma/COPD not on home O2, HFpEF (60%), HTN, hypothyroid, severe obesity and anxiety who presented with worsening JETER and neck pain, found with overall unremarkable CBC, BMP notable for glucose 360, CXR with borderline cardiomegaly but otherwise unremarkable, and unremarkable Xray of neck. Patient admitted for acute asthma/COPD exacerbation. inability to ambulate. # Acute asthma/COPD exacerbation- IMPROVING. but not back to baseline yet. hx CRISTINE on CPAP - received solumedrol 40mg IV q8hr and duonebs q6hr ATC. - Now on prednisone 40mg Po daily. Continue PO prednisone. One extra dose of soluemdrol 125mg IV x 1 since did not get yesterday and still with wheezing noted on exam today. Patient without infectious symptoms or changes in sputum purulence/production, will hold off on abx at this time. - EKG with NSR and no ST-T wave abnormalities. - Cardiac etiology included on differential but given report of recent unremarkable stress test, low suspicion for ACS. Can obtain outpatient stress test record - CXR with borderline cardiomegaly but otherwise not overtly impressive. Pro BNP 70s - Continue home amlodipine 10mg PO daily, aspirin 81mg PO daily, atorvastatin 40mg PO qhs, - Continue home CPAP qhs #Chronic HFpEF (EF 60% on TTE one year ago), compensated. Mild LVH - Repeat TTE - Continue lasix 40mg PO daily #HTN, stable - Continue home clonidine 0.3mg PO TID, labetalol 100mg PO daily (not sure why only on once daily), HCTZ 25mg PO daily #Odynophagia for solids/liquids, could be from enlarged adenoids? no exudates on exam. viral? #gastritis per EGD 07/07/19. Follow up on bx > CT neck with contrast unremarkable: showed enlarged adenoids > EGD showed no strictures. No thrush on EGD > Barium swallow: Mild oropharyngeal dysphagia. No aspiration. - Appreciate GI recommendations: no further interventions. F/u on bx results and treat H. Pylori. - Appreciate ORGAN TUNER recommendations - S/p nystatin swish and swallow as no evidence of thrush on exam - Follow up biopsy from EGD to rule out H. Pylroi - ENT follow up as outpatient - Home health speech therapy as outpatient DM2 on insulin, with hyperglycemia. Last A1C 12.6 in 01/2019 - IMPROVING > 32 units SSI coverage in past 24 hours - Increase Levemir 36units QAM and 31 units QPM - Increase Novolog to 18 units TID - Monitor FS ACHS and adjust as needed - Patient states no longer on glyburide at home #hypothyroidism -Continue home levothyroxine 125mcg PO Daily #Psych: anxiety. ? depression - Continue home klonopin 2mg PO BID - Ativan 0.5mg q6hr PRN anxiety - Appreciate Psychiatry recommendations FEN Regular diet (patient refusing carbs consistent cardiac diet) Heparin subq DVT ppx PT evaluation. ? SNF Full Code Dispo: SNF for short term rehab then home. Discussed with patient, RN, PT, and ORGAN TUNER. I spent 37 minutes on this patient's care, including >50% dedicated to counseling and/or coordination of care Subjective Date patient seen: Jul 09, 2019 Constitutional: Denies: chills, diaphoresis, fever, malaise, weakness, other HEENT: Denies: eye pain, blurred vision, tearing, double vision, ear pain, ear discharge, nose pain, nose congestion, throat pain, throat swelling, mouth pain , mouth swelling, other Cardiovascular: Denies: chest pain, edema, irregular heart rate, lightheadedness, palpitations, syncope, other Respiratory: Denies: cough, orthopnea, shortness of breath, SOB with excertion , SOB at rest, sputum, stridor, wheezing, other Gastrointestinal/Abdominal: Denies: abdomen distended, abdominal pain, black stools, tarry stools, blood in stool, constipated, diarrhea, difficulty swallowing, nausea, poor appetite, poor fluid intake, rectal bleeding, vomiting , other Genitourinary: Denies: burning, discharge, frequency, flank pain, hematuria, incontinence, pain, urgency, other Neurologic/Psychiatric: Denies: anxiety, depressed, emotional problems, headache, numbness, paresthesia, pre-existing deficit, seizure, tingling, tremors, weakness, other Endocrine: Denies: excessive sweating, flushing, intolerance to cold, intolerance to heat, increased hunger, increased thirst, increased urine, unexplained weight gain, unexplained weight loss, other Hematologic/Lymphatic: Denies: anemia, easy bleeding, easy bruising, other Allergies: Coded Allergies: FISH CONTAINING PRODUCTS (Unverified Allergy, Unknown, 11/02/13) IBUPROFEN (Unverified Allergy, Unknown, 11/02/13) PENICILLIN G (Unverified Allergy, Unknown, 11/02/13) PENICILLINS (Unverified Allergy, Unknown, 11/28/14) Subjective No acute events overnight COPD exacerbation: Unable to give IV solumedrol yesterday due to loss of IV access and patient refusal. Able to get IV access today and give steroids. Feels about the same. Still dyspneic upon walking, intermittent, 3/10. Not quite back to baseline yet. On room air. Cough has improved. Non-purulent, intermittent, dry. Dm2: sugars still elevated. no hypoglycemic events. no polyuria, polyphagia. Odynophagia: Stable. With some odynophagia. slowly improving. No dysphagia. No etiology seen on EGD. Improving. CT showed enlarged adenoids. Objective Last 24 Hour Vital Signs Date Time Temp Pulse Resp B/P (MAP) Pulse Ox O2 Delivery O2 Flow Rate FiO2 07/09/19 13:42 96/54 07/09/19 13:36 73 18 99 Room Air 21 80 18 99 07/09/19 12:00 97.7 82 18 96/54 (68) 96 07/09/19 09:07 84 106/66 07/09/19 09:00 84 106/66 07/09/19 09:00 Room Air 07/09/19 08:00 97.4 84 18 106/66 (79) 97 07/09/19 07:48 79 18 100 Room Air 21 76 18 92 07/09/19 05:53 163/97 07/09/19 03:47 73 07/09/19 00:54 70 18 99 Bi-Pap 21 68 18 98 07/09/19 00:52 68 18 99 Facial 21 07/09/19 00:00 97.4 97 18 127/91 (103) 99 07/08/19 23:53 76 07/08/19 23:17 74 20 98 Facial 21 07/08/19 21:20 156/110 07/08/19 21:00 Room Air 07/08/19 20:00 98.2 97 18 156/110 (125) 98 07/08/19 20:00 89 07/08/19 19:00 98.0 97 23 140/73 (95) 98 07/08/19 18:40 78 20 98 Room Air 21 70 18 98 07/08/19 16:00 90 Intake and Output 07/08/19 07/09/19 19:00 07:00 Intake Total 350 ml 250 ml Output Total 850 ml Balance -500 ml 250 ml Intake Oral 320 ml 250 ml IV Total 30 ml Output Urine Total 850 ml # Voids 3 2 # Bowel Movements 1 Laboratory Tests 07/09/19 05:45: White Blood Count 8.4, Red Blood Count 4.52, Hemoglobin 12.3, Hematocrit 38.4, Mean Corpuscular Volume 85, Mean Corpuscular Hemoglobin 27.3, Mean Corpuscular Hemoglobin Concent 32.1, Red Cell Distribution Width 14.0, Platelet Count 284, Mean Platelet Volume 5.6L, Neutrophils (%) (Auto) 60.5, Lymphocytes (%) (Auto) 29.3, Monocytes (%) (Auto) 8.0, Eosinophils (%) (Auto) 1.5, Basophils (%) (Auto ) 0.7, Sodium Level 142, Potassium Level 4.0, Chloride Level 105, Carbon Dioxide Level 31, Anion Gap 6, Blood Urea Nitrogen 33H, Creatinine 1.3, Estimat Glomerular Filtration Rate 52.4, Glucose Level 301H, Calcium Level 9.9, Magnesium Level 2.0 Height (Feet): 5 Height (Inches): 7.00 Weight (Pounds): 286 General Appearance: WD/WN, no apparent distress, alert EENT: PERRL/EOMI, normal ENT inspection Neck: non-tender, normal alignment, supple Cardiovascular: normal peripheral pulses, normal rate, regular rhythm, no JVD Respiratory/Chest: chest wall non-tender, other - mild expiratory wheezing ( improved since yesterday) Abdomen: normal bowel sounds, non tender, soft, no organomegaly, no mass Extremities: other - no LE edema bilaterally Neurologic: sizer machine II-XII grossly normal, no motor/sensory deficits, alert, oriented x 3 Skin: normal pigmentation, warm/dry Nathaniel Perkins D.O. Jul 09, 2019 14:53
[2019-07-09 16:00] VITALS: BP 138/83
--- NOTE | 2019-07-09 17:00 | NUR ---
NURSE NOTES: Dr. Carlson ordered front wheel walker with sitting pad on the way back to discharge. Carried out the order. Will continue plan of care.
--- NOTE | 2019-07-09 18:00 | NUR ---
NURSE NOTES: The patient is stable without acute distress or shortness of breath. Will continue plan of care.
--- NOTE | 2019-07-09 19:20 | NUR ---
HAND-OFF: Report given to ELAN Edwards. The patient is resting on the bed without acute distress or shortness of breath. The patient's bed in the lowest position, call light in reach, and fall and aspiration precaution reinforced. IV site intact and patent. Endorsed plan fo care.
[2019-07-09 20:00] VITALS: BP 152/97
[2019-07-09] MEDS: Atorvastatin 20mg tab ORAL SCH (22:21)
[2019-07-10] VITALS: BP 155/83
[2019-07-10] MEDS: Albuterol/Ipratropium 3ml neb HHN SCH ×2 (01:00→07:40)
[2019-07-10 04:00] VITALS: BP 143/71
--- NOTE | 2019-07-10 06:00 | Progress Note ---
DATE: 07/09/2019 SUBJECTIVE: The patient is doing well. Decreased anxiety. Compliant with medication. No behavior issues. MENTAL STATUS EXAMINATION: Oriented to time, self, place, and situation. Mood is anxious. Affect is constricted. Congruent with mood. Thought process, linear and goal oriented. Thought content, no suicidal or homicidal ideation. ASSESSMENT: Stable. PLAN: 1. We will continue current medications. 2. Provide the patient with reality orientation and supportive therapy. Alannah Garcia M.D. DR: Melia JOB#: [id number] CC:
[2019-07-10] MEDS: Levothyroxine 125mcg tab ORAL SCH (06:31)
[2019-07-10] MEDS: NovoLOG Insulin Flexpen SUBQ SCH ×7 (06:34→20:44)
[2019-07-10] MEDS: Levemir Flexpen SUBQ SCH ×2 (06:38→12:08)
--- NOTE | 2019-07-10 07:04 | NUR ---
HAND-OFF: Report given to Bernard, patient in stable condition, plan of care endorsed..
[2019-07-10 08:00] VITALS: BP 141/77
--- NOTE | 2019-07-10 08:08 | NUR ---
NURSE NOTES: Pt in bed in low position, HOB in high fowlers, pt watching tv and eating breakfast, denies pain, call light at bedside, IV patent and intact, pt is ambulatory, pt has bathroom privileges, no s/s of distress or sob noted.
[2019-07-10] MEDS: Aspirin EC 81mg tab ORAL SCH (10:06)
[2019-07-10] MEDS: Furosemide 40mg tab ORAL SCH (10:06)
[2019-07-10] MEDS: Heparin 5000 units/ml inj SUBQ SCH ×2 (10:08→21:14)
[2019-07-10] MEDS: Docusate 100mg cap ORAL SCH ×2 (10:08→21:09)
[2019-07-10] MEDS: oxyCODONE HCL/Acetaminophen 5/325mg ORAL PRN (10:08)
[2019-07-10] MEDS: LORazepam Inj 2mg/ml 1ml IV PRN (11:12)
[2019-07-10 11:50] LABS: EOSINOPHILS % (AUTO) 0.3 % (0.0-3.0); HEMATOCRIT 39.7 % (37.0-47.0); HEMOGLOBIN 12.3 G/DL (12.0-16.0); LYMPHOCYTES % (AUTO) 15.7 % (20.0-45.0); MEAN CORPUSCULAR VOLUME 86 FL (80-99); MONOCYTES % (AUTO) 5.3 % (1.0-10.0); NEUTROPHILS % (AUTO) 77.7 % (45.0-75.0); PLATELET COUNT 283 K/UL (150-450); WHITE BLOOD COUNT 11.3 K/UL (4.8-10.8)
[2019-07-10 11:57] LABS: ANION GAP 7 mmol/L (5-15); BLOOD UREA NITROGEN 43 mg/dL (7-18); CALCIUM 9.7 MG/DL (8.5-10.1); CARBON DIOXIDE 28 MMOL/L (21-32); CHLORIDE 102 MMOL/L (98-107); CREATININE 1.4 MG/DL (0.55-1.30); POTASSIUM 3.8 MMOL/L (3.5-5.1); SODIUM 137 MMOL/L (136-145)
[2019-07-10 12:00] VITALS: BP 162/111
--- NOTE | 2019-07-10 12:49 | GI Progress Note ---
Assessment/Plan Problems: (1) Obesity ICD Codes: E66.9 - Obesity, unspecified SNOMED: 428802723 (2) Dysphagia ICD Codes: R13.10 - Dysphagia, unspecified SNOMED: 12006766, 636473564 (3) Diabetes ICD Codes: E11.9 - Type 2 diabetes mellitus without complications SNOMED: 16039206 Status: stable Status Narrative Discussed with Dr. Aguillon Assessment/Plan s/p EGD noted with gastritis. No obvious ulceration, mass, ady or any other pathology was seen. ST evaluation reviewed. Okay for DC per GI standpoint Follow up biopsy results and treat accordingly. advance diet as tolerated prn transfusions ppi DM management reglan prn for GI motility follow labs needs outpatient colonoscopy The patient was seen and examined at bedside and all new and available data was reviewed in the patients chart. I agree with the above findings, impression and plan. (Patient seen earlier today. Signature stamp does not reflect patient encounter time.). - Higinio Aguillon MD Subjective Subjective Denies any abdominal pain Denies any nausea vomiting Patient still complains of slight odynophagia Objective Last 24 Hour Vital Signs Date Time Temp Pulse Resp B/P (MAP) Pulse Ox O2 Delivery O2 Flow Rate FiO2 07/10/19 10:38 97.7 07/10/19 10:07 82 141/77 07/10/19 10:06 82 141/77 07/10/19 09:03 Room Air 07/10/19 08:00 97.7 82 18 141/77 (98) 96 07/10/19 07:35 82 18 100 Room Air 21 82 18 100 07/10/19 06:31 143/71 07/10/19 04:00 98.0 81 20 143/71 (95) 97 07/10/19 04:00 73 07/10/19 01:19 74 19 99 Facial 21 07/10/19 00:00 Room Air 07/10/19 00:00 90 07/10/19 00:00 98.5 98 20 155/83 (107) 97 07/09/19 22:24 152/65 07/09/19 20:00 88 07/09/19 20:00 98.0 87 20 152/97 (115) 96 07/09/19 19:26 84 18 100 Room Air 21 87 18 100 07/09/19 16:37 85 18 98 Room Air 21 07/09/19 16:00 91 07/09/19 16:00 98.4 92 18 138/83 (101) 96 07/09/19 13:42 96/54 07/09/19 13:36 73 18 99 Room Air 21 80 18 99 Intake and Output 07/09/19 07/10/19 18:59 06:59 Intake Total 1000 ml Balance 1000 ml Intake Oral 1000 ml # Voids 9 3 Laboratory Tests Test 07/10/19 11:35 White Blood Count 11.3 K/UL (4.8-10.8) H Red Blood Count 4.60 M/UL (4.20-5.40) Hemoglobin 12.3 G/DL (12.0-16.0) Hematocrit 39.7 % (37.0-47.0) Mean Corpuscular Volume 86 FL (80-99) Mean Corpuscular Hemoglobin 26.8 PG (27.0-31.0) L Mean Corpuscular Hemoglobin Concent 31.1 G/DL (32.0-36.0) L Red Cell Distribution Width 14.0 % (11.6-14.8) Platelet Count 283 K/UL (150-450) Mean Platelet Volume 5.6 FL (6.5-10.1) L Neutrophils (%) (Auto) 77.7 % (45.0-75.0) H Lymphocytes (%) (Auto) 15.7 % (20.0-45.0) L Monocytes (%) (Auto) 5.3 % (1.0-10.0) Eosinophils (%) (Auto) 0.3 % (0.0-3.0) Basophils (%) (Auto) 1.0 % (0.0-2.0) Sodium Level 137 MMOL/L (136-145) Potassium Level 3.8 MMOL/L (3.5-5.1) Chloride Level 102 MMOL/L (98-107) Carbon Dioxide Level 28 MMOL/L (21-32) Anion Gap 7 mmol/L (5-15) Blood Urea Nitrogen 43 mg/dL (7-18) H Creatinine 1.4 MG/DL (0.55-1.30) H Estimat Glomerular Filtration Rate 48.0 mL/min (>60) Glucose Level 347 MG/DL (74-106) H Calcium Level 9.7 MG/DL (8.5-10.1) Height (Feet): 5 Height (Inches): 7.00 Weight (Pounds): 285 General Appearance: WD/WN, no apparent distress, alert Cardiovascular: normal rate Respiratory/Chest: normal breath sounds, no respiratory distress Abdominal Exam: normal bowel sounds, non tender, soft Extremities: normal range of motion, non-tender Alec Ross NP Jul 10, 2019 12:49
[2019-07-10 16:00] VITALS: BP 151/91
--- NOTE | 2019-07-10 16:03 | NUR ---
DISCHARGED PLANNED: PATIENT IS DISCHARGED WITH INTENT TO SNF MULTIPLE FACILITIES ATTEMPTED SHE IS BEING DENIED DUE TO AGE DISCHARGE HOME SATURDAY PATIENT ORDERED FRONT WHEEL WALKER WITH SEAT TO BE DELIVERED TO HER HOME Addendum: 07/13/19 at 0831 by ALEJANDRO ROBLEDO LVN DISCHARGED PLAN: PATIENT IS DISCHARGED WITH INTENT TO SNF SHE IS BEING DENIED DUE TO AGE MULTIPLE FACILITIES ATTEMPTED: [facility] T:[phone] [facility] T:[phone] [facility] T:[phone] [facility] T:[phone] F:[phone] [facility] T:[phone] F:[phone] [facility] T:[phone] F:[phone] [facility] T:[phone] F:[phone] [facility] T:[phone] F:[phone] WAITING FOR A RESPONSE.
--- NOTE | 2019-07-10 16:21 | NUR ---
DISCHARGED PLANNED: [facility] CALLED JO[facility] T: [phone] T:[phone] F:[phone] WILL GET APPROVAL FROM [facility] SERGE NEWMAN T: [phone] [facility] IS AWARE OF PATIENT NEED
--- NOTE | 2019-07-10 16:31 | General Progress Note ---
Assessment/Plan Problem List: (1) Dysphagia ICD Codes: R13.10 - Dysphagia, unspecified SNOMED: 49425975, 312338448 (2) Shortness of breath ICD Codes: R06.02 - Shortness of breath SNOMED: 103373073 (3) Diabetes ICD Codes: E11.9 - Type 2 diabetes mellitus without complications SNOMED: 54133757 (4) Acute asthma exacerbation ICD Codes: J45.901 - Acute asthma exacerbation SNOMED: 245241713 (5) Anxiety disorder ICD Codes: F41.9 - Anxiety disorder, unspecified SNOMED: 590464914 (6) CHF (congestive heart failure) ICD Codes: I50.9 - Heart failure, unspecified SNOMED: 57325200 Status: stable Assessment/Plan: Katherine Gandara is a 53 yo woman with PMH of IDDM with neuropathy, CRISTINE on CPAP, asthma/COPD not on home O2, HFpEF (60%), HTN, hypothyroid, severe obesity and anxiety who presented with worsening JETER and neck pain, found with overall unremarkable CBC, BMP notable for glucose 360, CXR with borderline cardiomegaly but otherwise unremarkable, and unremarkable Xray of neck. Patient admitted for acute asthma/COPD exacerbation. inability to ambulate. # Acute asthma/COPD exacerbation- Resolving. Back to baseline hx CRISTINE on CPAP - received solumedrol 40mg IV q8hr for one day and then duonebs q6hr ATC - Now on prednisone 40mg Po daily. Continue PO prednisone. One extra dose of soluemdrol 125mg IV x 1. Patient without infectious symptoms or changes in sputum purulence/production, will hold off on abx at this time. - EKG with NSR and no ST-T wave abnormalities. - Cardiac etiology included on differential but given report of recent unremarkable stress test, low suspicion for ACS. Can obtain outpatient stress test record - CXR with borderline cardiomegaly but otherwise not overtly impressive. Pro BNP 70s - Continue home amlodipine 10mg PO daily, aspirin 81mg PO daily, atorvastatin 40mg PO qhs, - Continue home CPAP qhs #leukocytosis 2/2 steroids - no signs/symptoms of infection - continue to monitor #Chronic HFpEF (EF 60% on TTE one year ago), compensated. Mild LVH - Repeat TTE - Continue lasix 40mg PO daily #HTN, stable - Continue home clonidine 0.3mg PO TID, labetalol 100mg PO daily (not sure why only on once daily), HCTZ 25mg PO daily #Odynophagia for solids/liquids, could be from enlarged adenoids? no exudates on exam. viral? #gastritis per EGD 07/07/19. Follow up on bx > CT neck with contrast unremarkable: showed enlarged adenoids > EGD showed no strictures. No thrush on EGD > Barium swallow: Mild oropharyngeal dysphagia. No aspiration. - Appreciate GI recommendations: no further interventions. F/u on bx results and treat H. Pylori. - Appreciate INVENTORY ASSOCIATE recommendations - S/p nystatin swish and swallow as no evidence of thrush on exam - Follow up biopsy from EGD to rule out H. Pylroi - ENT follow up as outpatient - Home health speech therapy as outpatient DM2 on insulin, with hyperglycemia. Last A1C 12.6 in 01/2019 - IMPROVING - continue Levemir 36units QAM and 31 units QPM - Continue Novolog to 18 units TID - Monitor FS ACHS and adjust as needed - Patient states no longer on glyburide at home #hypothyroidism -Continue home levothyroxine 125mcg PO Daily #Psych: anxiety. ? depression - Continue home klonopin 2mg PO BID - Ativan 0.5mg q6hr PRN anxiety - Appreciate Psychiatry recommendations FEN Regular diet (patient refusing carbs consistent cardiac diet) Heparin subq DVT ppx PT evaluation. ? SNF Full Code Dispo: Home with home health PT/nursing Discussed with patient, RN, PT, and INVENTORY ASSOCIATE. I spent 36 minutes on this patient's care, including >50% dedicated to counseling and/or coordination of care Subjective Date patient seen: Jul 10, 2019 Constitutional: Denies: chills, diaphoresis, fever, malaise, weakness, other HEENT: Denies: eye pain, blurred vision, tearing, double vision, ear pain, ear discharge, nose pain, nose congestion, throat pain, throat swelling, mouth pain , mouth swelling, other Cardiovascular: Denies: chest pain, edema, irregular heart rate, lightheadedness, palpitations, syncope, other Respiratory: Denies: cough, orthopnea, shortness of breath, SOB with excertion , SOB at rest, sputum, stridor, wheezing, other Gastrointestinal/Abdominal: Denies: abdomen distended, abdominal pain, black stools, tarry stools, blood in stool, constipated, diarrhea, difficulty swallowing, nausea, poor appetite, poor fluid intake, rectal bleeding, vomiting , other Genitourinary: Denies: burning, discharge, frequency, flank pain, hematuria, incontinence, pain, urgency, other Neurologic/Psychiatric: Denies: anxiety, depressed, emotional problems, headache, numbness, paresthesia, pre-existing deficit, seizure, tingling, tremors, weakness, other Endocrine: Denies: excessive sweating, flushing, intolerance to cold, intolerance to heat, increased hunger, increased thirst, increased urine, unexplained weight gain, unexplained weight loss, other Hematologic/Lymphatic: Denies: anemia, easy bleeding, easy bruising, other Allergies: Coded Allergies: FISH CONTAINING PRODUCTS (Unverified Allergy, Unknown, 11/02/13) IBUPROFEN (Unverified Allergy, Unknown, 11/02/13) PENICILLIN G (Unverified Allergy, Unknown, 11/02/13) PENICILLINS (Unverified Allergy, Unknown, 11/28/14) Subjective No acute events overnight COPD exacerbation: Able to give IV solumedrol yesterday. breathing much better after this. back to baseline yet. On room air. Cough has improved. Non-purulent , intermittent, dry. Dm2: sugars still elevated. no hypoglycemic events. no polyuria, polyphagia. Odynophagia: Stable. about the same Objective Last 24 Hour Vital Signs Date Time Temp Pulse Resp B/P (MAP) Pulse Ox O2 Delivery O2 Flow Rate FiO2 07/10/19 14:44 162/111 07/10/19 12:00 98.0 77 18 162/111 (128) 96 07/10/19 12:00 69 07/10/19 10:38 97.7 07/10/19 10:07 82 141/77 07/10/19 10:06 82 141/77 07/10/19 09:03 Room Air 07/10/19 08:00 97.7 82 18 141/77 (98) 96 07/10/19 07:46 79 07/10/19 07:35 82 18 100 Room Air 21 82 18 100 07/10/19 06:31 143/71 07/10/19 04:00 98.0 81 20 143/71 (95) 97 07/10/19 04:00 73 07/10/19 01:19 74 19 99 Facial 21 07/10/19 00:00 Room Air 07/10/19 00:00 90 07/10/19 00:00 98.5 98 20 155/83 (107) 97 07/09/19 22:24 152/65 07/09/19 20:00 88 07/09/19 20:00 98.0 87 20 152/97 (115) 96 07/09/19 19:26 84 18 100 Room Air 21 87 18 100 07/09/19 16:37 85 18 98 Room Air 21 Intake and Output 07/09/19 07/10/19 18:59 06:59 Intake Total 1000 ml Balance 1000 ml Intake Oral 1000 ml # Voids 9 3 Laboratory Tests 07/10/19 11:35: White Blood Count 11.3H, Red Blood Count 4.60, Hemoglobin 12.3, Hematocrit 39.7 , Mean Corpuscular Volume 86, Mean Corpuscular Hemoglobin 26.8L, Mean Corpuscular Hemoglobin Concent 31.1L, Red Cell Distribution Width 14.0, Platelet Count 283, Mean Platelet Volume 5.6L, Neutrophils (%) (Auto) 77.7H, Lymphocytes (%) (Auto) 15.7L, Monocytes (%) (Auto) 5.3, Eosinophils (%) (Auto) 0.3, Basophils (%) (Auto) 1.0, Sodium Level 137, Potassium Level 3.8, Chloride Level 102, Carbon Dioxide Level 28, Anion Gap 7, Blood Urea Nitrogen 43H, Creatinine 1.4H, Estimat Glomerular Filtration Rate 48.0, Glucose Level 347H, Calcium Level 9.7 Height (Feet): 5 Height (Inches): 7.00 Weight (Pounds): 285 General Appearance: WD/WN, no apparent distress, alert EENT: PERRL/EOMI, normal ENT inspection Neck: non-tender, normal alignment, supple Cardiovascular: normal peripheral pulses, normal rate, regular rhythm, no gallop/murmur Respiratory/Chest: chest wall non-tender, lungs clear, normal breath sounds Abdomen: normal bowel sounds, non tender, soft Extremities: normal range of motion, non-tender Skin: normal pigmentation, warm/dry Nathaniel Perkins D.O. Jul 10, 2019 16:31
[2019-07-10] MEDS: LORazepam 0.5mg tab ORAL PRN (18:32)
--- NOTE | 2019-07-10 19:05 | NUR ---
HAND-OFF: Report given to elza Kay.
--- NOTE | 2019-07-10 19:39 | NUR ---
NURSE NOTES: Received patient from ELAN Wagner patient in stable condition, AOx4, denies pain at this time, no IV access, patient removed it by accident during the day shift, bed low&locked, side rails upx3,call light within reach, will continue to monitor and reassess
[2019-07-10 20:00] VITALS: BP 165/99
[2019-07-10] MEDS: Atorvastatin 20mg tab ORAL SCH (21:10)
[2019-07-11] MEDS: Levothyroxine 125mcg tab ORAL SCH (06:14)
[2019-07-11] MEDS: NovoLOG Insulin Flexpen SUBQ SCH ×7 (06:16→20:18)
[2019-07-11] MEDS: oxyCODONE HCL/Acetaminophen 5/325mg ORAL PRN (06:22)
--- NOTE | 2019-07-11 07:00 | NUR ---
NURSE NOTES: Received report from Ralph Edwards sitting in chair eating breakfast, no complaints of pain, no apparent distress noted, call light within reach.
--- NOTE | 2019-07-11 07:17 | NUR ---
HAND-OFF: Report given to ELAN Hilario, patient in stable condition, plan of care endorsed.
[2019-07-11] MEDS: Albuterol/Ipratropium 3ml neb HHN PRN ×2 (07:56→18:38)
[2019-07-11] MEDS: Levemir Flexpen SUBQ SCH (07:56)
[2019-07-11 08:00] VITALS: BP 131/82
--- NOTE | 2019-07-11 08:00 | NUR ---
NURSE NOTES: Pt walking out of room, stating she needs breathing treatment, RT on floor, RN, RT, and awake overnight monitor assisted pt back to bed via wheelchair, monitor checked, and RT giving breathing treatment.
[2019-07-11] MEDS ORDERED: Levemir Flexpen SUBQ SCH ×2 (09:00→21:00)
[2019-07-11] MEDS: Heparin 5000 units/ml inj SUBQ SCH ×2 (09:00→20:18)
[2019-07-11] MEDS: Docusate 100mg cap ORAL SCH ×2 (09:40→20:06)
[2019-07-11] MEDS: LORazepam 0.5mg tab ORAL PRN ×2 (09:40→23:51)
[2019-07-11] MEDS: Furosemide 40mg tab ORAL SCH (09:41)
[2019-07-11] MEDS: Aspirin EC 81mg tab ORAL SCH (09:41)
--- NOTE | 2019-07-11 11:30 | NUR ---
NURSE NOTES: Pt stating she wants to take her money out of safe to buy herself snacks. RN discussed the safe keeping of having money in the safe versus at bedside and than once items are removed from the safe we cannot put them back. RN also educated pt on adhering to the ordered diabetic diet as her blood sugars have been over 300 consistently. RN provided educations to pt about food plan and glucose effects of food and how foods eating impacting blood sugar and need for insulin. Pt verbalizes understanding, but believes [facility] is not providing her with the correct type of insulin to help reduce her blood sugar, educated pt about reason for Novolog vs humolin that [facility] only carries Novolog. Pt insisting on leaving unit to get snacks and get money out of safe. Director Of Graduate Admissions made aware of pt's behavior.
[2019-07-11 12:00] VITALS: BP 158/96
--- NOTE | 2019-07-11 12:57 | General Progress Note ---
Assessment/Plan Problem List: (1) Dysphagia ICD Codes: R13.10 - Dysphagia, unspecified SNOMED: 18782370, 716062564 (2) Shortness of breath ICD Codes: R06.02 - Shortness of breath SNOMED: 937908124 (3) Diabetes ICD Codes: E11.9 - Type 2 diabetes mellitus without complications SNOMED: 48001305 (4) Acute asthma exacerbation ICD Codes: J45.901 - Acute asthma exacerbation SNOMED: 426319929 (5) Anxiety disorder ICD Codes: F41.9 - Anxiety disorder, unspecified SNOMED: 129489118 (6) CHF (congestive heart failure) ICD Codes: I50.9 - Heart failure, unspecified SNOMED: 60846431 Status: stable Assessment/Plan: Katherine Gandara is a 53 yo woman with PMH of IDDM with neuropathy, CRISTINE on CPAP, asthma/COPD not on home O2, HFpEF (60%), HTN, hypothyroid, severe obesity and anxiety who presented with worsening JETER and neck pain, found with overall unremarkable CBC, BMP notable for glucose 360, CXR with borderline cardiomegaly but otherwise unremarkable, and unremarkable Xray of neck. Patient admitted for acute asthma/COPD exacerbation. inability to ambulate. # Acute asthma/COPD exacerbation- Worsening today. may be related to anxiety as well. hx CRISTINE on CPAP - received solumedrol 40mg IV q8hr for one day and then duonebs q6hr ATC - Now on prednisone 40mg Po daily. Continue PO prednisone. One extra dose of soluemdrol 125mg IV x 1. - Given persistence of symptoms will start Azithromycin 500mg x 1 and 250mg Po daily for 4 more days - Repeat 2v CXR - will consider pulm consult tomorrow if still not improving - EKG with NSR and no ST-T wave abnormalities. - Cardiac etiology included on differential but given report of recent unremarkable stress test, low suspicion for ACS. Can obtain outpatient stress test record - CXR with borderline cardiomegaly but otherwise not overtly impressive. Pro BNP 70s - Continue home amlodipine 10mg PO daily, aspirin 81mg PO daily, atorvastatin 40mg PO qhs, - Continue home CPAP qhs #leukocytosis 2/2 steroids - no signs/symptoms of infection - continue to monitor #Chronic HFpEF (EF 60% on TTE one year ago), compensated. Mild LVH - Repeat TTE - Continue lasix 40mg PO daily #HTN, stable - Continue home clonidine 0.3mg PO TID, labetalol 100mg PO daily (not sure why only on once daily), HCTZ 25mg PO daily #Odynophagia for solids/liquids, could be from enlarged adenoids? no exudates on exam. viral? #gastritis per EGD 07/07/19. Follow up on bx > CT neck with contrast unremarkable: showed enlarged adenoids > EGD showed no strictures. No thrush on EGD > Barium swallow: Mild oropharyngeal dysphagia. No aspiration. - Appreciate GI recommendations: no further interventions. F/u on bx results and treat H. Pylori. - Appreciate ENVIRONMENTAL STUDIES DEPARTMENT CHAIR recommendations - S/p nystatin swish and swallow as no evidence of thrush on exam - Follow up biopsy from EGD to rule out H. Pylroi - ENT follow up as outpatient - Home health speech therapy as outpatient DM2 on insulin, with hyperglycemia. Last A1C 12.6 in 01/2019 - IMPROVING - Increase Levemir to 36units QAM and 41 units QPM - Continue Novolog to 21 units TID - Monitor FS ACHS and adjust as needed - Patient states no longer on glyburide at home #hypothyroidism -Continue home levothyroxine 125mcg PO Daily #Psych: anxiety. ? depression - Continue home klonopin 2mg PO BID - Ativan 0.5mg q6hr PRN anxiety - Appreciate Psychiatry recommendations FEN Regular diet (patient refusing carbs consistent cardiac diet) Heparin subq DVT ppx PT evaluation. ? SNF Full Code Dispo: Home with home health PT/nursing Discussed with patient, RN and patient. I spent 37 minutes on this patient's care, including >50% dedicated to counseling and/or coordination of care Time of note may not reflect time patient was seen Subjective Date patient seen: Jul 11, 2019 Constitutional: Denies: chills, diaphoresis, fever, malaise, weakness, other HEENT: Denies: eye pain, blurred vision, tearing, double vision, ear pain, ear discharge, nose pain, nose congestion, throat pain, throat swelling, mouth pain , mouth swelling, other Cardiovascular: Denies: chest pain, edema, irregular heart rate, lightheadedness, palpitations, syncope, other Respiratory: Denies: cough, orthopnea, shortness of breath, SOB with excertion , SOB at rest, sputum, stridor, wheezing, other Gastrointestinal/Abdominal: Denies: abdomen distended, abdominal pain, black stools, tarry stools, blood in stool, constipated, diarrhea, difficulty swallowing, nausea, poor appetite, poor fluid intake, rectal bleeding, vomiting , other Genitourinary: Denies: burning, discharge, frequency, flank pain, hematuria, incontinence, pain, urgency, other Neurologic/Psychiatric: Denies: anxiety, depressed, emotional problems, headache, numbness, paresthesia, pre-existing deficit, seizure, tingling, tremors, weakness, other Endocrine: Denies: excessive sweating, flushing, intolerance to cold, intolerance to heat, increased hunger, increased thirst, increased urine, unexplained weight gain, unexplained weight loss, other Hematologic/Lymphatic: Denies: anemia, easy bleeding, easy bruising, other Allergies: Coded Allergies: FISH CONTAINING PRODUCTS (Unverified Allergy, Unknown, 11/02/13) IBUPROFEN (Unverified Allergy, Unknown, 11/02/13) PENICILLIN G (Unverified Allergy, Unknown, 11/02/13) PENICILLINS (Unverified Allergy, Unknown, 11/28/14) Subjective No acute events overnight Asthma/COPD exacerbation: Shortness of breath and dyspnea worse today. On 2L nasal cannula. increased cough/purulence. Non-purulent, intermittent, dry. Dm2: sugars still elevated. no hypoglycemic events. no polyuria, polyphagia. Odynophagia: Stable. about the same Objective Last 24 Hour Vital Signs Date Time Temp Pulse Resp B/P (MAP) Pulse Ox O2 Delivery O2 Flow Rate FiO2 07/11/19 09:39 86 131/82 07/11/19 09:00 86 131/82 07/11/19 08:51 Room Air 07/11/19 08:00 97.2 86 20 131/82 (98) 100 07/11/19 07:53 86 24 100 Nasal Cannula 2.0 28 90 24 99 07/11/19 07:52 87 07/11/19 06:14 155/85 07/11/19 04:00 61 07/11/19 00:00 69 07/10/19 21:12 165/99 07/10/19 21:00 Room Air 07/10/19 20:00 79 07/10/19 20:00 96.8 74 20 165/99 (121) 96 07/10/19 16:00 97.5 73 22 151/91 (111) 96 07/10/19 14:44 162/111 Intake and Output 07/10/19 07/11/19 19:00 07:00 Intake Total 1030 ml Output Total 850 ml Balance 180 ml Intake Oral 1000 ml IV Total 30 ml Output Urine Total 850 ml # Voids 3 3 # Bowel Movements 1 Height (Feet): 5 Height (Inches): 7.00 Weight (Pounds): 286 General Appearance: WD/WN, no apparent distress, alert EENT: PERRL/EOMI, normal ENT inspection Neck: non-tender, normal alignment, supple Cardiovascular: normal peripheral pulses, normal rate, regular rhythm, no JVD Respiratory/Chest: chest wall non-tender, other - expiratory wheezes Abdomen: normal bowel sounds, non tender, soft Extremities: normal range of motion, non-tender, normal inspection Neurologic: parcel carrier II-XII grossly normal, no motor/sensory deficits, abnormal gait , alert, oriented x 3 Skin: normal pigmentation, warm/dry Nathaniel Perkins D.O. Jul 11, 2019 12:57
[2019-07-11] MEDS ORDERED: Solu-MEDROL 125mg Inj IVP SCH (13:00)
[2019-07-11] MEDS ORDERED: Azithromycin 250mg tab ORAL SCH (13:00)
--- NOTE | 2019-07-11 13:25 | NUR ---
PT Note Attempted to see patient for treatment x 2 but patient refused. First, patient was c/o SOB; on second attempt, patient c/o muscle cramps. RN was made aware.
--- NOTE | 2019-07-11 14:00 | NUR ---
CASE MANAGEMENT:REVIEW 07/10/19 SI: COPD EXACERBATION. T 97.5 HR 74 RR 20 B/P 165/99 SATS 99% ON RA WBC 11.3 BUN 43 CR 1.4 GLU 347 IS: LEVEMIR SUBQ QAM LIPITOR PO QHS NORVASC PO QHS LASIX PO QD HCTZ PO QD PREDNISONE PO QD DUO NEB HHN Q4H PRN : 2E TELE UNIT DCP: PATIENT TO BE DISCHARGED TO HOME ONCE MEDICALLY CLEARED. PLAN OF CARE: DC PLANNING TO HOME W/ HH AND DME 07/11/19 SI: COPD EXACERBATION. T 97.4 HR 76 RR 18 B/P 158/96 SATS 96% ON RA LABS: NONE TODAY IS: LEVEMIR SUBQ QAM LIPITOR PO QHS NORVASC PO QHS LASIX PO QD HCTZ PO QD PREDNISONE PO QD DUO NEB HHN Q4H PRN SOLU MEDROL IV X1 : 2E TELE UNIT DCP: PATIENT TO BE DISCHARGED TO HOME ONCE MEDICALLY CLEARED. PLAN OF CARE: DC PLANNING TO HOME W/ HH AND DME
[2019-07-11 16:00] VITALS: BP 136/85
[2019-07-11] MEDS: LORazepam Inj 2mg/ml 1ml IV PRN (16:11)
--- NOTE | 2019-07-11 19:36 | NUR ---
HAND-OFF: Report given to ELAN Martinez. Pt stable.
--- NOTE | 2019-07-11 19:37 | NUR ---
NURSE NOTES: Received report from ELAN Hilario. Patient is awake, lying in semi rodriguez's; resting comfortably. A/Ox4. No signs of acute cardiorespiratory distress noted. Patient is in stable condition. Bed at lowest position, brakes on, siderailsx2. Call light within reach. Will continue to monitor. Addendum: 07/12/19 at 0447 by Michelle Nguyen RN No IV access.
[2019-07-11 20:00] VITALS: BP 129/65
[2019-07-11] MEDS: Atorvastatin 20mg tab ORAL SCH (20:07)
--- NOTE | 2019-07-11 23:38 | NUR ---
RESPIRATORY NOTE: Pt placed on CPAP for nightly use. Pt now on CPAP 6, 30%. Pt is on a Facial mask, skin intact, no redness/breakdowns noted. Foam tape applied on pt's nosebridge/cheeks/chin to prevent any irritations. Pt is alert/awake, follows commands. B/S juan c. diminished, nonproductive cough. CPAP machine plugged into red outlet, alarms on & audible. Pt resting comfortably, denies SOB/chest pain at this time. Will continue plan of care.
[2019-07-12] VITALS (7 sets, daily range): BP systolic 112–180; BP diastolic 56–93
--- NOTE | 2019-07-12 01:13 | NUR ---
NURSE NOTES: Patient complained of insomnia stating, "I can't sleep." Offered Benadryl to her, however, she refuses to take it. She said, "I'll try the Remeron if this helps me put to sleep." Gave Remeron medication as requested by the patient. However, initially patient refused the scheduled medication. Patient was placed on CPAP by RT. Comfort care rendered.
--- NOTE | 2019-07-12 04:07 | NUR ---
NURSE NOTES: Resting throughout the night. No significant change of condition noted. Will continue to monitor.
--- NOTE | 2019-07-12 05:43 | NUR ---
CASE MANAGEMENT: REVIEW 07/12/19 SI: COPD EXACERBATION. T 97.5 HR 60 RR 18 B/P 166/85 SATS 96% ON FACIAL FIO2 30 AM LABS PENDING IS: LEVEMIR SUBQ QAM LIPITOR PO QHS NORVASC PO QHS LASIX PO QD HCTZ PO QD PREDNISONE PO QD DUO NEB HHN Q4H PRN SOLU MEDROL IV X1 : 2E TELE UNIT DCP: PATIENT TO BE DISCHARGED TO HOME ONCE MEDICALLY CLEARED. PLAN OF CARE: DC PLANNING TO HOME W/ HH AND DME CXR
[2019-07-12] MEDS: Levothyroxine 125mcg tab ORAL SCH (06:03)
[2019-07-12] MEDS: NovoLOG Insulin Flexpen SUBQ SCH ×7 (06:06→20:46)
[2019-07-12] MEDS ORDERED: Levemir Flexpen SUBQ SCH ×5 (06:30→21:00)
--- NOTE | 2019-07-12 07:30 | NUR ---
NURSE NOTES: Received report from Michelle ANSARI. Pt in bed awake and oriented x4 . No c/o pain. No IV access noted. No acute distress noted. On monitor Sinus rhythm noted. Bed in lowest position and locked. O2 sat: 96% on room. Call light within east reach. Noted the patient walking unsteady and one person assist required. Will continue to plan of care.
--- NOTE | 2019-07-12 07:30 | NUR ---
HAND-OFF: Report given to ELAN Aly. Plan of care endorsed.
[2019-07-12] MEDS ORDERED: Azithromycin 250mg tab ORAL SCH (09:00)
[2019-07-12] MEDS: Heparin 5000 units/ml inj SUBQ SCH ×2 (09:00→20:37)
[2019-07-12] MEDS: Docusate 100mg cap ORAL SCH ×2 (09:06→20:43)
[2019-07-12] MEDS: Aspirin EC 81mg tab ORAL SCH (09:06)
[2019-07-12] MEDS: Furosemide 40mg tab ORAL SCH (09:07)
[2019-07-12] MEDS: LORazepam 0.5mg tab ORAL PRN (09:17)
[2019-07-12] MEDS ORDERED: traMADol 50mg tab ORAL PRN (10:45)
--- NOTE | 2019-07-12 11:23 | General Progress Note ---
Assessment/Plan Problem List: (1) Dysphagia ICD Codes: R13.10 - Dysphagia, unspecified SNOMED: 12588489, 975621520 (2) Shortness of breath ICD Codes: R06.02 - Shortness of breath SNOMED: 088021181 (3) Diabetes ICD Codes: E11.9 - Type 2 diabetes mellitus without complications SNOMED: 72724722 (4) Acute asthma exacerbation ICD Codes: J45.901 - Acute asthma exacerbation SNOMED: 024833797 (5) Anxiety disorder ICD Codes: F41.9 - Anxiety disorder, unspecified SNOMED: 805638620 (6) CHF (congestive heart failure) ICD Codes: I50.9 - Heart failure, unspecified SNOMED: 46701639 Status: stable Assessment/Plan: Katherine Gandara is a 53 yo woman with PMH of IDDM with neuropathy, CRISTINE on CPAP, asthma/COPD not on home O2, HFpEF (60%), HTN, hypothyroid, severe obesity and anxiety who presented with worsening JETER and neck pain, found with overall unremarkable CBC, BMP notable for glucose 360, CXR with borderline cardiomegaly but otherwise unremarkable, and unremarkable Xray of neck. Patient admitted for acute asthma/COPD exacerbation. inability to ambulate. # Acute asthma/COPD exacerbation- Improved today. Still with wheezing on exam. hx CRISTINE on CPAP - received solumedrol 40mg IV q8hr for one day and then duonebs q6hr ATC - Now on prednisone 40mg Po daily. Continue PO prednisone. One extra dose of soluemdrol 125mg IV x 1. - Will discharge with steroid taper. Has f/u with SECONDS INSPECTOR who visits her home next week. Cannot be discharged today because "would be crawling around on the floor. " Needs walker with seat which will be delivered tomorrow. - Given persistence of symptoms will continue Azithromycin 500mg x 1 and 250mg Po daily for 4 more days - Repeat 2v CXR - will consider pulm consult if worsens again - EKG with NSR and no ST-T wave abnormalities. - Cardiac etiology included on differential but given report of recent unremarkable stress test, low suspicion for ACS. Can obtain outpatient stress test record - CXR with borderline cardiomegaly but otherwise not overtly impressive. Pro BNP 70s - Continue home amlodipine 10mg PO daily, aspirin 81mg PO daily, atorvastatin 40mg PO qhs, - Continue home CPAP qhs #leukocytosis 2/2 steroids - no signs/symptoms of infection - continue to monitor #Chronic HFpEF (EF 60% on TTE one year ago), compensated. Mild LVH - Repeat TTE - Continue lasix 40mg PO daily #HTN, stable - Continue home clonidine 0.3mg PO TID, labetalol 100mg PO daily (not sure why only on once daily), HCTZ 25mg PO daily #Odynophagia for solids/liquids, could be from enlarged adenoids? no exudates on exam. viral? #gastritis per EGD 07/07/19. Follow up on bx > CT neck with contrast unremarkable: showed enlarged adenoids > EGD showed no strictures. No thrush on EGD > Barium swallow: Mild oropharyngeal dysphagia. No aspiration. - Appreciate GI recommendations: no further interventions. F/u on bx results and treat H. Pylori. - Appreciate BRIDGE IRONWORKER recommendations - S/p nystatin swish and swallow as no evidence of thrush on exam - Follow up biopsy from EGD to rule out H. Pylroi - ENT follow up as outpatient - Home health speech therapy as outpatient DM2 on insulin, with hyperglycemia. Last A1C 12.6 in 01/2019 - IMPROVING - Increase Levemir to 41 units QAM and 46 units QPM - Continue Novolog to 21 units TID - Monitor FS ACHS and adjust as needed - Patient states no longer on glyburide at home #hypothyroidism -Continue home levothyroxine 125mcg PO Daily #Psych: anxiety. ? depression - Continue home klonopin 2mg PO BID - Ativan 0.5mg q6hr PRN anxiety - Appreciate Psychiatry recommendations FEN Regular diet (patient refusing carbs consistent cardiac diet) Heparin subq DVT ppx PT evaluation. ? SNF Full Code Dispo: Home with home health PT/nursing, and speech Discussed with patient, RN and patient. I spent 36 minutes on this patient's care, including >50% dedicated to counseling and/or coordination of care Time of note may not reflect time patient was seen Subjective Date patient seen: Jul 12, 2019 Constitutional: Denies: chills, diaphoresis, fever, malaise, weakness, other HEENT: Denies: eye pain, blurred vision, tearing, double vision, ear pain, ear discharge, nose pain, nose congestion, throat pain, throat swelling, mouth pain , mouth swelling, other Cardiovascular: Denies: chest pain, edema, irregular heart rate, lightheadedness, palpitations, syncope, other Respiratory: Denies: cough, orthopnea, shortness of breath, SOB with excertion , SOB at rest, sputum, stridor, wheezing, other Gastrointestinal/Abdominal: Denies: abdomen distended, abdominal pain, black stools, tarry stools, blood in stool, constipated, diarrhea, difficulty swallowing, nausea, poor appetite, poor fluid intake, rectal bleeding, vomiting , other Genitourinary: Denies: burning, discharge, frequency, flank pain, hematuria, incontinence, pain, urgency, other Neurologic/Psychiatric: Denies: anxiety, depressed, emotional problems, headache, numbness, paresthesia, pre-existing deficit, seizure, tingling, tremors, weakness, other Endocrine: Denies: excessive sweating, flushing, intolerance to cold, intolerance to heat, increased hunger, increased thirst, increased urine, unexplained weight gain, unexplained weight loss, other Hematologic/Lymphatic: Denies: anemia, easy bleeding, easy bruising, other Allergies: Coded Allergies: FISH CONTAINING PRODUCTS (Unverified Allergy, Unknown, 11/02/13) IBUPROFEN (Unverified Allergy, Unknown, 11/02/13) PENICILLIN G (Unverified Allergy, Unknown, 11/02/13) PENICILLINS (Unverified Allergy, Unknown, 11/28/14) Subjective No acute events overnight Asthma/COPD exacerbation: SOB is much improved. On room air. Still with occasional dry cough, no purulence. No fevers, chills. Dm2: sugars still elevated. Required 31 units SSI. no hypoglycemic events. no polyuria, polyphagia. Odynophagia: Stable. about the same, controlled with pain meds Objective Last 24 Hour Vital Signs Date Time Temp Pulse Resp B/P (MAP) Pulse Ox O2 Delivery O2 Flow Rate FiO2 07/12/19 09:08 82 180/93 07/12/19 09:07 82 180/93 07/12/19 09:00 Room Air 07/12/19 08:00 84 07/12/19 08:00 97.4 82 20 180/93 (122) 95 07/12/19 06:03 166/85 07/12/19 04:00 60 07/12/19 04:00 97.5 63 18 166/85 (112) 96 07/12/19 01:19 83 22 97 Facial 30 07/12/19 00:00 77 07/12/19 00:00 97.9 72 18 166/83 (110) 98 07/11/19 23:36 78 19 96 Facial 30 07/11/19 21:36 129/65 07/11/19 21:00 Room Air 07/11/19 20:00 74 07/11/19 20:00 97.2 86 18 129/65 (86) 99 07/11/19 18:47 88 20 98 Room Air 21 07/11/19 18:37 83 20 94 Room Air 21 07/11/19 16:00 98.3 74 20 136/85 (102) 97 07/11/19 15:54 88 07/11/19 13:47 158/96 07/11/19 12:00 70 07/11/19 12:00 97.4 76 18 158/96 (116) 97 Intake and Output 07/11/19 07/12/19 19:00 07:00 Intake Total 800 ml Balance 800 ml Intake Oral 800 ml # Voids 3 # Bowel Movements 1 Height (Feet): 5 Height (Inches): 7.00 Weight (Pounds): 296 General Appearance: WD/WN, no apparent distress, alert EENT: PERRL/EOMI, normal ENT inspection Neck: non-tender, normal alignment, supple Cardiovascular: normal peripheral pulses, normal rate, regular rhythm, no JVD Respiratory/Chest: chest wall non-tender, other - mild expiratory wheezing Abdomen: normal bowel sounds, non tender, soft Extremities: normal range of motion, non-tender Skin: normal pigmentation, warm/dry Nathaniel Perkins D.O. Jul 12, 2019 11:23
--- NOTE | 2019-07-12 13:30 | NUR ---
NURSE NOTES: The patient c/o pain meds and asks to resume the same pain meds. Aldo Hernández paged and orders to percocet 5/325mg po for mild to moderated pain. Percocet 10/325mg po for mod- to severe pain. Orders read back and orders carried out. Will continue to plan of care.
[2019-07-12] MEDS ORDERED: Albuterol/Ipratropium 3ml neb HHN PRN ×2 (13:45→15:30)
[2019-07-12] MEDS ORDERED: Albuterol/Ipratropium 3ml neb HHN SCH (13:45)
[2019-07-12] MEDS ORDERED: oxyCODONE HCL/Acetaminophen 5/325mg ORAL PRN ×2 (13:45→18:00)
--- NOTE | 2019-07-12 15:04 | NUR ---
HAND-OFF: Report given to April HELTON. Pt remains stable.
[2019-07-12] MEDS ORDERED: LORazepam 0.5mg tab ORAL PRN (15:45)
[2019-07-12] MEDS ORDERED: LORazepam Inj 2mg/ml 1ml IV PRN (15:45)
--- NOTE | 2019-07-12 15:45 | NUR ---
NURSE NOTES: RECEIVED PATIENT A/A/OX4. APPEARED ANXIOUS DUE TO MISCOMMUNICATION. ACCDG FROM PATIENT SHE DOES NOT KNOW THE REASON WHY SHE IS BEING TRANSFERRED UP HERE. HAD EXPLAINED TO PATIENT AND PATIENT NOW CALMED DOWN. PERSONAL BELONGINGS REVIEWED BY MAGALY REAL AND ANGELICA. SKIN IS INTACT. NO ACUTE RESP DISTRESS NOTED. KEEP BED IN SEMI GALE'S ALLEVIATE VENTILATION. CPAP @ BEDSIDE. SIDERAILS ARE UP X2. AMBULATE. BED IS IN LOCK MODE AND ALARM IS ON. WILL CONT TO MONITOR.
--- NOTE | 2019-07-12 18:46 | NUR ---
CHARGE NURSE NOTE: Dr. Bashir was called second time for Ativan IV meds, message left.
--- NOTE | 2019-07-12 18:53 | NUR ---
NURSE NOTES: No new order for ativan IVP. Addendum: 07/12/19 at 1856 by SISSY YOO LVN per Dr. Palma
--- NOTE | 2019-07-12 19:13 | NUR ---
HAND-OFF: Report given to Zaira.
--- NOTE | 2019-07-12 19:43 | NUR ---
NURSE NOTES: Patient extremely agitated, yelling in the hallway, pulled her own IV out, demanding IV ativan. PO curently ordered. Called Dr Bashir's answering service, awaiting call back.
[2019-07-12] MEDS ORDERED: Miralax 17gm pkt ORAL PRN (19:45)
[2019-07-12] MEDS: Albuterol/Ipratropium 3ml neb HHN SCH (19:50)
[2019-07-12] MEDS: LORazepam Inj 2mg/ml 1ml IV PRN (20:15)
[2019-07-12] MEDS ORDERED: Atorvastatin 20mg tab ORAL SCH (21:00)
[2019-07-13] VITALS: BP 129/72
[2019-07-13] MEDS: Albuterol/Ipratropium 3ml neb HHN SCH ×2 (00:44→07:01)
[2019-07-13 04:00] VITALS: BP 157/73
[2019-07-13] MEDS: NovoLOG Insulin Flexpen SUBQ SCH ×4 (06:14→11:50)
[2019-07-13] MEDS ORDERED: Levothyroxine 125mcg tab ORAL SCH (06:30)
[2019-07-13] MEDS ORDERED: Levemir Flexpen SUBQ SCH ×2 (06:30)
--- NOTE | 2019-07-13 07:41 | NUR ---
HAND-OFF: Report given to ELAN Castillo.
[2019-07-13 08:00] VITALS: BP 140/70
--- NOTE | 2019-07-13 08:04 | NUR ---
NURSE NOTES: Lei Seller entered room pt getting dressed I am ready to go. Orders reviewed . Will follow up with
[2019-07-13] MEDS ORDERED: Aspirin EC 81mg tab ORAL SCH (09:00)
[2019-07-13] MEDS ORDERED: Lisinopril 2.5mg tab ORAL SCH (09:00)
[2019-07-13] MEDS: Heparin 5000 units/ml inj SUBQ SCH (09:00)
[2019-07-13] MEDS ORDERED: Furosemide 40mg tab ORAL SCH (09:00)
[2019-07-13] MEDS: LORazepam Inj 2mg/ml 1ml IV PRN (09:09)
[2019-07-13] MEDS: Azithromycin 250mg tab ORAL SCH ×2 (09:09→09:28)
[2019-07-13 09:28] VITALS: BP 140/70
[2019-07-13] MEDS: Docusate 100mg cap ORAL SCH (09:29)
--- NOTE | 2019-07-13 09:29 | NUR ---
RADIOLOGY DEPT., CHEST X-RAY DONE BY TECH:CLAYTON [email or web address].FRED
--- NOTE | 2019-07-13 10:14 | NUR ---
CASE MANAGEMENT: REVIEW 07/13/19 SI: COPD EXACERBATION. 97.3 80 18 140/70 98% RA IS: HEPARIN QD Q12 ZITHROMYCIN POQD PROTONIX PO QD CLONIDINE PO Q8H LEVEMIR SUBQ QAM LIPITOR PO QHS NORVASC PO QHS LASIX PO QD HYDROCHLOROTHIAZIDE PO QD NORMODYNE PO QD PREDNISONE PO QD DUO NEB HHN Q4H PRN ALBUTEROL HHN Q6/PRN SOLU MEDROL IV X1 ASPIRIN PO QD LEXAPRO PO QD LISINOPRIL PO QD : 2E TELE UNIT DCP: PATIENT TO BE DISCHARGED TO HOME ONCE MEDICALLY CLEARED. PLAN OF CARE: DC PLANNING TO HOME W/ HH AND DME CXR
--- NOTE | 2019-07-13 10:47 | NUR ---
NURSE NOTES: Dr Chowdary called in regards to pt discharge stated he wanted to see her before she left. Pt is belligerent and wants to leave . AMA offered and explained " You are just now ordering all of these test like something is wrong, you doing everything at the last minute." Pt informed that this is the first time sba underwriter provided care to her. " I am ready to go " Pt made awre of pt statements. " I know where he is I can walk to his office my self" Charge Nurse intervened due to pt escalating in hallway
--- NOTE | 2019-07-13 11:04 | GI Progress Note ---
Assessment/Plan Problems: (1) Obesity ICD Codes: E66.9 - Obesity, unspecified SNOMED: 623713729 (2) Dysphagia ICD Codes: R13.10 - Dysphagia, unspecified SNOMED: 96036942, 708646582 (3) Diabetes ICD Codes: E11.9 - Type 2 diabetes mellitus without complications SNOMED: 74283902 Status: stable Status Narrative Discussed with Dr. Aguillon. Assessment/Plan s/p EGD noted with gastritis. No obvious ulceration, mass, ady or any other pathology was seen. ST evaluation reviewed. Okay for DC per GI standpoint Follow up biopsy results and treat accordingly. advance diet as tolerated prn transfusions ppi DM management reglan prn for GI motility follow labs needs outpatient colonoscopy The patient was seen and examined at bedside and all new and available data was reviewed in the patients chart. I agree with the above findings, impression and plan. (Patient seen earlier today. Signature stamp does not reflect patient encounter time.). - Higinio Aguillon MD Subjective Gastrointestinal/Abdominal: Reports: no symptoms Subjective Denies any abdominal pain Denies any nausea vomiting Patient still complains of slight odynophagia Objective Last 24 Hour Vital Signs Date Time Temp Pulse Resp B/P (MAP) Pulse Ox O2 Delivery O2 Flow Rate FiO2 07/13/19 09:28 140/70 07/13/19 09:28 86 140/70 07/13/19 09:00 86 140/70 07/13/19 07:01 80 18 100 Room Air 21 78 18 98 07/13/19 06:23 97.3 07/13/19 05:53 157/73 07/13/19 04:00 97.3 64 18 157/73 (101) 96 07/13/19 02:54 62 17 97 Facial 30 07/13/19 00:54 68 19 99 Room Air 21 07/13/19 00:44 64 17 98 Facial 30 07/13/19 00:44 65 17 98 Bi-Pap 30 07/13/19 00:00 97.9 80 18 129/72 (91) 95 07/12/19 23:40 Room Air 07/12/19 22:02 75 21 96 Facial 30 07/12/19 21:56 159/87 07/12/19 20:00 98.6 88 20 159/87 (111) 95 07/12/19 16:00 99.3 76 18 112/56 (74) 96 07/12/19 14:45 88 20 99 Nasal Cannula 2.0 28 88 20 99 07/12/19 14:04 154/84 07/12/19 14:01 97.6 86 20 153/73 (99) 98 07/12/19 12:00 97.8 79 18 176/87 (116) 98 07/12/19 12:00 67 Intake and Output 07/12/19 07/13/19 18:59 06:59 Intake Total 720 ml 250 ml Output Total 300 ml Balance 420 ml 250 ml Intake Oral 720 ml 250 ml Output Urine Total 300 ml # Voids 1 2 # Bowel Movements 1 1 Height (Feet): 5 Height (Inches): 7.00 Weight (Pounds): 291 General Appearance: WD/WN, no apparent distress, alert Cardiovascular: normal rate Respiratory/Chest: normal breath sounds, no respiratory distress Abdominal Exam: normal bowel sounds, non tender, soft Extremities: normal range of motion, non-tender Alec Ross NP Jul 13, 2019 11:04
--- NOTE | 2019-07-13 11:30 | NUR ---
NURSE NOTES: Pt eager for discharge requested that IV be removed . Case Management came to see pt in regards to home health services
--- NOTE | 2019-07-13 11:32 | Diagnostic Imaging Report ---
Indication: Shortness of breath Technique: One view of the chest Comparison: none Findings: Body habitus limits evaluation. No definite acute infiltrates, effusions, congestion or significant interim change Impression: No definite acute process
[2019-07-13] MEDS ORDERED: LEXAPRO10 MG ORAL (12:03)
[2019-07-13] MEDS ORDERED: LEVEMIR FL100 UNIT/1 SUBQ ×2 (12:03)
[2019-07-13] MEDS ORDERED: NOVOLOG100 UNITS1 SUBQ (12:03)
[2019-07-13] MEDS ORDERED: ZITHROMAX250 MG ORAL (12:03)
--- NOTE | 2019-07-13 12:05 | Discharge Instructions ---
Discharge Instructions Discharge Instructions Follow up with: primary care doctor tomorrow Call MD/Return to Hospital if: breathing worsens Diet: 2 GM sodium (low sodium), diabetic calorie control Resume Normal Activity?: Yes Activity: resume normal activities, no restrictions Special Instructions Finish azithromycin for 3 more days Recheck your BMP in one week Follow up with your primary care doctor tomorrow. They need to titrate your insulin for better glucose control. The results of your biopsy were negative for H. Pylori For Congestive Heart Failure Reminder Report to your physician any weight gain of 5 pounds or more in one week. Nathaniel Perkins D.O. Jul 13, 2019 12:05
--- NOTE | 2019-07-13 12:09 | NUR ---
NURSE NOTES: Pt left without signing discharge documents. R/b explained
--- NOTE | 2019-07-13 12:30 | NUR ---
NURSE NOTES: Upon this writing pt has not retuned to floor. Pt informed that discharge papers are being prepared , " I need to go get nme something to nible on; come on with it" Pt refused to stay and wait for documents. Stated she will be back and has not returned. Unable to give pt teaching 2 to bx belligerent bx. Belongings given, personal belonging in safe, medications from pharmacy given earlier in shift by charge nurse. Pt required repeated encouragement to wait for MD to arrive for discharge.
--- NOTE | 2019-07-13 15:46 | NUR ---
*-* INSURANCE *-* UPDATED CLINICALS AND REVIEWS HAVE BEEN FAXED TO: [employer] tracking#[id number] NCM: Brie #[phone] fax#[phone]
--- NOTE | 2019-07-13 17:47 | Discharge Summary ---
Discharge Summary Hospital Course Date of Admission Jul 04, 2019 at 18:12 Date of Discharge Jul 13, 2019 at 12:30 Admitting Diagnosis asthma exacerbation, sleep apnea HPI Katherine Gandara is a 53 year old female who was admitted on Jul 04, 2019 at 18: 12 for Asthma Exacerbation,Sleep Apnea Consultations none Procedures none Hospital Course Katherine Gandara is a 53 yo woman with PMH of IDDM with neuropathy, CRISTINE on CPAP, asthma/COPD not on home O2, HFpEF (60%), HTN, hypothyroid, severe obesity and anxiety who presented with worsening JETER and neck pain, found with overall unremarkable CBC, BMP notable for glucose 360, CXR with borderline cardiomegaly but otherwise unremarkable, and unremarkable Xray of neck. Patient admitted for acute asthma/COPD exacerbation. Patient was treated with IV Solu-Medrol for 1 day and then duo nebs every 6 hours ATC. Patient switched to prednisone 40 mg p.o. daily for a total of 7 days. Patient improved at first but then worsened so an extra dose of IV Solu-Medrol was given twice. Initially the patient did not exhibit any infectious symptoms such as fever or chills, but Given that the patient was not improving she was started on a Z-Shmuel for potential infectious etiology and anti-inflammation properties. The patient was also complaining of odynophagia/dysphagia. Initially the patient was started on nystatin for a concern of Puja. CT neck was performed which was negative except for slightly enlarged adenoids. GI was consulted who performed an EGD which was negative for Puja but positive for chronic gastritis. Pathology was negative for H. pylori. Patient was discharged on a PPI. The patient's diabetes was uncontrolled during the hospitalization. She was discharged on Lantus 40 units every morning and 40 units every afternoon, with 21 units of Humalog 3 times daily with meals Patient was continued on her home blood pressure medications, but I discharge patient was started on lisinopril 5 mg p.o. daily and labetalol was discontinued. Patient needs further titration of her blood pressure medications as an outpatient. Patient was seen by physical therapy. She was cleared to go home with a front wheel walker with seat which was going to be delivered to her house.On discharge patient was hemodynamically stable, she endorsed being at her baseline breathing state, she was on room air and in no distress. She was discharged home and has follow-up with her PCP tomorrow. # Acute asthma/COPD exacerbation- Improved today. Still with wheezing on exam. hx CRISTINE on CPAP - received solumedrol 40mg IV q8hr for one day and then duonebs q6hr ATC - Now on prednisone 40mg Po daily. Continue PO prednisone. One extra dose of soluemdrol 125mg IV x 1. - Will discharge with steroid taper. Has f/u with CATALOGUE COMPILER who visits her home next week. Cannot be discharged today because "would be crawling around on the floor. " Needs walker with seat which will be delivered tomorrow. - Given persistence of symptoms will continue Azithromycin 500mg x 1 and 250mg Po daily for 4 more days - will consider pulm consult if worsens again - EKG with NSR and no ST-T wave abnormalities. - Cardiac etiology included on differential but given report of recent unremarkable stress test, low suspicion for ACS. - CXR with borderline cardiomegaly but otherwise not overtly impressive. Pro BNP 70s - Continue home amlodipine 10mg PO daily, aspirin 81mg PO daily, atorvastatin 40mg PO qhs, - Continue home CPAP qhs #leukocytosis 2/2 steroids - no signs/symptoms of infection - continue to monitor #Chronic HFpEF (EF 60% on TTE one year ago), compensated. Mild LVH - Repeat TTE - Continue lasix 40mg PO daily #HTN, stable - Continue home clonidine 0.3mg PO TID, HCTZ 25mg PO daily, STOP labetalol on discharge. Start lisinopril 5mg PO daily - needs repeat BMP in one week #Odynophagia for solids/liquids, could be from enlarged adenoids? no exudates on exam. viral? #gastritis per EGD 07/07/19. Follow up on bx > CT neck with contrast unremarkable: showed enlarged adenoids > EGD showed no strictures. No thrush on EGD > Barium swallow: Mild oropharyngeal dysphagia. No aspiration. > H. pylori negative - Appreciate GI recommendations: no further interventions. - Appreciate LAYOUT DESIGNER recommendations - S/p nystatin swish and swallow as no evidence of thrush on exam - Follow up biopsy from EGD to rule out H. Pylroi - Home health speech therapy as outpatient DM2 on insulin, with hyperglycemia. Last A1C 12.6 in 01/2019 - IMPROVING - As outpatient Lantus 40 units QAM and 40 units QPM - Continue Novolog to 21 units TID - Monitor FS ACHS and adjust as needed - Patient states no longer on glyburide at home #hypothyroidism -Continue home levothyroxine 125mcg PO Daily #Psych: anxiety. ? depression - Continue home klonopin 2mg PO BID - Ativan 0.5mg q6hr PRN anxiety - Appreciate Psychiatry recommendations Physical exam: Vital signs Temp 99.3 Pulse 62-88 BP: 112-180/56-93 Resp: 17-21 Gen: WDWN female in NAD CV: RRR, no murmurs rubs or gallops, no JVD Pulm: CTAB, no wheezes, rhonchi or rales GI: Soft nontender nondistended, bowel sounds present Ext: NO LE edema bilatearlly Neuro: A&O x 4, no focal signs Skin: no rashes, lesions or ulcers MSK: No joint swelling UE and LE bilaterally Discussed with patient, RN and case management. I spent>30 minutes on this patient's care, including >50% dedicated to counseling and/or coordination of care Time of note may not reflect time patient was seen Discharge Condition Upon Discharge: improving Discharge Disposition Patient was discharged to home with home health PT Discharge Diagnoses: (1) COPD exacerbation (2) CHF (congestive heart failure) (3) HTN (hypertension) (4) Acute asthma exacerbation (5) Chronic upper back pain (6) Anxiety disorder (7) Shortness of breath (8) Assistance needed for ambulation and movement (9) Diabetes (10) Active asthma Discharge Instructions Discharge Instructions Follow up with: primary care doctor tomorrow Call MD/Return to Hospital if: breathing worsens Activity: resume normal activities, no restrictions Nathaniel Perkins D.O. Jul 13, 2019 17:47
--- NOTE | 2019-07-14 14:59 | NUR ---
*-* INSURANCE *-* DISCHARGE SUMMARY HAVE BEEN FAXED TO: [employer] tracking#[id number] JOCELYNN: Brie #[phone] fax#[phone]
== END 2019-07-13 12:30 | disposition home health service (06) | DRG 140 ==
LOC: EDBD 16:17 → EMR 16:52 → 2E 18:12 → EDBEDREQ 18:48 → 2E 21:42 → 3E 07-12 15:04
PROC: 0DB78ZX Excision of Stomach, Pylorus, Via Natural or Artificial Opening Endoscopic, Diagnostic (ICD-10-PCS; principal; 2019-07-07 11:18)
DX: J44.1 Chronic obstructive pulmonary disease with (acute) exacerbation (principal); E11.65 Type 2 diabetes mellitus with hyperglycemia; E66.9 Obesity, unspecified; Z68.42 Body mass index [BMI] 45.0-49.9, adult; E11.40 Type 2 diabetes mellitus with diabetic neuropathy, unspecified; K29.70 Gastritis, unspecified, without bleeding; K44.9 Diaphragmatic hernia without obstruction or gangrene; I11.0 Hypertensive heart disease with heart failure; I50.9 Heart failure, unspecified; Z88.6 Allergy status to analgesic agent; Z88.0 Allergy status to penicillin; R13.10 Dysphagia, unspecified; Z79.4 Long term (current) use of insulin; E03.9 Hypothyroidism, unspecified; G89.29 Other chronic pain; M54.9 Dorsalgia, unspecified; R26.2 Difficulty in walking, not elsewhere classified; M19.90 Unspecified osteoarthritis, unspecified site; F32.9 Major depressive disorder, single episode, unspecified; G47.00 Insomnia, unspecified; F41.0 Panic disorder [episodic paroxysmal anxiety]
CPT/HCPCS: 36415; 36600; 70360; 70490; 71045; 74230; 80048; 80053; 82550; 82553; 82803; 82947; 82962; 83036; 83735; 83880; 84100; 84484; 85007; 85025; 85610; 85730; 92610; 93005; 93306; 94003; 94150; 94640; 94660; 94664; 96374; 96375; 99285; J1815; J2405; J7620; S5561

== ENCOUNTER 2020-04-17 16:02 | Inpatient (IN) | payer MEDICAID, OTHER ==
[~2020-04-17 16:02] MED LIST changes: +AMBIEN5 MG ORAL; +BECONASE AQ25 GM NASAL; +CRESTOR20 MG ORAL; +DOK100 M1 PO; +FLOVENT2 PUFF1 INH; +FUROSEMIDE40 MG ORAL; +HUMALOG100 UNIT/3 SUBQ; +LEVEMIR FL100 UNIT/1 SUBQ; +LEXAPRO10 MG ORAL; +METFORMIN HCL500 M1 ORAL; +NORCO 10-325 T1 EACH ORAL; +NOVOLOG100 UNITS1 SUBQ; +ZITHROMAX250 MG ORAL
[2020-04-17] MEDS ORDERED: Omnipaque-300 100ml vial INJ PRN (16:30)
[2020-04-17] MEDS ORDERED: Morphine Sulfate 2mg/ml Inj(IV/IM USE ONLY) IVP ONE (16:30)
[2020-04-17] MEDS ORDERED: Docusate 100mg cap ORAL PRN (21:30)
[2020-04-17] MEDS ORDERED: oxyCODONE HCL/Acetaminophen 5/325mg ORAL STA (21:42)
[2020-04-18] MEDS: Levemir Flexpen SUBQ SCH (06:03)
[2020-04-18] MEDS: NovoLOG Insulin Flexpen SUBQ SCH ×7 (06:04→20:39)
[2020-04-18] MEDS ORDERED: Albuterol/Ipratropium 3ml neb HHN PRN (07:15)
[2020-04-18] MEDS: Heparin 5000 units/ml inj SUBQ SCH ×3 (09:00→20:39)
[2020-04-18] MEDS: hydroCHLOROthiazide 25mg cap ORAL SCH ×2 (09:00→09:14)
[2020-04-18] MEDS: Aspirin EC 81mg tab ORAL SCH ×2 (09:00→09:15)
[2020-04-18] MEDS: Furosemide 40mg tab ORAL SCH ×2 (09:00→09:14)
[2020-04-18] MEDS: metFORMIN 500mg tab ORAL SCH ×3 (09:00→17:01)
[2020-04-18] MEDS: Levothyroxine 125mcg tab ORAL SCH ×2 (09:00→09:14)
[2020-04-18] MEDS: HYDROcodone/Acetamin 10/325 tab ORAL PRN (11:57)
[2020-04-18] MEDS ORDERED: LORazepam 1mg tab ORAL PRN (18:45)
[2020-04-18] MEDS ORDERED: Morphine Sulfate 2mg/ml Inj(IV/IM USE ONLY) IVP SCH (20:00)
[2020-04-18] MEDS ORDERED: LORazepam Inj 2mg/ml 1ml IV SCH (20:00)
[2020-04-18] MEDS ORDERED: Levemir Flexpen SUBQ SCH (21:00)
[2020-04-18] MEDS ORDERED: Zolpidem 5mg tab ORAL SCH (21:00)
[2020-04-19] MEDS: NovoLOG Insulin Flexpen SUBQ SCH ×7 (06:02→20:38)
[2020-04-19] MEDS: Levemir Flexpen SUBQ SCH (06:13)
[2020-04-19] MEDS: Aspirin EC 81mg tab ORAL SCH (08:54)
[2020-04-19] MEDS: Furosemide 40mg tab ORAL SCH (08:55)
[2020-04-19] MEDS: metFORMIN 500mg tab ORAL SCH ×2 (08:55→17:38)
[2020-04-19] MEDS: hydroCHLOROthiazide 25mg cap ORAL SCH (08:55)
[2020-04-19] MEDS: Levothyroxine 125mcg tab ORAL SCH (08:55)
[2020-04-19] MEDS: Heparin 5000 units/ml inj SUBQ SCH ×2 (08:56→20:32)
[2020-04-19] MEDS ORDERED: Levofloxacin 500mg tab ORAL SCH (09:00)
[2020-04-19] MEDS: HYDROcodone/Acetamin 10/325 tab ORAL PRN (09:03)
[2020-04-19] MEDS: CORTISPORIN 1% BOTH EARS SCH ×3 (09:57→17:38)
[2020-04-19] MEDS ORDERED: Levalbuterol Inh UD 1.25mg/0.5ml HHN PRN ×2 (10:15→15:00)
[2020-04-19] MEDS ORDERED: Levalbuterol Inh UD 1.25mg/0.5ml HHN SCH ×2 (13:00)
[2020-04-19] MEDS ORDERED: Docusate 100mg cap ORAL PRN (15:00)
[2020-04-19] MEDS ORDERED: LORazepam 1mg tab ORAL PRN (15:00)
[2020-04-19] MEDS ORDERED: Omnipaque-300 100ml vial INJ PRN (15:00)
[2020-04-19] MEDS ORDERED: Albuterol/Ipratropium 3ml neb HHN PRN (15:15)
[2020-04-19] MEDS ORDERED: HYDROcodone/Acetamin 10/325 tab ORAL PRN (15:15)
[2020-04-19] MEDS ORDERED: Morphine Sulfate 2mg/ml Inj(IV/IM USE ONLY) IVP SCH (16:15)
[2020-04-19] MEDS ORDERED: LEVEMIR FL100 UNIT/1 SUBQ (18:57)
[2020-04-19] MEDS ORDERED: LABETALOL HCL100 MG ORAL (19:08)
[2020-04-19] MEDS ORDERED: CYMBALTA60 MG ORAL (19:08)
[2020-04-19] MEDS ORDERED: MELOXICAM7.5 MG PO (19:08)
[2020-04-19] MEDS ORDERED: ACETAMINOPHEN500 M3 ORAL (19:08)
[2020-04-19] MEDS ORDERED: CLONAZEPAM2 MG PO (19:08)
[2020-04-19] MEDS ORDERED: LOSARTAN POTASS50 MG ORAL (19:08)
[2020-04-19] MEDS ORDERED: Zolpidem 5mg tab ORAL SCH (21:00)
[2020-04-19] MEDS ORDERED: Levemir Flexpen SUBQ SCH (21:00)
[2020-04-20] MEDS: NovoLOG Insulin Flexpen SUBQ SCH ×7 (06:23→21:46)
[2020-04-20] MEDS ORDERED: Levemir Flexpen SUBQ SCH (06:30)
[2020-04-20] MEDS ORDERED: Levothyroxine 125mcg tab ORAL SCH (06:30)
[2020-04-20] MEDS ORDERED: Furosemide 40mg tab ORAL SCH (09:00)
[2020-04-20] MEDS ORDERED: hydroCHLOROthiazide 25mg cap ORAL SCH (09:00)
[2020-04-20] MEDS ORDERED: Levofloxacin 500mg tab ORAL SCH (09:00)
[2020-04-20] MEDS ORDERED: Aspirin EC 81mg tab ORAL SCH (09:00)
[2020-04-20] MEDS: metFORMIN 500mg tab ORAL SCH ×2 (09:11→17:57)
[2020-04-20] MEDS: Heparin 5000 units/ml inj SUBQ SCH ×2 (09:15→21:00)
[2020-04-20] MEDS: CORTISPORIN 1% BOTH EARS SCH ×3 (09:17→18:00)
[2020-04-20] MEDS ORDERED: Morphine Sulfate 2mg/ml Inj(IV/IM USE ONLY) IVP SCH (13:00)
[2020-04-20] MEDS ORDERED: Docusate 100mg cap ORAL PRN (21:00)
[2020-04-20] MEDS ORDERED: HYDROcodone/Acetamin 10/325 tab ORAL PRN (21:00)
[2020-04-20] MEDS ORDERED: Albuterol/Ipratropium 3ml neb HHN PRN (21:00)
[2020-04-20] MEDS: Zolpidem 5mg tab ORAL SCH (21:42)
[2020-04-20] MEDS: Levemir Flexpen SUBQ SCH (21:45)
[2020-04-21] MEDS: Levemir Flexpen SUBQ SCH ×2 (05:52→21:06)
[2020-04-21] MEDS: NovoLOG Insulin Flexpen SUBQ SCH ×7 (05:53→21:00)
[2020-04-21] MEDS: Levothyroxine 125mcg tab ORAL SCH (05:54)
[2020-04-21] MEDS ORDERED: HYDROmorphone 1mg/ml Carpuject IVP SCH (08:15)
[2020-04-21] MEDS: Aspirin EC 81mg tab ORAL SCH (08:56)
[2020-04-21] MEDS: metFORMIN 500mg tab ORAL SCH ×2 (08:57→17:07)
[2020-04-21] MEDS: hydroCHLOROthiazide 25mg cap ORAL SCH (08:58)
[2020-04-21] MEDS: CORTISPORIN 1% BOTH EARS SCH ×3 (09:00→17:07)
[2020-04-21] MEDS ORDERED: Furosemide 40mg tab ORAL SCH (09:00)
[2020-04-21] MEDS ORDERED: Levofloxacin 500mg tab ORAL SCH (09:00)
[2020-04-21] MEDS: Heparin 5000 units/ml inj SUBQ SCH ×2 (09:03→21:05)
[2020-04-21] MEDS ORDERED: Levalbuterol Inh UD 1.25mg/0.5ml HHN PRN (15:00)
[2020-04-21] MEDS: LORazepam 1mg tab ORAL PRN (15:20)
[2020-04-21] MEDS: Metoprolol Tartrate 50mg tab ORAL SCH (21:04)
[2020-04-21] MEDS: Zolpidem 5mg tab ORAL SCH (21:04)
[2020-04-22] MEDS: LORazepam 1mg tab ORAL PRN ×2 (00:30→16:41)
[2020-04-22] MEDS: Levothyroxine 125mcg tab ORAL SCH (06:12)
[2020-04-22] MEDS: Levemir Flexpen SUBQ SCH (06:13)
[2020-04-22] MEDS: NovoLOG Insulin Flexpen SUBQ SCH ×6 (06:15→16:50)
[2020-04-22] MEDS ORDERED: Morphine Sulfate 2mg/ml Inj(IV/IM USE ONLY) IM SCH (07:15)
[2020-04-22] MEDS: CORTISPORIN 1% BOTH EARS SCH ×3 (08:37→18:30)
[2020-04-22] MEDS: Metoprolol Tartrate 50mg tab ORAL SCH (08:37)
[2020-04-22] MEDS: metFORMIN 500mg tab ORAL SCH ×2 (08:38→18:29)
[2020-04-22] MEDS: hydroCHLOROthiazide 25mg cap ORAL SCH (08:38)
[2020-04-22] MEDS: Aspirin EC 81mg tab ORAL SCH (08:38)
[2020-04-22] MEDS: Heparin 5000 units/ml inj SUBQ SCH (08:42)
== END 2020-04-22 20:47 | disposition home or self-care (01) | DRG 202 ==
DX: J45.901 Unspecified asthma with (acute) exacerbation (principal); Z68.42 Body mass index [BMI] 45.0-49.9, adult; G47.33 Obstructive sleep apnea (adult) (pediatric); E66.9 Obesity, unspecified; G89.29 Other chronic pain; M54.89 Other dorsalgia; E11.65 Type 2 diabetes mellitus with hyperglycemia; K57.90 Diverticulosis of intestine, part unspecified, without perforation or abscess without bleeding; Z88.6 Allergy status to analgesic agent; Z88.0 Allergy status to penicillin; Z90.49 Acquired absence of other specified parts of digestive tract; F41.9 Anxiety disorder, unspecified; R29.6 Repeated falls; R42 Dizziness and giddiness; M25.561 Pain in right knee